=== PATIENT | female | born 1950 | race Caucasian/White ===

== ENCOUNTER → 2025-02-19 | Outpatient (CLI) | payer MEDICARE, OTHER, SELFPAY ==
--- NOTE | 2025-02-19 14:26 | CT_ITS ---
PROCEDURE: CTA CHEST W/WO CONTRAST 02/19/2025 REASON FOR EXAM: L SUBCLAVIAN STENOSIS, HX CABG WITH TYLER TECHNIQUE: CTA CHEST W/WO CONTRAST Multiplanar Sagittal and Coronal images were obtained. 3D post processing was performed CONTRAST: Isovue 370 VOLUME: 100 mL One or more dose reduction techniques were used (e.g., Automated exposure control, adjustment of the mA and/or kV according to patient size, use of iterative reconstruction technique). RADIATION DOSE SUMMARY: CTDlvol: 7.05 mGy DLP: 266.62 mGycm COMPARISON: None FINDINGS: Hardware: None Lymph nodes: Small benign-appearing mediastinal lymph nodes. Heart: Status post CABG. Thoracic Aorta: No thoracic aortic aneurysm or dissection. Atherosclerotic plaque formation of the aortic arch. Calcific plaque at the origin of the left subclavian artery causing the significant stenosis. Plaque also seen at the origin of the right subclavian artery. Pulmonary Vessels: No evidence of pulmonary embolism. Lungs and Airways: No focal infiltrate or consolidation is seen. Pleura: No pleural effusion. Upper Abdomen: Diffuse pancreatic atrophy. Questionable sludge or tiny gallstones along the dependent portion of the gallbladder lumen. Bones: Degenerative changes of the thoracic spine. CT/CTA Chest W/WO Contrast IMPRESSION: Atherosclerotic plaque formation at the origin subclavian arteries bilaterally worse on the left side. Prior CABG. Questionable sludge or tiny gallstones along the dependent portion of the gallb ladder lumen. Reading Location: [id number]
[2025-02-19 15:12] LABS: CREATININE FINGERSTICK < 1.0 mg/dL (0.55-1.02); EGFR FINGERSTICK > 60.0000 mL/min (>60)
== END | disposition home or self-care (01) ==
LOC: CT 14:21
PROVIDERS: Referring Provider Physician Assistant; Visit Provider Physician Assistant
DX: I77.1 Stricture of artery (principal); Z95.1 Presence of aortocoronary bypass graft
CPT/HCPCS: 71275; Q9967

== ENCOUNTER 2025-06-05 06:57 | Day surgery (SDC) | payer MEDICARE, OTHER, SELFPAY ==
[2025-06-04 06:55] VITALS: BMI 26.9
--- OUTSIDE RECORDS SUMMARY | 2025-06-05 07:05 | XMS RPT_ITS | CCD ---
Author Organization [facility] Care Team Providers Care Lead Tank Mechanic Name Role Phone BARBER ROY, DYAN Primary Care Physician [phone] Katerine Russell Unavailable Unavailable Sharri Carrion Unavailable Unavailable BARBER ROY, DYAN Primary Care Physician [phone] BARBER MAINTENANCE DATA ANALYST-RAMON, DYAN Attending Unavailab le BECERRIL MAINTENANCE DATA ANALYST-FRUIT RECEIVER, DYAN Primary Care Unavailab le BECERRIL MAINTENANCE DATA ANALYST-FRUIT RECEIVER, DYAN Attending Unavailab le BECERRIL MAINTENANCE DATA ANALYST-FRUIT RECEIVER, DYAN Primary Care Unavailab le BECERRIL MAINTENANCE DATA ANALYST-FRUIT RECEIVER, DYAN Attending Unavailab le BECERRIL MAINTENANCE DATA ANALYST-FRUIT RECEIVER, DYAN Primary Care Unavailab le BECERRIL MAINTENANCE DATA ANALYST-FRUIT RECEIVER, DYAN Attending Unavailab le BECERRIL MAINTENANCE DATA ANALYST-FRUIT RECEIVER, DYAN Primary Care Unavailab le BECERRIL MAINTENANCE DATA ANALYST-FRUIT RECEIVER, DYAN Attending Unavailab le BECERRIL MAINTENANCE DATA ANALYST-FRUIT RECEIVER, DYAN Primary Care Unavailab le BECERRIL MAINTENANCE DATA ANALYST-FRUIT RECEIVER, DYAN Attending Unavailab le BECERRIL MAINTENANCE DATA ANALYST-FRUIT RECEIVER, DYAN Primary Care Unavailab le BECERRIL MAINTENANCE DATA ANALYST-FRUIT RECEIVER, DYAN Attending Unavailab le BECERRIL MAINTENANCE DATA ANALYST-FRUIT RECEIVER, DYAN Primary Care Unavailab le BECERRIL MAINTENANCE DATA ANALYST-FRUIT RECEIVER, DYAN Attending Unavailab le BECERRIL MAINTENANCE DATA ANALYST-FRUIT RECEIVER, DYAN Primary Care Unavailab le BECERRIL MAINTENANCE DATA ANALYST-FRUIT RECEIVER, DYAN Attending Unavailab le BECERRIL MAINTENANCE DATA ANALYST-FRUIT RECEIVER, DYAN Primary Care Unavailab le BECERRIL MAINTENANCE DATA ANALYST-FRUIT RECEIVER, DYAN Attending Unavailab le BECERRIL MAINTENANCE DATA ANALYST-FRUIT RECEIVER, DYAN Primary Care Unavailab le BECERRIL MAINTENANCE DATA ANALYST-FRUIT RECEIVER, DYAN Admitting Unavailab le BECERRIL MAINTENANCE DATA ANALYST-FRUIT RECEIVER, DYAN Primary Care Physician [phone] Vivien Villegas Attending Provider [phone] BECERRIL MAINTENANCE DATA ANALYST-FRUIT RECEIVER, DYAN Attending Unavailab le BECERRIL MAINTENANCE DATA ANALYST-FRUIT RECEIVER, DYAN Primary Care Unavailab le BECERRIL MAINTENANCE DATA ANALYST-FRUIT RECEIVER, DYAN Primary Care Unavailab DR CATHERINE Schmid MD Attending Unavailabl e BECERRIL MAINTENANCE DATA ANALYST-FRUIT RECEIVER, DYAN Attending Unavailab le BECERRIL MAINTENANCE DATA ANALYST-FRUIT RECEIVER, DYAN Primary Care Unavailab le BECERRIL MAINTENANCE DATA ANALYST-FRUIT RECEIVER, DYAN Attending Unavailab le BECERRIL MAINTENANCE DATA ANALYST-FRUIT RECEIVER, DYAN Admitting Unavailab le BECERRIL MAINTENANCE DATA ANALYST-FRUIT RECEIVER, DYAN Primary Care Unavailab le BECERRIL MAINTENANCE DATA ANALYST-FRUIT RECEIVER, DYAN Attending Unavailab le BECERRIL MAINTENANCE DATA ANALYST-FRUIT RECEIVER, DYAN Primary Care Unavailab le Vivien Villegas Referring Provider [phone] BECERRIL DYAN S Primary Care Provider BECERRIL MAINTENANCE DATA ANALYST-FRUIT RECEIVER, DYAN Attending Unavailab le BECERRIL MAINTENANCE DATA ANALYST-FRUIT RECEIVER, DYAN Primary Care Unavailab le BECERRIL MAINTENANCE DATA ANALYST-FRUIT RECEIVER, DYAN Attending Unavailab le BECERRIL MAINTENANCE DATA ANALYST-FRUIT RECEIVER, DYAN Primary Care Unavailab le BECERRIL MAINTENANCE DATA ANALYST-FRUIT RECEIVER, DYAN Attending Unavailab le BECERRIL MAINTENANCE DATA ANALYST-FRUIT RECEIVER, DYAN Primary Care Unavailab le BECERRIL MAINTENANCE DATA ANALYST-FRUIT RECEIVER, DYAN Attending Unavailab le BECERRIL MAINTENANCE DATA ANALYST-FRUIT RECEIVER, DYAN Primary Care Unavailab le BECERRIL MAINTENANCE DATA ANALYST-FRUIT RECEIVER, DYAN Attending Unavailab le BECERRIL MAINTENANCE DATA ANALYST-FRUIT RECEIVER, DYAN Primary Care Unavailab Vivien Bean Attending Physician [phone] Vivien Villegas Referring Provider [phone] DYAN BECERRIL S Primary Care Physician [phone] Dr. Adin Burgos MD Attending Physician Vivien Solis Attending Unavailable Adin Burgos Attending Unavailable Vivien Solis Referring Unavailable MELISSA GROVES Primary Care Unavailable Vivien Solis Attending Unavailable Adin Burgos Attending Unavailable Medications Current Medications Medication Drug Class(es) Dates Sig (Normalized) Sig (Original) acetaminophen 650 mg oral tablet (4 sources) Start: 05-02-2022 acetaminophen Dose : 650 mg =, Oral, q4h, PRN Pain, scale 1-3, 0 Refill(s) Start Date: 05/02/22 Status: Ordered Alcohol Swabs (4 sources) Start: 01-17-2020 Alcohol Swabs See Instructions, New DMII BID testing, # 1 EA, 0 Refill(s), Pharmacy: [facility] #63, New onset type 2 diabetes mellitus, 164.5, cm, 01/17/20 14:54:00 EDT, Height, 85.2, kg, 01/17/20 14:54:00 EDT, Dosing Weight Start Date: 01/17/20 Status: Ordered amiodarone hydrochloride 200 mg oral tablet (5 sources) Antiarrhythmic Start: 09-13-2022 amiodarone 200 mg oral tablet Dose : 200 mg = 1 tab(s), Oral, qDay, # 90 tab(s), 3 Refill(s), Pharmacy: [facility] #63, 170, cm, 07/13/22 12:50:00 EST, Height, kg, 09/09/22 11:04:00 EDT, Dosing Weight Start Date: 09/13/22 Status: Ordered Start: 05-02-2022 End: 06-09-2022 amiodarone 200 mg oral table t Dose : 200 mg = 1 tab(s), Oral, qDay, # 90 tab(s), 3 Refill(s), Pharmacy: [facility], 170, cm, 06/04/22 8:18:00 EST, Height, kg, 06/04/22 9:15:00 EST, Dosing Weight Start Date: 06/08/22 Status: Ordered amoxicillin 875 mg / clavulanate 125 mg oral tablet (1 source) Penicillin-class Antibacterial Start: 12-10-2024 End: 12-20-2024 take 1 tablet by mouth every twelve hours amoxicillin-clavulanate 875 mg-125 mg oral tablet 1 tab(s), Oral, q12h, X 10 day(s), # 20 tab(s), 0 Refill(s), 12/20/24 1:58:00 PM EDT, Pharmacy: [facility] #[facility], LLQ pain, 170, cm, 12/10/24 13:00:00 EDT, Height, 76, kg, 12/10/24 13:00:00 EDT, Dosing Weight Start Date: 12/10/24 Stop Date: 12/20/24 Status: Ordered Quantity: 20.0 Unit: tab(s) Repeat number: 1 Indications: Left lower quadrant pain; aspirin 81 mg oral tablet (20 sources) Platelet Aggregation Inhibitor, Nonsteroidal Anti-inflammatory Drug Start: 01-28-2025 take 1 tablet by mouth once daily Start: 04-16-2021 aspirin 81 mg oral delayed release tablet Dose : 81 mg = 1 tab(s), Oral, Daily, 0 Refill(s) Start Date: 04/16/21 Status: Ordered Repeat number: 1 Start: 04-16-2021 aspirin 81 mg oral delayed release tablet Dose : 81 mg = 1 tab(s), Oral, Daily, 0 Refill(s) Start Date: 04/16/21 Status: Ordered atorvastatin 40 mg oral tablet (17 sources) HMG-CoA Reductase Inhibitor Start: 01-30-2025 take 1 tablet by mouth at bedtime Start: 08-21-2024 Lipitor 40 mg oral tablet Dose : 40 mg = 1 tab(s), Oral, qDay, # 90 tab(s), 3 Refill(s), Pharmacy: [facility] #63, 170, cm, 06/11/24 13:07:00 EST, Height, kg, 06/11/24 13:07:00 EST, Dosing Weight Start Date: 08/21/24 Status: Ordered Quantity: 90.0 Unit: tab(s) Repeat number: 4 Start: 03-23-2024 Lipitor 40 mg oral tablet Dose : 40 mg = 1 tab(s), Oral, qDay, # 90 tab(s), 3 Refill(s), Pharmacy: [facility] #63, 170, cm, 03/23/24 13:25:00 EDT, Height, kg, 03/23/24 13:25:00 EDT, Dosing Weight Start Date: 03/23/24 Status: Ordered Start: 07-20-2023 Lipitor 40 mg oral tablet Dose : 40 mg = 1 tab(s), Oral, qDay, # 90 tab(s), 3 Refill(s), Pharmacy: [facility] #63, 170.2, cm, 06/21/23 14:22:00 EST, Height, kg, 06/21/23 14:22:00 EST, Dosing Weight Start Date: 07/20/23 Status: Ordered Start: 05-02-2022 Lipitor 40 mg oral tablet Dose : 40 mg = 1 tab(s), Oral, qDay, # 90 tab(s), 2 Refill(s), Pharmacy: [facility] #63, 170, cm, 10/04/22 14:44:00 EDT, Height, kg, 10/04/22 14:44:00 EDT, Dosing Weight Start Date: 10/06/22 Status: Ordered Blood Glucose Test Machine (4 sources) Start: 01-17-2020 Blood Glucose Test Machine See Instructions, New DMII BID testing, # 1 EA, 0 Refill(s), Pharmacy: [facility] #63, New onset type 2 diabetes mellitus, 164.5, cm, 01/17/20 14:54:00 EDT, Height, 85.2, kg, 01/17/20 14:54:00 EDT, Dosing Weight Start Date: 01/17/20 Status: Ordered cholecalciferol 1.25 mg oral capsule (5 sources) Vitamin D Start: 04-20-2022 cholecalcifero l 1250 mcg (50,000 intl units) oral capsule Dose : 1,250 mcg = 1 cap(s), Oral, Tuesday Start Date: 04/20/22 Status: Ordered cyclobenzaprine hydrochloride 10 mg oral tablet (3 sources) Muscle Relaxant Start: 02-22-2022 cyclobenzaprin e 10 mg oral tablet Dose : 10 mg = 1 tab(s), Oral, TID, PRN as needed for spasm, # 30 tab(s), 0 Refill(s), Pharmacy: [facility] #63, 167.6, cm, 02/22/22 12:53:00 EDT, Height Start Date: 02/22/22 Status: Ordered Start: 10-01-2021 take 1 tablet by yasmine th three times daily cyclobenzaprine 5 mg oral tablet TAKE 1 TABLET BY MOUTH THREE TIMES DAILY FOR 14 DAYS Start Date: 10/01/21 Status: Ordered diclofenac sodium 0.01 mg/mg topical gel (1 source) Nonsteroidal Anti-inflammatory Drug Start: 12-07-2021 diclofenac 1% topical gel 4 = gram(s), Topical, QID, PRN as needed for pain, May substitue with cream, lotion, or any other topical as approved by insurance., # 1 EA, 3 Refill(s), Pharmacy: [facility] #63, Gel, 167.6, cm, 12/07/21 10:37:00 EDT, Height, 80.4 Start Date: 12/07/21 Status: Ordered 12 hr guaiFENesin 600 mg extended release oral tablet (3 sources) Start: 05-02-2022 Mucinex 600 mg oral tablet, extended release Dose : 600 mg = 1 tab(s), Oral, BID, PRN Secretions, 0 Refill(s) Start Date: 05/02/22 Status: Ordered ibuprofen 200 mg oral tablet (3 sources) Nonsteroidal Anti-inflammatory Drug Start: 04-20-2022 Advil 200 mg oral tablet Dose : 200 mg = 1 tab(s), Oral, q6hr, PRN as needed for pain Start Date: 04/20/22 Status: Ordered ammonium lactate 120 mg/ml topical cream (3 sources) Start: 10-07-2022 ammonium lactate 12% topical cream Apply 1 margo, Topical, BID, # 140 gram(s), 1 Refill(s), Pharmacy: [facility] #63, 164.4, cm, 10/07/22 12:57:00 EDT, Height, 79.3 Start Date: 10/07/22 Status: Ordered metFORMIN hydrochloride 500 mg oral tablet (20 sources) Biguanide Start: 06-16-2023 End: 06-06-2025 take 1 tablet by mouth twice daily Start: 11-24-2021 End: 04-25-2023 metFORMIN 500 mg oral tablet (IR) Dose : 1,000 mg = 2 tab(s), Oral, BID, # 360 tab(s), 3 Refill(s), Pharmacy: [facility] #63, New onset type 2 diabetes mellitus, 170.2, cm, 04/20/22 18:20:00 EDT, Height, kg, 04/27/22 7:02:00 EDT, Dosing Weight Start Date: 04/30/22 Stop Date: 04/25/23 Status: Ordered Start: 10-23-2020 metFORMIN 500 mg oral tablet (IR) Dose : 1,000 mg = 2 tab(s), Oral, BID, # 360 tab(s), 3 Refill(s), Pharmacy: [facility] #63, New onset type 2 diabetes mellitus, 170.2, cm, 10/23/20 11:14:00 EDT, Height, kg, 10/23/20 11:14:00 EDT, Dosing Weight Start Date: 10/23/20 Status: Ordered 24 hr metoprolol succinate 25 mg extended release oral tablet (20 sources) beta-Adrenergic Darrin Start: 01-30-2025 take 1 tablet by mouth twice daily Start: 03-23-2024 metoprolol tar trate 25 mg oral tablet Dose : 25 mg = 1 tab(s), Oral, BID, # 180 tab(s), 3 Refill(s), Pharmacy: [facility] #63, 170, cm, 03/23/24 13:25:00 EDT, Height, kg, 03/23/24 13:25:00 EDT, Dosing Weight Start Date: 03/23/24 Status: Ordered Quantity: 180.0 Unit: tab(s) Repeat number: 4 Start: 10-10-2023 metoprolol tar trate 25 mg oral tablet Dose : 25 mg = 1 tab(s), Oral, BID, # 180 tab(s), 1 Refill(s), Pharmacy: [facility] #63, 170.2, cm, 07/21/23 15:38:00 EST, Height, kg, 07/21/23 15:38:00 EST, Dosing Weight Start Date: 10/10/23 Status: Ordered Start: 09-15-2022 metoprolol tar trate 25 mg oral tablet Dose : 25 mg = 1 tab(s), Oral, BID, # 180 tab(s), 3 Refill(s), Pharmacy: [facility] #63, 170, cm, 07/13/22 12:50:00 EST, Height, kg, 09/09/22 11:04:00 EDT, Dosing Weight Start Date: 09/15/22 Status: Ordered Start: 05-02-2022 metoprolol tar trate 25 mg oral tablet Dose : 25 mg = 1 tab(s), Oral, BID, # 60 tab(s), 3 Refill(s), Pharmacy: [facility] #63, 170.2, cm, 04/20/22 18:20:00 EDT, Height Start Date: 05/02/22 Status: Ordered Start: 05-02-2022 End: 05-02-2022 metoprolol tartrate ([place] or) Start: 05/02/22 8:00:00 EST, Dose = 25 mg, = 1 tab(s), Oral, Hold if SBP (mmHg) Start Date: 05/02/22 Stop Date: 05/02/22 Status: Completed Start: 05-01-2022 End: 05-01-2022 metoprolol tartrate ([place] or) Start: 05/01/22 17:00:00 EDT, Dose = 25 mg, = 1 tab(s), Oral, Hold if SBP (mmHg) Start Date: 05/01/22 Stop Date: 05/01/22 Status: Completed Start: 05-01-2022 End: 05-01-2022 metoprolol tartrate ([place]op[place] or) Start: 05/01/22 8:00:00 EDT, Dose = 25 mg, = 1 tab(s), Oral, Hold if SBP (mmHg) Start Date: 05/01/22 Stop Date: 05/01/22 Status: Completed Start: 04-20-2022 End: 04-20-2022 metoprolol tartrate 25 mg or al tablet Start: 04/20/22 12:00:00 EDT, Dose = 25 mg, = 1 tab(s), Oral, 04/20/22 12:00:00 EDT Start Date: 04/20/22 Stop Date: 04/20/22 Status: Completed nitroglycerin 0.4 mg sublingual tablet (1 source) Nitrate Vasodilator Start: 02-22-2022 nitroglyce rin 0.4 mg sublingual tablet 0.4 mg Dose = 1 tab(s), Sublingual, q5min, PRN for chest pain, # 25 tab(s), 0 Refill(s), Pharmacy: [facility], Chest pain, 167.6, cm, 02/22/22 12:53:00 EDT, Height Start Date: 02/22/22 Status: Ordered oxyCODONE hydrochloride 5 mg oral tablet (2 sources) Opioid Agonist Start: 05-02-2022 End: 05-09-2022 oxyCODONE 5 mg oral tablet ( IMMEDIATE release ) Dose : 5 mg = 1 tab(s), Oral, q6hr, PRN Pain, scale 7-10, X 7 day(s), # 28 tab(s), 0 Refill(s), 05/09/22 12:12:00 EST, Pharmacy: [facility], NSTEMI (non-ST elevated myocardial infarction)/CAD EF 40-45% S/P CABG x3 04/26/2022 Acute... Start Date: 05/02/22 Stop Date: 05/09/22 Status: Ordered POLYETHYLENE GLYCOL 3350 (3 sources) Osmotic Laxative Start: 05-02-2022 polyethylene glycol 3350 Oral, qDay, PRN Constipation, 0 Refill(s) Start Date: 05/02/22 Status: Ordered simvastatin 40 mg oral tablet (5 sources) HMG-CoA Reductase Inhibitor Start: 09-15-2021 simvastatin 40 mg or al tablet Dose : 40 mg = 1 tab(s), Oral, qHS, New dose, pt will finish the Rx she has at home by taking 2 per day before filling this Rx., # 90 tab(s), 3 Refill(s), Pharmacy: [facility], 167.6, cm, 09/15/21 15:08:00 EDT, Height, kg, 09/15/21 15:... Start Date: 09/15/21 Status: Ordered Start: 04-16-2021 take 0.5 tablet by m outh once daily at bedtime simvastatin 20 mg oral tablet See Instructions, Dosage increase, cancel prior remaining refills and replace with new Rx. 1 and 1/2 tab po qhs, # 135 EA, 3 Refill(s), Pharmacy: [facility], Hyperlipidemia, 170, cm, 04/16/21 13:55:00 EDT, Height, kg, 04/16/21 13:55:0... Start Date: 04/16/21 Status: Ordered Start: 10-23-2020 simvastatin 20 mg oral tablet Dose : 20 mg = 1 tab(s), Oral, qHS, # 90 tab(s), 3 Refill(s), Pharmacy: [facility], 170.2, cm, 10/23/20 11:14:00 EDT, Height, kg, 10/23/20 11:14:00 EDT, Dosing Weight Start Date: 10/23/20 Status: Ordered Vitamin D3 1250 mcg (50,000 intl units) oral capsule (11 sources) Start: 03-21-2023 take 1 capsule by mouth once, then take 1 capsule by mouth every week Vitamin D3 1250 mcg (50,000 intl units) oral capsule Dose : 1,250 mcg = 1 cap(s), Oral, qWeek, # 12 cap(s), 0 Refill(s), Pharmacy: [facility], Vitamin D deficiency, 170.2, cm, 03/21/23 13:02:00 EDT, Height, kg, 03/21/23 13:02:00 EDT, Dosing Weight Start Date: 03/21/23 Status: Ordered Quantity: 12.0 Unit: cap(s) Repeat number: 1 Indications: Vitamin D deficiency, unspecified; Start: 03-21-2023 Vitamin D3 125 0 mcg (50,000 intl units) oral capsule Dose : 1,250 mcg = 1 cap(s), Oral, qWeek, # 12 cap(s), 0 Refill(s), Pharmacy: [facility], Vitamin D deficiency, 170.2, cm, 03/21/23 13:02:00 EDT, Height, kg, 03/21/23 13:02:00 EDT, Dosing Weight Start Date: 03/21/23 Status: Ordered Start: 10-07-2022 Vitamin D3 125 0 mcg (50,000 intl units) oral capsule Dose : 1,250 mcg = 1 cap(s), Oral, qWeek, # 12 cap(s), 0 Refill(s), Pharmacy: [facility], Vitamin D deficiency, 164.4, cm, 10/07/22 12:57:00 EDT, Height Start Date: 10/07/22 Status: Ordered Start: 09-15-2021 Vitamin D3 125 0 mcg (50,000 intl units) oral capsule Dose : 1,250 mcg = 1 cap(s), Oral, qWeek, # 12 cap(s), 3 Refill(s), Pharmacy: [facility], Vitamin D deficiency Medicare annual wellness visit, subsequent, 167.6, cm, 09/15/21 15:08:00 EDT, Height, kg, 09/15/21 15:08:00 EDT, Dosing We... Start Date: 09/15/21 Status: Ordered warfarin sodium 6 mg oral tablet (10 sources) Vitamin K Antagonist Start: 08-04-2022 warfarin 6 mg oral tablet Dose : 6 mg = 1 tab(s), Oral, qDay, # 90 tab(s), 0 Refill(s), called to pharmacy (Rx) Start Date: 08/04/22 Status: Ordered Start: 05-17-2022 warfarin 6 mg oral tablet Dose : 6 mg = 1 tab(s), Oral, qDay, called to [facility], # 30 tab(s), 1 Refill(s), called to pharmacy (Rx) Start Date: 05/17/22 Status: Ordered Start: 05-02-2022 warfarin 2.5 m g oral tablet Dose : 2.5 mg = 1 tab(s), Oral, Every other day, starting 05/02/22, # 30 tab(s), 2 Refill(s), Pharmacy: [facility], 170.2, cm, 04/20/22 18:20:00 EDT, Height Start Date: 05/02/22 Status: Ordered Start: 05-02-2022 warfarin 5 mg oral tablet Dose : 5 mg = 1 tab(s), Oral, Every other day, Starting 05/03/22, # 15 tab(s), 2 Refill(s), Pharmacy: [facility], 170.2, cm, 04/20/22 18:20:00 EDT, Height Start Date: 05/02/22 Status: Ordered Problems Active Problems Problem Classification Problem Date Documented Date Episodic/Chronic Abdominal pain (4 sources) Left lower quadrant pain; Translations: [Left lower quadrant pain] Onset: 07-22-2023 Episodic Acute myocardial infarction (2 sources) Non-ST elevation (NSTEMI) myocardial infarction; Translations: [Non-ST elevation (NSTEMI) myocardial infarction] Onset: 04-21-2022 Chronic Acute posthemorrhagic anemia (2 sources) Acute posthemorrhagic anemia; Translations: [Acute posthemorrhagic anemia] Onset: 04-27-2022 Episodic Administrative/social admission (15 sources) Procedure needed 01-22-2021 Episodic Cardiac dysrhythmias (12 sources) Unspecified atrial fibrillation; Translations: [Atrial fibrillation] Onset: 04-29-2022 Chronic Complication of device; implant or graft (12 sources) Arteriosclerosis of coronary artery bypass graft; Translations: [Atherosclerosis of coronary artery bypass graft(s) without angina pectoris] Onset: 06-04-2024 07-13-2022 Chronic Congestive heart failure; nonhypertensive (1 source) Diastolic heart failure; Translations: [Unspecified diastolic (congestive) heart failure] Chronic Coronary atherosclerosis and other heart disease (19 sources) Generalized ischemic myocardial dysfunction; Translations: [Ischemic cardiomyopathy] Onset: 04-21-2022 Chronic Diabetes mellitus without complication (20 sources) Type 2 diabetes mellitus; Translations: [Type 2 diabetes mellitus without complication] Onset: 04-19-2022 01-17-2020 Chronic Disorders of lipid metabolism (20 sources) Hyperlipidemia; Translations: [Hyperlipidemia, unspecified] Onset: 04-19-2022 04-01-2020 Chronic Essential hypertension (1 source) Essential hypertension; Translations: [Essential (primary) hypertension] Onset: 04-21-2022 Chronic Heart valve disorders (20 sources) Aortic valve stenosis; Translations: [Aortic stenosis, non-rheumatic ] Onset: 04-21-2022 04-18-2020 Chronic Hypertension with complications and secondary hypertension (1 source) Hypertensive heart failure; Translations: [Hypertensive heart disease with heart failure] Chronic Lymphadenitis (18 sources) Lymphadenopathy 04-16-2021 Episodic Nonspecific chest pain (16 sources) Chest pain; Translations: [Chest pain, unspecified] Onset: 04-19-2022 Episodic Nutritional deficiencies (20 sources) Vitamin D deficiency; Translations: [Vitamin D deficiency, unspecified] Onset: 06-17-2023 10-23-2020 Chronic Occlusion or stenosis of precerebral arteries (5 sources) Left carotid artery stenosis; Translations: [Occlusion and stenosis of left carotid artery] Onset: 01-30-2025 01-30-2025 Chronic Other aftercare (13 sources) Follow-up status 02-22-2022 Episodic Other aftercare (4 sources) Post-discharge follow-up 07-13-2022 Episodic Other bone disease and musculoskeletal deformities (9 sources) Osteopenia 10-07-2022 Episodic Other bone disease and musculoskeletal deformities (1 source) Other specified disorders of bone density and structure, multiple sites; Translations: [Other specified disorders of bone density and structure, multiple sites] Onset: 01-25-2025 Episodic Other circulatory disease (5 sources) Stenosis of left subclavian artery; Translations: [Stricture of artery] 01-30-2025 Chronic Comment on above: CTA- images reviewed , 75% stenosis of subclavian, lesion extends to just proximal to vertebral origin, mild calcification Other circulatory disease (1 source) Stricture of artery; Translations: [Stricture of artery] Onset: 02-27-2025 Chronic Other circulatory disease (2 sources) Carotid bruit 12-10-2024 Episodic Other connective tissue disease (20 sources) Pain in axilla 10-01-2021 Episodic Other connective tissue disease (16 sources) Muscle pain; Translations: [Myalgia, unspecified site] Onset: 04-19-2022 Episodic Other lower respiratory disease (16 sources) Nodule of lung 10-20-2021 Episodic Other lower respiratory disease (2 sources) Solitary pulmonary nodule; Translations: [Solitary pulmonary nodule] Onset: 12-12-2023 Episodic Other lower respiratory disease (2 sources) Multiple nodules of lung 12-10-2024 Episodic Other non-traumatic joint disorders (18 sources) Shoulder pain 12-31-2019 Episodic Other nutritional; endocrine; and metabolic disorders (15 sources) Body mass index 25-29 - overweight 01-22-2021 Episodic Other nutritional; endocrine; and metabolic disorders (2 sources) Overweight in adulthood with body mass index of 25 or more but less than 30 12-10-2024 Episodic Other screening for suspected conditions (not mental disorders or infectious disease) (20 sources) CT of chest abnormal; Translations: [Encounter for screening for nutritional disorder] Onset: 12-12-2023 10-20-2021 Episodic Other skin disorders (17 sources) Mass of axilla 10-01-2021 Episodic Other upper respiratory disease (16 sources) Disorder of trachea 10-20-2021 Episodic [place]-; endo-; and myocarditis; cardiomyopathy (except that caused by tuberculosis or sexually transmitted disease) (1 source) Cardiomyopathy; Translations: [Cardiomyopathy, unspecified] Chronic Residual codes; unclassified (9 sources) Preoperative state 04-18-2020 Episodic Residual codes; unclassified (2 sources) Tobacco user; Translations: [Tobacco use] Onset: 04-19-2022 Episodic Residual codes; unclassified (1 source) Pain; Translations: [Pain, unspecified] Onset: 05-02-2022 Episodic Substance-related disorders (12 sources) Nicotine dependence; Translations: [Nicotine dependence, unspecified, uncomplicated] Onset: 06-04-2024 07-13-2022 Chronic Unclassified (20 sources) Patient encounter status 12-31-2019 Past or Other Problems Problem Classification Problem Date Documented Da te Episodic/Chronic Coronary atherosclerosis and other heart disease (2 sources) Presence of aortocoronary bypass graft; Translations: [Presence of aortocoronary bypass graft] Onset: 06-17-2023 Episodic Results Test Name Value Interpretation Reference Range Facility MR/[email or web address] 04-15-2025 [email or web address] [address] [place] [address] OFFICE VISIT Date of Service: 04/15/25 MR#: [id number] Acct: [id number] Name: CAITY STRICKLAND Rep #: [id number] : 1950 Provider: Dr. Adin Burgos MD Age/Sex: 75/F Location: [facility] Status: Signed Intake Vital Signs 01/30/25 13:42 04/15/25 15:46 04/15/25 15:46 Height 5 ft 6 in 5 ft 6 in 5 ft 6 in Weight: 167 lb 166 lb 166 lb BMI 26.9 26.8 26.8 BP 158/74 H 172/78 H 147/78 H Blood Pressure Location Lt brachial Rt brachial Lt brachial Position Sitting Sitting Sitting Respiration 18 16 Pulse 64 70 Pulse Source Monitor NIBP Temp 98.6 F 98.6 F Temp Source Temporal Temporal Pulse Oximetry (%) 95 94 Oxygen Delivery Method room air room air Intake Visit Reasons: Discuss Results Legal Cashier Required: No Accompanied by: Self Is patient in pain?: No Allergies No Known Allergies Allergy (Verified 04/15/25 15:48) Medications ???Medication ???Instructions ???Recorded ???Confirmed ???Type aspirin 81 mg tablet 81 mg PO QDAY 01/28/25 04/15/25 Hi story atorvastatin 40 mg tablet (Lipitor) 40 mg PO QHS 01/30/25 04/15/25 History metformin 500 mg tablet 500 mg PO BID 01/30/25 04/15/25 Hi story metoprolol succinate 25 mg 25 mg PO BID 01/30/25 04/15/25 His tory tablet,extended release 24 hr Have you fallen in the past year?: No PFSH Medical History Myocardial infarction ( 03/2023) Surgical History History of open heart surgery ( 04/26/23) Family History Mother Diabetes Social History Smoking Status: Current every day smoker additional social history: ASA everyday HPI HPI HPI: CAITY STRICKLAND, is a 75 F who presents to the office today for follow up discussion of left subclavian stenosis initially identified on carotid duplex at outside facility. She has history of prior CABG with TYLER about 2 years ago after acute VT. At time of VT she had no chest pain or shortness of breath, just felt unwell; has history of DM. She denies arm claudication, dizziness or CP with repetitive arm activity. She has had a CTA. ROS General General: No weight change, appetite, fatigue, colon cancer, breast cancer or weakness HEENT HEENT: No difficulty swallowing, eye injury, eye surgery, swollen glands or hoarseness Endo Endocrine: Yes diabetes mellitus; No thyroid disease, thyroid cancer, Hair loss, heat intolerance or cold intolerance Skin Skin: No rash or changing moles Musc Musculoskeletal: No back problems, arthritis, rheumatoid arthritis, gout or joint pain Cardio Cardiovascular: Yes high blood pressure; No murmur, pacemaker, heart disease, atrial fibrillation, heart attack, heart stent, palpitations, shortness of breath with exertion or chest pain Psych Psychiatric: No depression, anxiety or hearing voices Resp Respiratory: No shortness of breath, No sleep apnea, No cough, No COPD, No asthma, No emphysema and No wheezing Gastro Gastrointestinal: No abdominal pain, No nausea or vomiting, No diarrhea, No constipation, No blood in stool, No acid reflux, No hemorrhoids, No ulcers, No gallbladder problem and No black,tarry stools Ayush Hematologic: No blood thinners, No blood disorders, No bleeding, No anemia and No blood clots Neuro Neurologic: No system reviewed and no additional complaints, except as documented, No as per HPI, No abnormal gait, No abnormal hearing, No abnormal movements, No abnormal speech, No behavioral changes, No burning sensations, No confusion, No convulsions, No disequilibrium, No dizziness, No localized weakness, No frequent falls, No headache(s), No lack of coordination, No loss of vision, No memory loss, No numbness, No other visual disturbances, No radicular pain, No restless legs, No sensory deficit, No syncope, No tingling, No tremor(s), No weakness and No other Exam Const General: cooperative, healthy appearing, comfortable, no acute distress and well developed Nutritional Appearance: well nourished Orientation: alert, awake and oriented x3 [facility] Head: normocephalic and atraumatic Ears: hearing grossly normal bilaterally Nose: external nose normal Eyes General: appearance normal, both eyes and all related structures EOM: EOM intact bilaterally Neck Neck: normal visual inspection, full ROM, no lymphadenopathy and trachea midline Thyroid: thyroid normal Lymphatic: no lymphadenopathy noted Resp Effort Inspection: normal respiratory effort, able to speak in complete sentences, symmetric chest movement, no audible wheezes, not labored, no stridor and no use (more content not included)... Normal [facility] CT THORAX W/O CONTRASTon CT THORAX W/O CONTRAST ORIGINAL EXAMINATION: CT OF THE CHEST WITHOUT CONTRAST 03/05/2025 1:30 pm TECHNIQUE: CT of the chest was performed without the administration of intravenous contrast. Multiplanar reformatted images are provided for review. Automated exposure control, iterative reconstruction, and/or weight based adjustment of the mA/kV was utilized to reduce the radiation dose to as low as reasonably achievable. COMPARISON: August 30, 2023 HISTORY: ORDERING SYSTEM PROVIDED HISTORY: Reason for Exam: Lung nodules, multiple < 6mm, stable on prior exam Lung nodules, multiple < 6mm, stable on prior examno hx ca FINDINGS: Sgrq-nz-fwiqqtvn degenerative changes are noted in the spine. No acute osseous abnormality identified. Minor emphysema is evident, and there are small scattered areas of pulmonary and pleural scarring seen. Tiny scattered nodular densities are stable and are considered benign. No significant nodules are evident, and there is no focal consolidation seen. No pleural fluid is evident. No gross mediastinal adenopathy is evident. Coronary calcification noted. No additional contributory abnormality seen. IMPRESSION: Emphysema. No acute finding. No nodule requiring follow-up is evident on this exam. Interpreted by: Elizabeth Zavala MD Preliminary Report By: Elizabeth Zavala MD Electronically signed By Elizabeth Zavala MD Dictated Date: 03/06/2025 12:55:01 PM Prelim Date: 03/06/2025 12:59:46 PM Sign Date: 03/06/2025 12:59:46 PM Ordering Provider: DYAN BECERRIL Normal [facility] CREATININE FINGERSTICKon CREATININE WB < 1.0 Normal 0.55-1.02 [facility] Comment on above: Performed By: #### L 9100.0200 #### [facility] [address] [place], [address] EGFR WB > 60.0000 Normal >60 [facility] Comment on above: Performed By: #### L 9100.0200 #### [facility] [address] [facility] [place], [address] CTA Chest W/WO Contraston CTA Chest W/WO Contrast [facility] Imaging Services [address] [place] [address] CTA Chest W/WO Contrast MR#: [id number] Acct: [id number] Name: CAITY STRICKLAND Rep #: [id number] : 1950 F 74 From: Bruno xavier MD PCP: DYAN BECERRIL Status: REG CLI Study: CTA Chest W/WO Contrast Date of Exam: 02/19/25 Exam# [id number] Ordering Dr: Vivien Solis PROCEDURE: CTA CHEST W/WO CONTRAST 02/19/2025 REASON FOR EXAM: L SUBCLAVIAN STENOSIS, HX CABG WITH TYLER TECHNIQUE: CTA CHEST W/WO CONTRAST Multiplanar Sagittal and Coronal images were obtained. 3D post processing was performed CONTRAST: Isovue 370 VOLUME: 100 mL One or more dose reduction techniques were used (e.g., Automated exposure control, adjustment of the mA and/or kV according to patient size, use of iterative reconstruction technique). RADIATION DOSE SUMMARY: CTDlvol: 7.05 mGy DLP: 266.62 mGycm COMPARISON: None FINDINGS: Hardware: None Lymph nodes: Small benign-appearing mediastinal lymph nodes. Heart: Status post CABG. Thoracic Aorta: No thoracic aortic aneurysm or dissection. Atherosclerotic plaque formation of the aortic arch. Calcific plaque at the origin of the left subclavian artery causing the significant stenosis. Plaque also seen at the origin of the right subclavian artery. Pulmonary Vessels: No evidence of pulmonary embolism. Lungs and Airways: No focal infiltrate or consolidation is seen. Pleura: No pleural effusion. Upper Abdomen: Diffuse pancreatic atrophy. Questionable sludge or tiny gallstones along the dependent portion of the gallbladder lumen. Bones: Degenerative changes of the thoracic spine. CT/CTA Chest W/WO Contrast IMPRESSION: Atherosclerotic plaque formation at the origin subclavian arteries bilaterally worse on the left side. Prior CABG. Questionable sludge or tiny gallstones along the dependent portion of the gallbladder lumen. Reading Location: [id number] CC: JANAY Oneill; DYAN BECERRIL Senior Applications Analyst: Signed Normal [facility] EGFROrdered By: Vivien Solis on 02-19-2025 GFR/1.73 sq M.predicted among non-blacks MDRD (S/P/Bld) [Vol rate/Area] mL/min/{1.73_m2} >60 [facility] MR/BMS.Charmaine 01-30-2025 MR/BMS.JACKLYN [facility] Vascular Surgery [address] [place], [place] [address]. [address] [place] [address] OFFICE VISIT Date of Service: 01/30/25 MR#: [id number] Acct: [id number] Name: CAITY STRICKLAND Rep #: [id number] : 1950 Provider: JANAY Oneill Age/Sex: 74/F Location: [facility] [place].BV[facility] Status: Signed Intake Vital Signs 01/30/25 13:42 Height 5 ft 6 in Weight: 167 lb BMI 26.9 BP 158/74 H Blood Pressure Location Lt brachial Position Sitting Respiration 18 Pulse 64 Pulse Source Monitor Temp 98.6 F Temp Source Temporal Pulse Oximetry (%) 95 Oxygen Delivery Method room air Intake Visit Reasons: Carotid stenosis Is patient in pain?: No Allergies No Known Allergies Allergy (Verified 01/30/25 13:42) Medications ???Medication ???Instructions ???Recorded ???Confirmed ???Type aspirin 81 mg tablet 81 mg PO QDAY 01/28/25 01/28/25 Hi story atorvastatin 40 mg tablet (Lipitor) 40 mg PO QHS 01/30/25 01/30/25 History metformin 500 mg tablet 500 mg PO BID 01/30/25 01/30/25 Hi story metoprolol succinate 25 mg 25 mg PO BID 01/30/25 01/30/25 His tory tablet,extended release 24 hr Is last menstrual period known: No Post menopausal: Yes Patient : No Have you fallen in the past year?: No PFSH Medical History (Updated 01/30/25 @ 15:35 by JANAY Oneill) Myocardial infarction ( 03/2023) Surgical History (Updated 01/30/25 @ 15:35 by JANAY Oneill) History of open heart surgery ( 04/26/23) Family History (Updated 01/30/25 @ 13:34 by Alejandra Fuller MA) Mother Diabetes Social History (Updated 01/30/25 @ 13:35 by Alejandra Fuller MA) Smoking Status: Current every day smoker additional social history: ASA everyday HPI HPI HPI: CAITY STRICKLAND, is a 74 F who presents to the office today for evaluation of carotid artery and subclavian artery stenosis identified on recent duplex at [facility]. Carotid duplex report reviewed demonstrating <50% R ICA stenosis, 50-69% L ICA stenosis with max PSV 203/31 cm/s, and suggestion of L subclavian artery stenosis with max PSV 533 cm/s. She reports this test was performed for screening purposes. She denies any history of CVA or TIA. She denies any episodes of vision changes or loss, unilateral numbness/weakness/par esthesias, dysarthria, facial droop, vertigo, LUE claudication, syncope/presyncope or chest pain with use of her LUE. She has a history of CABG x 3 wih TYLER and L saph conduits 2 years ago and reports she has been doing well from that standpoint. She does smoke, reports about 1 pack per 4 days. ROS General General: No weight change, appetite, fatigue, colon cancer, breast cancer or weakness HEENT HEENT: No difficulty swallowing, eye injury, eye surgery, swollen glands or hoarseness Endo Endocrine: Yes diabetes mellitus; No thyroid disease, thyroid cancer, Hair loss, heat intolerance or cold intolerance Skin Skin: No rash or changing moles Musc Musculoskeletal: No back problems, arthritis, rheumatoid arthritis, gout or joint pain Cardio Cardiovascular: Yes high blood pressure; No murmur, pacemaker, heart disease, atrial fibrillation, heart attack, heart stent, palpitations, shortness of breath with exertion or chest pain Psych Psychiatric: No depression, anxiety or hearing voices Resp Respiratory: No shortness of breath, No sleep apnea, No cough, No COPD, No asthma, No emphysema and No wheezing Gastro Gastrointestinal: No abdominal pain, No nausea or vomiting, No diarrhea, No constipation, No blood in stool, No acid reflux, No hemorrhoids, No ulcers, No gallbladder problem and No black,tarry stools Ayush Hematologic: No blood thinners, No blood disorders, No bleeding, No anemia and No blood clots Neuro Neurologic: No system reviewed and no additional complaints, except as documented, No as per HPI, No abnormal gait, No abnormal hearing, No abnormal movements, No abnormal speech, No behavioral changes, No burning sensations, No confusion, No convulsions, No disequilibrium, No dizziness, No localized weakness, No frequent falls, No headache(s), No lack of coordination, No loss of vision, No memory loss, No numbness, No other visual disturbances, No radicular pain, No restless legs, No sensory deficit, No syncope, No tingling, No tremor(s), No weakness and No other Exam Const General: cooperative, comfortable and no acute distress Nutritional Appearance: average body habitus Orientation: alert, awake and oriented x3 [facility] Head: normocephalic and atraumatic Ears: hearing grossly normal bilaterally and external ears normal Nose: external nose normal Eyes General: appearance normal, both eyes and all related structures Neck Neck: normal visual inspection and trachea midline Resp Effort Inspection: normal respiratory effort, able to (more content not included)... Normal [facility] MA MAMMOGRAM SCREENING BILAT ERAL W/TOMOon 01-29-2025 MA MAMMOGRAM SCREENING BILATERAL W/PANDA ORIGINAL FROM: [facility]E [facility] [address], [place] [address] PROCEDURE FOR: [place] [address] Home: PID#: [id number] Exam#: [id number] : 1950 Age: 74 TO: DYAN BECERRIL [address] [place] [id number] Fax: NO FAX EXAMINATION: SCREENING DIGITAL BILATERAL MAMMOGRAM WITH TOMOSYNTHESIS, 01/25/2025 1:13 pm TECHNIQUE: Screening mammography of the bilateral breasts was performed with tomosynthesis. 2D standard and 3D tomosynthesis combination imaging performed through both breasts in the MLO and CC projection. Computer aided detection was utilized in the interpretation of this exam. COMPARISON: 01/12/2024, 11/04/2022, 10/25/2022, 10/11/2022, 09/24/2021 HISTORY: Breast cancer screening. FINDINGS: BREAST DENSITY: There are scattered areas of fibroglandular density. There are benign appearing calcifications in both breasts. There is a biopsy clip in the right breast. There are no significant masses or calcifications. IMPRESSION: No mammographic evidence of malignancy. Continued screening with annual mammograms is recommended. Binta Charles risk calculations, generated with the history provided, report this patient's 10 year risk and lifetime risk for developing breast cancer at 1.2% and 1.6%, respectively. Based on this assessment tool, if the patient's calculated lifetime risk is below 20%, then the patient is considered at average risk for developing breast cancer. If the patient's calculated lifetime risk is at or above 20%, then the patient is considered high risk for developing breast cancer and may be a candidate for supplemental breast MRI screening in addition to annual mammographic screening per the [employer]. BIRADS: BI-RADS: 2: Benign RECALL: 1 year screening RECALL TYPE: mammo LETTER SENT: Normal BI-RADS 1 and 2 Interpreted by: Ricky Francisco MD Preliminary Report By: Ricky Francisco MD Electronically signed By Ricky Francisco MD Dictated Date: 01/29/2025 4:51:40 PM Prelim Date: 01/29/2025 4:55:29 PM Sign Date: 01/29/2025 4:55:29 PM Ordering Provider: DYAN BECERRIL Manager Food Beverage: BRAD REYES letter sent: Normal BI-RADS 1 and 2 Mammogram BI-RADS: 2 Benign Normal [facility] BD BONE DENSITY DEXA AXIAL S [facility] 01-25-2025 BD BONE DENSITY DEXA AXIAL [place] ORIGINAL EXAMINATION: BONE DENSITOMETRY 01/25/2025 2:21 pm TECHNIQUE: A bone density dual x-ray absorptiometry (DEXA) scan was performed of the axial (e.g. hips, spine) and/or appendicular (e.g. radius) skeleton as appropriate. COMPARISON: None HISTORY: ORDERING SYSTEM PROVIDED HISTORY: Reason for Exam: screening FINDINGS: T Score Left Femoral Neck: -1.4 Left Femoral Neck: 0.692 (g/cm2) T Score Left Hip: -1.7 Left Hip: 0.730 (g/cm2) T Score Lumbar Spine: -0.4 Lumbar Spine: 1.008 (g/cmd2) FRAX: 10 year fracture risk assessment Major osteoporotic fracture: 10% Hip fracture: 1.7% IMPRESSION: Osteopenia by WHO criteria. World Health Organization criteria: (Comparing with young normal sex matched population) - Normal: T-score at or above -1 SD (standard deviation) - Osteopenia: T-score between -1 and -2.5 SD - Osteoporosis: T-score at or below -2.5 SD The NOF recommends that FDA-approved medical therapies be considered in post-menopausal women and men age >/= 50 years with a: * Hip or vertebral fracture, or * T-score of /= 20% for major osteoporotic fractures or * >/= 3% for hip fractures All treatment decisions require clinical judgement and consideration of individual patient factors, including patient preferences, comorbidities, previous drug use, risk factors not captured in the FRAX registered model (e.g., frailty, falls, vitamin D deficiency, increased bone turnover, interval significant decline in bone density) and possible under- or over-estimation of fracture risk by FRAX. Interpreted by: Ricky Hebert DO Preliminary Report By: Ricky Hebert DO Electronically signed By Ricky Hebert DO Dictated Date: 01/25/2025 2:28:17 PM Prelim Date: 01/25/2025 2:28:51 PM Sign Date: 01/25/2025 2:28:51 PM Ordering Provider: DYAN Angulo [facility] .Auto Diffon 12-03-2024 Basophil, Absolute 0.0 10 3/mcL Normal 0.0-0.3 [facility] Comment on above: Performed By: #### A DIFF, LIPID, TSH, GFR, VIDH, A1C, ANEU, CMP, CBC #### [address] [address] Basophils/100 WBC (Bld) 0.6 % Normal 0.0-2.5 [facility] Comment on above: Performed By: #### A DIFF, LIPID, TSH, GFR, VIDH, A1C, ANEU, CMP, CBC #### [address] [address] Eosinophil, Absolute 0.1 10 3/mcL Normal 0.0-0.7 [facility] Comment on above: Performed By: #### A DIFF, LIPID, TSH, GFR, VIDH, A1C, ANEU, CMP, CBC #### [address] [address] Eosinophils/100 WBC (Bld) 1.5 % Normal 0.0-6.0 [facility] Comment on above: Performed By: #### A DIFF, LIPID, TSH, GFR, VIDH, A1C, ANEU, CMP, CBC #### [address] [address] Lymphocyte, Absolute 1.9 10 3/mcL Normal 0.9-4.3 [facility] Comment on above: Performed By: #### A DIFF, LIPID, TSH, GFR, VIDH, A1C, ANEU, CMP, CBC #### [address] [address] Lymphocytes/100 WBC (Bld) 34.4 % Normal 20.0-40.0 [facility] Comment on above: Performed By: #### A DIFF, LIPID, TSH, GFR, VIDH, A1C, ANEU, CMP, CBC #### [address] [address] Monocyte, Absolute 0.3 10 3/mcL Normal 0.1-1.4 [facility] Comment on above: Performed By: #### A DIFF, LIPID, TSH, GFR, VIDH, A1C, ANEU, CMP, CBC #### [address] [address] Monocytes/100 WBC (Bld) 5.7 % Normal 2.0-13.0 [facility] Comment on above: Performed By: #### A DIFF, LIPID, TSH, GFR, VIDH, A1C, ANEU, CMP, CBC #### [address] [address] Neutrophils/100 WBC (Bld) 57.8 % Normal 50.0-75.0 [facility] Comment on above: Performed By: #### A DIFF, LIPID, TSH, GFR, VIDH, A1C, ANEU, CMP, CBC #### [address] [address] .GFRon 12-03-2024 Estimated Glomerular Filtration Rate 96 ml/min/1.73sqm Normal [facility] Comment on above: Result Comment: Stages of Chronic Kidney Disease (CKD) Stage Description eGFR(ml/min/1.73 sq.m.) CKD 1 Normal kidney function or >=90 normal kindney function with possible kidney damage (ex. Proteinuria) CKD 2 Kidney damage with mild loss 60-89 of kidney function CKD 3a Mild to moderate loss of kidney 45-59 function CKD 3b Moderate to severe loss of 30-44 of kindey function CKD 4 Severe loss of kidney function 15-29 CKD 5 Kidney failure <15 Note: (go live 2024) the eGFR calculation was updated to the 2020 CKD-EPI creatinine equation without a race factor to calculate the eGFR results. Performed By: #### A DIFF, LIPID, TSH, GFR, VIDH, A1C, ANEU, CMP, CBC #### [address] [address] .NEUABSon 12-03-2024 Neutrophil, Absolute 3.3 10 3/mcL Normal 2.3-8.1 [facility] Comment on above: Performed By: #### A DIFF, LIPID, TSH, GFR, VIDH, A1C, ANEU, CMP, CBC #### [place] [id number] A1Con 12-03-2024 Glucose [Mass/Vol] 137 mg/dL Normal [facility] Comment on above: Result Comment: Gabrielle mated Average Glucose calculated by equation ((28.7xA1C)-46.7) Estimated average glucose (eAG) is a calculated value from Hemoglobin A1C and is credit and collections representative of the average blood glucose level in the last 2-3 month period. Normal range: less than 114 mg/dL Performed By: #### A DIFF, LIPID, TSH, GFR, VIDH, A1C, ANEU, CMP, CBC #### [address] [address] HbA1c (Bld) [Mass fraction] 6.4 % Normal 4.3-6.4 [facility] Comment on above: Performed By: #### A DIFF, LIPID, TSH, GFR, VIDH, A1C, ANEU, CMP, CBC #### [address] [address] CBCon 12-03-2024 Erythrocyte distribution width (RBC) [Ratio] 13.4 % Normal 11.5-15.5 [facility] Comment on above: Performed By: #### A DIFF, LIPID, TSH, GFR, VIDH, A1C, ANEU, CMP, CBC #### [place] [id number] Hematocrit (Bld) [Volume fraction] 39.8 % Normal 34.0-46.0 [facility] Comment on above: Performed By: #### A DIFF, LIPID, TSH, GFR, VIDH, A1C, ANEU, CMP, CBC #### [address] [address] Hgb 13.7 G/dL Normal 12.0-16.0 [facility] Comment on above: Performed By: #### A DIFF, LIPID, TSH, GFR, VIDH, A1C, ANEU, CMP, CBC #### [address] [address] MCH (RBC) [Entitic mass] 32.4 pg Normal 27.0-33.0 [facility] Comment on above: Performed By: #### A DIFF, LIPID, TSH, GFR, VIDH, A1C, ANEU, CMP, CBC #### [address] [address] MCHC 34.4 G/dL Normal 32.0-36.0 [facility] Comment on above: Performed By: #### A DIFF, LIPID, TSH, GFR, VIDH, A1C, ANEU, CMP, CBC #### [address] [address] MCV (RBC) [Entitic vol] 94.3 fL Normal 80.0-99.0 [facility] Comment on above: Performed By: #### A DIFF, LIPID, TSH, GFR, VIDH, A1C, ANEU, CMP, CBC #### [address] [address] Platelet 211 10 3/mcL Normal 150-450 [facility] Comment on above: Performed By: #### A DIFF, LIPID, TSH, GFR, VIDH, A1C, ANEU, CMP, CBC #### [address] [address] Platelet mean volume (Bld) [Entitic vol] 9.2 fL Normal 6.6-10.5 [facility] Comment on above: Performed By: #### A DIFF, LIPID, TSH, GFR, VIDH, A1C, ANEU, CMP, CBC #### [address] [address] RBC 4.21 10 6/mcL Normal 4.10-5.30 [facility] Comment on above: Performed By: #### A DIFF, LIPID, TSH, GFR, VIDH, A1C, ANEU, CMP, CBC #### [address] [address] WBC 5.7 10 3/mcL Normal 4.5-10.8 [facility] Comment on above: Performed By: #### A DIFF, LIPID, TSH, GFR, VIDH, A1C, ANEU, CMP, CBC #### [address] [address] CMPon 12-03-2024 Albumin Level 3.5 G/dL Normal 3.4-4.8 [facility] Comment on above: Performed By: #### A DIFF, LIPID, TSH, GFR, VIDH, A1C, ANEU, CMP, CBC #### [address] [address] Albumin/Globulin [Mass ratio] 0.9 {ratio} Low 1.1-2.5 [facility] Comment on above: Performed By: #### A DIFF, LIPID, TSH, GFR, VIDH, A1C, ANEU, CMP, CBC #### [address] [address] ALP [Catalytic activity/Vol] 120 U/L Normal 40-135 [facility] Comment on above: Performed By: #### A DIFF, LIPID, TSH, GFR, VIDH, A1C, ANEU, CMP, CBC #### [address] [address] ALT [Catalytic activity/Vol] 23 U/L Normal 14-59 [facility] Comment on above: Performed By: #### A DIFF, LIPID, TSH, GFR, VIDH, A1C, ANEU, CMP, CBC #### [address] [address] AST [Catalytic activity/Vol] 18 U/L Normal 10-40 [facility] Comment on above: Performed By: #### A DIFF, LIPID, TSH, GFR, VIDH, A1C, ANEU, CMP, CBC #### [address] [address] Bili Total 0.4 mg/dL Normal 0.2-1.0 [facility] Comment on above: Result Comment: Use of this assay is not recommended for patients undergoing treatment with eltrombopag due to the potential for falsely elevated results. Performed By: #### A DIFF, LIPID, TSH, GFR, VIDH, A1C, ANEU, CMP, CBC #### [place] [address] BUN/Creatinine Ratio 19 ratio Normal 7-27 [facility] Comment on above: Performed By: #### A DIFF, LIPID, TSH, GFR, VIDH, A1C, ANEU, CMP, CBC #### [place] [address] Calcium [Mass/Vol] 8.8 mg/dL Normal 8.4-10.2 [facility] Comment on above: Performed By: #### A DIFF, LIPID, TSH, GFR, VIDH, A1C, ANEU, CMP, CBC #### [address] [address] Chloride [Moles/Vol] 105 mmol/L Normal 98-107 [facility] Comment on above: Performed By: #### A DIFF, LIPID, TSH, GFR, VIDH, A1C, ANEU, CMP, CBC #### [address] [address] CO2 [Moles/Vol] 29 mmol/L Normal 23-31 [facility] Comment on above: Performed By: #### A DIFF, LIPID, TSH, GFR, VIDH, A1C, ANEU, CMP, CBC #### [address] [address] Creatinine [Mass/Vol] 0.59 mg/dL Normal 0.51-0.95 [facility] Comment on above: Performed By: #### A DIFF, LIPID, TSH, GFR, VIDH, A1C, ANEU, CMP, CBC #### [address] [address] Electrolyte Balance 8.0 mEq/L Normal 4.0-15.0 [facility] Comment on above: Performed By: #### A DIFF, LIPID, TSH, GFR, VIDH, A1C, ANEU, CMP, CBC #### [address] [address] Globulin 3.8 G/dL Normal 2.7-4.4 [facility] Comment on above: Performed By: #### A DIFF, LIPID, TSH, GFR, VIDH, A1C, ANEU, CMP, CBC #### [address] [address] Glucose [Mass/Vol] 115 mg/dL High 83-110 [facility] Comment on above: Performed By: #### A DIFF, LIPID, TSH, GFR, VIDH, A1C, ANEU, CMP, CBC #### [address] [address] Potassium [Moles/Vol] 4.1 mmol/L Normal 3.5-5.1 [facility] Comment on above: Performed By: #### A DIFF, LIPID, TSH, GFR, VIDH, A1C, ANEU, CMP, CBC #### [address] [address] Sodium [Moles/Vol] 142 mmol/L Normal 136-145 [facility] Comment on above: Performed By: #### A DIFF, LIPID, TSH, GFR, VIDH, A1C, ANEU, CMP, CBC #### [address] [address] Total Protein 7.3 G/dL Normal 6.4-8.2 [facility] Comment on above: Performed By: #### A DIFF, LIPID, TSH, GFR, VIDH, A1C, ANEU, CMP, CBC #### [address] [address] Urea nitrogen [Mass/Vol] 11 mg/dL Normal 7-18 [facility] Comment on above: Performed By: #### A DIFF, LIPID, TSH, GFR, VIDH, A1C, ANEU, CMP, CBC #### [place] [address] LABORATORYOrdered By: SYSTEM SYSTEM on 12-03-2024 25-hydroxyvitamin D3 [Mass/Vol] 39.9 ng/mL Invalid Interpretation Code AO ADM SS Comment on above: Interpretive Data: I nterpretive Values Based on Total 25(OH) Vitamin D: Deficient <20 ng/mL Insufficient 20 - <30 ng/mL Sufficient 30-100 ng/mL Albumin BCP dye [Mass/Vol] 3.5 G/dL Normal 3.4 - 4.8 G/dL AO ADM SS Albumin/Globulin [Mass ratio] 0.9 {ratio} Low 1.1 - 2.5 ratio AO ADM SS ALP [Catalytic activity/Vol] 120 U/L Normal 40 - 135 U/L AO ADM SS ALT With P-5'-P [Catalytic activity/Vol] 23 U/L Normal 14 - 59 U/L AO ADM SS AST With P-5'-P [Catalytic activity/Vol] 18 U/L Normal 10 - 40 U/L AO ADM SS Basophils (Bld) [#/Vol] 0.0 103/mcL Normal 0.0 - 0.3 10^3/mcL AO Workflow SS Basophils/100 WBC (Bld) 0.6 % Normal 0.0 - 2.5 % AO Workflow SS Bilirubin [Mass/Vol] 0.4 mg/dL Normal 0.2 - 1 .0 mg/dL AO ADM SS Comment on above: Interpretive Data: U se of this assay is not recommended for patients undergoing treatment with eltrombopag due to the potential for falsely elevated results. Calcium [Mass/Vol] 8.8 mg/dL Normal 8.4 - 10. 2 mg/dL AO ADM SS Chloride [Moles/Vol] 105 mmol/L Normal 98 - 10 7 mmol/L AO ADM SS CO2 [Moles/Vol] 29 mmol/L Normal 23 - 31 mmol/L AO ADM SS Creatinine [Mass/Vol] 0.59 mg/dL Normal 0.51 - 0.95 mg/dL AO ADM SS Electrolyte Balance 8.0 mEq/L Normal 4.0 - 15 .0 mEq/L AO ADM SS Eosinophil, Absolute 0.1 103/mcL Normal 0.0 - 0 .7 10^3/mcL AO Workflow SS Eosinophils/100 WBC (Bld) 1.5 % Normal 0.0 - 6.0 % AO Workflow SS Erythrocyte distribution width (RBC) [Ratio] 13.4 % Normal 11.5 - 15.5 % AO Workflow SS Estimated Glomerular Filtration Rate 96 ml/min/1.73sqm Invalid Interpretation Code AO Chemistry S Comment on above: Interpretive Data: Stages of Chronic Kidney Disease (CKD) Stage Description eGFR(ml/min/1.73 sq.m.) CKD 1 Normal kidney function or >=90 normal kindney function with possible kidney damage (ex. Proteinuria) CKD 2 Kidney damage with mild loss 60-89 of kidney function CKD 3a Mild to moderate loss of kidney 45-59 function CKD 3b Moderate to severe loss of 30-44 of kindey function CKD 4 Severe loss of kidney function 15-29 CKD 5 Kidney failure <15 Note: (go live 2024) the eGFR calculation was updated to the 2020 CKD-EPI creatinine equation without a race factor to calculate the eGFR results. Globulin 3.8 G/dL Normal 2.7 - 4.4 G/dL AO ADM SS Glucose [Mass/Vol] 115 mg/dL High 83 - 110 mg/dL AO ADM SS Glucose [Mass/Vol] 137 mg/dL Invalid Interpretation Code AO Chemistry S Comment on above: Interpretive Data: E stimated average glucose (eAG) is a calculated value from Hemoglobin A1C and is credit and collections representative of the average blood glucose level in the last 2-3 month period. Normal range: less than 114 mg/dL HbA1c (Bld) [Mass fraction] 6.4 % Normal 4.3 - 6.4 % AO ADM SS Hematocrit (Bld) [Volume fraction] 39.8 % Normal 34.0 - 46.0 % AO Workflow SS Hemoglobin (Bld) [Mass/Vol] 13.7 G/dL Normal 12.0 - 16.0 G/dL AO Workflow SS Lymphocytes (Bld) [#/Vol] 1.9 103/mcL Normal 0.9 - 4.3 10^3/mcL AO Workflow SS Lymphocytes/100 WBC (Bld) 34.4 % Normal 20.0 - 40.0 % AO Workflow SS MCH (RBC) [Entitic mass] 32.4 pg Normal 27.0 - 33.0 pg AO Workflow SS MCHC 34.4 G/dL Normal 32.0 - 36.0 G/dL AO Workflow SS MCV (RBC) [Entitic vol] 94.3 fL Normal 80.0 - 99.0 fL AO Workflow SS Monocytes (Bld) [#/Vol] 0.3 103/mcL Normal 0.1 - 1.4 10^3/mcL AO Workflow SS Monocytes/100 WBC (Bld) 5.7 % Normal 2.0 - 13.0 % AO Workflow SS Neutrophils (Bld) [#/Vol] 3.3 103/mcL Normal 2.3 - 8.1 10^3/mcL AO Workflow SS Neutrophils/100 WBC (Bld) 57.8 % Normal 50.0 - 75.0 % AO Workflow SS Platelet mean volume (Bld) [Entitic vol] 9.2 fL Normal 6.6 - 10.5 fL AO Workflow SS Platelets (Bld) [#/Vol] 211 103/mcL Normal 150 - 450 10^3/mcL AO Workflow SS Potassium [Moles/Vol] 4.1 mmol/L Normal 3.5 - 5.1 mmol/L AO ADM SS Protein [Mass/Vol] 7.3 G/dL Normal 6.4 - 8.2 G/dL AO ADM SS RBC (Bld) [#/Vol] 4.21 106/mcL Normal 4.10 - 5.3 0 10^6/mcL AO Workflow SS Sodium [Moles/Vol] 142 mmol/L Normal 136 - 145 mmol/L AO ADM SS TSH Qn 1.02 m[IU]/L Normal 0.36 - 3.74 mcIU/mL AO ADM SS Urea nitrogen [Mass/Vol] 11 mg/dL Normal 7 - 18 mg/dL AO ADM SS Urea nitrogen/Creatinine [Mass ratio] 19 ratio Normal 7 - 27 ratio AO ADM SS WBC (Bld) [#/Vol] 5.7 103/mcL Normal 4.5 - 10.8 10^3/mcL AO Workflow SS LABORATORYOrdered By: Jerman Altamirano on 12-03-2024 Albumin DL <= 20 mg/L (U) [Mass/Vol] 3.6 mg/L Invalid Interpretation Code AO ADM SS Albumin/Creatinine DL <= 20 mg/L (U) [Mass ratio] 23 mg/G Normal 0 - 30 mg/G AO Chemistry S Cholesterol [Mass/Vol] 180 mg/dL Normal 0 - 200 mg/dL AO ADM SS Comment on above: Interpretive Data: C holesterol Reference Interval: Less than 200 Desirable 200-239 Borderline high risk 240 and above High risk Cholesterol in HDL [Mass/Vol] 52 mg/dL Normal 40 - 60 mg/dL AO ADM SS Cholesterol in LDL [Mass/Vol] 106 mg/dL Normal 0 - 130 mg/dL AO ADM SS Creatinine (U) [Mass/Vol] 15.5 mg/dL Low 29.0 - 226.0 mg/dL AO ADM SS Triglyceride [Mass/Vol] 109 mg/dL Normal 0 - 150 mg/dL AO ADM SS Comment on above: Interpretive Data: T riglyceride Reference Interval: Less than 150 Normal 150-199 Borderline high risk 200-499 High risk 500 or higher Very high risk LIPIDon 12-03-2024 Cholesterol [Mass/Vol] 180 mg/dL Normal 0-200 [facility] Comment on above: Result Comment: Chol esterol Reference Interval: Less than 200 Desirable 200-239 Borderline high risk 240 and above High risk Performed By: #### A DIFF, LIPID, TSH, GFR, VIDH, A1C, ANEU, CMP, CBC #### [address] [address] Cholesterol in HDL [Mass/Vol] 52 mg/dL Normal 40-60 [facility] Comment on above: Performed By: #### A DIFF, LIPID, TSH, GFR, VIDH, A1C, ANEU, CMP, CBC #### [address] [address] Cholesterol in LDL [Mass/Vol] 106 mg/dL Normal 0-130 [facility] Comment on above: Performed By: #### A DIFF, LIPID, TSH, GFR, VIDH, A1C, ANEU, CMP, CBC #### [address] [address] Triglyceride [Mass/Vol] 109 mg/dL Normal 0-150 [facility] Comment on above: Result Comment: Trig lyceride Reference Interval: Less than 150 Normal 150-199 Borderline high risk 200-499 High risk 500 or higher Very high risk Performed By: #### A DIFF, LIPID, TSH, GFR, VIDH, A1C, ANEU, CMP, CBC #### [address] [address] MALBRon 12-03-2024 U Creatinine 15.5 mg/dL Low 29.0-226.0 [facility] Comment on above: Performed By: #### A DIFF, LIPID, TSH, GFR, VIDH, A1C, ANEU, CMP, CBC #### [address] [address] U Microalb 3.6 mg/L Normal [facility] Comment on above: Performed By: #### A DIFF, LIPID, TSH, GFR, VIDH, A1C, ANEU, CMP, CBC #### [address] [address] U Ratio Alb/Cre 23 mg/G Normal 0-30 [facility] Comment on above: Performed By: #### A DIFF, LIPID, TSH, GFR, VIDH, A1C, ANEU, CMP, CBC #### [address] [address] TSHon 12-03-2024 TSH Qn 1.02 m[IU]/L Normal 0.36-3.74 [facility] Comment on above: Performed By: #### A DIFF, LIPID, TSH, GFR, VIDH, A1C, ANEU, CMP, CBC #### [address] [address] VIDHon 12-03-2024 Vit. D 25-Hydroxy 39.9 ng/mL Normal [facility] Comment on above: Result Comment: Inte rpretive Values Based on Total 25(OH) Vitamin D: Deficient <20 ng/mL Insufficient 20 - <30 ng/mL Sufficient 30-100 ng/mL Performed By: #### A DIFF, LIPID, TSH, GFR, VIDH, A1C, ANEU, CMP, CBC #### [address] [address] .Auto Diffon 06-04-2024 Basophil, Absolute 0.0 10 3/mcL Normal 0.0-0.2 [facility] Comment on above: Performed By: #### A DIFF, LIPID, TSH, GFR, VIDH, A1C, ANEU, CMP, CBC #### [address] [address] Basophils/100 WBC (Bld) 0.6 % Normal 0.0-2.5 [facility] Comment on above: Performed By: #### A DIFF, LIPID, TSH, GFR, VIDH, A1C, ANEU, CMP, CBC #### [address] [address] Eosinophil, Absolute 0.1 10 3/mcL Normal 0.0-0.7 [facility] Comment on above: Performed By: #### A DIFF, LIPID, TSH, GFR, VIDH, A1C, ANEU, CMP, CBC #### [address] [address] Eosinophils/100 WBC (Bld) 1.5 % Normal 0.0-7.0 [facility] Comment on above: Performed By: #### A DIFF, LIPID, TSH, GFR, VIDH, A1C, ANEU, CMP, CBC #### [address] [address] Lymphocyte, Absolute 2.0 10 3/mcL Normal 0.9-4.3 [facility] Comment on above: Performed By: #### A DIFF, LIPID, TSH, GFR, VIDH, A1C, ANEU, CMP, CBC #### [address] [address] Lymphocytes/100 WBC (Bld) 31.5 % Normal 20.0-40.0 [facility] Comment on above: Performed By: #### A DIFF, LIPID, TSH, GFR, VIDH, A1C, ANEU, CMP, CBC #### [address] [address] Monocyte, Absolute 0.3 10 3/mcL Normal 0.1-1.4 [facility] Comment on above: Performed By: #### A DIFF, LIPID, TSH, GFR, VIDH, A1C, ANEU, CMP, CBC #### [address] [address] Monocytes/100 WBC (Bld) 4.8 % Normal 2.0-13.0 [facility] Comment on above: Performed By: #### A DIFF, LIPID, TSH, GFR, VIDH, A1C, ANEU, CMP, CBC #### [address] [address] Neutrophils/100 WBC (Bld) 61.6 % Normal 50.0-75.0 [facility] Comment on above: Performed By: #### A DIFF, LIPID, TSH, GFR, VIDH, A1C, ANEU, CMP, CBC #### [address] [address] .GFRon 06-04-2024 GFR 91 ml/min/1.73sqm Normal [facility] Comment on above: Result Comment: GFR Population mean for , Non- Americans Ages 20-29 = 116 mL/min/1.73 sq.m. Ages 30-39 = 107 mL/min/1.73 sq.m. Ages 40-49 = 99 mL/min/1.73 sq.m. Ages 50-59 = 93 mL/min/1.73 sq.m. Ages 60-69 = 85 mL/min/1.73 sq.m. Ages 70+ = 75 mL/min/1.73 sq.m. Chronic Kidney Disease: Less than 60 mL/min/1.73 square meters End Stage Renal Disease: Less than 15 mL/min/1.73 square meters Performed By: #### A DIFF, LIPID, TSH, GFR, VIDH, A1C, ANEU, CMP, CBC #### [address] [address] GFR Non- 75 ml/min/1.73sqm Normal [facility] Comment on above: Result Comment: GFR Population mean for , Non- Americans Ages 20-29 = 116 mL/min/1.73 sq.m. Ages 30-39 = 107 mL/min/1.73 sq.m. Ages 40-49 = 99 mL/min/1.73 sq.m. Ages 50-59 = 93 mL/min/1.73 sq.m. Ages 60-69 = 85 mL/min/1.73 sq.m. Ages 70+ = 75 mL/min/1.73 sq.m. Chronic Kidney Disease: Less than 60 mL/min/1.73 square meters End Stage Renal Disease: Less than 15 mL/min/1.73 square meters Performed By: #### A DIFF, LIPID, TSH, GFR, VIDH, A1C, ANEU, CMP, CBC #### [address] [address] .NEUABSon 06-04-2024 Neutrophil, Absolute 3.9 10 3/mcL Normal 2.3-8.1 [facility] Comment on above: Performed By: #### A DIFF, LIPID, TSH, GFR, VIDH, A1C, ANEU, CMP, CBC #### [place] [id number] A1Con 06-04-2024 Glucose [Mass/Vol] 137 mg/dL Normal [facility] Comment on above: Result Comment: Gabrielle mated Average Glucose calculated by equation ((28.7xA1C)-46.7) Estimated average glucose (eAG) is a calculated value from Hemoglobin A1C and is credit and collections representative of the average blood glucose level in the last 2-3 month period. Normal range: less than 114 mg/dL Performed By: #### A DIFF, LIPID, TSH, GFR, VIDH, A1C, ANEU, CMP, CBC #### [place] [id number] HbA1c (Bld) [Mass fraction] 6.4 % Normal 4.3-6.4 [facility] Comment on above: Performed By: #### A DIFF, LIPID, TSH, GFR, VIDH, A1C, ANEU, CMP, CBC #### [address] [address] CBCon 06-04-2024 Erythrocyte distribution width (RBC) [Ratio] 13.8 % Normal 11.5-15.5 [facility] Comment on above: Performed By: #### A DIFF, LIPID, TSH, GFR, VIDH, A1C, ANEU, CMP, CBC #### [address] [address] Hematocrit (Bld) [Volume fraction] 41.4 % Normal 34.0-46.0 [facility] Comment on above: Performed By: #### A DIFF, LIPID, TSH, GFR, VIDH, A1C, ANEU, CMP, CBC #### [place] [address] Hgb 14.2 G/dL Normal 12.0-16.0 [facility] Comment on above: Performed By: #### A DIFF, LIPID, TSH, GFR, VIDH, A1C, ANEU, CMP, CBC #### [place] [address] MCH (RBC) [Entitic mass] 32.7 pg Normal 27.0-33.0 [facility] Comment on above: Performed By: #### A DIFF, LIPID, TSH, GFR, VIDH, A1C, ANEU, CMP, CBC #### [place] [address] MCHC 34.3 G/dL Normal 32.0-36.0 [facility] Comment on above: Performed By: #### A DIFF, LIPID, TSH, GFR, VIDH, A1C, ANEU, CMP, CBC #### [place] [address] MCV (RBC) [Entitic vol] 95.4 fL Normal 80.0-99.0 [facility] Comment on above: Performed By: #### A DIFF, LIPID, TSH, GFR, VIDH, A1C, ANEU, CMP, CBC #### [address] [address] Platelet 233 10 3/mcL Normal 150-450 [facility] Comment on above: Performed By: #### A DIFF, LIPID, TSH, GFR, VIDH, A1C, ANEU, CMP, CBC #### [place] [address] Platelet mean volume (Bld) [Entitic vol] 8.8 fL Normal 6.6-10.5 [facility] Comment on above: Performed By: #### A DIFF, LIPID, TSH, GFR, VIDH, A1C, ANEU, CMP, CBC #### [place] [address] RBC 4.34 10 6/mcL Normal 4.10-5.30 [facility] Comment on above: Performed By: #### A DIFF, LIPID, TSH, GFR, VIDH, A1C, ANEU, CMP, CBC #### [address] [address] WBC 6.4 10 3/mcL Normal 4.5-10.8 [facility] Comment on above: Performed By: #### A DIFF, LIPID, TSH, GFR, VIDH, A1C, ANEU, CMP, CBC #### [address] [address] CMPon 06-04-2024 Albumin Level 3.6 G/dL Normal 3.4-4.8 [facility] Comment on above: Performed By: #### A DIFF, ANEU, A1C, CMP, LIPID, GFR, CBC #### [address] [address] Albumin/Globulin [Mass ratio] 1.0 {ratio} Low 1.1-2.5 [facility] Comment on above: Performed By: #### A DIFF, ANEU, A1C, CMP, LIPID, GFR, CBC #### [address] [address] ALP [Catalytic activity/Vol] 122 U/L Normal 40-135 [facility] Comment on above: Performed By: #### A DIFF, ANEU, A1C, CMP, LIPID, GFR, CBC #### [address] [address] ALT [Catalytic activity/Vol] 28 U/L Normal 14-59 [facility] Comment on above: Performed By: #### A DIFF, ANEU, A1C, CMP, LIPID, GFR, CBC #### [address] [address] AST [Catalytic activity/Vol] 19 U/L Normal 10-40 [facility] Comment on above: Performed By: #### A DIFF, ANEU, A1C, CMP, LIPID, GFR, CBC #### [address] [address] Bili Total 0.5 mg/dL Normal 0.2-1.0 [facility] Comment on above: Result Comment: Use of this assay is not recommended for patients undergoing treatment with eltrombopag due to the potential for falsely elevated results. Performed By: #### A DIFF, ANEU, A1C, CMP, LIPID, GFR, CBC #### [place] [address] BUN/Creatinine Ratio 14 ratio Normal 7-27 [facility] Comment on above: Performed By: #### A DIFF, ANEU, A1C, CMP, LIPID, GFR, CBC #### [place] [address] Calcium [Mass/Vol] 9.6 mg/dL Normal 8.4-10.2 [facility] Comment on above: Performed By: #### A DIFF, ANEU, A1C, CMP, LIPID, GFR, CBC #### [place] [address] Chloride [Moles/Vol] 102 mmol/L Normal 98-107 [facility] Comment on above: Performed By: #### A DIFF, ANEU, A1C, CMP, LIPID, GFR, CBC #### [place] [address] CO2 [Moles/Vol] 30 mmol/L Normal 23-31 [facility] Comment on above: Performed By: #### A DIFF, ANEU, A1C, CMP, LIPID, GFR, CBC #### [place] [address] Creatinine [Mass/Vol] 0.76 mg/dL Normal 0.55-1.02 [facility] Comment on above: Result Comment: Test ing performed on Siemens Dimension EXL analyzer using a modified kinetic Tim technique. Performed By: #### A DIFF, ANEU, A1C, CMP, LIPID, GFR, CBC #### [place] [address] Electrolyte Balance 9.0 mEq/L Normal 4.0-15.0 [facility] Comment on above: Performed By: #### A DIFF, ANEU, A1C, CMP, LIPID, GFR, CBC #### [address] [address] Globulin 3.5 G/dL Normal [facility] Comment on above: Performed By: #### A DIFF, ANEU, A1C, CMP, LIPID, GFR, CBC #### [place] [id number] [place], [place] [address] Glucose [Mass/Vol] 122 mg/dL High 83-110 [facility] Comment on above: Performed By: #### A DIFF, ANEU, A1C, CMP, LIPID, GFR, CBC #### [address] [address] Potassium [Moles/Vol] 4.2 mmol/L Normal 3.5-5.1 [facility] Comment on above: Performed By: #### A DIFF, ANEU, A1C, CMP, LIPID, GFR, CBC #### [address] [address] Sodium [Moles/Vol] 141 mmol/L Normal 136-145 [facility] Comment on above: Performed By: #### A DIFF, ANEU, A1C, CMP, LIPID, GFR, CBC #### [address] [address] Total Protein 7.1 G/dL Normal 6.4-8.2 [facility] Comment on above: Performed By: #### A DIFF, ANEU, A1C, CMP, LIPID, GFR, CBC #### [address] [address] Urea nitrogen [Mass/Vol] 11 mg/dL Normal 7-18 [facility] Comment on above: Performed By: #### A DIFF, ANEU, A1C, CMP, LIPID, GFR, CBC #### [address] [address] LABORATORYOrdered By: SYSTEM SYSTEM on 06-04-2024 Albumin BCP dye [Mass/Vol] 3.6 G/dL Normal 3.4 - 4.8 G/dL AO ADM SS Albumin/Globulin [Mass ratio] 1.0 {ratio} Low 1.1 - 2.5 ratio AO ADM SS ALP [Catalytic activity/Vol] 122 U/L Normal 40 - 135 U/L AO ADM SS ALT With P-5'-P [Catalytic activity/Vol] 28 U/L Normal 14 - 59 U/L AO ADM SS AST With P-5'-P [Catalytic activity/Vol] 19 U/L Normal 10 - 40 U/L AO ADM SS Basophils (Bld) [#/Vol] 0.0 103/mcL Normal 0.0 - 0.2 10^3/mcL AO Workflow SS Basophils/100 WBC (Bld) 0.6 % Normal 0.0 - 2.5 % AO Workflow SS Bilirubin [Mass/Vol] 0.5 mg/dL Normal 0.2 - 1 .0 mg/dL AO ADM SS Comment on above: Interpretive Data: U se of this assay is not recommended for patients undergoing treatment with eltrombopag due to the potential for falsely elevated results. Calcium [Mass/Vol] 9.6 mg/dL Normal 8.4 - 10. 2 mg/dL AO ADM SS Chloride [Moles/Vol] 102 mmol/L Normal 98 - 10 7 mmol/L AO ADM SS CO2 [Moles/Vol] 30 mmol/L Normal 23 - 31 mmol/L AO ADM SS Creatinine [Mass/Vol] 0.76 mg/dL Normal 0.55 - 1.02 mg/dL AO ADM SS Comment on above: Interpretive Data: T esting performed on Siemens Dimension EXL analyzer using a modified kinetic Tim technique. Electrolyte Balance 9.0 mEq/L Normal 4.0 - 15 .0 mEq/L AO ADM SS Eosinophil, Absolute 0.1 103/mcL Normal 0.0 - 0 .7 10^3/mcL AO Workflow SS Eosinophils/100 WBC (Bld) 1.5 % Normal 0.0 - 7.0 % AO Workflow SS Erythrocyte distribution width (RBC) [Ratio] 13.8 % Normal 11.5 - 15.5 % AO Workflow SS GFR/1.73 sq M.predicted among blacks MDRD (S/P/Bld) [Vol rate/Area] 91 ml/min/1.73sqm Invalid Interpretation Code AO Chemistry S Comment on above: Interpretive Data: GFR Population mean for , Non- Americans Ages 20-29 = 116 mL/min/1.73 sq.m. Ages 30-39 = 107 mL/min/1.73 sq.m. Ages 40-49 = 99 mL/min/1.73 sq.m. Ages 50-59 = 93 mL/min/1.73 sq.m. Ages 60-69 = 85 mL/min/1.73 sq.m. Ages 70+ = 75 mL/min/1.73 sq.m. Chronic Kidney Disease: Less than 60 mL/min/1.73 square meters End Stage Renal Disease: Less than 15 mL/min/1.73 square meters GFR/1.73 sq M.predicted among non-blacks MDRD (S/P/Bld) [Vol rate/Area] 75 ml/min/1.73sqm Invalid Interpretation Code AO Chemistry S Comment on above: Interpretive Data: GFR Population mean for , Non- Americans Ages 20-29 = 116 mL/min/1.73 sq.m. Ages 30-39 = 107 mL/min/1.73 sq.m. Ages 40-49 = 99 mL/min/1.73 sq.m. Ages 50-59 = 93 mL/min/1.73 sq.m. Ages 60-69 = 85 mL/min/1.73 sq.m. Ages 70+ = 75 mL/min/1.73 sq.m. Chronic Kidney Disease: Less than 60 mL/min/1.73 square meters End Stage Renal Disease: Less than 15 mL/min/1.73 square meters Globulin 3.5 G/dL Invalid Interpretation Code AO ADM SS Glucose [Mass/Vol] 137 mg/dL Invalid Interpretation Code AO Chemistry S Comment on above: Interpretive Data: E stimated average glucose (eAG) is a calculated value from Hemoglobin A1C and is credit and collections representative of the average blood glucose level in the last 2-3 month period. Normal range: less than 114 mg/dL Glucose [Mass/Vol] 122 mg/dL High 83 - 110 mg/dL AO ADM SS HbA1c (Bld) [Mass fraction] 6.4 % Normal 4.3 - 6.4 % AO ADM SS Hematocrit (Bld) [Volume fraction] 41.4 % Normal 34.0 - 46.0 % AO Workflow SS Hemoglobin (Bld) [Mass/Vol] 14.2 G/dL Normal 12.0 - 16.0 G/dL AO Workflow SS Lymphocytes (Bld) [#/Vol] 2.0 103/mcL Normal 0.9 - 4.3 10^3/mcL AO Workflow SS Lymphocytes/100 WBC (Bld) 31.5 % Normal 20.0 - 40.0 % AO Workflow SS MCH (RBC) [Entitic mass] 32.7 pg Normal 27.0 - 33.0 pg AO Workflow SS MCHC 34.3 G/dL Normal 32.0 - 36.0 G/dL AO Workflow SS MCV (RBC) [Entitic vol] 95.4 fL Normal 80.0 - 99.0 fL AO Workflow SS Monocytes (Bld) [#/Vol] 0.3 103/mcL Normal 0.1 - 1.4 10^3/mcL AO Workflow SS Monocytes/100 WBC (Bld) 4.8 % Normal 2.0 - 13.0 % AO Workflow SS Neutrophils (Bld) [#/Vol] 3.9 103/mcL Normal 2.3 - 8.1 10^3/mcL AO Workflow SS Neutrophils/100 WBC (Bld) 61.6 % Normal 50.0 - 75.0 % AO Workflow SS Platelet mean volume (Bld) [Entitic vol] 8.8 fL Normal 6.6 - 10.5 fL AO Workflow SS Platelets (Bld) [#/Vol] 233 103/mcL Normal 150 - 450 10^3/mcL AO Workflow SS Potassium [Moles/Vol] 4.2 mmol/L Normal 3.5 - 5.1 mmol/L AO ADM SS Protein [Mass/Vol] 7.1 G/dL Normal 6.4 - 8.2 G/dL AO ADM SS RBC (Bld) [#/Vol] 4.34 106/mcL Normal 4.10 - 5.3 0 10^6/mcL AO Workflow SS Sodium [Moles/Vol] 141 mmol/L Normal 136 - 145 mmol/L AO ADM SS Urea nitrogen [Mass/Vol] 11 mg/dL Normal 7 - 18 mg/dL AO ADM SS Urea nitrogen/Creatinine [Mass ratio] 14 ratio Normal 7 - 27 ratio AO ADM SS WBC (Bld) [#/Vol] 6.4 103/mcL Normal 4.5 - 10.8 10^3/mcL AO Workflow SS LABORATORYOrdered By: Jerman Altamirano on 06-04-2024 Cholesterol [Mass/Vol] 201 mg/dL High 0 - 200 mg/dL AO ADM SS Comment on above: Interpretive Data: C holesterol Reference Interval: Less than 200 Desirable 200-239 Borderline high risk 240 and above High risk Cholesterol in HDL [Mass/Vol] 57 mg/dL Normal 40 - 60 mg/dL AO ADM SS Cholesterol in LDL [Mass/Vol] 117 mg/dL Normal 0 - 130 mg/dL AO ADM SS Triglyceride [Mass/Vol] 136 mg/dL Normal 0 - 150 mg/dL AO ADM SS Comment on above: Interpretive Data: T riglyceride Reference Interval: Less than 150 Normal 150-199 Borderline high risk 200-499 High risk 500 or higher Very high risk LIPIDon 06-04-2024 Cholesterol [Mass/Vol] 201 mg/dL High 0-200 [facility] Comment on above: Result Comment: Chol esterol Reference Interval: Less than 200 Desirable 200-239 Borderline high risk 240 and above High risk Performed By: #### A DIFF, LIPID, TSH, GFR, VIDH, A1C, ANEU, CMP, CBC #### [address] [address] Cholesterol in HDL [Mass/Vol] 57 mg/dL Normal 40-60 [facility] Comment on above: Performed By: #### A DIFF, LIPID, TSH, GFR, VIDH, A1C, ANEU, CMP, CBC #### [address] [address] Cholesterol in LDL [Mass/Vol] 117 mg/dL Normal 0-130 [facility] Comment on above: Performed By: #### A DIFF, LIPID, TSH, GFR, VIDH, A1C, ANEU, CMP, CBC #### [address] [address] Triglyceride [Mass/Vol] 136 mg/dL Normal 0-150 [facility] Comment on above: Result Comment: Trig lyceride Reference Interval: Less than 150 Normal 150-199 Borderline high risk 200-499 High risk 500 or higher Very high risk Performed By: #### A DIFF, LIPID, TSH, GFR, VIDH, A1C, ANEU, CMP, CBC #### [address] [address] [place] MAMMOGRAM SCREENING BILAT ERAL W/TOMOon 01-16-2024 [place] MAMMOGRAM SCREENING BILATERAL W/PANDA ORIGINAL FROM: JOE DE LA GARZA [address] [place], [place] [address] PROCEDURE FOR: [place] [address] Home: PID#: [id number] Exam#: [id number] : 1950 Age: 73 TO: 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 2D standard and 3D tomosynthesis combination imaging performed through both breasts in the MLO and CC projection. Computer aided detection was utilized in the interpretation of this exam. COMPARISON: November 04, 2022, October 25, 2022, October 11, 2022, September 24 2021 HISTORY: Breast cancer screening. FINDINGS: BREAST DENSITY: There are scattered areas of fibroglandular density. There is a biopsy marker clip in the right breast. There are benign-type bilateral calcifications. There is no significant mass, architectural distortion or microcalcification. Fibroglandular pattern is stable. IMPRESSION: No mammographic evidence of malignancy. Continued screening with annual mammograms is recommended. Binta Duran risk calculations, generated with the history provided, report this patient's 10 year risk and lifetime risk for developing breast cancer at 1.2% and 1.7%, respectively. Based on this assessment tool, if the patient's calculated lifetime risk is below 20%, then the patient is considered at average risk for developing breast cancer. If the patient's calculated lifetime risk is at or above 20%, then the patient is considered high risk for developing breast cancer and may be a candidate for supplemental breast MRI screening in addition to annual mammographic screening per the [employer]. BIRADS: MAMMOGRAM BI-RADS: 2: Benign finding RECALL: 1 year screening RECALL TYPE: mammo LETTER SENT: Normal BI-RADS 1 and 2 Interpreted by: Christina Arciniega Preliminary Report By: Christina Arciniega Electronically signed By Christina Arciniega Dictated Date: 01/16/2024 7:35:22 AM Prelim Date: 01/16/2024 7:43:18 AM Sign Date: 01/16/2024 7:43:18 AM Ordering Provider: DYAN BECERRIL Manager [employer]: MARY FLORES(Eric)(M) letter sent: Normal BI-RADS 1 and 2 Mammogram BI-RADS: 2 Benign Normal [facility] [place] .Auto Diffon 12-12-2023 Basophil, Absolute 0.0 10 3/mcL Normal 0.0-0.2 [facility] ([place]) Comment on above: Performed By: #### L IPID, CMP, CBC, VIDH, ADIFF, ANEU, GFR, A1C #### [address] [address] Basophils/100 WBC (Bld) 0.7 % Normal 0.0-2.5 [facility]) Comment on above: Performed By: #### L IPID, CMP, CBC, VIDH, ADIFF, ANEU, GFR, A1C #### [address] [address] Eosinophil, Absolute 0.1 10 3/mcL Normal 0.0-0.4 [facility] ([place]) Comment on above: Performed By: #### L IPID, CMP, CBC, VIDH, ADIFF, ANEU, GFR, A1C #### [address] [address] Eosinophils/100 WBC (Bld) 1.8 % Normal 0.0-7.0 [facility] [place] Comment on above: Performed By: #### L IPID, CMP, CBC, VIDH, ADIFF, ANEU, GFR, A1C #### [address] [address] Lymphocyte, Absolute 2.2 10 3/mcL Normal 0.8-3.9 [facility] ([place]) Comment on above: Performed By: #### L IPID, CMP, CBC, VIDH, ADIFF, ANEU, GFR, A1C #### [address] [address] Lymphocytes/100 WBC (Bld) 34.9 % Normal 10.0-50.0 [facility] [place] Comment on above: Performed By: #### L IPID, CMP, CBC, VIDH, ADIFF, ANEU, GFR, A1C #### [address] [address] Monocyte, Absolute 0.4 10 3/mcL Normal 0.2-1.0 [facility] [place] Comment on above: Performed By: #### L IPID, CMP, CBC, VIDH, ADIFF, ANEU, GFR, A1C #### [address] [address] Monocytes/100 WBC (Bld) 6.2 % Normal 1.7-13.0 [facility] [place] Comment on above: Performed By: #### L IPID, CMP, CBC, VIDH, ADIFF, ANEU, GFR, A1C #### [address] [address] Neutrophils/100 WBC (Bld) 56.4 % Normal 37.0-80.0 [facility] [place] Comment on above: Performed By: #### L IPID, CMP, CBC, VIDH, ADIFF, ANEU, GFR, A1C #### [address] [address] .GFRon 12-12-2023 GFR Non- 90 ml/min/1.73sqm Normal [facility] [place] Comment on above: Result Comment: GFR Population mean for , Non- Americans Ages 20-29 = 116 mL/min/1.73 sq.m. Ages 30-39 = 107 mL/min/1.73 sq.m. Ages 40-49 = 99 mL/min/1.73 sq.m. Ages 50-59 = 93 mL/min/1.73 sq.m. Ages 60-69 = 85 mL/min/1.73 sq.m. Ages 70+ = 75 mL/min/1.73 sq.m. Chronic Kidney Disease: Less than 60 mL/min/1.73 square meters End Stage Renal Disease: Less than 15 mL/min/1.73 square meters Performed By: #### L IPID, CMP, CBC, VIDH, ADIFF, ANEU, GFR, A1C #### [address] [address] GFR 109 ml/min/1.73sqm Normal [facility] [place] Comment on above: Result Comment: GFR Population mean for , Non- Americans Ages 20-29 = 116 mL/min/1.73 sq.m. Ages 30-39 = 107 mL/min/1.73 sq.m. Ages 40-49 = 99 mL/min/1.73 sq.m. Ages 50-59 = 93 mL/min/1.73 sq.m. Ages 60-69 = 85 mL/min/1.73 sq.m. Ages 70+ = 75 mL/min/1.73 sq.m. Chronic Kidney Disease: Less than 60 mL/min/1.73 square meters End Stage Renal Disease: Less than 15 mL/min/1.73 square meters Performed By: #### L IPID, CMP, CBC, VIDH, ADIFF, ANEU, GFR, A1C #### [address] [address] .NEUABSon 12-12-2023 Neutrophil, Absolute 3.6 10 3/mcL Normal 2.9-6.2 [facility] ([place]) Comment on above: Performed By: #### L IPID, CMP, CBC, VIDH, ADIFF, ANEU, GFR, A1C #### [address] [address] A1Con 12-12-2023 HbA1c (Bld) [Mass fraction] 6.0 % Normal 4.3-6.4 [facility] [place] Comment on above: Performed By: #### L IPID, CMP, CBC, VIDH, ADIFF, ANEU, GFR, A1C #### [address] [address] CBCon 12-12-2023 Erythrocyte distribution width (RBC) [Ratio] 13.9 % Normal 11.5-14.5 [facility] [place] Comment on above: Performed By: #### L IPID, CMP, CBC, VIDH, ADIFF, ANEU, GFR, A1C #### [address] [address] Hematocrit (Bld) [Volume fraction] 39.2 % Normal 37.0-47.0 [facility] [place] Comment on above: Performed By: #### L IPID, CMP, CBC, VIDH, ADIFF, ANEU, GFR, A1C #### [address] [address] Hgb 13.4 G/dL Normal 12.0-16.0 [facility] [place] Comment on above: Performed By: #### L IPID, CMP, CBC, VIDH, ADIFF, ANEU, GFR, A1C #### [place] [id number] MCH (RBC) [Entitic mass] 32.4 pg High 27.0-31.2 [facility] [place] Comment on above: Performed By: #### L IPID, CMP, CBC, VIDH, ADIFF, ANEU, GFR, A1C #### [place] [address] MCHC 34.1 G/dL Normal 33.0-37.0 [facility] [place] Comment on above: Performed By: #### L IPID, CMP, CBC, VIDH, ADIFF, ANEU, GFR, A1C #### [address] [address] MCV (RBC) [Entitic vol] 95.1 fL High 80.0-94.0 [facility] [place] Comment on above: Performed By: #### L IPID, CMP, CBC, VIDH, ADIFF, ANEU, GFR, A1C #### [place] [id number] Platelet 237 10 3/mcL Normal 130-400 [facility] [place] Comment on above: Performed By: #### L IPID, CMP, CBC, VIDH, ADIFF, ANEU, GFR, A1C #### [place] [id number] Platelet mean volume (Bld) [Entitic vol] 9.4 fL Normal 7.4-10.4 [facility] [place] Comment on above: Performed By: #### L IPID, CMP, CBC, VIDH, ADIFF, ANEU, GFR, A1C #### [address] [address] RBC 4.12 10 6/mcL Low 4.20-5.40 [facility] [place] Comment on above: Performed By: #### L IPID, CMP, CBC, VIDH, ADIFF, ANEU, GFR, A1C #### [address] [address] WBC 6.3 10 3/mcL Normal 4.6-10.8 [facility] [place] Comment on above: Performed By: #### L IPID, CMP, CBC, VIDH, ADIFF, ANEU, GFR, A1C #### [address] [address] CMPon 12-12-2023 Albumin Level 3.4 G/dL Normal 3.4-4.8 [facility]) Comment on above: Performed By: #### L IPID, CMP, CBC, VIDH, ADIFF, ANEU, GFR, A1C #### [address] [address] Albumin/Globulin [Mass ratio] 0.9 {ratio} Low 1.1-2.5 [facility] [place] Comment on above: Performed By: #### L IPID, CMP, CBC, VIDH, ADIFF, ANEU, GFR, A1C #### [address] [address] ALP [Catalytic activity/Vol] 143 U/L High 40-135 [facility] [place] Comment on above: Performed By: #### L IPID, CMP, CBC, VIDH, ADIFF, ANEU, GFR, A1C #### [address] [address] ALT [Catalytic activity/Vol] 27 U/L Normal 14-59 [facility] [place] Comment on above: Performed By: #### L IPID, CMP, CBC, VIDH, ADIFF, ANEU, GFR, A1C #### [address] [address] AST [Catalytic activity/Vol] 18 U/L Normal 10-40 [facility] [place] Comment on above: Performed By: #### L IPID, CMP, CBC, VIDH, ADIFF, ANEU, GFR, A1C #### [address] [address] Bili Total 0.3 mg/dL Normal 0.2-1.0 [facility] [place] Comment on above: Result Comment: Use of this assay is not recommended for patients undergoing treatment with eltrombopag due to the potential for falsely elevated results. Performed By: #### L IPID, CMP, CBC, VIDH, ADIFF, ANEU, GFR, A1C #### [address] [address] BUN/Creatinine Ratio 18 ratio Normal 7-27 [facility] ([place] Comment on above: Performed By: #### L IPID, CMP, CBC, VIDH, ADIFF, ANEU, GFR, A1C #### [address] [address] Calcium [Mass/Vol] 9.2 mg/dL Normal 8.4-10.2 [facility] ([place]) Comment on above: Performed By: #### L IPID, CMP, CBC, VIDH, ADIFF, ANEU, GFR, A1C #### [address] [address] Chloride [Moles/Vol] 102 mmol/L Normal 98-107 [facility] [place] Comment on above: Performed By: #### L IPID, CMP, CBC, VIDH, ADIFF, ANEU, GFR, A1C #### [address] [address] CO2 [Moles/Vol] 30 mmol/L Normal 23-31 [facility] [place] Comment on above: Performed By: #### L IPID, CMP, CBC, VIDH, ADIFF, ANEU, GFR, A1C #### [address] [address] Creatinine [Mass/Vol] 0.65 mg/dL Normal 0.55-1.02 [facility] ([place] Comment on above: Performed By: #### L IPID, CMP, CBC, VIDH, ADIFF, ANEU, GFR, A1C #### [address] [address] Electrolyte Balance 8.0 mEq/L Normal 4.0-15.0 [facility] ([place]) Comment on above: Performed By: #### L IPID, CMP, CBC, VIDH, ADIFF, ANEU, GFR, A1C #### [address] [address] Globulin 3.7 G/dL Normal [facility] [place] Comment on above: Performed By: #### L IPID, CMP, CBC, VIDH, ADIFF, ANEU, GFR, A1C #### [address] [address] Glucose [Mass/Vol] 113 mg/dL High 83-110 [facility] ([place] Comment on above: Performed By: #### L IPID, CMP, CBC, VIDH, ADIFF, ANEU, GFR, A1C #### [address] [address] Potassium [Moles/Vol] 4.2 mmol/L Normal 3.5-5.1 [facility] [place] Comment on above: Performed By: #### L IPID, CMP, CBC, VIDH, ADIFF, ANEU, GFR, A1C #### [address] [address] Sodium [Moles/Vol] 140 mmol/L Normal 136-145 [facility] ([place] Comment on above: Performed By: #### L IPID, CMP, CBC, VIDH, ADIFF, ANEU, GFR, A1C #### [address] [address] Total Protein 7.1 G/dL Normal 6.4-8.2 [facility] [place] Comment on above: Performed By: #### L IPID, CMP, CBC, VIDH, ADIFF, ANEU, GFR, A1C #### [facility] [address] [place], [place] [address] Urea nitrogen [Mass/Vol] 12 mg/dL Normal 7-18 [facility] [place] Comment on above: Performed By: #### L IPID, CMP, CBC, VIDH, ADIFF, ANEU, GFR, A1C #### [facility] [address] [place], [place] [address] LABORATORYOrdered By: SYSTEM SYSTEM on 12-12-2023 25-hydroxyvitamin D3 [Mass/Vol] 46.1 ng/mL Invalid Interpretation Code AO ADM SS Comment on above: Interpretive Data: I nterpretive Values Based on Total 25(OH) Vitamin D: Deficient <20 ng/mL Insufficient 20 - <30 ng/mL Sufficient 30-100 ng/mL Albumin BCP dye [Mass/Vol] 3.4 G/dL Normal 3.4 - 4.8 G/dL AO ADM SS Albumin/Globulin [Mass ratio] 0.9 {ratio} Low 1.1 - 2.5 ratio AO ADM SS ALP [Catalytic activity/Vol] 143 U/L High 40 - 135 U/L AO ADM SS ALT With P-5'-P [Catalytic activity/Vol] 27 U/L Normal 14 - 59 U/L AO ADM SS AST With P-5'-P [Catalytic activity/Vol] 18 U/L Normal 10 - 40 U/L AO ADM SS Basophil, Absolute 0.0 103/mcL Normal 0.0 - 0.2 10^3/mcL AO Workflow SS Basophils/100 WBC (Bld) 0.7 % Normal 0.0 - 2.5 % AO Workflow SS Bilirubin [Mass/Vol] 0.3 mg/dL Normal 0.2 - 1 .0 mg/dL AO ADM SS Comment on above: Interpretive Data: U se of this assay is not recommended for patients undergoing treatment with eltrombopag due to the potential for falsely elevated results. Calcium [Mass/Vol] 9.2 mg/dL Normal 8.4 - 10. 2 mg/dL AO ADM SS Chloride [Moles/Vol] 102 mmol/L Normal 98 - 10 7 mmol/L AO ADM SS CO2 [Moles/Vol] 30 mmol/L Normal 23 - 31 mmol/L AO ADM SS Creatinine [Mass/Vol] 0.65 mg/dL Normal 0.55 - 1.02 mg/dL AO ADM SS Electrolyte Balance 8.0 mEq/L Normal 4.0 - 15 .0 mEq/L AO ADM SS Eosinophil, Absolute 0.1 103/mcL Normal 0.0 - 0 .4 10^3/mcL AO Workflow SS Eosinophils/100 WBC (Bld) 1.8 % Normal 0.0 - 7.0 % AO Workflow SS Erythrocyte distribution width (RBC) [Ratio] 13.9 % Normal 11.5 - 14.5 % AO Workflow SS GFR/1.73 sq M.predicted among blacks MDRD (S/P/Bld) [Vol rate/Area] 109 ml/min/1.73sqm Invalid Interpretation Code AO Chemistry S Comment on above: Interpretive Data: GFR Population mean for , Non- Americans Ages 20-29 = 116 mL/min/1.73 sq.m. Ages 30-39 = 107 mL/min/1.73 sq.m. Ages 40-49 = 99 mL/min/1.73 sq.m. Ages 50-59 = 93 mL/min/1.73 sq.m. Ages 60-69 = 85 mL/min/1.73 sq.m. Ages 70+ = 75 mL/min/1.73 sq.m. Chronic Kidney Disease: Less than 60 mL/min/1.73 square meters End Stage Renal Disease: Less than 15 mL/min/1.73 square meters GFR/1.73 sq M.predicted among non-blacks MDRD (S/P/Bld) [Vol rate/Area] 90 ml/min/1.73sqm Invalid Interpretation Code AO Chemistry S Comment on above: Interpretive Data: GFR Population mean for , Non- Americans Ages 20-29 = 116 mL/min/1.73 sq.m. Ages 30-39 = 107 mL/min/1.73 sq.m. Ages 40-49 = 99 mL/min/1.73 sq.m. Ages 50-59 = 93 mL/min/1.73 sq.m. Ages 60-69 = 85 mL/min/1.73 sq.m. Ages 70+ = 75 mL/min/1.73 sq.m. Chronic Kidney Disease: Less than 60 mL/min/1.73 square meters End Stage Renal Disease: Less than 15 mL/min/1.73 square meters Globulin 3.7 G/dL Invalid Interpretation Code AO ADM SS Glucose [Mass/Vol] 113 mg/dL High 83 - 110 mg/dL AO ADM SS HbA1c (Bld) [Mass fraction] 6.0 % Normal 4.3 - 6.4 % AO ADM SS Hematocrit (Bld) [Volume fraction] 39.2 % Normal 37.0 - 47.0 % AO Workflow SS Hemoglobin (Bld) [Mass/Vol] 13.4 G/dL Normal 12.0 - 16.0 G/dL AO Workflow SS Lymphocyte, Absolute 2.2 103/mcL Normal 0.8 - 3 .9 10^3/mcL AO Workflow SS Lymphocytes/100 WBC (Bld) 34.9 % Normal 10.0 - 50.0 % AO Workflow SS MCH (RBC) [Entitic mass] 32.4 pg High 27.0 - 31.2 pg AO Workflow SS MCHC 34.1 G/dL Normal 33.0 - 37.0 G/dL AO Workflow SS MCV (RBC) [Entitic vol] 95.1 fL High 80.0 - 94.0 fL AO Workflow SS Monocyte, Absolute 0.4 103/mcL Normal 0.2 - 1.0 10^3/mcL AO Workflow SS Monocytes/100 WBC (Bld) 6.2 % Normal 1.7 - 13.0 % AO Workflow SS Neutrophil, Absolute 3.6 103/mcL Normal 2.9 - 6 .2 10^3/mcL AO Workflow SS Neutrophils/100 WBC (Bld) 56.4 % Normal 37.0 - 80.0 % AO Workflow SS Platelet mean volume (Bld) [Entitic vol] 9.4 fL Normal 7.4 - 10.4 fL AO Workflow SS Platelets (Bld) [#/Vol] 237 103/mcL Normal 130 - 400 10^3/mcL AO Workflow SS Potassium [Moles/Vol] 4.2 mmol/L Normal 3.5 - 5.1 mmol/L AO ADM SS Protein [Mass/Vol] 7.1 G/dL Normal 6.4 - 8.2 G/dL AO ADM SS RBC (Bld) [#/Vol] 4.12 106/mcL Low 4.20 - 5.4 0 10^6/mcL AO Workflow SS Sodium [Moles/Vol] 140 mmol/L Normal 136 - 145 mmol/L AO ADM SS TSH Qn 1.14 m[IU]/L Normal 0.36 - 3.74 mcIU/mL AO ADM SS Urea nitrogen [Mass/Vol] 12 mg/dL Normal 7 - 18 mg/dL AO ADM SS Urea nitrogen/Creatinine [Mass ratio] 18 ratio Normal 7 - 27 ratio AO ADM SS WBC (Bld) [#/Vol] 6.3 103/mcL Normal 4.6 - 10.8 10^3/mcL AO Workflow SS LABORATORYOrdered By: Jerman Altamirano on 12-12-2023 Albumin DL <= 20 mg/L (U) [Mass/Vol] 232 mcg/dL Invalid Interpretation Code AO ADM SS Albumin/Creatinine DL <= 20 mg/L (U) [Mass ratio] Unable to calcu Invalid Interpretation Code 0 - 30 AO Chemistry S Cholesterol [Mass/Vol] 191 mg/dL Normal 0 - 200 mg/dL AO ADM SS Comment on above: Interpretive Data: C holesterol Reference Interval: Less than 200 Desirable 200-239 Borderline high risk 240 and above High risk Cholesterol in HDL [Mass/Vol] 56 mg/dL Normal 40 - 60 mg/dL AO ADM SS Cholesterol in LDL [Mass/Vol] 113 mg/dL Normal 0 - 130 mg/dL AO ADM SS Creatinine (U) [Mass/Vol] mg/dL Low 28.0 - 117.0 mg/dL AO ADM SS Triglyceride [Mass/Vol] 110 mg/dL Normal 0 - 150 mg/dL AO ADM SS Comment on above: Interpretive Data: T riglyceride Reference Interval: Less than 150 Normal 150-199 Borderline high risk 200-499 High risk 500 or higher Very high risk LIPIDon 12-12-2023 Cholesterol [Mass/Vol] 191 mg/dL Normal 0-200 [facility] [place] Comment on above: Result Comment: Chol esterol Reference Interval: Less than 200 Desirable 200-239 Borderline high risk 240 and above High risk Performed By: #### L IPID, CMP, CBC, VIDH, ADIFF, ANEU, GFR, A1C #### [place] [address] [place], [place] [address] Cholesterol in HDL [Mass/Vol] 56 mg/dL Normal 40-60 [facility] [place] Comment on above: Performed By: #### L IPID, CMP, CBC, VIDH, ADIFF, ANEU, GFR, A1C #### [address] [address] Cholesterol in LDL [Mass/Vol] 113 mg/dL Normal 0-130 [facility] [place] Comment on above: Performed By: #### L IPID, CMP, CBC, VIDH, ADIFF, ANEU, GFR, A1C #### [place] [id number] Triglyceride [Mass/Vol] 110 mg/dL Normal 0-150 [facility] [place] Comment on above: Result Comment: Trig lyceride Reference Interval: Less than 150 Normal 150-199 Borderline high risk 200-499 High risk 500 or higher Very high risk Performed By: #### L IPID, CMP, CBC, VIDH, ADIFF, ANEU, GFR, A1C #### [address] [address] MALBRon 12-12-2023 U Creatinine <13.0 Low 28.0-117.0 [facility] [place] Comment on above: Performed By: #### L IPID, CMP, CBC, VIDH, ADIFF, ANEU, GFR, A1C #### [address] [address] U Microalb 232 mcg/dL Normal [facility] [place] Comment on above: Performed By: #### L IPID, CMP, CBC, VIDH, ADIFF, ANEU, GFR, A1C #### [address] [address] U Ratio Alb/Cre Unable to calcu Normal 0-30 [facility] ([place] Comment on above: Performed By: #### L IPID, CMP, CBC, VIDH, ADIFF, ANEU, GFR, A1C #### [place] [id number] TSHon 12-12-2023 TSH Qn 1.14 m[IU]/L Normal 0.36-3.74 [facility] [place] Comment on above: Performed By: #### L IPID, CMP, CBC, VIDH, ADIFF, ANEU, GFR, A1C #### [facility] [address] [place], [place] [address] VIDHon 12-12-2023 Vit. D 25-Hydroxy 46.1 ng/mL Normal [facility] ([place]) Comment on above: Result Comment: Inte rpretive Values Based on Total 25(OH) Vitamin D: Deficient <20 ng/mL Insufficient 20 - <30 ng/mL Sufficient 30-100 ng/mL Performed By: #### L IPID, CMP, CBC, VIDH, ADIFF, ANEU, GFR, A1C #### [facility] [address] [place], [place] [address] CT THORAX W/O CONTRASTon CT THORAX W/O CONTRAST ORIGINAL EXAMINATION: CT OF THE CHEST WITHOUT CONTRAST 08/30/2023 11:14 am TECHNIQUE: CT of the chest was performed without the administration of intravenous contrast. Multiplanar reformatted images are provided for review. Automated exposure control, iterative reconstruction, and/or weight based adjustment of the mA/kV was utilized to reduce the radiation dose to as low as reasonably achievable. COMPARISON: October 08, 2021 HISTORY: ORDERING SYSTEM PROVIDED HISTORY: Reason for Exam: follow-up lung nodules no hx ca FINDINGS: Lungs and pleura: There is no focal consolidation to suggest pneumonia. No pleural effusion. No pneumothorax. There is a left upper lobe 3 mm pulmonary nodule (4:25), unchanged when compared with October 08, 2021. There is a 2 mm nodule in the left upper lobe (4:35), adjacent to the minor fissure, possibly an intrapulmonary lymph node. Findings are unchanged. A 2 mm right upper lobe pulmonary nodule (4:14), unchanged. A medial left apical 2 mm pulmonary nodule (4:9), unchanged. Trachea and bronchi: Dependent filling defect within the distal trachea, likely secretions/ debris. Correlate clinically for aspiration. Mediastinum and sujit: The mediastinum, sujit and lymph nodes are normal. Heart and pericardium: The heart is normal in size. There is no pericardial effusion. Coronary arterial calcifications are noted. Vessels: The vessels are normal in caliber. There is moderate atherosclerotic calcification of the aorta and its main branches. Soft tissues: Visualized thyroid gland is unremarkable. Other soft tissues including chest wall are normal. Bones: No aggressive osseous lesion. Status post median sternotomy. Upper abdomen: Visualized portions of the upper abdomen are unremarkable. There is a 1.3 cm splenule, normal anatomic variant. IMPRESSION: Bilateral pulmonary nodules, unchanged compared to October 08, 2021. There are dependent distal trachea internal densities, probably secretions/debris. Correlate clinically for aspiration. Interpreted by: Christina Arciniega Preliminary Report By: Christina Arciniega Electronically signed By Christina Arciniega Dictated Date: 08/30/2023 12:55:50 PM Prelim Date: 08/30/2023 1:11:51 PM Sign Date: 08/30/2023 1:11:51 PM Ordering Provider: DYAN BECERRIL [facility] ([place] CT ABDOMEN/PELVIS W/CONTRAST on 08-03-2023 CT ABDOMEN/PELVIS W/CONTRAST ORIGINAL EXAMINATION: CT OF THE ABDOMEN AND PELVIS WITH CONTRAST 08/01/2023 2:50 pm TECHNIQUE: CT of the abdomen and pelvis was performed with the administration of intravenous contrast. Multiplanar reformatted images are provided for review. Automated exposure control, iterative reconstruction, and/or weight based adjustment of the mA/kV was utilized to reduce the radiation dose to as low as reasonably achievable. COMPARISON: None. HISTORY: ORDERING SYSTEM PROVIDED HISTORY: Reason for Exam: pain pt states having LLQ pain and swelling FINDINGS: Minor degenerative changes are present at the lower lumbar spine and at the hips. No acute osseous abnormality. The lung bases are unremarkable. No focal liver lesions seen. A small central spleen cyst is evident. There is a splenule at the hilum of the spleen as well. The adrenal glands and pancreas are unremarkable. No renal abnormality. No adenopathy, free air or free fluid seen. A small cystocele is noted. No focal bladder abnormality. Mild sigmoid diverticulosis is present without diverticulitis. No other GI tract abnormality. No additional contributory finding. IMPRESSION: 1. Mild diverticulosis without diverticulitis. 2. No acute abnormality identified on this exam. 3. Small cystocele. Interpreted by: Elizabeth Zavala MD Preliminary Report By: Elizabeth Zavala MD Electronically signed By Elizabeth Zavala MD Dictated Date: 08/03/2023 8:43:51 AM Prelim Date: 08/03/2023 8:46:27 AM Sign Date: 08/03/2023 8:46:27 AM Ordering Provider: DYAN BECERRIL Normal [facility] [place] CRE POCon 08-01-2023 Perf Loc - POCT Tested at AM Normal [facility]) Comment on above: Result Comment: [place] [facility] [address] [place], [place] [address] Creatinine [Mass/Vol] 0.76 mg/dL Normal 0.50-1.20 [facility] ([place]) Estimated GFR - POCT >60 Normal >=60 [facility]) Comment on above: Result Comment: Chronic Kidney Disease: Less than 60 mL/min/1.73 square meters End Stage Renal Disease: Less than 15 mL/min/1.73 square meters Performing Instrument - POCT RADCREAT3 [facility] .Auto Diffon 07-22-2023 Basophil, Absolute 0.0 10 3/mcL Normal 0.0-0.2 [facility]) Comment on above: Performed By: #### L IPID, CMP, CBC, VIDH, ADIFF, ANEU, GFR, A1C #### [address] [address] Basophils/100 WBC (Bld) 0.7 % Normal 0.0-2.5 [facility] [facility] [place] Comment on above: Performed By: #### L IPID, CMP, CBC, VIDH, ADIFF, ANEU, GFR, A1C #### [address] [address] Eosinophil, Absolute 0.1 10 3/mcL Normal 0.0-0.4 [facility] ([place]) Comment on above: Performed By: #### L IPID, CMP, CBC, VIDH, ADIFF, ANEU, GFR, A1C #### [address] [address] Eosinophils/100 WBC (Bld) 1.5 % Normal 0.0-7.0 [facility] ([place] Comment on above: Performed By: #### L IPID, CMP, CBC, VIDH, ADIFF, ANEU, GFR, A1C #### [address] [address] Lymphocyte, Absolute 2.0 10 3/mcL Normal 0.8-3.9 [facility] ([place]) Comment on above: Performed By: #### L IPID, CMP, CBC, VIDH, ADIFF, ANEU, GFR, A1C #### [address] [address] Lymphocytes/100 WBC (Bld) 26.8 % Normal 10.0-50.0 [facility] ([place] Comment on above: Performed By: #### L IPID, CMP, CBC, VIDH, ADIFF, ANEU, GFR, A1C #### [address] [address] Monocyte, Absolute 0.4 10 3/mcL Normal 0.2-1.0 [facility] ([place]) Comment on above: Performed By: #### L IPID, CMP, CBC, VIDH, ADIFF, ANEU, GFR, A1C #### [address] [address] Monocytes/100 WBC (Bld) 5.6 % Normal 1.7-13.0 [facility] ([place] Comment on above: Performed By: #### L IPID, CMP, CBC, VIDH, ADIFF, ANEU, GFR, A1C #### [address] [address] Neutrophils/100 WBC (Bld) 65.4 % Normal 37.0-80.0 [facility] Comment on above: Performed By: #### L IPID, CMP, CBC, VIDH, ADIFF, ANEU, GFR, A1C #### [address] [address] .Morphon 07-22-2023 Platelet Estimate Normal Normal [facility] ([place] Comment on above: Performed By: #### L IPID, CMP, CBC, VIDH, ADIFF, ANEU, GFR, A1C #### [address] [address] .NEUABSon 07-22-2023 Neutrophil, Absolute 4.8 10 3/mcL Normal 2.9-6.2 [facility] ([place]) Comment on above: Performed By: #### L IPID, CMP, CBC, VIDH, ADIFF, ANEU, GFR, A1C #### [address] [address] CBCon 07-22-2023 Erythrocyte distribution width (RBC) [Ratio] 13.3 % Normal 11.5-14.5 [facility] Comment on above: Performed By: #### L IPID, CMP, CBC, VIDH, ADIFF, ANEU, GFR, A1C #### [place] [address] Hematocrit (Bld) [Volume fraction] 39.2 % Normal 37.0-47.0 [facility] Comment on above: Performed By: #### L IPID, CMP, CBC, VIDH, ADIFF, ANEU, GFR, A1C #### [place] [id number] Hgb 13.7 G/dL Normal 12.0-16.0 [facility] ([place] Comment on above: Performed By: #### L IPID, CMP, CBC, VIDH, ADIFF, ANEU, GFR, A1C #### [address] [address] MCH (RBC) [Entitic mass] 32.8 pg High 27.0-31.2 [facility] Comment on above: Performed By: #### L IPID, CMP, CBC, VIDH, ADIFF, ANEU, GFR, A1C #### [place] [address] MCHC 34.8 G/dL Normal 33.0-37.0 [facility] ([place] Comment on above: Performed By: #### L IPID, CMP, CBC, VIDH, ADIFF, ANEU, GFR, A1C #### [place] [id number] MCV (RBC) [Entitic vol] 94.2 fL High 80.0-94.0 [facility] [place] Comment on above: Performed By: #### L IPID, CMP, CBC, VIDH, ADIFF, ANEU, GFR, A1C #### [address] [address] Platelet 256 10 3/mcL Normal 130-400 [facility] ([place] Comment on above: Performed By: #### L IPID, CMP, CBC, VIDH, ADIFF, ANEU, GFR, A1C #### [address] [address] Platelet mean volume (Bld) [Entitic vol] 9.2 fL Normal 7.4-10.4 [facility] Comment on above: Performed By: #### L IPID, CMP, CBC, VIDH, ADIFF, ANEU, GFR, A1C #### [place] [address] RBC 4.16 10 6/mcL Low 4.20-5.40 [facility] [place] Comment on above: Performed By: #### L IPID, CMP, CBC, VIDH, ADIFF, ANEU, GFR, A1C #### [place] [address] WBC 7.3 10 3/mcL Normal 4.6-10.8 [facility] ([place] Comment on above: Performed By: #### L IPID, CMP, CBC, VIDH, ADIFF, ANEU, GFR, A1C #### [address] [address] .Auto Diffon 06-17-2023 Basophil, Absolute 0.0 10 3/mcL Normal 0.0-0.2 [facility] ([place] Comment on above: Performed By: #### L IPID, CMP, CBC, VIDH, ADIFF, ANEU, GFR, A1C #### [address] [address] Basophils/100 WBC (Bld) 0.6 % Normal 0.0-2.5 [facility]) Comment on above: Performed By: #### L IPID, CMP, CBC, VIDH, ADIFF, ANEU, GFR, A1C #### [place] [address] Eosinophil, Absolute 0.1 10 3/mcL Normal 0.0-0.4 [facility] ([place]) Comment on above: Performed By: #### L IPID, CMP, CBC, VIDH, ADIFF, ANEU, GFR, A1C #### [address] [address] Eosinophils/100 WBC (Bld) 1.4 % Normal 0.0-7.0 [facility] [place] Comment on above: Performed By: #### L IPID, CMP, CBC, VIDH, ADIFF, ANEU, GFR, A1C #### [address] [address] Lymphocyte, Absolute 3.1 10 3/mcL Normal 0.8-3.9 [facility] ([place]) Comment on above: Performed By: #### L IPID, CMP, CBC, VIDH, ADIFF, ANEU, GFR, A1C #### [address] [address] Lymphocytes/100 WBC (Bld) 39.5 % Normal 10.0-50.0 [facility] [place] Comment on above: Performed By: #### L IPID, CMP, CBC, VIDH, ADIFF, ANEU, GFR, A1C #### [address] [address] Monocyte, Absolute 0.4 10 3/mcL Normal 0.2-1.0 [facility] ([place] Comment on above: Performed By: #### L IPID, CMP, CBC, VIDH, ADIFF, ANEU, GFR, A1C #### [address] [address] Monocytes/100 WBC (Bld) 5.3 % Normal 1.7-13.0 [facility] [place] Comment on above: Performed By: #### L IPID, CMP, CBC, VIDH, ADIFF, ANEU, GFR, A1C #### [address] [address] Neutrophils/100 WBC (Bld) 53.2 % Normal 37.0-80.0 [facility] [place] Comment on above: Performed By: #### L IPID, CMP, CBC, VIDH, ADIFF, ANEU, GFR, A1C #### [address] [address] .GFRon 06-17-2023 GFR Non- 67 ml/min/1.73sqm Normal [facility] [place] Comment on above: Result Comment: GFR Population mean for , Non- Americans Ages 20-29 = 116 mL/min/1.73 sq.m. Ages 30-39 = 107 mL/min/1.73 sq.m. Ages 40-49 = 99 mL/min/1.73 sq.m. Ages 50-59 = 93 mL/min/1.73 sq.m. Ages 60-69 = 85 mL/min/1.73 sq.m. Ages 70+ = 75 mL/min/1.73 sq.m. Chronic Kidney Disease: Less than 60 mL/min/1.73 square meters End Stage Renal Disease: Less than 15 mL/min/1.73 square meters Performed By: #### L IPID, CMP, CBC, VIDH, ADIFF, ANEU, GFR, A1C #### [address] [address] GFR 81 ml/min/1.73sqm Normal [facility] [place] Comment on above: Result Comment: GFR Population mean for , Non- Americans Ages 20-29 = 116 mL/min/1.73 sq.m. Ages 30-39 = 107 mL/min/1.73 sq.m. Ages 40-49 = 99 mL/min/1.73 sq.m. Ages 50-59 = 93 mL/min/1.73 sq.m. Ages 60-69 = 85 mL/min/1.73 sq.m. Ages 70+ = 75 mL/min/1.73 sq.m. Chronic Kidney Disease: Less than 60 mL/min/1.73 square meters End Stage Renal Disease: Less than 15 mL/min/1.73 square meters Performed By: #### L IPID, CMP, CBC, VIDH, ADIFF, ANEU, GFR, A1C #### [address] [address] .NEUABSon 06-17-2023 Neutrophil, Absolute 4.2 10 3/mcL Normal 2.9-6.2 [facility] ([place]) Comment on above: Performed By: #### L IPID, CMP, CBC, VIDH, ADIFF, ANEU, GFR, A1C #### [address] [address] A1Con 06-17-2023 HbA1c (Bld) [Mass fraction] 6.5 % High 4.3-6.4 [facility] ([place] Comment on above: Performed By: #### L IPID, CMP, CBC, VIDH, ADIFF, ANEU, GFR, A1C #### [place] [address] CBCon 06-17-2023 Erythrocyte distribution width (RBC) [Ratio] 13.2 % Normal 11.5-14.5 [facility] ([place] Comment on above: Performed By: #### L IPID, CMP, CBC, VIDH, ADIFF, ANEU, GFR, A1C #### [place] [address] Hematocrit (Bld) [Volume fraction] 40.7 % Normal 37.0-47.0 [facility] [place] Comment on above: Performed By: #### L IPID, CMP, CBC, VIDH, ADIFF, ANEU, GFR, A1C #### [address] [address] Hgb 14.1 G/dL Normal 12.0-16.0 [facility] [place] Comment on above: Performed By: #### L IPID, CMP, CBC, VIDH, ADIFF, ANEU, GFR, A1C #### [place] [address] MCH (RBC) [Entitic mass] 32.6 pg High 27.0-31.2 [facility] [place] Comment on above: Performed By: #### L IPID, CMP, CBC, VIDH, ADIFF, ANEU, GFR, A1C #### [place] [address] MCHC 34.6 G/dL Normal 33.0-37.0 [facility] [place] Comment on above: Performed By: #### L IPID, CMP, CBC, VIDH, ADIFF, ANEU, GFR, A1C #### [address] [address] MCV (RBC) [Entitic vol] 94.4 fL High 80.0-94.0 [facility] [place] Comment on above: Performed By: #### L IPID, CMP, CBC, VIDH, ADIFF, ANEU, GFR, A1C #### [address] [address] Platelet 248 10 3/mcL Normal 130-400 [facility] [place] Comment on above: Performed By: #### L IPID, CMP, CBC, VIDH, ADIFF, ANEU, GFR, A1C #### [address] [address] Platelet mean volume (Bld) [Entitic vol] 8.7 fL Normal 7.4-10.4 [facility] Comment on above: Performed By: #### L IPID, CMP, CBC, VIDH, ADIFF, ANEU, GFR, A1C #### [address] [address] RBC 4.32 10 6/mcL Normal 4.20-5.40 [facility] ([place] Comment on above: Performed By: #### L IPID, CMP, CBC, VIDH, ADIFF, ANEU, GFR, A1C #### [address] [address] WBC 7.9 10 3/mcL Normal 4.6-10.8 [facility] [place] Comment on above: Performed By: #### L IPID, CMP, CBC, VIDH, ADIFF, ANEU, GFR, A1C #### [address] [address] CMPon 06-17-2023 Albumin Level 3.6 G/dL Normal 3.4-4.8 [facility] ([place] Comment on above: Performed By: #### L IPID, CMP, CBC, VIDH, ADIFF, ANEU, GFR, A1C #### [place] [address] Albumin/Globulin [Mass ratio] 1.0 {ratio} Low 1.1-2.5 [facility] ([place] Comment on above: Performed By: #### L IPID, CMP, CBC, VIDH, ADIFF, ANEU, GFR, A1C #### [place] [address] ALP [Catalytic activity/Vol] 146 U/L High 40-135 [facility] ([place] Comment on above: Performed By: #### L IPID, CMP, CBC, VIDH, ADIFF, ANEU, GFR, A1C #### [place] [address] ALT [Catalytic activity/Vol] 28 U/L Normal 14-59 [facility] ([place] Comment on above: Performed By: #### L IPID, CMP, CBC, VIDH, ADIFF, ANEU, GFR, A1C #### [place] [address] AST [Catalytic activity/Vol] 20 U/L Normal 10-40 [facility] ([place] Comment on above: Performed By: #### L IPID, CMP, CBC, VIDH, ADIFF, ANEU, GFR, A1C #### [place] [address] Bili Total 0.4 mg/dL Normal 0.2-1.0 [facility] ([place] Comment on above: Result Comment: Use of this assay is not recommended for patients undergoing treatment with eltrombopag due to the potential for falsely elevated results. Performed By: #### L IPID, CMP, CBC, VIDH, ADIFF, ANEU, GFR, A1C #### [place] [address] BUN/Creatinine Ratio 11 ratio Normal 7-27 [facility] ([place] Comment on above: Performed By: #### L IPID, CMP, CBC, VIDH, ADIFF, ANEU, GFR, A1C #### [place] [id number] Calcium [Mass/Vol] 9.4 mg/dL Normal 8.4-10.2 [facility] ([place]) Comment on above: Performed By: #### L IPID, CMP, CBC, VIDH, ADIFF, ANEU, GFR, A1C #### [address] [address] Chloride [Moles/Vol] 103 mmol/L Normal 98-107 [facility] ([place] Comment on above: Performed By: #### L IPID, CMP, CBC, VIDH, ADIFF, ANEU, GFR, A1C #### [address] [address] CO2 [Moles/Vol] 28 mmol/L Normal 23-31 [facility] ([place] Comment on above: Performed By: #### L IPID, CMP, CBC, VIDH, ADIFF, ANEU, GFR, A1C #### [place] [id number] Creatinine [Mass/Vol] 0.84 mg/dL Normal 0.55-1.02 [facility] ([place]) Comment on above: Performed By: #### L IPID, CMP, CBC, VIDH, ADIFF, ANEU, GFR, A1C #### [address] [address] Electrolyte Balance 13.0 mEq/L Normal 4.0-15.0 [facility] ([place]) Comment on above: Performed By: #### L IPID, CMP, CBC, VIDH, ADIFF, ANEU, GFR, A1C #### [address] [address] Globulin 3.7 G/dL Normal [facility] ([place] Comment on above: Performed By: #### L IPID, CMP, CBC, VIDH, ADIFF, ANEU, GFR, A1C #### [address] [address] Glucose [Mass/Vol] 142 mg/dL High 83-110 [facility] ([place] Comment on above: Performed By: #### L IPID, CMP, CBC, VIDH, ADIFF, ANEU, GFR, A1C #### [address] [address] Potassium [Moles/Vol] 4.0 mmol/L Normal 3.5-5.1 [facility] ([place] Comment on above: Performed By: #### L IPID, CMP, CBC, VIDH, ADIFF, ANEU, GFR, A1C #### [address] [address] Sodium [Moles/Vol] 144 mmol/L Normal 136-145 [facility] ([place] Comment on above: Performed By: #### L IPID, CMP, CBC, VIDH, ADIFF, ANEU, GFR, A1C #### [address] [address] Total Protein 7.3 G/dL Normal 6.4-8.2 [facility]) Comment on above: Performed By: #### L IPID, CMP, CBC, VIDH, ADIFF, ANEU, GFR, A1C #### [address] [address] Urea nitrogen [Mass/Vol] 9 mg/dL Normal 7-18 [facility] ([place] Comment on above: Performed By: #### L IPID, CMP, CBC, VIDH, ADIFF, ANEU, GFR, A1C #### [address] [address] LABORATORYOrdered By: SYSTEM SYSTEM on 06-17-2023 25-hydroxyvitamin D3 [Mass/Vol] 60.5 ng/mL Invalid Interpretation Code AO ADM SS Comment on above: Interpretive Data: I nterpretive Values Based on Total 25(OH) Vitamin D: Deficient <20 ng/mL Insufficient 20 - <30 ng/mL Sufficient 30-100 ng/mL Albumin BCP dye [Mass/Vol] 3.6 G/dL Normal 3.4 - 4.8 G/dL AO ADM SS Albumin/Globulin [Mass ratio] 1.0 {ratio} Low 1.1 - 2.5 ratio AO ADM SS ALP [Catalytic activity/Vol] 146 U/L High 40 - 135 U/L AO ADM SS ALT With P-5'-P [Catalytic activity/Vol] 28 U/L Normal 14 - 59 U/L AO ADM SS AST With P-5'-P [Catalytic activity/Vol] 20 U/L Normal 10 - 40 U/L AO ADM SS Basophil, Absolute 0.0 103/mcL Normal 0.0 - 0.2 10^3/mcL AO Workflow SS Basophils/100 WBC (Bld) 0.6 % Normal 0.0 - 2.5 % AO Workflow SS Bilirubin [Mass/Vol] 0.4 mg/dL Normal 0.2 - 1 .0 mg/dL AO ADM SS Comment on above: Interpretive Data: U se of this assay is not recommended for patients undergoing treatment with eltrombopag due to the potential for falsely elevated results. Calcium [Mass/Vol] 9.4 mg/dL Normal 8.4 - 10. 2 mg/dL AO ADM SS Chloride [Moles/Vol] 103 mmol/L Normal 98 - 10 7 mmol/L AO ADM SS CO2 [Moles/Vol] 28 mmol/L Normal 23 - 31 mmol/L AO ADM SS Creatinine [Mass/Vol] 0.84 mg/dL Normal 0.55 - 1.02 mg/dL AO ADM SS Electrolyte Balance 13.0 mEq/L Normal 4.0 - 15 .0 mEq/L AO ADM SS Eosinophil, Absolute 0.1 103/mcL Normal 0.0 - 0 .4 10^3/mcL AO Workflow SS Eosinophils/100 WBC (Bld) 1.4 % Normal 0.0 - 7.0 % AO Workflow SS Erythrocyte distribution width (RBC) [Ratio] 13.2 % Normal 11.5 - 14.5 % AO Workflow SS GFR/1.73 sq M.predicted among blacks MDRD (S/P/Bld) [Vol rate/Area] 81 ml/min/1.73sqm Invalid Interpretation Code AO Chemistry S Comment on above: Interpretive Data: GFR Population mean for , Non- Americans Ages 20-29 = 116 mL/min/1.73 sq.m. Ages 30-39 = 107 mL/min/1.73 sq.m. Ages 40-49 = 99 mL/min/1.73 sq.m. Ages 50-59 = 93 mL/min/1.73 sq.m. Ages 60-69 = 85 mL/min/1.73 sq.m. Ages 70+ = 75 mL/min/1.73 sq.m. Chronic Kidney Disease: Less than 60 mL/min/1.73 square meters End Stage Renal Disease: Less than 15 mL/min/1.73 square meters GFR/1.73 sq M.predicted among non-blacks MDRD (S/P/Bld) [Vol rate/Area] 67 ml/min/1.73sqm Invalid Interpretation Code AO Chemistry S Comment on above: Interpretive Data: GFR Population mean for , Non- Americans Ages 20-29 = 116 mL/min/1.73 sq.m. Ages 30-39 = 107 mL/min/1.73 sq.m. Ages 40-49 = 99 mL/min/1.73 sq.m. Ages 50-59 = 93 mL/min/1.73 sq.m. Ages 60-69 = 85 mL/min/1.73 sq.m. Ages 70+ = 75 mL/min/1.73 sq.m. Chronic Kidney Disease: Less than 60 mL/min/1.73 square meters End Stage Renal Disease: Less than 15 mL/min/1.73 square meters Globulin 3.7 G/dL Invalid Interpretation Code AO ADM SS Glucose [Mass/Vol] 142 mg/dL High 83 - 110 mg/dL AO ADM SS HbA1c (Bld) [Mass fraction] 6.5 % High 4.3 - 6.4 % AO ADM SS Hematocrit (Bld) [Volume fraction] 40.7 % Normal 37.0 - 47.0 % AO Workflow SS Hemoglobin (Bld) [Mass/Vol] 14.1 G/dL Normal 12.0 - 16.0 G/dL AO Workflow SS Lymphocyte, Absolute 3.1 103/mcL Normal 0.8 - 3 .9 10^3/mcL AO Workflow SS Lymphocytes/100 WBC (Bld) 39.5 % Normal 10.0 - 50.0 % AO Workflow SS MCH (RBC) [Entitic mass] 32.6 pg High 27.0 - 31.2 pg AO Workflow SS MCHC 34.6 G/dL Normal 33.0 - 37.0 G/dL AO Workflow SS MCV (RBC) [Entitic vol] 94.4 fL High 80.0 - 94.0 fL AO Workflow SS Monocyte, Absolute 0.4 103/mcL Normal 0.2 - 1.0 10^3/mcL AO Workflow SS Monocytes/100 WBC (Bld) 5.3 % Normal 1.7 - 13.0 % AO Workflow SS Neutrophil, Absolute 4.2 103/mcL Normal 2.9 - 6 .2 10^3/mcL AO Workflow SS Neutrophils/100 WBC (Bld) 53.2 % Normal 37.0 - 80.0 % AO Workflow SS Platelet mean volume (Bld) [Entitic vol] 8.7 fL Normal 7.4 - 10.4 fL AO Workflow SS Platelets (Bld) [#/Vol] 248 103/mcL Normal 130 - 400 10^3/mcL AO Workflow SS Potassium [Moles/Vol] 4.0 mmol/L Normal 3.5 - 5.1 mmol/L AO ADM SS Protein [Mass/Vol] 7.3 G/dL Normal 6.4 - 8.2 G/dL AO ADM SS RBC (Bld) [#/Vol] 4.32 106/mcL Normal 4.20 - 5.4 0 10^6/mcL AO Workflow SS Sodium [Moles/Vol] 144 mmol/L Normal 136 - 145 mmol/L AO ADM SS Urea nitrogen [Mass/Vol] 9 mg/dL Normal 7 - 18 mg/dL AO ADM SS Urea nitrogen/Creatinine [Mass ratio] 11 ratio Normal 7 - 27 ratio AO ADM SS WBC (Bld) [#/Vol] 7.9 103/mcL Normal 4.6 - 10.8 10^3/mcL AO Workflow SS LABORATORYOrdered By: Zaynab Hidalgo on 06-17-2023 Cholesterol [Mass/Vol] 233 mg/dL High 0 - 200 mg/dL AO ADM SS Comment on above: Interpretive Data: C holesterol Reference Interval: Less than 200 Desirable 200-239 Borderline high risk 240 and above High risk Cholesterol in HDL [Mass/Vol] 57 mg/dL Normal 40 - 60 mg/dL AO ADM SS Cholesterol in LDL [Mass/Vol] 139 mg/dL High 0 - 130 mg/dL AO ADM SS Triglyceride [Mass/Vol] 187 mg/dL High 0 - 150 mg/dL AO ADM SS Comment on above: Interpretive Data: T riglyceride Reference Interval: Less than 150 Normal 150-199 Borderline high risk 200-499 High risk 500 or higher Very high risk LIPIDon 06-17-2023 Cholesterol [Mass/Vol] 233 mg/dL High 0-200 [facility] [place] Comment on above: Result Comment: Chol esterol Reference Interval: Less than 200 Desirable 200-239 Borderline high risk 240 and above High risk Performed By: #### L IPID, CMP, CBC, VIDH, ADIFF, ANEU, GFR, A1C #### [place] [id number] [place], [place] [address] Cholesterol in HDL [Mass/Vol] 57 mg/dL Normal 40-60 [facility] [place] Comment on above: Performed By: #### L IPID, CMP, CBC, VIDH, ADIFF, ANEU, GFR, A1C #### [place] [address] [place], [place] [address] Cholesterol in LDL [Mass/Vol] 139 mg/dL High 0-130 [facility] [place] Comment on above: Performed By: #### L IPID, CMP, CBC, VIDH, ADIFF, ANEU, GFR, A1C #### [address] [address] Triglyceride [Mass/Vol] 187 mg/dL High 0-150 [facility] [place] Comment on above: Result Comment: Trig lyceride Reference Interval: Less than 150 Normal 150-199 Borderline high risk 200-499 High risk 500 or higher Very high risk Performed By: #### L IPID, CMP, CBC, VIDH, ADIFF, ANEU, GFR, A1C #### [address] [address] VIDHon 06-17-2023 Vit. D 25-Hydroxy 60.5 ng/mL Normal [facility] [place] Comment on above: Result Comment: Inte rpretive Values Based on Total 25(OH) Vitamin D: Deficient <20 ng/mL Insufficient 20 - <30 ng/mL Sufficient 30-100 ng/mL Performed By: #### L IPID, CMP, CBC, VIDH, ADIFF, ANEU, GFR, A1C #### [address] [address] LABORATORYOrdered By: SYSTEM SYSTEM on 12-29-2022 Albumin BCP dye [Mass/Vol] 3.6 G/dL Invalid Interpretation Code 3.4 - 4.8 G/dL AO ADM SS Albumin/Globulin [Mass ratio] 1.1 {ratio} Invalid Interpretation Code 1.1 - 2.5 ratio AO ADM SS ALP [Catalytic activity/Vol] 106 U/L Invalid Interpretation Code 40 - 135 U/L AO ADM SS ALT With P-5'-P [Catalytic activity/Vol] 25 U/L Invalid Interpretation Code 14 - 59 U/L AO ADM SS AST With P-5'-P [Catalytic activity/Vol] 17 U/L Invalid Interpretation Code 10 - 40 U/L AO ADM SS Basophil, Absolute 0.0 103/mcL Invalid Interpretation Code 0.0 - 0.2 10^3/mcL AO Workflow SS Basophils/100 WBC (Bld) 0.6 % Invalid Interpretation Code 0.0 - 2.5 % AO Workflow SS Bilirubin [Mass/Vol] 0.4 mg/dL Invalid Interpretation Code 0.2 - 1.0 mg/dL AO ADM SS Calcium [Mass/Vol] 9.1 mg/dL Invalid Interpretation Code 8.4 - 10.2 mg/dL AO ADM SS Chloride [Moles/Vol] 104 mmol/L Invalid Interpretation Code 98 - 107 mmol/L AO ADM SS CO2 [Moles/Vol] 30 mmol/L Invalid Interpretation Code 23 - 31 mmol/L AO ADM SS Creatinine [Mass/Vol] 0.78 mg/dL Invalid Interpretation Code 0.55 - 1.02 mg/dL AO ADM SS Electrolyte Balance 9.0 mEq/L Invalid Interpretation Code 4.0 - 15.0 mEq/L AO ADM SS Eosinophil, Absolute 0.1 103/mcL Invalid Interpretation Code 0.0 - 0.4 10^3/mcL AO Workflow SS Eosinophils/100 WBC (Bld) 1.2 % Invalid Interpretation Code 0.0 - 7.0 % AO Workflow SS Erythrocyte distribution width (RBC) [Ratio] 14.1 % Invalid Interpretation Code 11.5 - 14.5 % AO Workflow SS GFR/1.73 sq M.predicted among blacks MDRD (S/P/Bld) [Vol rate/Area] 88 ml/min/1.73sqm Invalid Interpretation Code AO Chemistry S GFR/1.73 sq M.predicted among non-blacks MDRD (S/P/Bld) [Vol rate/Area] 73 ml/min/1.73sqm Invalid Interpretation Code AO Chemistry S Globulin 3.2 G/dL Invalid Interpretation Code AO ADM SS Glucose [Mass/Vol] 125 mg/dL Invalid Interpretation Code 83 - 110 mg/dL AO ADM SS HbA1c (Bld) [Mass fraction] 6.5 % Invalid Interpretation Code 4.3 - 6.4 % AO ADM SS Hematocrit (Bld) [Volume fraction] 40.5 % Invalid Interpretation Code 37.0 - 47.0 % AO Workflow SS Hemoglobin (Bld) [Mass/Vol] 13.8 G/dL Invalid Interpretation Code 12.0 - 16.0 G/dL AO Workflow SS Lymphocyte, Absolute 1.7 103/mcL Invalid Interpretation Code 0.8 - 3.9 10^3/mcL AO Workflow SS Lymphocytes/100 WBC (Bld) 30.6 % Invalid Interpretation Code 10.0 - 50.0 % AO Workflow SS MCH (RBC) [Entitic mass] 32.1 pg Invalid Interpretation Code 27.0 - 31.2 pg AO Workflow SS MCHC 34.0 G/dL Invalid Interpretation Code 33.0 - 37.0 G/dL AO Workflow SS MCV (RBC) [Entitic vol] 94.2 fL Invalid Interpretation Code 80.0 - 94.0 fL AO Workflow SS Monocyte, Absolute 0.3 103/mcL Invalid Interpretation Code 0.2 - 1.0 10^3/mcL AO Workflow SS Monocytes/100 WBC (Bld) 5.8 % Invalid Interpretation Code 1.7 - 13.0 % AO Workflow SS Neutrophil, Absolute 3.4 103/mcL Invalid Interpretation Code 2.9 - 6.2 10^3/mcL AO Workflow SS Neutrophils/100 WBC (Bld) 61.8 % Invalid Interpretation Code 37.0 - 80.0 % AO Workflow SS Platelet mean volume (Bld) [Entitic vol] 9.8 fL Invalid Interpretation Code 7.4 - 10.4 fL AO Workflow SS Platelets (Bld) [#/Vol] 204 103/mcL Invalid Interpretation Code 130 - 400 10^3/mcL AO Workflow SS Potassium [Moles/Vol] 4.4 mmol/L Invalid Interpretation Code 3.5 - 5.1 mmol/L AO ADM SS Protein [Mass/Vol] 6.8 G/dL Invalid Interpretation Code 6.4 - 8.2 G/dL AO ADM SS RBC (Bld) [#/Vol] 4.30 106/mcL Invalid Interpretation Code 4.20 - 5.40 10^6/mcL AO Workflow SS Sodium [Moles/Vol] 143 mmol/L Invalid Interpretation Code 136 - 145 mmol/L AO ADM SS Urea nitrogen [Mass/Vol] 9 mg/dL Invalid Interpretation Code 7 - 18 mg/dL AO ADM SS Urea nitrogen/Creatinine [Mass ratio] 12 ratio Invalid Interpretation Code 7 - 27 ratio AO ADM SS WBC (Bld) [#/Vol] 5.5 103/mcL Invalid Interpretation Code 4.6 - 10.8 10^3/mcL AO Workflow SS LABORATORYOrdered By: Tori Son on 12-29-2022 Cholesterol [Mass/Vol] 174 mg/dL Invalid Interpretation Code 0 - 200 mg/dL AO ADM SS Cholesterol in HDL [Mass/Vol] 58 mg/dL Invalid Interpretation Code 40 - 60 mg/dL AO ADM SS Cholesterol in LDL [Mass/Vol] 95 mg/dL Invalid Interpretation Code 0 - 130 mg/dL AO ADM SS Triglyceride [Mass/Vol] 103 mg/dL Invalid Interpretation Code 0 - 150 mg/dL AO ADM SS LABORATORYOrdered By: SYSTEM SYSTEM on 10-01-2022 Albumin BCP dye [Mass/Vol] 3.5 G/dL Invalid Interpretation Code 3.4 - 4.8 G/dL AO ADM SS Albumin/Globulin [Mass ratio] 1.0 {ratio} Invalid Interpretation Code 1.1 - 2.5 ratio AO ADM SS ALP [Catalytic activity/Vol] 118 U/L Invalid Interpretation Code 40 - 135 U/L AO ADM SS ALT With P-5'-P [Catalytic activity/Vol] 28 U/L Invalid Interpretation Code 14 - 59 U/L AO ADM SS AST With P-5'-P [Catalytic activity/Vol] 21 U/L Invalid Interpretation Code 10 - 40 U/L AO ADM SS Bilirubin [Mass/Vol] 0.4 mg/dL Invalid Interpretation Code 0.2 - 1.0 mg/dL AO ADM SS Calcium [Mass/Vol] 8.7 mg/dL Invalid Interpretation Code 8.4 - 10.2 mg/dL AO ADM SS Chloride [Moles/Vol] 103 mmol/L Invalid Interpretation Code 98 - 107 mmol/L AO ADM SS CO2 [Moles/Vol] 28 mmol/L Invalid Interpretation Code 23 - 31 mmol/L AO ADM SS Creatinine [Mass/Vol] 0.76 mg/dL Invalid Interpretation Code 0.55 - 1.02 mg/dL AO ADM SS Electrolyte Balance 9.0 mEq/L Invalid Interpretation Code 4.0 - 15.0 mEq/L AO ADM SS GFR 91 ml/min/1.73sqm Invalid Interpretation Code AO Chemistry S GFR Non- 75 ml/min/1.73sqm Invalid Interpretation Code AO Chemistry S Globulin 3.4 G/dL Invalid Interpretation Code AO ADM SS Glucose [Mass/Vol] 126 mg/dL Invalid Interpretation Code 83 - 110 mg/dL AO ADM SS HbA1c (Bld) [Mass fraction] 6.5 % Invalid Interpretation Code 4.3 - 6.4 % AO ADM SS Potassium [Moles/Vol] 3.9 mmol/L Invalid Interpretation Code 3.5 - 5.1 mmol/L AO ADM SS Protein [Mass/Vol] 6.9 G/dL Invalid Interpretation Code 6.4 - 8.2 G/dL AO ADM SS Sodium [Moles/Vol] 140 mmol/L Invalid Interpretation Code 136 - 145 mmol/L AO ADM SS Urea nitrogen [Mass/Vol] 7 mg/dL Invalid Interpretation Code 7 - 18 mg/dL AO ADM SS Urea nitrogen/Creatinine [Mass ratio] 9 ratio Invalid Interpretation Code 7 - 27 ratio AO ADM SS Vit. D 25-Hydroxy 27.1 ng/mL Invalid Interpretation Code AO ADM SS LABORATORYOrdered By: Shaniqua Trujillo on 10-01-2022 Basophil, Absolute 0.0 103/mcL Invalid Interpretation Code 0.0 - 0.2 10^3/mcL AO Workflow SS Basophils/100 WBC (Bld) 0.9 % Invalid Interpretation Code 0.0 - 2.5 % AO Workflow SS Eosinophil, Absolute 0.1 103/mcL Invalid Interpretation Code 0.0 - 0.4 10^3/mcL AO Workflow SS Eosinophils/100 WBC (Bld) 1.6 % Invalid Interpretation Code 0.0 - 7.0 % AO Workflow SS Erythrocyte distribution width (RBC) [Ratio] 15.8 % Invalid Interpretation Code 11.5 - 14.5 % AO Workflow SS Hematocrit (Bld) [Volume fraction] 38.3 % Invalid Interpretation Code 37.0 - 47.0 % AO Workflow SS Hemoglobin (Bld) [Mass/Vol] 12.9 G/dL Invalid Interpretation Code 12.0 - 16.0 G/dL AO Workflow SS Lymphocyte, Absolute 1.6 103/mcL Invalid Interpretation Code 0.8 - 3.9 10^3/mcL AO Workflow SS Lymphocytes/100 WBC (Bld) 27.7 % Invalid Interpretation Code 10.0 - 50.0 % AO Workflow SS MCH (RBC) [Entitic mass] 30.6 pg Invalid Interpretation Code 27.0 - 31.2 pg AO Workflow SS MCHC 33.8 G/dL Invalid Interpretation Code 33.0 - 37.0 G/dL AO Workflow SS MCV (RBC) [Entitic vol] 90.6 fL Invalid Interpretation Code 80.0 - 94.0 fL AO Workflow SS Monocyte, Absolute 0.3 103/mcL Invalid Interpretation Code 0.2 - 1.0 10^3/mcL AO Workflow SS Monocytes/100 WBC (Bld) 4.7 % Invalid Interpretation Code 1.7 - 13.0 % AO Workflow SS Neutrophil, Absolute 3.7 103/mcL Invalid Interpretation Code 2.9 - 6.2 10^3/mcL AO Workflow SS Neutrophils/100 WBC (Bld) 65.1 % Invalid Interpretation Code 37.0 - 80.0 % AO Workflow SS Platelet mean volume (Bld) [Entitic vol] 9.1 fL Invalid Interpretation Code 7.4 - 10.4 fL AO Workflow SS Platelets (Bld) [#/Vol] 228 103/mcL Invalid Interpretation Code 130 - 400 10^3/mcL AO Workflow SS RBC (Bld) [#/Vol] 4.23 106/mcL Invalid Interpretation Code 4.20 - 5.40 10^6/mcL AO Workflow SS WBC (Bld) [#/Vol] 5.6 103/mcL Invalid Interpretation Code 4.6 - 10.8 10^3/mcL AO Workflow SS LABORATORYOrdered By: Dang Dubose on 10-01-2022 Cholesterol [Mass/Vol] 197 mg/dL Invalid Interpretation Code 0 - 200 mg/dL AO ADM SS Cholesterol in HDL [Mass/Vol] 67 mg/dL Invalid Interpretation Code 40 - 60 mg/dL AO ADM SS Cholesterol in LDL [Mass/Vol] 109 mg/dL Invalid Interpretation Code 0 - 130 mg/dL AO ADM SS Triglyceride [Mass/Vol] 107 mg/dL Invalid Interpretation Code 0 - 150 mg/dL AO ADM SS LABORATORYOrdered By: [employer] on 07-06-2022 Albumin BCP dye [Mass/Vol] 3.6 G/dL Invalid Interpretation Code 3.4 - 4.8 G/dL AO ADM SS Albumin/Globulin [Mass ratio] 1.0 {ratio} Invalid Interpretation Code 1.1 - 2.5 ratio AO ADM SS ALP [Catalytic activity/Vol] 138 U/L Invalid Interpretation Code 40 - 135 U/L AO ADM SS ALT With P-5'-P [Catalytic activity/Vol] 29 U/L Invalid Interpretation Code 14 - 59 U/L AO ADM SS AST With P-5'-P [Catalytic activity/Vol] 23 U/L Invalid Interpretation Code 10 - 40 U/L AO ADM SS Bilirubin [Mass/Vol] 0.3 mg/dL Invalid Interpretation Code 0.2 - 1.0 mg/dL AO ADM SS Calcium [Mass/Vol] 9.1 mg/dL Invalid Interpretation Code 8.4 - 10.2 mg/dL AO ADM SS Chloride [Moles/Vol] 103 mmol/L Invalid Interpretation Code 98 - 107 mmol/L AO ADM SS CO2 [Moles/Vol] 30 mmol/L Invalid Interpretation Code 23 - 31 mmol/L AO ADM SS Creatinine [Mass/Vol] 0.85 mg/dL Invalid Interpretation Code 0.55 - 1.02 mg/dL AO ADM SS Electrolyte Balance 8.0 mEq/L Invalid Interpretation Code 4.0 - 15.0 mEq/L AO ADM SS GFR 80 ml/min/1.73sqm Invalid Interpretation Code AO Chemistry S GFR Non- 66 ml/min/1.73sqm Invalid Interpretation Code AO Chemistry S Globulin 3.7 G/dL Invalid Interpretation Code AO ADM SS Glucose [Mass/Vol] 223 mg/dL Invalid Interpretation Code 83 - 110 mg/dL AO ADM SS HbA1c (Bld) [Mass fraction] 6.2 % Invalid Interpretation Code 4.3 - 6.4 % AO ADM SS Potassium [Moles/Vol] 4.4 mmol/L Invalid Interpretation Code 3.5 - 5.1 mmol/L AO ADM SS Protein [Mass/Vol] 7.3 G/dL Invalid Interpretation Code 6.4 - 8.2 G/dL AO ADM SS Sodium [Moles/Vol] 141 mmol/L Invalid Interpretation Code 136 - 145 mmol/L AO ADM SS Urea nitrogen [Mass/Vol] 11 mg/dL Invalid Interpretation Code 7 - 18 mg/dL AO ADM SS Urea nitrogen/Creatinine [Mass ratio] 13 ratio Invalid Interpretation Code 7 - 27 ratio AO ADM SS LABORATORYOrdered By: Dang Dubose on 07-06-2022 Basophil, Absolute 0.0 103/mcL Invalid Interpretation Code 0.0 - 0.2 10^3/mcL AO Workflow SS Basophils/100 WBC (Bld) 0.5 % Invalid Interpretation Code 0.0 - 2.5 % AO Workflow SS Eosinophil, Absolute 0.1 103/mcL Invalid Interpretation Code 0.0 - 0.4 10^3/mcL AO Workflow SS Eosinophils/100 WBC (Bld) 1.6 % Invalid Interpretation Code 0.0 - 7.0 % AO Workflow SS Erythrocyte distribution width (RBC) [Ratio] 14.9 % Invalid Interpretation Code 11.5 - 14.5 % AO Workflow SS Hematocrit (Bld) [Volume fraction] 40.1 % Invalid Interpretation Code 37.0 - 47.0 % AO Workflow SS Hemoglobin (Bld) [Mass/Vol] 13.5 G/dL Invalid Interpretation Code 12.0 - 16.0 G/dL AO Workflow SS Lymphocyte, Absolute 2.2 103/mcL Invalid Interpretation Code 0.8 - 3.9 10^3/mcL AO Workflow SS Lymphocytes/100 WBC (Bld) 34.8 % Invalid Interpretation Code 10.0 - 50.0 % AO Workflow SS MCH (RBC) [Entitic mass] 31.1 pg Invalid Interpretation Code 27.0 - 31.2 pg AO Workflow SS MCHC 33.5 G/dL Invalid Interpretation Code 33.0 - 37.0 G/dL AO Workflow SS MCV (RBC) [Entitic vol] 92.7 fL Invalid Interpretation Code 80.0 - 94.0 fL AO Workflow SS Monocyte, Absolute 0.3 103/mcL Invalid Interpretation Code 0.2 - 1.0 10^3/mcL AO Workflow SS Monocytes/100 WBC (Bld) 4.9 % Invalid Interpretation Code 1.7 - 13.0 % AO Workflow SS Neutrophil, Absolute 3.7 103/mcL Invalid Interpretation Code 2.9 - 6.2 10^3/mcL AO Workflow SS Neutrophils/100 WBC (Bld) 58.2 % Invalid Interpretation Code 37.0 - 80.0 % AO Workflow SS Platelet mean volume (Bld) [Entitic vol] 9.5 fL Invalid Interpretation Code 7.4 - 10.4 fL AO Workflow SS Platelets (Bld) [#/Vol] 242 103/mcL Invalid Interpretation Code 130 - 400 10^3/mcL AO Workflow SS RBC (Bld) [#/Vol] 4.33 106/mcL Invalid Interpretation Code 4.20 - 5.40 10^6/mcL AO Workflow SS WBC (Bld) [#/Vol] 6.4 103/mcL Invalid Interpretation Code 4.6 - 10.8 10^3/mcL AO Workflow SS LABORATORYOrdered By: Cinda Koehler on 07-06-2022 Cholesterol [Mass/Vol] 230 mg/dL Invalid Interpretation Code 0 - 200 mg/dL AO ADM SS Cholesterol in HDL [Mass/Vol] 58 mg/dL Invalid Interpretation Code 40 - 60 mg/dL AO ADM SS Cholesterol in LDL [Mass/Vol] 135 mg/dL Invalid Interpretation Code 0 - 130 mg/dL AO ADM SS Triglyceride [Mass/Vol] 184 mg/dL Invalid Interpretation Code 0 - 150 mg/dL AO ADM SS LABORATORYOrdered By: Chan Combs on 05-11-2022 INR Coag (PPP) [Relative time] 1.3 {INR} Invalid Interpretation Code AH Auto Coag SS PT Coag (PPP) [Time] 15.5 s Invalid Interpretation Code 9.0 - 14.9 seconds AH Auto Coag SS LABORATORYOrdered By: Cinda Koehler on 05-03-2022 INR Coag (PPP) [Relative time] 2.8 {INR} Invalid Interpretation Code 0.9 - 1.2 ratio AO Coag SS PT Coag (PPP) [Time] 29.5 s Invalid Interpretation Code 9.7 - 13.9 seconds AO Coag SS LABORATORYOrdered By: Jesús Valdes on 05-02-2022 Blood Glucose Testing Reason Routine (05/02/22 12:13 PM) [facility] Glucose [Mass/Vol] 110 mg/dL Invalid Interpretation Code 82 - 115 mg/dL [facility] LABORATORYOrdered By: Velvet Madrid on 05-02-2022 Glucose [Mass/Vol] 137 mg/dL Invalid Interpretation Code 82 - 115 mg/dL [facility] LABORATORYOrdered By: Jelani Lassiter on 05-02-2022 INR Coag (PPP) [Relative time] 1.8 {INR} Invalid Interpretation Code AH Auto Coag SS PT Coag (PPP) [Time] 22.3 s Invalid Interpretation Code 9.0 - 14.9 seconds AH Auto Coag SS LABORATORYOrdered By: Arline Meyer on 05-01-2022 Blood Glucose Testing Reason Routine (05/01/22 9:14 PM) [facility] Glucose [Mass/Vol] 145 mg/dL Invalid Interpretation Code 82 - 115 mg/dL [facility] LABORATORYOrdered By: Jesús Valdes on 05-01-2022 Blood Glucose Testing Reason Routine (05/01/22 4:26 PM) [facility] LABORATORYOrdered By: [employer] on 05-01-2022 Calcium [Mass/Vol] 8.6 mg/dL Invalid Interpretation Code 8.7 - 10.4 mg/dL ADM SS Chloride [Moles/Vol] 107 mmol/L Invalid Interpretation Code 98 - 110 mEq/L ADM SS CO2 [Moles/Vol] 30 mmol/L Invalid Interpretation Code 22 - 32 mEq/L ADM SS Creatinine [Mass/Vol] 0.53 mg/dL Invalid Interpretation Code 0.50 - 1.20 mg/dL ADM SS Electrolyte Balance 5.0 mEq/L Invalid Interpretation Code 4.0 - 15.0 mEq/L AH ADM SS GFR/1.73 sq M.predicted among blacks MDRD (S/P/Bld) [Vol rate/Area] ml/min/1.73sqm Invalid Interpretation Code AH ADM SS GFR/1.73 sq M.predicted among non-blacks MDRD (S/P/Bld) [Vol rate/Area] ml/min/1.73sqm Invalid Interpretation Code ADM SS Glucose [Mass/Vol] 119 mg/dL Invalid Interpretation Code 82 - 115 mg/dL ADM SS Potassium [Moles/Vol] 3.9 mmol/L Invalid Interpretation Code 3.5 - 5.0 mEq/L AH ADM SS Sodium [Moles/Vol] 142 mmol/L Invalid Interpretation Code 136 - 145 mEq/L ADM SS Urea nitrogen [Mass/Vol] 8.0 mg/dL Invalid Interpretation Code 8.0 - 22.0 mg/dL ADM SS Urea nitrogen/Creatinine [Mass ratio] 15.1 ratio Invalid Interpretation Code 10.0 - 22.0 ratio AH ADM SS LABORATORYOrdered By: Nicole Valenuzela on 05-01-2022 INR Coag (PPP) [Relative time] 1.1 {INR} Invalid Interpretation Code AH Auto Coag SS PT Coag (PPP) [Time] 13.0 s Invalid Interpretation Code 9.0 - 14.9 seconds AH Auto Coag SS LABORATORYOrdered By: Marichuy James on 04-30-2022 INR Coag (PPP) [Relative time] 1.1 {INR} Invalid Interpretation Code AH Auto Coag SS PT Coag (PPP) [Time] 12.7 s Invalid Interpretation Code 9.0 - 14.9 seconds AH Auto Coag SS LABORATORYOrdered By: SYSTEM SYSTEM on 04-30-2022 Albumin BCP dye [Mass/Vol] 2.9 G/dL Invalid Interpretation Code 3.2 - 4.8 G/dL ADM SS Albumin/Globulin [Mass ratio] 0.9 {ratio} Invalid Interpretation Code 0.9 - 1.6 ratio ADM SS ALP [Catalytic activity/Vol] 103 U/L Invalid Interpretation Code 38 - 126 U/L ADM SS ALT No additional P-5'-P [Catalytic activity/Vol] 14 U/L Invalid Interpretation Code 10 - 49 U/L ADM SS AST [Catalytic activity/Vol] 14 U/L Invalid Interpretation Code 8 - 34 U/L ADM SS Basophils (Bld) [#/Vol] 0.1 103/mcL Invalid Interpretation Code 0.0 - 0.3 10^3/mcL Workflow SS Basophils/100 WBC (Bld) 0.8 % Invalid Interpretation Code 0.0 - 2.5 % Workflow SS Bilirubin [Mass/Vol] 0.60 mg/dL Invalid Interpretation Code 0.20 - 1.20 mg/dL ADM SS Calcium [Mass/Vol] 8.6 mg/dL Invalid Interpretation Code 8.7 - 10.4 mg/dL ADM SS Chloride [Moles/Vol] 106 mmol/L Invalid Interpretation Code 98 - 110 mEq/L AH ADM SS CO2 [Moles/Vol] 29 mmol/L Invalid Interpretation Code 22 - 32 mEq/L AH ADM SS Creatinine [Mass/Vol] 0.53 mg/dL Invalid Interpretation Code 0.50 - 1.20 mg/dL AH ADM SS Electrolyte Balance 7.0 mEq/L Invalid Interpretation Code 4.0 - 15.0 mEq/L ADM SS Eosinophils (Bld) [#/Vol] 0.2 103/mcL Invalid Interpretation Code 0.0 - 0.7 10^3/mcL AH Workflow SS Eosinophils/100 WBC (Bld) 2.3 % Invalid Interpretation Code 0.0 - 6.0 % AH Workflow SS Erythrocyte distribution width (RBC) [Ratio] 13.2 % Invalid Interpretation Code 11.5 - 15.5 % AH Workflow SS GFR/1.73 sq M.predicted among blacks MDRD (S/P/Bld) [Vol rate/Area] ml/min/1.73sqm Invalid Interpretation Code AH ADM SS GFR/1.73 sq M.predicted among non-blacks MDRD (S/P/Bld) [Vol rate/Area] ml/min/1.73sqm Invalid Interpretation Code AH ADM SS Globulin 3.3 G/dL Invalid Interpretation Code 1.5 - 3.8 G/dL ADM SS Glucose [Mass/Vol] 129 mg/dL Invalid Interpretation Code 82 - 115 mg/dL ADM SS Hematocrit (Bld) [Volume fraction] 26.1 % Invalid Interpretation Code 34.0 - 46.0 % AH Workflow SS Hemoglobin (Bld) [Mass/Vol] 9.1 G/dL Invalid Interpretation Code 12.0 - 16.0 G/dL AH Workflow SS Lymphocytes (Bld) [#/Vol] 2.7 103/mcL Invalid Interpretation Code 0.9 - 4.3 10^3/mcL AH Workflow SS Lymphocytes/100 WBC (Bld) 31.9 % Invalid Interpretation Code 20.0 - 40.0 % AH Workflow SS MCH (RBC) [Entitic mass] 32.6 pg Invalid Interpretation Code 27.0 - 33.0 pg AH Workflow SS MCHC 34.9 G/dL Invalid Interpretation Code 32.0 - 36.0 G/dL AH Workflow SS MCV (RBC) [Entitic vol] 93.4 fL Invalid Interpretation Code 80.0 - 99.0 fL AH Workflow SS Monocytes (Bld) [#/Vol] 0.6 103/mcL Invalid Interpretation Code 0.1 - 1.4 10^3/mcL AH Workflow SS Monocytes/100 WBC (Bld) 6.9 % Invalid Interpretation Code 2.0 - 13.0 % AH Workflow SS Neutrophils (Bld) [#/Vol] 5.0 103/mcL Invalid Interpretation Code 2.3 - 8.1 10^3/mcL AH Workflow SS Neutrophils/100 WBC (Bld) 58.1 % Invalid Interpretation Code 50.0 - 75.0 % AH Workflow SS Platelet mean volume (Bld) [Entitic vol] 9.4 fL Invalid Interpretation Code 6.6 - 10.5 fL AH Workflow SS Platelets (Bld) [#/Vol] 157 103/mcL Invalid Interpretation Code 150 - 450 10^3/mcL AH Workflow SS Potassium [Moles/Vol] 4.1 mmol/L Invalid Interpretation Code 3.5 - 5.0 mEq/L AH ADM SS Protein [Mass/Vol] 6.2 G/dL Invalid Interpretation Code 5.7 - 8.2 G/dL ADM SS RBC (Bld) [#/Vol] 2.79 106/mcL Invalid Interpretation Code 4.10 - 5.30 10^6/mcL AH Workflow SS Sodium [Moles/Vol] 142 mmol/L Invalid Interpretation Code 136 - 145 mEq/L ADM SS Urea nitrogen [Mass/Vol] 9.0 mg/dL Invalid Interpretation Code 8.0 - 22.0 mg/dL ADM SS Urea nitrogen/Creatinine [Mass ratio] 17.0 ratio Invalid Interpretation Code 10.0 - 22.0 ratio AH ADM SS WBC (Bld) [#/Vol] 8.6 103/mcL Invalid Interpretation Code 4.5 - 10.8 10^3/mcL Workflow SS LABORATORYOrdered By: SYSTEM SYSTEM on 04-29-2022 Albumin BCP dye [Mass/Vol] 3.2 G/dL Invalid Interpretation Code 3.2 - 4.8 G/dL ADM SS Albumin/Globulin [Mass ratio] 1.3 {ratio} Invalid Interpretation Code 0.9 - 1.6 ratio ADM SS ALP [Catalytic activity/Vol] 78 U/L Invalid Interpretation Code 38 - 126 U/L ADM SS ALT No additional P-5'-P [Catalytic activity/Vol] 18 U/L Invalid Interpretation Code 10 - 49 U/L AH ADM SS AST [Catalytic activity/Vol] 12 U/L Invalid Interpretation Code 8 - 34 U/L ADM SS Basophils (Bld) [#/Vol] 0.1 103/mcL Invalid Interpretation Code 0.0 - 0.3 10^3/mcL AH Workflow SS Basophils/100 WBC (Bld) 0.6 % Invalid Interpretation Code 0.0 - 2.5 % AH Workflow SS Bilirubin [Mass/Vol] 0.70 mg/dL Invalid Interpretation Code 0.20 - 1.20 mg/dL ADM SS Calcium [Mass/Vol] 8.5 mg/dL Invalid Interpretation Code 8.7 - 10.4 mg/dL ADM SS Chloride [Moles/Vol] 105 mmol/L Invalid Interpretation Code 98 - 110 mEq/L ADM SS CO2 [Moles/Vol] 29 mmol/L Invalid Interpretation Code 22 - 32 mEq/L ADM SS Creatinine [Mass/Vol] 0.46 mg/dL Invalid Interpretation Code 0.50 - 1.20 mg/dL ADM SS Electrolyte Balance 3.0 mEq/L Invalid Interpretation Code 4.0 - 15.0 mEq/L ADM SS Eosinophils (Bld) [#/Vol] 0.1 103/mcL Invalid Interpretation Code 0.0 - 0.7 10^3/mcL Workflow SS Eosinophils/100 WBC (Bld) 0.8 % Invalid Interpretation Code 0.0 - 6.0 % Workflow SS Erythrocyte distribution width (RBC) [Ratio] 13.2 % Invalid Interpretation Code 11.5 - 15.5 % Workflow SS GFR/1.73 sq M.predicted among blacks MDRD (S/P/Bld) [Vol rate/Area] ml/min/1.73sqm Invalid Interpretation Code Chemistry S GFR/1.73 sq M.predicted among non-blacks MDRD (S/P/Bld) [Vol rate/Area] ml/min/1.73sqm Invalid Interpretation Code Chemistry S Globulin 2.4 G/dL Invalid Interpretation Code 1.5 - 3.8 G/dL ADM SS Glucose [Mass/Vol] 126 mg/dL Invalid Interpretation Code 82 - 115 mg/dL ADM SS Hematocrit (Bld) [Volume fraction] 25.9 % Invalid Interpretation Code 34.0 - 46.0 % Workflow SS Hemoglobin (Bld) [Mass/Vol] 9.0 G/dL Invalid Interpretation Code 12.0 - 16.0 G/dL Workflow SS Lymphocytes (Bld) [#/Vol] 1.8 103/mcL Invalid Interpretation Code 0.9 - 4.3 10^3/mcL Workflow SS Lymphocytes/100 WBC (Bld) 20.0 % Invalid Interpretation Code 20.0 - 40.0 % Workflow SS MCH (RBC) [Entitic mass] 32.3 pg Invalid Interpretation Code 27.0 - 33.0 pg AH Workflow SS MCHC 34.7 G/dL Invalid Interpretation Code 32.0 - 36.0 G/dL AH Workflow SS MCV (RBC) [Entitic vol] 93.3 fL Invalid Interpretation Code 80.0 - 99.0 fL AH Workflow SS Monocytes (Bld) [#/Vol] 0.6 103/mcL Invalid Interpretation Code 0.1 - 1.4 10^3/mcL AH Workflow SS Monocytes/100 WBC (Bld) 7.2 % Invalid Interpretation Code 2.0 - 13.0 % AH Workflow SS Neutrophils (Bld) [#/Vol] 6.4 103/mcL Invalid Interpretation Code 2.3 - 8.1 10^3/mcL AH Workflow SS Neutrophils/100 WBC (Bld) 71.4 % Invalid Interpretation Code 50.0 - 75.0 % AH Workflow SS Platelet mean volume (Bld) [Entitic vol] 9.4 fL Invalid Interpretation Code 6.6 - 10.5 fL Workflow SS Platelets (Bld) [#/Vol] 122 103/mcL Invalid Interpretation Code 150 - 450 10^3/mcL AH Workflow SS Potassium [Moles/Vol] 4.1 mmol/L Invalid Interpretation Code 3.5 - 5.0 mEq/L ADM SS Protein [Mass/Vol] 5.6 G/dL Invalid Interpretation Code 5.7 - 8.2 G/dL ADM SS RBC (Bld) [#/Vol] 2.77 106/mcL Invalid Interpretation Code 4.10 - 5.30 10^6/mcL AH Workflow SS Sodium [Moles/Vol] 137 mmol/L Invalid Interpretation Code 136 - 145 mEq/L ADM SS Urea nitrogen [Mass/Vol] 11.0 mg/dL Invalid Interpretation Code 8.0 - 22.0 mg/dL ADM SS Urea nitrogen/Creatinine [Mass ratio] 23.9 ratio Invalid Interpretation Code 10.0 - 22.0 ratio ADM SS WBC (Bld) [#/Vol] 8.9 103/mcL Invalid Interpretation Code 4.5 - 10.8 10^3/mcL AH Workflow SS Magnesium [Mass/Vol] 1.8 mg/dL Invalid Interpretation Code 1.6 - 2.4 mg/dL ADM SS LABORATORYOrdered By: SYSTEM SYSTEM on 04-28-2022 Magnesium [Mass/Vol] 1.6 mg/dL Invalid Interpretation Code 1.6 - 2.4 mg/dL ADM SS Albumin BCP dye [Mass/Vol] 3.6 G/dL Invalid Interpretation Code 3.2 - 4.8 G/dL ADM SS Albumin/Globulin [Mass ratio] 1.6 {ratio} Invalid Interpretation Code 0.9 - 1.6 ratio ADM SS ALP [Catalytic activity/Vol] 73 U/L Invalid Interpretation Code 38 - 126 U/L ADM SS ALT No additional P-5'-P [Catalytic activity/Vol] 24 U/L Invalid Interpretation Code 10 - 49 U/L ADM SS AST [Catalytic activity/Vol] 17 U/L Invalid Interpretation Code 8 - 34 U/L ADM SS Basophils (Bld) [#/Vol] 0.1 103/mcL Invalid Interpretation Code 0.0 - 0.3 10^3/mcL Workflow SS Basophils/100 WBC (Bld) 0.5 % Invalid Interpretation Code 0.0 - 2.5 % AH Workflow SS Bilirubin [Mass/Vol] 0.70 mg/dL Invalid Interpretation Code 0.20 - 1.20 mg/dL ADM SS Eosinophils (Bld) [#/Vol] 0.0 103/mcL Invalid Interpretation Code 0.0 - 0.7 10^3/mcL AH Workflow SS Eosinophils/100 WBC (Bld) 0.2 % Invalid Interpretation Code 0.0 - 6.0 % Workflow SS Erythrocyte distribution width (RBC) [Ratio] 13.2 % Invalid Interpretation Code 11.5 - 15.5 % AH Workflow SS Globulin 2.3 G/dL Invalid Interpretation Code 1.5 - 3.8 G/dL ADM SS Hematocrit (Bld) [Volume fraction] 28.6 % Invalid Interpretation Code 34.0 - 46.0 % Workflow SS Hemoglobin (Bld) [Mass/Vol] 9.9 G/dL Invalid Interpretation Code 12.0 - 16.0 G/dL Workflow SS Lymphocytes (Bld) [#/Vol] 1.7 103/mcL Invalid Interpretation Code 0.9 - 4.3 10^3/mcL Workflow SS Lymphocytes/100 WBC (Bld) 17.1 % Invalid Interpretation Code 20.0 - 40.0 % Workflow SS MCH (RBC) [Entitic mass] 32.4 pg Invalid Interpretation Code 27.0 - 33.0 pg AH Workflow SS MCHC 34.6 G/dL Invalid Interpretation Code 32.0 - 36.0 G/dL AH Workflow SS MCV (RBC) [Entitic vol] 93.5 fL Invalid Interpretation Code 80.0 - 99.0 fL AH Workflow SS Monocytes (Bld) [#/Vol] 0.8 103/mcL Invalid Interpretation Code 0.1 - 1.4 10^3/mcL AH Workflow SS Monocytes/100 WBC (Bld) 8.0 % Invalid Interpretation Code 2.0 - 13.0 % AH Workflow SS Neutrophils (Bld) [#/Vol] 7.5 103/mcL Invalid Interpretation Code 2.3 - 8.1 10^3/mcL AH Workflow SS Neutrophils/100 WBC (Bld) 74.2 % Invalid Interpretation Code 50.0 - 75.0 % AH Workflow SS Platelet mean volume (Bld) [Entitic vol] 9.2 fL Invalid Interpretation Code 6.6 - 10.5 fL AH Workflow SS Platelets (Bld) [#/Vol] 134 103/mcL Invalid Interpretation Code 150 - 450 10^3/mcL AH Workflow SS Protein [Mass/Vol] 5.9 G/dL Invalid Interpretation Code 5.7 - 8.2 G/dL AH ADM SS RBC (Bld) [#/Vol] 3.06 106/mcL Invalid Interpretation Code 4.10 - 5.30 10^6/mcL AH Workflow SS WBC (Bld) [#/Vol] 10.1 103/mcL Invalid Interpretation Code 4.5 - 10.8 10^3/mcL AH Workflow SS LABORATORYOrdered By: Fred Chapa on 04-27-2022 Barometric Pressure 739 mm[Hg] Invalid Interpretation Code AH Auto Chem SS Base excess Calc (Bld) [Moles/Vol] 1.0 mmol/L Invalid Interpretation Code AH Auto Chem SS CO2 (Bld) [Partial pressure] 43.0 mm[Hg] Invalid Interpretation Code 32.0 - 46.0 mm Hg AH Auto Chem SS CO2 [Moles/Vol] 27.4 mmol/L Invalid Interpretation Code 22.0 - 30.0 mmol/L AH Auto Chem SS HCO3 (Bld) [Moles/Vol] 26.0 mmol/L Invalid Interpretation Code 21.0 - 29.0 mmol/L AH Auto Chem SS Oxygen (Bld) [Partial pressure] 86.3 mm[Hg] Invalid Interpretation Code 74.0 - 108.0 mm Hg AH Auto Chem SS pH (Bld) 7.400 [pH] Invalid Interpretation Code 7.380 - 7.460 Auto Chem SS LABORATORYOrdered By: Shaniqua Jaime on 04-27-2022 Barometric Pressure 737 mm[Hg] Invalid Interpretation Code AH Auto Chem SS Base excess Calc (Bld) [Moles/Vol] 0.8 mmol/L Invalid Interpretation Code AH Auto Chem SS CO2 (Bld) [Partial pressure] 43.9 mm[Hg] Invalid Interpretation Code 32.0 - 46.0 mm Hg AH Auto Chem SS CO2 [Moles/Vol] 27.4 mmol/L Invalid Interpretation Code 22.0 - 30.0 mmol/L AH Auto Chem SS HCO3 (Bld) [Moles/Vol] 26.1 mmol/L Invalid Interpretation Code 21.0 - 29.0 mmol/L AH Auto Chem SS Oxygen (Bld) [Partial pressure] 122.6 mm[Hg] Invalid Interpretation Code 74.0 - 108.0 mm Hg AH Auto Chem SS pH (Bld) 7.392 [pH] Invalid Interpretation Code 7.380 - 7.460 Auto Chem SS LABORATORYOrdered By: Franci major on 04-27-2022 Barometric Pressure 705 mm[Hg] Invalid Interpretation Code Auto Chem SS Base excess Calc (Bld) [Moles/Vol] 1.1 mmol/L Invalid Interpretation Code AH Auto Chem SS CO2 (Bld) [Partial pressure] 38.1 mm[Hg] Invalid Interpretation Code 32.0 - 46.0 mm Hg AH Auto Chem SS CO2 [Moles/Vol] 26.4 mmol/L Invalid Interpretation Code 22.0 - 30.0 mmol/L AH Auto Chem SS HCO3 (Bld) [Moles/Vol] 25.2 mmol/L Invalid Interpretation Code 21.0 - 29.0 mmol/L AH Auto Chem SS Oxygen (Bld) [Partial pressure] 150.5 mm[Hg] Invalid Interpretation Code 74.0 - 108.0 mm Hg AH Auto Chem SS pH (Bld) 7.438 [pH] Invalid Interpretation Code 7.380 - 7.460 AH Auto Chem SS LABORATORYOrdered By: Nicole Valenzuela on 04-26-2022 aPTT Coag (PPP) [Time] 30.7 s Invalid Interpretation Code 25.0 - 35.0 seconds AH Auto Coag SS Fibrinogen Coag (PPP) [Mass/Vol] 371 mg/dL Invalid Interpretation Code 250 - 560 mg/dL AH Auto Coag SS Heparin dose (APTT) None Invalid Interpretation Code Auto Coag SS LABORATORYOrdered By: Chase Reynolds on 04-26-2022 Calcium.ionized (Bld) [Mass/Vol] 1.10 mmol/L Invalid Interpretation Code 1.12 - 1.32 mmol/L Auto Chem SS LABORATORYOrdered By: SYSTEM SYSTEM on 04-26-2022 Magnesium [Mass/Vol] 2.4 mg/dL Invalid Interpretation Code 1.6 - 2.4 mg/dL ADM SS Phosphate [Mass/Vol] 2.9 mg/dL Invalid Interpretation Code 2.4 - 5.1 mg/dL ADM SS Base excess Calc (Bld) [Moles/Vol] -0.7000 mmol/L Invalid Interpretation Code Rapid Comm SS Calcium.ionized (Bld) [Mass/Vol] 1.25 mmol/L Invalid Interpretation Code 1.12 - 1.32 mmol/L Rapid Comm SS Chloride [Moles/Vol] 105 mmol/L Invalid Interpretation Code 98 - 110 mEq/L Rapid Comm SS CO2 (Bld) [Partial pressure] 36.2 mm[Hg] Invalid Interpretation Code 32.0 - 46.0 mm Hg Rapid Comm SS CO2 [Moles/Vol] 24.5 mmol/L Invalid Interpretation Code 22.0 - 30.0 mmol/L Rapid Comm SS Glucose [Mass/Vol] 179 mg/dL Invalid Interpretation Code 82 - 115 mg/dL Rapid Comm SS HCO3 (Bld) [Moles/Vol] 23.4 mmol/L Invalid Interpretation Code 21.0 - 29.0 mmol/L Rapid Comm SS Hematocrit (Bld) [Volume fraction] 29.0 % Invalid Interpretation Code 37.0 - 47.0 % Rapid Comm SS Hemoglobin (Bld) [Mass/Vol] 9.7 G/dL Invalid Interpretation Code 12.0 - 16.0 G/dL Rapid Comm SS Oxygen (Bld) [Partial pressure] 76.5 mm[Hg] Invalid Interpretation Code 74.0 - 108.0 mm Hg Rapid Comm SS pH (Bld) 7.428 [pH] Invalid Interpretation Code 7.380 - 7.460 Rapid Comm SS Potassium [Moles/Vol] 4.4 mmol/L Invalid Interpretation Code 3.5 - 5.0 mEq/L Rapid Comm SS Sodium [Moles/Vol] 134 mmol/L Invalid Interpretation Code 136 - 145 mEq/L Rapid Comm SS Base excess Calc (Bld) [Moles/Vol] -0.3000 mmol/L Invalid Interpretation Code Rapid Comm SS Calcium.ionized (Bld) [Mass/Vol] 1.03 mmol/L Invalid Interpretation Code 1.12 - 1.32 mmol/L Rapid Comm SS Chloride [Moles/Vol] 104 mmol/L Invalid Interpretation Code 98 - 110 mEq/L Rapid Comm SS CO2 (Bld) [Partial pressure] 38.3 mm[Hg] Invalid Interpretation Code 32.0 - 46.0 mm Hg Rapid Comm SS CO2 [Moles/Vol] 25.3 mmol/L Invalid Interpretation Code 22.0 - 30.0 mmol/L Rapid Comm SS Glucose [Mass/Vol] 174 mg/dL Invalid Interpretation Code 82 - 115 mg/dL Rapid Comm SS HCO3 (Bld) [Moles/Vol] 24.1 mmol/L Invalid Interpretation Code 21.0 - 29.0 mmol/L Rapid Comm SS Hematocrit (Bld) [Volume fraction] 28.0 % Invalid Interpretation Code 37.0 - 47.0 % Rapid Comm SS Hemoglobin (Bld) [Mass/Vol] 9.5 G/dL Invalid Interpretation Code 12.0 - 16.0 G/dL Rapid Comm SS Oxygen (Bld) [Partial pressure] 512.6 mm[Hg] Invalid Interpretation Code 74.0 - 108.0 mm Hg Rapid Comm SS pH (Bld) 7.417 [pH] Invalid Interpretation Code 7.380 - 7.460 Rapid Comm SS Potassium [Moles/Vol] 4.8 mmol/L Invalid Interpretation Code 3.5 - 5.0 mEq/L Rapid Comm SS Sodium [Moles/Vol] 134 mmol/L Invalid Interpretation Code 136 - 145 mEq/L Rapid Comm SS Base excess Calc (Bld) [Moles/Vol] 0.8 mmol/L Invalid Interpretation Code Rapid Comm SS Calcium.ionized (Bld) [Mass/Vol] 1.01 mmol/L Invalid Interpretation Code 1.12 - 1.32 mmol/L Rapid Comm SS Chloride [Moles/Vol] 105 mmol/L Invalid Interpretation Code 98 - 110 mEq/L Rapid Comm SS CO2 (Bld) [Partial pressure] 34.7 mm[Hg] Invalid Interpretation Code 32.0 - 46.0 mm Hg Rapid Comm SS CO2 [Moles/Vol] 25.4 mmol/L Invalid Interpretation Code 22.0 - 30.0 mmol/L Rapid Comm SS Glucose [Mass/Vol] 162 mg/dL Invalid Interpretation Code 82 - 115 mg/dL Rapid Comm SS HCO3 (Bld) [Moles/Vol] 24.3 mmol/L Invalid Interpretation Code 21.0 - 29.0 mmol/L Rapid Comm SS Hematocrit (Bld) [Volume fraction] 27.0 % Invalid Interpretation Code 37.0 - 47.0 % Rapid Comm SS Hemoglobin (Bld) [Mass/Vol] 9.3 G/dL Invalid Interpretation Code 12.0 - 16.0 G/dL Rapid Comm SS Oxygen (Bld) [Partial pressure] 546.4 mm[Hg] Invalid Interpretation Code 74.0 - 108.0 mm Hg Rapid Comm SS pH (Bld) 7.464 [pH] Invalid Interpretation Code 7.380 - 7.460 Rapid Comm SS Potassium [Moles/Vol] 4.6 mmol/L Invalid Interpretation Code 3.5 - 5.0 mEq/L Rapid Comm SS Sodium [Moles/Vol] 134 mmol/L Invalid Interpretation Code 136 - 145 mEq/L Rapid Comm SS LABORATORYOrdered By: Aleyda Huitron on 04-26-2022 Platelet Product Ready Platelet Ready for Pickup (04/26/22 5:34 AM) Invalid Interpretation Code BB Manual SS LABORATORYOrdered By: Fred Kelley on 04-26-2022 aPTT Coag (PPP) [Time] 59.8 s Invalid Interpretation Code 25.0 - 35.0 seconds Auto Coag SS Heparin dose (APTT) Heparin IV (04/26/22 4:11 AM) Invalid Interpretation Code Auto Coag SS LABORATORYOrdered By: Aleyda Huitron on 04-25-2022 ABO and Rh group Nom (Bld) Blood group O Rh(D) positive Invalid Interpretation Code BB Auto SS Blood group antibody screen Ql POS (04/25/22 10:43 PM) Invalid Interpretation Code BB Auto SS Indirect antiglobulin test.IgG specific reagent Ql Negative (04/25/22 10:43 PM) Invalid Interpretation Code BB Manual SS Anti-M Invalid Interpretation Code BB Manual SS Mg Ag Ql (RBC) M- Invalid Interpretation Code BB Manual SS RBC Product Ready RBC Ready for Pickup (04/25/22 3:17 PM) Invalid Interpretation Code BB Manual SS LABORATORYOrdered By: Rory Juan on 04-25-2022 Appearance (U) Clear (04/25/22 7:36 PM) Invalid Interpretation Code Clear AH Auto Urine SS Bilirubin Ql (U) Negative (04/25/22 7:36 PM) Invalid Interpretation Code Neg-Trace AH Auto Urine SS Color (U) Straw (04/25/22 7:36 PM) Invalid Interpretation Code AH Auto Urine SS Glucose Test strip (U) [Mass/Vol] Negative Invalid Interpretation Code Negativemg/d L AH Auto Urine SS Hemoglobin Auto test strip (U) [Mass/Vol] Negative (04/25/22 7:36 PM) Invalid Interpretation Code Neg-Trace AH Auto Urine SS Ketones Ql (U) Negative Invalid Interpretation Code Neg-Tracemg/ dL AH Auto Urine SS UA Leuk Est Negative (04/25/22 7:36 PM) Invalid Interpretation Code Negative Auto Urine SS UA Nitrite Negative (04/25/22 7:36 PM) Invalid Interpretation Code Negative AH Auto Urine SS UA pH 5.5 (04/25/22 7:36 PM) Invalid Interpretation Code 5.0 - 8.0 AH Auto Urine SS UA Protein Negative Invalid Interpretation Code Negativemg/d L AH Auto Urine SS UA Spec Grav <=1.005 *ABN* (04/25/22 7:36 PM) Invalid Interpretation Code 1.006-1.029 AH Auto Urine SS UA Specimen Type Clean Catch (04/25/22 7:36 PM) Invalid Interpretation Code AH Auto Urine SS UA Urobilinogen 0.2 E.U./dL Invalid Interpretation Code 0.2-1.0E.U./ dL AH Auto Urine SS LABORATORYOrdered By: Cole on 04-25-2022 aPTT Coag (PPP) [Time] 61.2 s Invalid Interpretation Code 25.0 - 35.0 seconds AH Auto Coag SS Heparin dose (APTT) Heparin IV (04/25/22 6:11 AM) Invalid Interpretation Code AH Auto Coag SS LABORATORYOrdered By: SYSTEM SYSTEM on 04-21-2022 Bili Indirect 0.2 mg/dL Invalid Interpretation Code 0.1 - 10.0 mg/dL Chemistry S Bilirubin.conjugated [Mass/Vol] 0.1 mg/dL Invalid Interpretation Code 0.0 - 0.4 mg/dL ADM SS HbA1c (Bld) [Mass fraction] 6.7 % Invalid Interpretation Code 4.0 - 6.0 % AH Auto Chem SS LABORATORYOrdered By: Justino Rodriguez on 04-21-2022 FLUAV RNA LUCERO+probe Ql (Resp) Negative 2 (04/21/22 6:10 PM) Invalid Interpretation Code Negative AH Auto Viro/Sero SS Comment on above: Result Comment: [place] [id number] FLUBV RNA LUCERO+probe Ql (Resp) Negative 3 (04/21/22 6:10 PM) Invalid Interpretation Code Negative AH Auto Viro/Sero SS Comment on above: Result Comment: [place] [id number] RSV PCR Negative 4 (04/21/22 6:10 PM) Invalid Interpretation Code Negative AH Auto Viro/Sero SS Comment on above: Result Comment: Note s [id number] SARS-CoV-2 (COVID-19) RNA LUCERO+probe Ql (Resp) Negative 1 (04/21/22 6:10 PM) Invalid Interpretation Code Negative AH Auto Viro/Sero SS Comment on above: Result Comment: [place] [id number] LABORATORYOrdered By: Katy Perdomo on 04-21-2022 Cholesterol [Mass/Vol] 188 mg/dL Invalid Interpretation Code 50 - 199 mg/dL ADM SS Cholesterol in HDL [Mass/Vol] 39 mg/dL Invalid Interpretation Code 40 - 59 mg/dL ADM SS Cholesterol in LDL [Mass/Vol] 121 mg/dL Invalid Interpretation Code 0 - 129 mg/dL ADM SS Triglyceride [Mass/Vol] 138 mg/dL Invalid Interpretation Code 3 - 149 mg/dL ADM SS LABORATORYOrdered By: SYSTEM SYSTEM on 04-20-2022 Troponin I.cardiac DL <= 0.01 ng/mL [Mass/Vol] 133.50 ng/L Invalid Interpretation Code 0.00 - 34.00 ng/L ADM SS TSH Qn 1.017 mIU/mL Invalid Interpretation Code 0.550 - 4.780 mIU/mL ADM SS GFR 107 ml/min/1.73sqm Invalid Interpretation Code AO Chemistry S GFR Non- 89 ml/min/1.73sqm Invalid Interpretation Code AO Chemistry S LABORATORYOrdered By: Jerman Gonzalez on 04-20-2022 Blood Glucose Testing Reason Routine (04/20/22 4:08 PM) [facility] Glucose [Mass/Vol] 144 mg/dL Invalid Interpretation Code 82 - 115 mg/dL [facility] Blood Glucose Testing Reason Routine (04/20/22 11:24 AM) [facility] Glucose [Mass/Vol] 121 mg/dL Invalid Interpretation Code 82 - 115 mg/dL [facility] Blood Glucose Testing Reason Routine (04/20/22 7:11 AM) [facility] Glucose [Mass/Vol] 134 mg/dL Invalid Interpretation Code 82 - 115 mg/dL [facility] LABORATORYOrdered By: Tori Son on 04-20-2022 Troponin I.cardiac DL <= 0.01 ng/mL [Mass/Vol] 170.4 ng/L Invalid Interpretation Code 0.0 - 51.4 ng/L AO ADM SS LABORATORYOrdered By: Dang Dubose on 04-20-2022 Basophil, Absolute 0.1 103/mcL Invalid Interpretation Code 0.0 - 0.2 10^3/mcL AO Workflow SS Basophils/100 WBC (Bld) 0.8 % Invalid Interpretation Code 0.0 - 2.5 % AO Workflow SS Calcium [Mass/Vol] 8.6 mg/dL Invalid Interpretation Code 8.4 - 10.2 mg/dL AO ADM SS Chloride [Moles/Vol] 105 mmol/L Invalid Interpretation Code 98 - 107 mmol/L AO ADM SS Cholesterol [Mass/Vol] 203 mg/dL Invalid Interpretation Code 0 - 200 mg/dL AO ADM SS Cholesterol in HDL [Mass/Vol] 51 mg/dL Invalid Interpretation Code 40 - 60 mg/dL AO ADM SS Cholesterol in LDL [Mass/Vol] 127 mg/dL Invalid Interpretation Code 0 - 130 mg/dL AO ADM SS CO2 [Moles/Vol] 28 mmol/L Invalid Interpretation Code 23 - 31 mmol/L AO ADM SS Creatinine [Mass/Vol] 0.66 mg/dL Invalid Interpretation Code 0.55 - 1.02 mg/dL AO ADM SS Electrolyte Balance 9.0 mEq/L Invalid Interpretation Code 4.0 - 15.0 mEq/L AO ADM SS Eosinophil, Absolute 0.1 103/mcL Invalid Interpretation Code 0.0 - 0.4 10^3/mcL AO Workflow SS Eosinophils/100 WBC (Bld) 2.2 % Invalid Interpretation Code 0.0 - 7.0 % AO Workflow SS Erythrocyte distribution width (RBC) [Ratio] 13.3 % Invalid Interpretation Code 11.5 - 14.5 % AO Workflow SS Glucose [Mass/Vol] 132 mg/dL Invalid Interpretation Code 83 - 110 mg/dL AO ADM SS HbA1c (Bld) [Mass fraction] 6.9 % Invalid Interpretation Code 4.3 - 6.4 % AO ADM SS Hematocrit (Bld) [Volume fraction] 38.0 % Invalid Interpretation Code 37.0 - 47.0 % AO Workflow SS Hemoglobin (Bld) [Mass/Vol] 13.1 G/dL Invalid Interpretation Code 12.0 - 16.0 G/dL AO Workflow SS Lymphocyte, Absolute 2.2 103/mcL Invalid Interpretation Code 0.8 - 3.9 10^3/mcL AO Workflow SS Lymphocytes/100 WBC (Bld) 36.3 % Invalid Interpretation Code 10.0 - 50.0 % AO Workflow SS Magnesium [Mass/Vol] 1.6 mg/dL Invalid Interpretation Code 1.8 - 2.4 mg/dL AO ADM SS MCH (RBC) [Entitic mass] 31.8 pg Invalid Interpretation Code 27.0 - 31.2 pg AO Workflow SS MCHC 34.5 G/dL Invalid Interpretation Code 33.0 - 37.0 G/dL AO Workflow SS MCV (RBC) [Entitic vol] 92.2 fL Invalid Interpretation Code 80.0 - 94.0 fL AO Workflow SS Monocyte, Absolute 0.4 103/mcL Invalid Interpretation Code 0.2 - 1.0 10^3/mcL AO Workflow SS Monocytes/100 WBC (Bld) 7.3 % Invalid Interpretation Code 1.7 - 13.0 % AO Workflow SS Neutrophil, Absolute 3.3 103/mcL Invalid Interpretation Code 2.9 - 6.2 10^3/mcL AO Workflow SS Neutrophils/100 WBC (Bld) 53.4 % Invalid Interpretation Code 37.0 - 80.0 % AO Workflow SS Platelet mean volume (Bld) [Entitic vol] 8.8 fL Invalid Interpretation Code 7.4 - 10.4 fL AO Workflow SS Platelets (Bld) [#/Vol] 189 103/mcL Invalid Interpretation Code 130 - 400 10^3/mcL AO Workflow SS Potassium [Moles/Vol] 4.2 mmol/L Invalid Interpretation Code 3.5 - 5.1 mmol/L AO ADM SS RBC (Bld) [#/Vol] 4.12 106/mcL Invalid Interpretation Code 4.20 - 5.40 10^6/mcL AO Workflow SS Sodium [Moles/Vol] 142 mmol/L Invalid Interpretation Code 136 - 145 mmol/L AO ADM SS Triglyceride [Mass/Vol] 126 mg/dL Invalid Interpretation Code 0 - 150 mg/dL AO ADM SS Troponin I.cardiac DL <= 0.01 ng/mL [Mass/Vol] 188.3 ng/L Invalid Interpretation Code 0.0 - 51.4 ng/L AO ADM SS Urea nitrogen [Mass/Vol] 9 mg/dL Invalid Interpretation Code 7 - 18 mg/dL AO ADM SS Urea nitrogen/Creatinine [Mass ratio] 14 ratio Invalid Interpretation Code 7 - 27 ratio AO ADM SS WBC (Bld) [#/Vol] 6.2 103/mcL Invalid Interpretation Code 4.6 - 10.8 10^3/mcL AO Workflow SS LABORATORYOrdered By: Yessenia Allen on 04-19-2022 Troponin I.cardiac DL <= 0.01 ng/mL [Mass/Vol] 174.4 ng/L Invalid Interpretation Code 0.0 - 51.4 ng/L AO ADM SS LABORATORYOrdered By: Nadir Peters on 04-19-2022 Basophil, Absolute 0.1 103/mcL Invalid Interpretation Code 0.0 - 0.2 10^3/mcL AO Workflow SS Basophils/100 WBC (Bld) 0.9 % Invalid Interpretation Code 0.0 - 2.5 % AO Workflow SS Eosinophil, Absolute 0.1 103/mcL Invalid Interpretation Code 0.0 - 0.4 10^3/mcL AO Workflow SS Eosinophils/100 WBC (Bld) 2.0 % Invalid Interpretation Code 0.0 - 7.0 % AO Workflow SS Erythrocyte distribution width (RBC) [Ratio] 13.5 % Invalid Interpretation Code 11.5 - 14.5 % AO Workflow SS Hematocrit (Bld) [Volume fraction] 39.3 % Invalid Interpretation Code 37.0 - 47.0 % AO Workflow SS Hemoglobin (Bld) [Mass/Vol] 13.6 G/dL Invalid Interpretation Code 12.0 - 16.0 G/dL AO Workflow SS Lymphocyte, Absolute 2.1 103/mcL Invalid Interpretation Code 0.8 - 3.9 10^3/mcL AO Workflow SS Lymphocytes/100 WBC (Bld) 36.1 % Invalid Interpretation Code 10.0 - 50.0 % AO Workflow SS MCH (RBC) [Entitic mass] 32.3 pg Invalid Interpretation Code 27.0 - 31.2 pg AO Workflow SS MCHC 34.7 G/dL Invalid Interpretation Code 33.0 - 37.0 G/dL AO Workflow SS MCV (RBC) [Entitic vol] 93.0 fL Invalid Interpretation Code 80.0 - 94.0 fL AO Workflow SS Monocyte distribution width Auto (Bld) [Entitic vol] 18.17 Invalid Interpretation Code 0.00 - 20.00 AO Workflow SS Comment on above: Result Comment: For ED adult patients suspected of sepsis, MDW<=20.0 does not rule out sepsis or risk of sepsis Monocyte, Absolute 0.3 103/mcL Invalid Interpretation Code 0.2 - 1.0 10^3/mcL AO Workflow SS Monocytes/100 WBC (Bld) 4.9 % Invalid Interpretation Code 1.7 - 13.0 % AO Workflow SS Neutrophil, Absolute 3.3 103/mcL Invalid Interpretation Code 2.9 - 6.2 10^3/mcL AO Workflow SS Neutrophils/100 WBC (Bld) 56.1 % Invalid Interpretation Code 37.0 - 80.0 % AO Workflow SS Platelet mean volume (Bld) [Entitic vol] 9.0 fL Invalid Interpretation Code 7.4 - 10.4 fL AO Workflow SS Platelets (Bld) [#/Vol] 194 103/mcL Invalid Interpretation Code 130 - 400 10^3/mcL AO Workflow SS RBC (Bld) [#/Vol] 4.22 106/mcL Invalid Interpretation Code 4.20 - 5.40 10^6/mcL AO Workflow SS WBC (Bld) [#/Vol] 5.9 103/mcL Invalid Interpretation Code 4.6 - 10.8 10^3/mcL AO Workflow SS LABORATORYOrdered By: Tori Son on 04-19-2022 Calcium [Mass/Vol] 9.1 mg/dL Invalid Interpretation Code 8.4 - 10.2 mg/dL AO ADM SS Chloride [Moles/Vol] 103 mmol/L Invalid Interpretation Code 98 - 107 mmol/L AO ADM SS CO2 [Moles/Vol] 28 mmol/L Invalid Interpretation Code 23 - 31 mmol/L AO ADM SS Creatinine [Mass/Vol] 0.71 mg/dL Invalid Interpretation Code 0.55 - 1.02 mg/dL AO ADM SS Electrolyte Balance 9.0 mEq/L Invalid Interpretation Code 4.0 - 15.0 mEq/L AO ADM SS Glucose [Mass/Vol] 116 mg/dL Invalid Interpretation Code 83 - 110 mg/dL AO ADM SS Potassium [Moles/Vol] 4.4 mmol/L Invalid Interpretation Code 3.5 - 5.1 mmol/L AO ADM SS Sodium [Moles/Vol] 140 mmol/L Invalid Interpretation Code 136 - 145 mmol/L AO ADM SS Urea nitrogen [Mass/Vol] 13 mg/dL Invalid Interpretation Code 7 - 18 mg/dL AO ADM SS Urea nitrogen/Creatinine [Mass ratio] 18 ratio Invalid Interpretation Code 7 - 27 ratio AO ADM SS LABORATORYOrdered By: SYSTEM SYSTEM on 04-19-2022 GFR 99 ml/min/1.73sqm Invalid Interpretation Code AO Chemistry S GFR Non- 81 ml/min/1.73sqm Invalid Interpretation Code AO Chemistry S LABORATORYOrdered By: Yessenia Allen on 09-09-2021 Albumin BCP dye [Mass/Vol] 3.8 G/dL Invalid Interpretation Code 3.4 - 4.8 G/dL AO ADM SS Albumin/Globulin [Mass ratio] 1.1 {ratio} Invalid Interpretation Code 1.1 - 2.5 ratio AO ADM SS ALP [Catalytic activity/Vol] 106 U/L Invalid Interpretation Code 40 - 135 U/L AO ADM SS ALT With P-5'-P [Catalytic activity/Vol] 23 U/L Invalid Interpretation Code 14 - 59 U/L AO ADM SS AST With P-5'-P [Catalytic activity/Vol] 16 U/L Invalid Interpretation Code 10 - 40 U/L AO ADM SS Bilirubin [Mass/Vol] 0.4 mg/dL Invalid Interpretation Code 0.2 - 1.0 mg/dL AO ADM SS Calcium [Mass/Vol] 9.6 mg/dL Invalid Interpretation Code 8.4 - 10.2 mg/dL AO ADM SS Chloride [Moles/Vol] 103 mmol/L Invalid Interpretation Code 98 - 107 mmol/L AO ADM SS Cholesterol [Mass/Vol] 241 mg/dL Invalid Interpretation Code 0 - 200 mg/dL AO ADM SS Cholesterol in HDL [Mass/Vol] 55 mg/dL Invalid Interpretation Code 40 - 60 mg/dL AO ADM SS Cholesterol in LDL [Mass/Vol] 156 mg/dL Invalid Interpretation Code 0 - 130 mg/dL AO ADM SS CO2 [Moles/Vol] 28 mmol/L Invalid Interpretation Code 23 - 31 mmol/L AO ADM SS Creatinine [Mass/Vol] 0.79 mg/dL Invalid Interpretation Code 0.55 - 1.02 mg/dL AO ADM SS Electrolyte Balance 10.0 mEq/L Invalid Interpretation Code 4.0 - 15.0 mEq/L AO ADM SS Globulin 3.5 G/dL Invalid Interpretation Code AO ADM SS Glucose [Mass/Vol] 149 mg/dL Invalid Interpretation Code 80 - 115 mg/dL AO ADM SS Potassium [Moles/Vol] 4.1 mmol/L Invalid Interpretation Code 3.5 - 5.1 mmol/L AO ADM SS Protein [Mass/Vol] 7.3 G/dL Invalid Interpretation Code 6.4 - 8.2 G/dL AO ADM SS Sodium [Moles/Vol] 141 mmol/L Invalid Interpretation Code 136 - 145 mmol/L AO ADM SS Triglyceride [Mass/Vol] 148 mg/dL Invalid Interpretation Code 0 - 150 mg/dL AO ADM SS Urea nitrogen [Mass/Vol] 8 mg/dL Invalid Interpretation Code 7 - 18 mg/dL AO ADM SS Urea nitrogen/Creatinine [Mass ratio] 10 ratio Invalid Interpretation Code 7 - 27 ratio AO ADM SS Vit. D 25-Hydroxy 18.7 ng/mL Invalid Interpretation Code AO ADM SS LABORATORYOrdered By: Cinda Koehler on 09-09-2021 Basophil, Absolute 0.10 103/mcL Invalid Interpretation Code 0.00 - 0.19 10^3/mcL AO Auto Heme SS Basophils/100 WBC (Bld) 0.8 % Invalid Interpretation Code 0.0 - 2.5 % AO Auto Heme SS Eosinophil, Absolute 0.10 103/mcL Invalid Interpretation Code 0.00 - 0.40 10^3/mcL AO Auto Heme SS Eosinophils/100 WBC (Bld) 2.1 % Invalid Interpretation Code 0.0 - 7.0 % AO Auto Heme SS Erythrocyte distribution width (RBC) [Ratio] 13.7 % Invalid Interpretation Code 11.5 - 14.5 % AO Auto Heme SS Hematocrit (Bld) [Volume fraction] 41.6 % Invalid Interpretation Code 37.0 - 47.0 % AO Auto Heme SS Hemoglobin (Bld) [Mass/Vol] 14.1 G/dL Invalid Interpretation Code 12.0 - 16.0 G/dL AO Auto Heme SS Lymphocyte, Absolute 2.40 103/mcL Invalid Interpretation Code 0.77 - 3.85 10^3/mcL AO Auto Heme SS Lymphocytes/100 WBC (Bld) 38.8 % Invalid Interpretation Code 10.0 - 50.0 % AO Auto Heme SS MCH (RBC) [Entitic mass] 31.8 pg Invalid Interpretation Code 27.0 - 31.2 pg AO Auto Heme SS MCHC (RBC) [Mass/Vol] 33.9 G/dL Invalid Interpretation Code 33.0 - 37.0 G/dL AO Auto Heme SS MCV (RBC) [Entitic vol] 93.7 fL Invalid Interpretation Code 80.0 - 94.0 fL AO Auto Heme SS Monocyte, Absolute 0.40 103/mcL Invalid Interpretation Code 0.15 - 1.00 10^3/mcL AO Auto Heme SS Monocytes/100 WBC (Bld) 5.6 % Invalid Interpretation Code 1.7 - 13.0 % AO Auto Heme SS Neutrophil, Absolute 3.30 103/mcL Invalid Interpretation Code 2.85 - 6.16 10^3/mcL AO Auto Heme SS Neutrophils/100 WBC (Bld) 52.7 % Invalid Interpretation Code 37.0 - 80.0 % AO Auto Heme SS Platelet mean volume (Bld) [Entitic vol] 9.8 fL Invalid Interpretation Code 7.4 - 10.4 fL AO Auto Heme SS Platelets (Bld) [#/Vol] 258 103/mcL Invalid Interpretation Code 130 - 400 10^3/mcL AO Auto Heme SS RBC (Bld) [#/Vol] 4.44 106/mcL Invalid Interpretation Code 4.20 - 5.40 10^6/mcL AO Auto Heme SS WBC (Bld) [#/Vol] 6.20 103/mcL Invalid Interpretation Code 4.60 - 10.80 10^3/mcL AO Auto Heme SS LABORATORYOrdered By: SYSTEM SYSTEM on 09-09-2021 GFR 87 ml/min/1.73sqm Invalid Interpretation Code AO Chemistry S GFR Non- 72 ml/min/1.73sqm Invalid Interpretation Code AO Chemistry S LABORATORYOrdered By: Gabo Doherty on 09-09-2021 HbA1c (Bld) [Mass fraction] 7.6 % Invalid Interpretation Code 4.3 - 6.4 % AO ADM SS Basic Metabolic Panlon 11-12 Anion gap molar conc 10 mmol/L Normal 9-18 [facility] Comment on above: Performed By: #### P T, CMP, MG1, CBCDIF #### [facility] [address] Calcium mass conc 8.9 mg/dL Normal 8.5-10.2 [facility] Comment on above: Performed By: #### P T, CMP, MG1, CBCDIF #### [facility] [address] [place] [address] Chloride molar conc 106 mmol/L High 97-105 [facility] Comment on above: Performed By: #### P T, CMP, MG1, CBCDIF #### [facility] [address] CO2 molar conc 28 mmol/L Normal 22-30 [facility] Comment on above: Performed By: #### P T, CMP, MG1, CBCDIF #### [facility] [address] [place] [address] Creatinine mass conc 0.61 mg/dL Normal 0.58-0.96 [facility] Comment on above: Performed By: #### P T, CMP, MG1, CBCDIF #### [facility] [address] eGFR- Amer. >60 Normal [facility] Comment on above: Performed By: #### P T, CMP, MG1, CBCDIF #### [facility] [address] GFR/1.73 sq M predicted among non-blacks MDRD vol rate/area (S/P/Bld) mL/min/{1.73_m2} Normal [facility] Comment on above: Result Comment: eGFR (Estimated GFR) Units of measure: mL/min/1.73 meters squared eGFR is derived from the reexpressed MDRD Study equation using the following parameters: serum creatinine, age, gender and race. The creatinine assay has been calibrated to be traceable to IDMS. An eGFR <60 mL/min/1.73m2 for >3 months is consistent with chronic kidney disease. Refer to KDOQI guidelines for clinical interpretation. In patients with unstable renal function, e.g. those with acute kidney injury, the eGFR may not accurately reflect actual GFR. Performed By: #### P T, CMP, MG1, CBCDIF #### [facility] [address] [place] [phone] Glucose mass conc 185 mg/dL High 74-99 [facility] Comment on above: Result Comment: The [place] [employer] (ADA) provides guidance for cutoff values for fasting glucose and random glucose. The ADA defines fasting as no caloric intake for at least 8 hours. Fasting plasma glucose results between 100 to 125 mg/dL indicate increased risk for diabetes (prediabetes). Fasting plasma glucose results greater than or equal to 126 mg/dL meet the criteria for diagnosis of diabetes. In the absence of unequivocal hyperglycemia, results should be confirmed by repeat testing. In a patient with classic symptoms of hyperglycemia or hyperglycemic crisis, random plasma glucose results greater than or equal to 200 mg/dL meet the criteria for diagnosis of diabetes. Reference: Standards of Medical Care in Diabetes 2016, [place] [employer]. Diabetes Care. 2016.39(Suppl 1). Performed By: #### P T, CMP, MG1, CBCDIF #### [facility] [address] [place], [place] [id number] Potassium molar conc 4.4 mmol/L Normal 3.7-5.1 [facility] Comment on above: Performed By: #### P T, CMP, MG1, CBCDIF #### [facility] [address] [place] [address] Sodium molar conc 144 mmol/L Normal 136-144 [facility] Comment on above: Performed By: #### P T, CMP, MG1, CBCDIF #### [facility] [address] [place] [phone] Urea nitrogen mass conc 7 mg/dL Normal 7-21 [facility] Comment on above: Performed By: #### P T, CMP, MG1, CBCDIF #### [facility] [address] [facility] [phone] CASE MANAGEMon 11-12-2018 CASE MANAGEM HNO ID: [id number] Author: Jael Cunningham (Lisw) Service: ? Author Type: Vehicle Check In Clerk Type: Care Mgt Progress Note Filed: 11/12/2018 11:56 AM Note Text: CARE MANAGEMENT DISCHARGE NOTE SERVICE DATE: 11/12/2018 SERVICE TIME: 11:55 AM LOS: 0 days Admission Date: 11/11/2018 DISCHARGE ARRANGEMENT (list agency and phone number) Home Provider: PCP to be scheduled Tuesday at [facility] Phone: PCP to be scheduled CAREGIVER ASSESSMENT: Caregiver is ready, willing and able to meet the patient's needs as recommended by the inter-professional team? No Caregiver Needed Patient's transition needs and plan for meeting these needs: Home with basic needs Does the patient have an acute stroke diagnosis, or has the patient had a stroke during this admission? No HANDOFF COMMUNICATION: N/A no current PCP and pt home with basic needs TRANSPORTATION ARRANGEMENTS: Car Family to transport ADDITIONAL CONTACT RESOURCES: SIGNATURE: DAKOTA Ledesma PATIENT NAME: Caity Strickland DATE: November 12, 2018 TIME: 11:55 AM PAGER/CONTACT #: [phone] [facility] CASE MGT INIT [facility] [address] [facility] HNO ID: [id number] Author: Jael Cunningham (Lisw) Service: ? Author Type: Vehicle Check In Clerk Type: Care Mgt Initial Assessment Filed: 11/12/2018 10:44 AM Note Text: CARE MANAGEMENT: ASSESSMENT AND DISCHARGE PLAN SERVICE DATE: 11/12/2018 SERVICE TIME: 10:00 AM PRIMARY CARE PHYSICIAN: No primary care provider on file. - Pt would like a new PCP apt scheduled at [facility] for any day/time of week. Phone: None ADMISSION STATUS: Observation Needs Prior to Discharge: To Be Determined MEDICAL: Patient/Representativ e Stated Goals: To have reduction in symptoms To return home to life as it was Health Insurance: MEDICARE A AND B [employer] Health Issues Impacting Discharge Plan: Newly diagnosed Chest Pain Last Admission Date: none Is this Within the Past 30 days? No Advance Directive: Current Advance Directive: Health Care Power of Sap Developer;Living Will(Son, Shawna Strickland) In Chart: No Automatic Furnace Operator Attempted to Assist with AD Completion: Yes Action: Education Provided Health Literacy: 1. How often do you need to have someone help you when you read instructions, pamphlets, or other written material from your doctor or pharmacy? Never - 1 2. How confident are you filling out medical forms by yourself? Extremely - 1 If Patient scores > 3 on either question, the following interventions were put into place: Patient did not score > 3 FUNCTIONAL AND COGNITIVE/BEHAVIORAL PRIOR TO ADMISSION: Baseline Mental Status: Alert AND Oriented, Person, Place , Time and Situation Functional Status: Independent Does Patient Currently Receive Any Community Services or Home Care? None Equipment Prior to Admission: None Has the Patient Been in a Mcfp Facility in the Past 30 days? No SOCIAL: Living Arrangement: Home Lives With: Alone Financial Resources: Retired Primary Contact: Extended Emergency Contact Information Primary Emergency Contact: Kee Strickland Address: [address] Mobile Relation: Son Supportive: Yes Other Important Patient Contacts: None Caregiver Assessment: Caregiver is ready, willing and able to meet the patient's needs as recommended by the inter-professional team? No Caregiver Needed Patient's transition needs and plan for meeting these needs: Anticipate basic transition planning needs. Does the patient have an acute stroke diagnosis, or has the patient had a stroke during this admission? No Medication Adherence: I am convinced of the importance of my prescription medication: Agree completely - 0 I worry that my prescription medication will do more harm than good to me Disagree completely - 0 I feel financially burdened by my [id number] expenses for my prescription medication: Disagree completely - 0 Patient is categorized as low risk < 2 Are you interested in bedside delivery of your medications? No Food Concerns: In the Last Month, Have You had Trouble Getting Food? No trouble getting food During the Last Month, Have You Worried Whether Your Food Would Run Out Before You Had Enough Money to Buy More? No Is the Patient Psychosocially Complex? No ASSESSMENT AND PLAN: Medical Needs: None Psychosocial Needs: None FREEDOM OF CHOICE EXPLAINED: N/A POTENTIAL TRANSITION PLANS Home CLAIM AGENT met with the pt at bedside to complete the assessment. The pt lives at home alone. She reports being indep, drives and does not use any DME. She does need a new PCP apt. Anticipate basic transition planning needs. SIGNATURE: DAKOTA Ledesma PATIENT NAME: Caity Strickland DATE: November 12, 2018 TIME: 10:41 AM PAGER/CONTACT #: [phone] Normal [facility] CBCon 11-12-2018 Erythrocyte distribution width Ratio (RBC) 13.5 % Normal 11.5-15.0 [facility] Comment on above: Performed By: #### C BC ####[place] [address]#### LIPB ####[place] [phone]#### HBA1C ####[place] [id number] Hematocrit Volume Fraction (Bld) 39.3 % Normal 36.0-46.0 [facility] Comment on above: Performed By: #### C BC ####[place] [address]#### LIPB ####[place] [phone]#### HBA1C ####[place] [phone] Hemoglobin mass conc (Bld) 13.0 g/dL Normal 11.5-15.5 [facility] Comment on above: Performed By: #### C BC ####[place] [address]#### LIPB ####[place] [phone]#### HBA1C ####[place] [phone] MCH Entitic mass (RBC) 31.6 pG Normal 26.0-34.0 [facility] Comment on above: Performed By: #### C BC ####[facility] [address] [place] [address]#### LIPB ####[place] [phone]#### HBA1C ####[place] [phone] MCHC mass conc (RBC) 33.1 g/dL Normal 30.5-36.0 [facility] Comment on above: Performed By: #### C BC ####[place] [address]#### LIPB ####[place] [phone]#### HBA1C ####[place] [phone] MCV Entitic volume (RBC) 95.6 fL Normal 80.0-100.0 [facility] Comment on above: Performed By: #### C BC ####[place] [address]#### LIPB ####[place] [address]#### HBA1C ####[place] [phone] Platelet mean volume Entitic volume (Bld) 11.2 fL Normal 9.0-12.7 [facility] Comment on above: Performed By: #### C BC ####[place] [address]#### LIPB ####[place] [address] [phone]#### HBA1C ####[place] [address] [address] [phone] Platelets #/vol (Bld) 172 10*3/uL Normal 150-400 [facility] Comment on above: Performed By: #### C BC ####[facility] [address] [place] [address]#### LIPB ####[phone]#### HBA1C ####[address] [place] [phone] RBC #/vol (Bld) 4.11 10*6/uL Normal 3.90-5.20 [facility] Comment on above: Performed By: #### C BC ####[place] [address]#### LIPB ####[place] [phone]#### HBA1C ####[place] [phone] WBC #/vol (Bld) 6.16 10*3/uL Normal 3.70-11.00 [facility] Comment on above: Performed By: #### C BC ####[place] [address]#### LIPB ####[phone]#### HBA1C ####[address] [place] [phone] CBC and Differentialon 11-12 Abs Baso 0.09 k/uL Normal <0.11 [facility] Comment on above: Performed By: #### P T, CMP, MG1, CBCDIF #### [facility] [address] [place] [address] Abs Lym 3.17 K/uL Normal 0.90-4.00 [facility] Comment on above: Performed By: #### P T, CMP, MG1, CBCDIF #### [facility] [address] [place] [address] Abs Billings 0.18 k/uL Normal <0.87 [facility] Comment on above: Performed By: #### P T, CMP, MG1, CBCDIF #### [facility] [address] [place] [address] Abs Neut 5.10 k/uL Normal 1.70-7.00 [facility] Comment on above: Performed By: #### P T, CMP, MG1, CBCDIF #### [facility] [address] [place] [address] Basophils/100 WBC (Bld) 1 % Normal [facility] Comment on above: Performed By: #### P T, CMP, MG1, CBCDIF #### [facility] [address] [place] [address] Eosinophils #/vol (Bld) 0.26 10*3/uL Normal <0.46 [facility] Comment on above: Performed By: #### P T, CMP, MG1, CBCDIF #### [facility] [address] [place] [address] Eosinophils/100 WBC (Bld) 3 % Normal [facility] Comment on above: Performed By: #### P T, CMP, MG1, CBCDIF #### [facility] [address] [place] [address] Erythrocyte distribution width Ratio (RBC) 13.5 % Normal 11.5-15.0 [facility] Comment on above: Performed By: #### P T, CMP, MG1, CBCDIF #### [facility] [address] [place] [address] Hematocrit Volume Fraction (Bld) 40.8 % Normal 36.0-46.0 [facility] Comment on above: Performed By: #### P T, CMP, MG1, CBCDIF #### [facility] [address] [place] [phone] Hemoglobin mass conc (Bld) 13.8 g/dL Normal 11.5-15.5 [facility] Comment on above: Performed By: #### P T, CMP, MG1, CBCDIF #### [facility] [address] [facility] [phone] Lymphocytes/100 WBC (Bld) 36 % Normal [facility] Comment on above: Performed By: #### P T, CMP, MG1, CBCDIF #### [facility] [address] [place] [phone] MCH Entitic mass (RBC) 31.9 pG Normal 26.0-34.0 [facility] Comment on above: Performed By: #### P T, CMP, MG1, CBCDIF #### [facility] [address] [place] [phone] MCHC mass conc (RBC) 33.8 g/dL Normal 30.5-36.0 [facility] Comment on above: Performed By: #### P T, CMP, MG1, CBCDIF #### [facility] [address] [place] [phone] MCV Entitic volume (RBC) 94.4 fL Normal 80.0-100.0 [facility] Comment on above: Performed By: #### P T, CMP, MG1, CBCDIF #### [facility] [address] [place] [phone] Monocytes/100 WBC (Bld) 2 % Normal [facility] Comment on above: Performed By: #### P T, CMP, MG1, CBCDIF #### [facility] [address] [place] [phone] Neutrophils/100 WBC (Bld) 58 % Normal [facility] Comment on above: Performed By: #### P T, CMP, MG1, CBCDIF #### [facility] [address] [place] [phone] Platelet mean volume Entitic volume (Bld) 10.6 fL Normal 9.0-12.7 [facility] Comment on above: Performed By: #### P T, CMP, MG1, CBCDIF #### [facility] [address] [place] [phone] Platelets #/vol (Bld) Platelet estimate adequate Normal [facility] Comment on above: Performed By: #### P T, CMP, MG1, CBCDIF #### [facility] [address] [place] [phone] Platelets #/vol (Bld) 194 10*3/uL Normal 150-400 [facility] Comment on above: Performed By: #### P T, CMP, MG1, CBCDIF #### [facility] [address] RBC #/vol (Bld) 4.32 10*6/uL Normal 3.90-5.20 [facility] Comment on above: Performed By: #### P T, CMP, MG1, CBCDIF #### [facility] [address] [place] [address] WBC #/vol (Bld) 8.80 10*3/uL Normal 3.70-11.00 [facility] Comment on above: Performed By: #### P T, CMP, MG1, CBCDIF #### [facility] [address] CK, Total and CKMBon 019 CK enzyme act/vol 54 U/L Normal 42196 [facility] Comment on above: Performed By: #### P T, CMP, MG1, CBCDIF #### [facility] [address] CK MB % CK MB % not reported with CK <100 U/L. Normal 0.0-4.0 [facility] Comment on above: Performed By: #### P T, CMP, MG1, CBCDIF #### [facility] [address] MB 1.1 ng/mL Normal <4.4 [facility] Comment on above: Performed By: #### P T, CMP, MG1, CBCDIF #### [facility] [address] CK enzyme act/vol 57 U/L Normal [address] Comment on above: Performed By: #### C KCKMB ####[facility] [address] CK MB % CK MB % not reported with CK <100 U/L. Normal 0.0-4.0 [facility] Comment on above: Performed By: #### C LUZ MARIA ####[facility] [address] [place] [phone] MB 1.3 ng/mL Normal <4.4 [facility] Comment on above: Performed By: #### C LUZ MARIA ####[facility] [address] [place] [address] CNCOon 11-12-2018 CNCO Letter Text Normal [facility] Comp Metabolic Panelon 11-12 Albumin mass conc 4.0 g/dL Normal 3.9-4.9 [facility] Comment on above: Performed By: #### P T, CMP, MG1, CBCDIF #### [facility] [address] [place] [address] ALP enzyme act/vol 96 U/L Normal 34-123 [facility] Comment on above: Performed By: #### P T, CMP, MG1, CBCDIF #### [facility] [address] [place] [address] ALT enzyme act/vol 14 U/L Normal 7-38 [facility] Comment on above: Performed By: #### P T, CMP, MG1, CBCDIF #### [facility] [address] Anion gap molar conc 12 mmol/L Normal 9-18 [facility] Comment on above: Performed By: #### P T, CMP, MG1, CBCDIF #### [facility] [address] AST enzyme act/vol 14 U/L Normal 13-35 [facility] Comment on above: Performed By: #### P T, CMP, MG1, CBCDIF #### [facility] [address] Bilirubin mass conc 0.2 mg/dL Normal 0.2-1.3 [facility] Comment on above: Performed By: #### P T, CMP, MG1, CBCDIF #### [facility] [address] [place] [address] Calcium mass conc 9.1 mg/dL Normal 8.5-10.2 [facility] Comment on above: Performed By: #### P T, CMP, MG1, CBCDIF #### [facility] [address] [place] [address] Chloride molar conc 103 mmol/L Normal 97-105 [facility] Comment on above: Performed By: #### P T, CMP, MG1, CBCDIF #### [facility] [address] [place] [address] CO2 molar conc 25 mmol/L Normal 22-30 [facility] Comment on above: Performed By: #### P T, CMP, MG1, CBCDIF #### [facility] [address] [place] [address] Creatinine mass conc 0.58 mg/dL Normal 0.58-0.96 [facility] Comment on above: Performed By: #### P T, CMP, MG1, CBCDIF #### [facility] [address] [place] [address] eGFR- Amer. >60 Normal [facility] Comment on above: Performed By: #### P T, CMP, MG1, CBCDIF #### [facility] [address] [place] [address] GFR/1.73 sq M predicted among non-blacks MDRD vol rate/area (S/P/Bld) mL/min/{1.73_m2} Normal [facility] Comment on above: Result Comment: eGFR (Estimated GFR) Units of measure: mL/min/1.73 meters squared eGFR is derived from the reexpressed MDRD Study equation using the following parameters: serum creatinine, age, gender and race. The creatinine assay has been calibrated to be traceable to IDMS. An eGFR <60 mL/min/1.73m2 for >3 months is consistent with chronic kidney disease. Refer to KDOQI guidelines for clinical interpretation. In patients with unstable renal function, e.g. those with acute kidney injury, the eGFR may not accurately reflect actual GFR. Performed By: #### P T, CMP, MG1, CBCDIF #### [facility] [address] [place] [address] Glucose mass conc 154 mg/dL High 74-99 [facility] Comment on above: Result Comment: The [place] [employer] Association (ADA) provides guidance for cutoff values for fasting glucose and random glucose. The ADA defines fasting as no caloric intake for at least 8 hours. Fasting plasma glucose results between 100 to 125 mg/dL indicate increased risk for diabetes (prediabetes). Fasting plasma glucose results greater than or equal to 126 mg/dL meet the criteria for diagnosis of diabetes. In the absence of unequivocal hyperglycemia, results should be confirmed by repeat testing. In a patient with classic symptoms of hyperglycemia or hyperglycemic crisis, random plasma glucose results greater than or equal to 200 mg/dL meet the criteria for diagnosis of diabetes. Reference: Standards of Medical Care in Diabetes 2016, [place] [employer]. Diabetes Care. 2016.39(Suppl 1). Performed By: #### P T, CMP, MG1, CBCDIF #### [facility] [address] [place] [address] Potassium molar conc 3.8 mmol/L Normal 3.7-5.1 [facility] Comment on above: Performed By: #### P T, CMP, MG1, CBCDIF #### [facility] [address] [place] [address] Protein mass conc 7.4 g/dL Normal 6.3-8.0 [facility] Comment on above: Performed By: #### P T, CMP, MG1, CBCDIF #### [facility] [address] [place] [address] Sodium molar conc 140 mmol/L Normal 136-144 [facility] Comment on above: Performed By: #### P T, CMP, MG1, CBCDIF #### [facility] [address] [place] [address] Urea nitrogen mass conc 7 mg/dL Normal 7-21 [facility] Comment on above: Performed By: #### P T, CMP, MG1, CBCDIF #### [facility] [address] [place] [address] ECG COMPLETEon 11-12-2018 ECG COMPLETE NAME : CAITY STRICKLAND PID : [id number] : 1950 Gender : Female Race : ORD : [id number] Procedure Date : Nov 12 2018 08:09:42 Edit Date : Nov 13 2018 12:49:03 Diagnosis:SINUS BRADYCARDIA ST and T WAVE ABNORMALITY, CONSIDER ANTEROLATERAL ISCHEMIA PROLONGED QT ABNORMAL ECG WHEN COMPARED WITH ECG OF 11-NOV-2018 23:58, T WAVE INVERSION MORE EVIDENT IN ANTEROLATERAL LEADS Confirmed by MD BEASLEY QARAB ([id number]) on 11/13/2018 12:48:58 PM Ventricular Rate : 58 BPM Atrial Rate : 58 BPM P-R Interval : 170 ms QRS Duration : 92 ms Q-T Interval : 486 ms QTC Calculation(Bezet) : 477 ms P Roma : 55 degrees R Roma : 23 degrees T Roma : 89 degrees Test Reason : Chest Pain Location : 3 : 2N 238 Overread By : MD BEASLEY QARAB Edited By : MD BEASLEY QARAB Referred By : , Acquired by : CATRINA [facility] ECG COMPLETE NAME : CAITY STRICKLAND PID : [id number] : 1950 Gender : Female Race : ORD : [id number] Procedure Date : Nov 11 2018 23:58:10 Edit Date : Nov 12 2018 08:50:50 Diagnosis:NORMAL SINUS RHYTHM ST and T WAVE ABNORMALITY, CONSIDER ANTERIOR ISCHEMIA ABNORMAL ECG NO PREVIOUS ECGS AVAILABLE Confirmed by DO LANE MICHELLE ([id number]), editorial director Maureen Castro ([id number]) on 11/12/2018 8:50:43 AM Ventricular Rate : 79 BPM Atrial Rate : 79 BPM P-R Interval : 156 ms QRS Duration : 84 ms Q-T Interval : 408 ms QTC Calculation(Bezet) : 467 ms P Roma : 37 degrees R Roma : 26 degrees T Roma : 78 degrees Test Reason : Chest Pain Location : 1 : ER ED Overread By : DO LANE MICHELLE Edited By : Maureen Castro Referred By : , Acquired by : RADHA [facility] ED NOTEon 11-12-2018 ED NOTE HNO ID: [id number] Author: Suzanne CummingsRn) WILDER Villegas Service: ? Author Type: Registered Nurse Type: ED Notes Filed: 11/12/2018 1:59 AM Note Text: dr lane in room to talk with pt regarding test results and plan of care [facility] ED NOTE HNO ID: [id number] Author: Suzanne CummingsRn) WILDER Villegas Service: ? Author Type: Registered Nurse Type: ED Notes Filed: 11/12/2018 12:28 AM Note Text: Patient returned to the Emergency Department. [facility] ED NOTE HNO ID: [id number] Author: Suzanne (Rn) WILDER Villegas Service: ? Author Type: Registered Nurse Type: ED Notes Filed: 11/12/2018 12:18 AM Note Text: Patient transported to with Tech. [facility] ED NOTE HNO ID: [id number] Author: Suzanne CummingsRn) WILDER Villegas Service: ? Author Type: Registered Nurse Type: ED Notes Filed: 11/12/2018 12:16 AM Note Text: dr lane in room to see pt [facility] ED PROV NOTEon 11-12-2018 Protein mass conc HNO ID: [id number] Author: Alexandra Lane DO Service: Emergency Medicine Author Type: Physician Type: ED Provider Notes Filed: 11/12/2018 1:50 AM Note Text: ED Provider Note Patient Name: Caity Strickland SERVICE DATE: 11/11/18 History Patient presents with: Chest Pain Pain (Shoulder Pain) Caity Strickland is a 68-year-old female with no medical history, she does not go to Dr., comes in today for reports of chest pain. She states she's had left upper chest pain with radiation around to the axilla and shoulder since Tuesday. She states it comes and goes but when it comes it is fairly uncomfortable. She describes it as a sharp pain. She is nauseous with it and did vomit last night. She states that she was weed eating on Tuesday and actually felt so bad that she layed down on the ground for a while. History reviewed. No pertinent past medical history. History reviewed. No pertinent surgical history. No family history on file. Social History Tobacco Use - Smoking status: Current Every Day Smoker Packs/day: 0.50 Types: Cigarettes - Smokeless tobacco: Never Used Substance and Sexual Activity - Alcohol use: Never Frequency: Never - Drug use: Never - Sexual activity: Not on file ALLERGIES No Known Allergies Review of Systems Constitutional: Negative for chills and fever. HENT: Negative for sore throat and trouble swallowing. Eyes: Negative for visual disturbance. Respiratory: Negative for cough and shortness of breath. Cardiovascular: Positive for chest pain. Negative for palpitations. Gastrointestinal: Positive for nausea and vomiting. Negative for abdominal pain and diarrhea. Endocrine: Negative for polyuria. Genitourinary: Negative for dysuria and flank pain. Musculoskeletal: Negative for back pain and neck pain. Skin: Negative for rash. Allergic/Immunologic: Negative for immunocompromised state. Neurological: Negative for dizziness and headaches. Hematological: Does not bruise/bleed easily. Psychiatric/Behaviora l: Negative for confusion and sleep disturbance. Physical Exam BP 119/84 Pulse 72 Temp (Src) 98.6 (Oral) Resp 18 Wt 180 lb (81.6kg) SpO2 96% O2 Therapy: Room Air Physical Exam Constitutional: She is oriented to person, place, and time. She appears well-developed and well-nourished. No distress. HENT: Head: Normocephalic and atraumatic. Mouth/Throat: Oropharynx is clear and moist. No oropharyngeal exudate. Eyes: Pupils are equal, round, and reactive to light. EOM are normal. No scleral icterus. Neck: Neck supple. No JVD present. Cardiovascular: Normal rate, regular rhythm, normal heart sounds and intact distal pulses. Exam reveals no gallop and no friction rub. No murmur heard. Pulmonary/Chest: Effort normal and breath sounds normal. No respiratory distress. She has no wheezes. She has no rales. Abdominal: Soft. Bowel sounds are normal. She exhibits no distension and no mass. There is no tenderness. There is no rebound and no guarding. Musculoskeletal: Normal range of motion. She exhibits no edema. Neurological: She is alert and oriented to person, place, and time. Skin: Skin is warm and dry. Capillary refill takes less than 2 seconds. No rash noted. She is not diaphoretic. No erythema. Psychiatric: She has a normal mood and affect. Her behavior is normal. Judgment and thought content normal. Nursing note and vitals reviewed. Diagnostic Testing ED Labs Ordered and Reviewed MAGNESIUM BLD COMP METABOLIC PANEL HIGH SENSITIVITY TROPONIN T NT PRO BNP CBC + DIFF PROTHROMBIN TIME/PT HIGH SENSITIVITY TROPONIN T Magnesium is normal. CMP is unremarkable BNP is 641. Initial high sensitivity troponin is 8.Repeat is 8. CBC is unremarkable Chest x-ray was read as negative by radiology Procedures ED Course / Clinical Impression Clinical Impressions as of Nov 13 55 Chest pain, unspecified type MDM / Disposition / Plan Course: Vital signs were reviewed. Triage records were reviewed. Medical records were reviewed. Nursing notes were reviewed and incorporated. Patient was place on oxygen. Patient placed on monitor Medical Decision Making: Caity Strickland is a 68-year-old female comes in for chest pain that she's had since Tuesday. The pain is intermittent but when it does occur it fairly bad. The pain is sharp and left upper chest with radiation to the axilla and shoulder. She is nauseous with it and vomited once yesterday. She is a smoker. She does not go to the doctors and does not have any medical history that she knows about. EKG shows concerns for ischemia. There is no ST elevation however. She does have [address] depression anteriorly with T-wave inversions in V1 and V2. 0140: Patient's repeat high sensitivity troponin is 8. 0148: Dr. Menendez, hospitalist, will admit for observation. The attending who evaluated and managed this patient was Alexandra Lane . Alexandra Lane DO Case was discussed with Dr. Menendez. Additional Tests or Interventions: ECG EKG INTERPRETATION: Ordered and Reviewed Rhythm: Normal sinus rhythm Rate: 79 Roma: Normal axis Intervals: Normal [place] interval QRS Complex: Normal ST Segment: ST depression (ST depression in leads V3 through V6. T-wave inversion in V1 and V2) QT Interval: Normal Compared with Prior: None available Interpretation performed by Alexandra Lane DO Disposition The patient was admitted and case discussed with another provider. Admitted to Regular Nursing Floor. Case discussed with Dr. Menendez. Condition at disposition is improved and stable. SIGNATURE: DO Alexandra Mcpherson DO 11/12/18 0150 Normal [facility] HISTORY PHYSICALon 9 HISTORY PHYSICAL HNO ID: [id number] Author: Shashank Daigle Service: Hospital Medicine Author Type: Physician Type: HANDP Filed: 11/14/2018 1:35 AM Note Text: SERVICE DATE: 11/12/2018 SERVICE TIME: 4:04 AM HOSPITAL MEDICINE HISTORY AND PHYSICAL PCP: No primary care provider on file. NIGHT AND WEEKEND COVERAGE: Nights: Please contact pager [phone]. SUBJECTIVE Chief Complaint: left sided Axillary pain HPI: 68yo female with no PMH presents today with complaints of left sided axillary pain that started 3 days ago following [place] Whacking the yard. Patient reports the pain is sharp in nature and radiates into her left chest, back, and shoulder. Patient reports pain is worse with movement or lifting and made better with Motrin. Patient reports episode of nausea/vomiting with worsening pain, thus presented to the ED. Patient has never been hospitalized. Patient denies previous cardiac workup. Patient denies prescription medications, only taking Motrin as needed. Patient denies lightheadedness, dizziness, SOB, urinary sx. In the ED: CBC and CMP were unremarkable. BNP was elevated at 641. CXR was negative. HSTNT was 8 with repeat of 8. Patient was given ASA and Nitro patch with relief in chest pain. EKG in ED was noted to have ST depression in V3-6 and T wave inversion in leads V1-2. Patient will be admitted for ACS rule out. History reviewed. No pertinent past medical history. PAST SURGICAL HISTORY Procedure Laterality Date - HYSTERECTOMY HX FAMILY HISTORY Problem Relation Age of Onset - Cancer Mother - Cancer Sister - Diabetes Sister - Hypertension Sister Social History Tobacco Use - Smoking status: Current Every Day Smoker Packs/day: 0.50 Years: 40.00 Pack years: 20.00 Types: Cigarettes - Smokeless tobacco: Never Used Substance Use Topics - Alcohol use: Never Frequency: Never - Drug use: Never Medications: Reviewed Allergies: ALLERGIES No Known Allergies Review of Systems: GENERAL: No weight loss, malaise or fevers HEENT: Negative for frequent or significant headaches, No changes in hearing or vision, no nose bleeds or other nasal problems NECK: Negative for pain and significant neck swelling RESPIRATORY: Negative for cough, hemoptysis, or shortness of breath CARDIOVASCULAR: + chest pain, leg swelling. Negative for CHF or palpitations GI: + nausea and vomiting. No diarrhea or constipation and No heartburn or reflux symptoms : No dysuria, frequency or incontinence MUSCULOSKELETAL: + left shoulder pain. + back pain SKIN: Negative for lesions, rash, and itching PSYCH: Negative for sleep disturbance, mood disorder and recent psychosocial stressors HEMATOLOGY/LYMPHOLOGY : Negative for prolonged bleeding, bruising easily ENDOCRINE: Negative for cold or heat intolerance, polyuria, polydipsia NEURO: No syncope, paralysis, seizures or tremors OBJECTIVE: PHYSICAL EXAM BP 127/58 Pulse 74 Temp (Src) 98.6 (Oral) Resp 18 Wt 180 lb (81.6kg) SpO2 97% O2 Therapy: Room Air Physical Exam Performed: GENERAL: Alert, no distress, cooperative SKIN: Skin color, texture, turgor normal. No rashes or lesions. HEAD/SINUSES: No significant findings EYES: PERRLA, EOMI NECK: No jugulovenous distention, No carotid bruits BACK: Back symmetric, Normal curvature, ROM normal LUNGS: + bibasilar crackles. Able to speak in full sentences. No wheeze. CARDIAC: + TTP chest wall and left axilla. No murmur, RRR ABDOMEN: Abdomen soft, non-tender, BS normal EXTREMITIES: + Limited ROM left shoulder. + trace edema in BLE. Extremities normal, no deformities, clubbing or skin discoloration. Good capillary refill. NEURO: AANDO x3. Moves all extremities. 5/5 strength in all extremities. Sensation intact. PULSES: 2+ radial, 2+ dorsalis pedis Lines, Drains, and Airways Line Peripheral 11/12/18 0001 Right Antecubital 20 Gauge less than 1 day Reviewed lines, drains, AND airways. Need to be continued IV therapy Diagnostic tests reviewed: Most recent labs and imaging results CBC: Recent Labs 11/11/18 2358 WBC 8.80 RBC 4.32 HB 13.8 HCT 40.8 PLT 194 MCV 94.4 MCH 31.9 MPV 10.6 CMP: Recent Labs 11/11/18 2358 NA 140 K 3.8 CHLOR 103 CO2 25 BUN 7 CREAT 0.58 GLUC 154* TPROT 7.4 CA 9.1 MG 1.8 TBILI 0.2 ALKPHOS 96 ALT 14 AST 14 ANION 12 MG/PHOS: Recent Labs 11/11/18 2358 MG 1.8 CXR 11/12/18 IMPRESSION: No pneumonia, pneumothorax or CHF. ASSESSMENT AND PLAN Assessment AND Plan, all Hosp Problems Active Hospital Problems as of 11/12/2018 Noted - Resolved Hospital * (Principal) Chest pain 11/12/2018 - Present Current Assessment AND Plan Assessment: No medical history on file No previous cardiac workup EKG in ED noted to have ST depression in leads V3-6 and T wave inversion in leads V1-2 HSTNT 8 with repeat 8 HEART score: 4 DDx: ACS vs. Musculoskeletal vs. GERD PLAN: Monitor on tele Cycle troponins Repeat EKG in AM Check A1C, TSH, Lipid panel to risk stratify One time dose Toradol AM labs Will need stress/ECHO inpatient vs. outpatient Dependence on nicotine from cigarettes 11/12/2018 - Present Current Assessment AND Plan Assessment: Patient reports cutting down on smoking recently, but not ready to quit PLAN: Counseled on smoking cessation Patient declined Nicotine patch at this time Medication and Non-Pharmacologic VTE Prophylaxis/Anticoagu lants 11/12/18 0330 pneumatic compression stockings (nd,sc) 11/12/18 0330 activity - mobilize patient (nd,sc) VTE Prophylaxis: VTE prophylaxis appropriate SIGNATURE: Aleyda Jimenez APRN.FRUIT RECEIVER PATIENT NAME: Caity Strickland DATE: November 12, 2018 TIME: 4:04 AM PAGER/CONTACT #: [phone] [facility] STAFF PHYSICIAN NOTE OF PERSONAL INVOLVEMENT IN CARE I have reviewed the history and physical examination obtained and documented by the nurse practitioner and I personally participated in the tabares components. I have discussed the case and management of the patient's care. SIGNATURE: Shashank Daigle MD PAGER: [phone] DATE of SERVICE: November 12, 2018 TIME of SERVICE: 1:34 PM Normal [facility] Hemoglobin A1con 11-12-2018 Hemoglobin A1c/Hemoglobin.total mass fraction (Bld) 171 mg/dL Normal [facility] Comment on above: Result Comment: eAG: (Estimated average glucose) is a calculated value from HgbA1c and is credit and collections representative of the average blood glucose level in the last 2-3 month period. Performed By: #### C BC ####[facility] [address] [place] [address]#### LIPB ####[facility] [address] [place], [place] [phone]#### HBA1C ####[facility] [address] [place], [place] [phone] Hemoglobin A1c/Hemoglobin.total mass fraction (Bld) 7.6 % High 4.3-5.6 [facility] Comment on above: Result Comment: Amer ican Diabetes Association guidelines indicate that patients with HgbA1c in the range 5.7-6.4% are at increased risk for development of diabetes, and intervention by lifestyle modification may be beneficial. HgbA1c greater or equal to 6.5% is considered diagnostic of diabetes. Performed By: #### C BC ####[facility] [address] [place] [address]#### LIPB ####[facility] [address] [place] [phone]#### HBA1C ####[place] [phone] High Sens Troponin Ton 11-12 High Sensitivity MARTHA 8 ng/L Normal <12 [facility] Comment on above: Result Comment: When assessing risk for acute coronary syndromes: In patients undergoing blood draw greater than or equal to 2 hours from symptom onset, with history of very low to moderate risk and non-ischemic ECG, an initial hs-Troponin T less than 12 ng/L AND a 1 hour delta hs-Troponin T less than 3 ng/L should be considered very low risk for 30 day MACE. Performed By: #### H STNT ####[place] [address] High Sensitivity MARTHA 8 ng/L Normal <12 [facility] Comment on above: Result Comment: When assessing risk for acute coronary syndromes: In patients undergoing blood draw greater than or equal to 2 hours from symptom onset, with history of very low to moderate risk and non-ischemic ECG, an initial hs-Troponin T less than 12 ng/L AND a 1 hour delta hs-Troponin T less than 3 ng/L should be considered very low risk for 30 day MACE. Performed By: #### H STNT #### [facility] [address] [facility] [phone] Lipid Panel, Bas[place] 019 Cholesterol in HDL mass conc 41 mg/dL Normal >39 [facility] Comment on above: Result Comment: 40-5 9 mg/dL, Acceptable >59 mg/dL, High: Negative risk factor for coronary heart disease <40 mg/dL, Low: Positive risk factor for coronary heart disease Performed By: #### C BC ####[facility] [address] [place] [address]#### LIPB ####[facility] [address] [place] [address] [place] [phone]#### HBA1C ####[place] [address] [address] [place] [phone] Cholesterol in LDL mass conc 225 mg/dL High <100 [facility] Comment on above: Result Comment: <100 mg/dL, Optimal 100-129 mg/dL, Near optimal/above optimal 130-159 mg/dL, Borderline high 160-189 mg/dL, High >189 mg/dL, Very high Secondary prevention optimal LDL Cholesterol levels are recommended to be < 70 mg/dL Performed By: #### C BC ####[facility] [address] [place] [address]#### LIPB ####[place] [address] [address] [phone]#### HBA1C ####[place] [phone] Cholesterol mass conc 284 mg/dL High <200 [facility] Comment on above: Result Comment: <200 mg/dL, Desirable 200-239 mg/dL, Borderline high >239 mg/dL, High Performed By: #### C BC ####[facility] [address] [place], [place] [phone]#### LIPB ####[place] [address] [place] [phone]#### HBA1C ####[place] [address] [place] [phone] Fasting Time 8 hrs Normal [facility] Comment on above: Performed By: #### C BC ####[facility] Mnloacxhxo6807 [address]#### LIPB ####[place] [address] [address], [place] [phone]#### HBA1C ####[place] [phone] LDL:HDL Ratio 5.49 High <2.54 [facility] Comment on above: Result Comment: Refe rence: 1. National Cholesterol Education Program ATP III Guideline At-A-Glance Quick Desk Reference: National Heart, Lung, and Blood [place]. National Institutes of Health. 2001: NIH Publication No. 01-3305. 2. An International Atherosclerosis Society position paper: global recommendations for the management of dyslipidemia: executive summary, Atherosclerosis. 2014: 232(2):410-413. Performed By: #### C BC ####[facility] [address] [place] [address]#### LIPB ####[place] [phone]#### HBA1C ####[place] [phone] Non HDL Cholesterol 243 mg/dL High <130 [facility] [place] [facility] Comment on above: Result Comment: <130 mg/dL, Optimal 130-159 mg/dL, Near optimal/above optimal 160-189 mg/dL, Borderline high 190-219 mg/dL, High >219 mg/dL, Very high Secondary prevention optimal non HDL Cholesterol levels are recommended to be < 100 mg/dL Performed By: #### C BC ####[facility] [address] [place] [address]#### LIPB ####[facility] [address] [place], [place] [phone]#### HBA1C ####[place] [phone] TC:HDL Ratio 6.93 High <5.10 [facility] Comment on above: Performed By: #### C BC ####[facility] [address] [place] [address]#### LIPB ####[facility] [address] [place], [place] [phone]#### HBA1C ####[place] [phone] Triglyceride mass conc 92 mg/dL Normal <150 [facility] Comment on above: Result Comment: <150 mg/dL, Normal 150-199 mg/dL, Borderline high 200-499 mg/dL, High >499 mg/dL, Very high Performed By: #### C BC ####[facility] [address] [place] [address]#### LIPB ####[place] [phone]#### HBA1C ####[place] [phone] VLDL Cholesterol 18 mg/dL Normal <30 [facility] Comment on above: Performed By: #### C BC ####[facility] [address] [place] [address]#### LIPB ####[place] [phone]#### HBA1C ####[place] [phone] Magnesiumon 11-12-2018 Magnesium mass conc 1.9 mg/dL Normal 1.7-2.3 [facility] [place] [facility] Comment on above: Performed By: #### P T, CMP, MG1, CBCDIF #### [facility] [address] [place] [phone] Magnesium mass conc 1.8 mg/dL Normal 1.7-2.3 [facility] [place] [facility] Comment on above: Performed By: #### P T, CMP, MG1, CBCDIF #### [facility] [address] [facility] [phone] NT Pro BNPon 11-12-2018 Protein mass conc 641 pg/mL High <125 [facility] Comment on above: Performed By: #### N TBNP #### [facility] [address] [facility] [phone] NURSING PROGon 11-12-2018 Protein mass conc HNO ID: [id number] Author: Kalyn CummingsRn) WILDER Fowler Service: ? Author Type: Registered Nurse Type: Nursing Progress Note Filed: 11/12/2018 1:58 PM Note Text: Nursing Progress Note Patient Name: Caity Strickland Patient [facility]: [facility] -[facility] Daily Note: 0757: Patient is admitted for chest pain. Patient observed lying in bed. No distress noted. Patient denies any chest pain. No discomfort noted. Patient EKG completed. Result in patient chat. Will continue to monitor. 0900: Patient observed lying in bed. No distress noted. Patient denies any pain. Patient ate 100% of breakfast. Will continue to monitor. 11:00: Patient denies any needs now. Observed lying in bed. No distress noted. will continue to monitor. 1310: Patient discharged home. Discharged education completed with patient. Patient verbalized understanding. Discharged instructions given to patient. IV and tele monitor removed from patient per protocol. Patient tolerated procedure well. Patient now waiting for her son to pick her up. Patient stated that, her son will be in hospital in about 10 minutes. Patient in room sitting in bed. Denies any pain. No distress noted. Will continue to monitor. 1320: Patient left unit by ambulation with son. This note was completed by: Kalyn Fowler RN Normal [facility] Protein mass conc HNO ID: [id number] Author: Yina CummingsRn) WILDER Olson Service: ? Author Type: Registered Nurse Type: Nursing Progress Note Filed: 11/12/2018 6:34 AM Note Text: Nursing Progress Note Patient Name: Caity Strickland Patient Location: [facility] - Daily Note: Resting in bed. Up ad francisco javier to bathroom with steady gait. Tele showing NSR VR 68. This note was completed by: Yina Olson RN [facility] Protein mass conc HNO ID: [id number] Author: Yina CummingsRnEdith Olson RN Service: ? Author Type: Registered Nurse Type: Nursing Progress Note Filed: 11/12/2018 6:33 AM Note Text: Nursing Progress Note Patient Name: Caity Strickland Patient Location: [facility] - Daily Note: Resting in bed after receiving Toradol as ordered by FRUIT RECEIVER for pain. No further c/o chest pain, more so pain to left shoulder. This note was completed by: Yina Olson RN [facility] Protein mass conc HNO ID: [id number] Author: Yina Olson RN Service: ? Author Type: Registered Nurse Type: Nursing Progress Note Filed: 11/12/2018 2:57 AM Note Text: Nursing Progress Note Patient Name: Caity Strickland Patient Location: [facility] - Daily Note: Pt received as ER admit per cart to [address] [place] [address]. Oriented to room and floor as well as air sampling and monitoring. Son at bedside. This note was completed by: Yina Olson RN Normal [facility] Protimeon 11-12-2018 Prothrombin time (PT) Coag time (PPP) 9.9 s Normal 9.7-13.0 [facility] Comment on above: Performed By: #### P T, CMP, MG1, CBCDIF #### [facility] [address] [facility] [phone] Prothrombin time (PT) Coag time (PPP) 0.9 s Normal 0.9-1.3 [facility] Comment on above: Result Comment: Zuleyma min K Antagonist (VKA) Therapeutic Range: INR 2 to 3 (Target INR of 2.5) Note: For patients treated with VKA drugs, such as warfarin, the [place] [employer] 2012 Guideline recommends a therapeutic INR range of 2 to 3 (target INR of 2.5). This recommendation includes high-risk patients with antiphospholipid syndrome with previous arterial or venous thromboembolism, current-generation mechanical or bioprosthetic aortic heart valve replacement. Note: Patients with mechanical aortic valve replacement and additional risk factors for thromboembolic events (atrial fibrillation, previous thromboembolism, LV dysfunction, hypercoagulable conditions) or an older generation mechanical AVR (i.e., ball in-Cage) or any mechanical MVR should have a INR therapeutic range of 2.5 to 3.5 (target INR of 3). Gale GH, et al. Chest 2012, 141:7S-47S Michaela RA et al. [facility] 2017, 70: 252-289 Performed By: #### P T, CMP, MG1, CBCDIF #### [facility] [address] [facility] [phone] TSHon 11-12-2018 Thyrotropin Qn 1.170 uU/mL Normal 0.400-5.500 [facility] Comment on above: Performed By: #### T SH ####[facility] Rx[address]vmn[address] [phone] Troponin Ton 11-12-2018 Troponin T.cardiac mass conc ug/L Normal 0.000-0.029 [facility] Comment on above: Performed By: #### P T, CMP, MG1, CBCDIF #### [facility] [address] [facility] [phone] Troponin T.cardiac mass conc ug/L Normal 0.000-0.029 [facility] Comment on above: Performed By: #### T NT ####[facility] [address] [place] [phone] XR CHEST 2V FRONTAL/LATon XR CHEST 2V FRONTAL/LAT * * *Final Report* * * DATE OF EXAM: Nov 12 2018 12:32AM MDX [id number] - XR CHEST 2V FRONTAL/LAT / PROCEDURE REASON: Chest pain * * * * Physician Interpretation * * * * EXAMINATION: CHEST RADIOGRAPH (2 VIEW FRONTAL and LATERAL) CLINICAL HISTORY: Chest pain MQ: XC2_5 Comparison: None. RESULT: Lines, tubes, and devices: Overlying EKG leads. Lungs and pleura: No pneumothorax, pleural effusion or consolidative focal pneumonia. The lungs appear grossly clear bilaterally. Cardiomediastinal silhouette: Normal cardiomediastinal silhouette. Other: No acute osseous abnormality identified. IMPRESSION: No pneumonia, pneumothorax or CHF. Senior Applications Analyst: PSCB Transcribe Date/Time: Nov 12 2018 12:36A Dictated by : LASHONDA SILVER MD This examination was interpreted and the report reviewed and electronically signed by: LASHONDA SILVER MD on Nov 12 2018 12:39AM EST [id number] Normal [facility] Vital Signs Date Time Vital Sign Value Performing Clinician Faci renitay 04-15-2025 15:46-0400 Body height 167.64 cm Vivien GUSTAFSON Work Phone: [facility] 04-15-2025 15:46-0400 Body mass index (BMI) [Ratio] 26.8 kg/m2 Vivien GUSTAFSON Work Phone: [facility] 04-15-2025 15:46-0400 Body temperature 98.6 [degF] Vivien GUSTAFSON Work Phone: [facility] 04-15-2025 15:46-0400 Body weight 75.29 kg Vivien GUSTAFSON Work Phone: [facility] 04-15-2025 15:46-0400 Diastolic blood pressure 78 mm[Hg] Vivien Solis PA Work Phone: [facility] 04-15-2025 15:46-0400 Heart rate 70 /min Vivien Solis PA Work Phone: [facility] 04-15-2025 15:46-0400 Respiratory rate 16 /min Vivien Solis PA Work Phone: [facility] 04-15-2025 15:46-0400 SaO2% (BldA) [Mass fraction] 94 % Vivien Slois PA Work Phone: [facility] 04-15-2025 15:46-0400 Systolic blood pressure 147 mm[Hg] Vivein Solis PA Work Phone: [facility] 01-30-2025 13:42-0400 Body height 167.64 cm Vivien Solis PA Work Phone: [facility] 01-30-2025 13:42-0400 Body mass index (BMI) [Ratio] 26.9 kg/m2 Vivien Solis PA Work Phone: [facility] 01-30-2025 13:42-0400 Body temperature 98.6 [degF] Vivien Solis PA Work Phone: [facility] 01-30-2025 13:42-0400 Body weight 75.74 kg Vivien Solis PA Work Phone: [facility] 01-30-2025 13:42-0400 Diastolic blood pressure 74 mm[Hg] Vivien Solis PA Work Phone: [facility] 01-30-2025 13:42-0400 Heart rate 64 /min Vivien Solis PA Work Phone: [facility] 01-30-2025 13:42-0400 Respiratory rate 18 /min Vivien Solis PA Work Phone: [facility] 01-30-2025 13:42-0400 SaO2% (BldA) [Mass fraction] 95 % Vivien GUSTAFSON Work Phone: [facility] 01-30-2025 13:42-0400 Systolic blood pressure 158 mm[Hg] Vivien GUSTAFSON Work Phone: [facility] 05-02-2022 11:09-0500 Body temperature 98.06 [degF] KRYSTINA PETERSON MD [address] [place] [address] 05-02-2022 11:09-0500 Diastolic Blood Pressure NBP 50 1 KRYSTINA PETERSON MD [address] [place] [address] 05-02-2022 11:09-0500 Heart rate 72 /min KRYSTINA PETERSON MD [address] [place] [address] 05-02-2022 11:09-0500 Mean blood pressure 74 mm[Hg] KRYSTINA PETERSON MD [address] [place] [address] 05-02-2022 11:09-0500 Reason For Taking VItal Signs KRYSTINA PETERSON MD [address] [place] [address] 05-02-2022 11:09-0500 Respiratory rate 17 /min KRYSTINA PETERSON MD [address] [place] [address] 05-02-2022 11:09-0500 Systolic Blood Pressure NBP 131 1 KRYSTINA PETERSON MD [address] [place] [address] 05-02-2022 10:42-0500 Heart rate 76 /min KRYSTINA PETERSON MD [address] [place] [address] 05-02-2022 10:42-0500 Respiratory rate 18 /min KRYSTINA PETERSON MD [address] [place] [address] 05-02-2022 09:16-0500 Heart rate 86 /min KRYSTINA PETERSON MD [address] [place] [id number] 05-02-2022 07:35-0500 Heart rate 72 /min KRYSTINA PETERSON MD [address] [place] [address] 05-02-2022 07:35-0500 Reason For Taking VItal Signs KRYSTINA PETERSON MD [address] [place] [address] 05-02-2022 06:48-0500 Heart rate 80 /min KRYSTINA PETERSON MD [address] [place] [address] 05-02-2022 06:48-0500 Respiratory rate 18 /min KRYSTINA PETERSON MD [address] [place] [address] 05-02-2022 05:45-0500 Body temperature 98.42 [degF] KRYSTINA PETERSON MD [address] [place] [address] 05-02-2022 05:45-0500 Diastolic Blood Pressure NBP 71 1 KRYSTINA PETERSON MD [address] [place] [address] 05-02-2022 05:45-0500 Heart rate 74 /min KRYSTINA PETERSON MD [address] [place] [address] 05-02-2022 05:45-0500 Mean blood pressure 84 mm[Hg] KRYSTINA PETERSON MD [address] [place] [address] 05-02-2022 05:45-0500 Reason For Taking VItal Signs KRYSTINA PETERSON MD [address] [place] [address] 05-02-2022 05:45-0500 Systolic Blood Pressure NBP 126 1 KRYSTINA PETERSON MD [address] [place] [address] 05-01-2022 23:00-0400 Body temperature 97.88 [degF] KRYSTINA PETERSON MD [address] [place] [address] 05-01-2022 23:00-0400 Diastolic Blood Pressure NBP 52 1 KRYSTINA PETERSON MD [address] [place] [address] 05-01-2022 23:00-0400 Mean blood pressure 70 mm[Hg] KRYSTINA PETERSON MD [address] [place] [address] 05-01-2022 23:00-0400 Systolic Blood Pressure NBP 117 1 KRYSTINA PETERSON MD [address] [place] [address] 05-01-2022 18:54-0400 Heart rate 87 /min KRYSTINA PETERSON MD [address] [place] [address] 05-01-2022 16:30-0400 Heart rate 70 /min KRYSTINA PETERSON MD [address] [place] [address] 05-01-2022 08:25-0400 Heart rate 83 /min KRYSTINA PETERSON MD [address] [place] [address] 04-27-2022 15:03-0400 Body temperature 98.42 [degF] KRYSTINA PETERSON MD [address] [place] [address] 04-27-2022 13:30-0400 Diastolic blood pressure 48 mm[Hg] KRYSTINA PETERSON MD [address] [place] [address] 04-27-2022 13:30-0400 Mean blood pressure 79 mm[Hg] KRYSTINA PETERSON MD [address] [place] [address] 04-27-2022 13:30-0400 Systolic blood pressure 136 mm[Hg] KRYSTINA PETERSON MD [address] [place] [address] 04-27-2022 13:22-0400 Diastolic blood pressure 53 mm[Hg] KRYSTINA PETERSON MD [address] [place] [address] 04-27-2022 13:22-0400 Mean blood pressure 85 mm[Hg] KRYSTINA PETERSON MD [address] [place] [address] 04-27-2022 13:22-0400 Systolic blood pressure 143 mm[Hg] KRYSTINA PETERSON MD [address] [place] [address] 04-27-2022 13:13-0400 Diastolic blood pressure 57 mm[Hg] KRYSTINA PETERSON MD [address] [place] [address] 04-27-2022 13:13-0400 Mean blood pressure 90 mm[Hg] KRYSTINA PETERSON MD [address] [place] [address] 04-27-2022 13:13-0400 Systolic blood pressure 149 mm[Hg] KRYSTINA PETERSON MD [address] [place] [address] 04-27-2022 12:05-0400 SaO2% (BldA) [Mass fraction] 96.5 % KRYSTINA PETERSON MD [facility] 04-27-2022 07:38-0400 Body temperature 98.42 [degF] KRYSTINA PETERSON MD [address] [place] [address] 04-27-2022 07:30-0400 Body temperature 98.42 [degF] KRYSTINA PETERSON MD [address] [place] [address] 04-27-2022 07:25-0400 SaO2% (BldA) [Mass fraction] 98.4 % KRYSTINA PETERSON MD [facility] 04-27-2022 07:22-0400 Body temperature 98.6 [degF] KRYSTINA PETERSON MD [address] [place] [address] 04-27-2022 07:02-0400 Body weight 78.2 kg KRYSTINA PETERSON MD [address] [place] [address] 04-27-2022 01:34-0400 SaO2% (BldA) [Mass fraction] 98.9 % KRYSTINA PETERSON MD [facility] 04-26-2022 18:20-0400 Body temperature 98.51 [degF] KRYSTINA PETERSON MD [address] 04-26-2022 18:15-0400 Body temperature 98.55 [degF] KRYSTINA PETERSON MD [address] [place] [address] 04-26-2022 18:10-0400 Body temperature 98.62 [degF] KRYSTINA PETERSON MD [address] [place] [address] 04-26-2022 18:10-0400 Body temperature 97.86 [degF] KRYSTINA PETERSON MD [address] [place] [address] 04-26-2022 18:05-0400 Body temperature 97.88 [degF] KRYSTINA PETERSON MD [address] [place] [address] 04-26-2022 18:00-0400 Body temperature 98.01 [degF] KRYSTINA PETERSON MD [address] [place] [address] 04-26-2022 17:41-0400 SaO2% (BldA) [Mass fraction] 94.5 % KRYSTINA PETERSON MD [facility] 04-26-2022 17:09-0400 SaO2% (BldA) [Mass fraction] 98.8 % KRYSTINA PETERSON MD [facility] 04-26-2022 16:39-0400 SaO2% (BldA) [Mass fraction] 98.8 % KRYSTINA PETERSON MD [facility] 04-25-2022 10:18-0400 Diastolic blood pressure 88 mm[Hg] KRYSTINA PETERSON MD [address] [place] [address] 04-25-2022 10:18-0400 Diastolic blood pressure 73 mm[Hg] KRYSTINA PETERSON MD [address] [place] [address] 04-25-2022 10:18-0400 Systolic blood pressure 150 mm[Hg] KRYSTINA PETERSON MD [address] [place] [address] 04-25-2022 10:18-0400 Systolic blood pressure 151 mm[Hg] KRYSTINA PETERSON MD [address] [place] [address] 04-24-2022 22:44-0400 Diastolic blood pressure 58 mm[Hg] KRYSTINA PETERSON MD [address] [place] [address] 04-24-2022 22:44-0400 Mean blood pressure 73 mm[Hg] KRYSTINA PETERSON MD [address] [place] [address] 04-24-2022 22:44-0400 Systolic blood pressure 102 mm[Hg] KRYSTINA PETERSON MD [address] [place] [address] 04-24-2022 19:36-0400 Mean blood pressure 89 mm[Hg] KRYSTINA PETERSON MD [address] [place] [address] 04-24-2022 15:53-0400 Mean blood pressure 90 mm[Hg] KRYSTINA PETERSON MD [address] [place] [address] 04-20-2022 18:20-0400 Body height 170.2 cm KRYSTINA PETERSON MD [address] [place] [address] 04-20-2022 18:20-0400 Body weight 77.4 kg KRYSTINA PETERSON MD [address] [place] [address] 04-20-2022 18:20-0400 Body weight 26.72 kg/m2 KRYSTINA PETERSON MD [address] [place] [address] 04-20-2022 15:05-0400 Body temperature 97.88 [degF] ADELA KAPPER MAINTENANCE DATA ANALYST-FRUIT RECEIVER [facility] 04-20-2022 15:05-0400 Diastolic blood pressure 76 mm[Hg] ADELA KAPPER MAINTENANCE DATA ANALYST-FRUIT RECEIVER [facility] 04-20-2022 15:05-0400 Heart rate 60 /min ADELA KAPPER MAINTENANCE DATA ANALYST-FRUIT RECEIVER [facility] 04-20-2022 15:05-0400 Reason For Taking VItal Signs ADELA KAPPER MAINTENANCE DATA ANALYST-FRUIT RECEIVER [facility] 04-20-2022 15:05-0400 Respiratory rate 18 /min ADELA KAPPER MAINTENANCE DATA ANALYST-FRUIT RECEIVER [facility] 04-20-2022 15:05-0400 Systolic blood pressure 159 mm[Hg] ADELA KAPPER MAINTENANCE DATA ANALYST-FRUIT RECEIVER [facility] 04-20-2022 13:28-0400 Heart rate 74 /min ADELA KAPPER MAINTENANCE DATA ANALYST-FRUIT RECEIVER [facility] 04-20-2022 10:50-0400 Body temperature 97.88 [degF] ADELA KAPPER MAINTENANCE DATA ANALYST-FRUIT RECEIVER [facility] 04-20-2022 10:50-0400 Diastolic blood pressure 65 mm[Hg] ADELA KAPPER MAINTENANCE DATA ANALYST-FRUIT RECEIVER [facility] 04-20-2022 10:50-0400 Heart rate 66 /min ADELA KAPPER MAINTENANCE DATA ANALYST-FRUIT RECEIVER [facility] 04-20-2022 10:50-0400 Reason For Taking VItal Signs ADELA KAPPER MAINTENANCE DATA ANALYST-FRUIT RECEIVER [facility] 04-20-2022 10:50-0400 Respiratory rate 18 /min ADELA KAPPER MAINTENANCE DATA ANALYST-FRUIT RECEIVER [facility] 04-20-2022 10:50-0400 Systolic blood pressure 146 mm[Hg] ADELA KAPPER MAINTENANCE DATA ANALYST-FRUIT RECEIVER [facility] 04-20-2022 06:56-0400 Body temperature 97.88 [degF] ADELA KAPPER MAINTENANCE DATA ANALYST-FRUIT RECEIVER [facility] 04-20-2022 06:56-0400 Diastolic blood pressure 62 mm[Hg] ADELA KAPPER MAINTENANCE DATA ANALYST-FRUIT RECEIVER [facility] 04-20-2022 06:56-0400 Reason For Taking VItal Signs ADELA KAPPER MAINTENANCE DATA ANALYST-FRUIT RECEIVER [facility] 04-20-2022 06:56-0400 Respiratory rate 18 /min ADELA KAPPER MAINTENANCE DATA ANALYST-FRUIT RECEIVER [facility] 04-20-2022 06:56-0400 Systolic blood pressure 140 mm[Hg] ADELA KAPPER MAINTENANCE DATA ANALYST-FRUIT RECEIVER [facility] 04-20-2022 04:25-0400 Heart rate 82 /min ADELA KAPPER MAINTENANCE DATA ANALYST-FRUIT RECEIVER [facility] 04-20-2022 04:25-0400 Mean blood pressure 123 mm[Hg] ADELA KAPPER MAINTENANCE DATA ANALYST-FRUIT RECEIVER [facility] 04-20-2022 01:12-0400 Heart rate 72 /min ADELA KAPPER MAINTENANCE DATA ANALYST-FRUIT RECEIVER [facility] 04-19-2022 18:01-0400 Heart rate 74 /min ADELA KAPPER MAINTENANCE DATA ANALYST-FRUIT RECEIVER [facility] 04-19-2022 17:52-0400 Body height 170.18 cm ADELA KAPPER MAINTENANCE DATA ANALYST-FRUIT RECEIVER [facility] 04-19-2022 17:52-0400 Body weight 79.27 kg ADELA KAPPER MAINTENANCE DATA ANALYST-FRUIT RECEIVER [facility] 04-19-2022 17:52-0400 Body weight 27.37 kg/m2 ADELA KAPPER MAINTENANCE DATA ANALYST-FRUIT RECEIVER [facility] 04-19-2022 16:54-0400 Heart rate 77 /min ADELA KAPPER MAINTENANCE DATA ANALYST-FRUIT RECEIVER [facility] 04-19-2022 15:50-0400 Heart rate 83 /min ADELA KAPPER MAINTENANCE DATA ANALYST-FRUIT RECEIVER [facility] 04-19-2022 11:12-0400 Heart rate 89 /min ADELA KAPPER MAINTENANCE DATA ANALYST-FRUIT RECEIVER [facility] Encounters Encounter Date Encounter Type Care Provider Facility Start: 06-05-2025 ambulatory Adin Burgos Facility:[facility] Start: 04-15-2025 End: 04-15-[address] Adin Burgos MD -[facility] Work Phone: Start: 04-15-2025 End: 04-15-2025 ambulatory Vivien GUSTAFSON Work Phone: -[facility] Start: 03-05-2025 End: 03-05-2025 ambulatory DYAN BECERRIL MAINTENANCE DATA ANALYST-FRUIT RECEIVER Facility:A Start: 02-19-2025 End: 02-19-2025 ambulatory Vivien GUSTAFSON Work Phone: -Cat Scan [facility] Start: 02-19-2025 End: 02-19-2025 Patient encounter procedure Vivien Solis PA -Cat Scan [facility] Work Phone: Start: 02-19-2025 End: 02-19-2025 ambulatory Vivien Solis Facility:[facility] Start: 01-31-2025 ambulatory DYAN BECERRIL MAINTENANCE DATA ANALYST-FRUIT RECEIVER F acility:[facility] Start: 01-30-2025 End: 01-30-2025 Patient encounter procedure Vivien Solis [facility] Work Phone: Start: 01-30-2025 End: 01-30-2025 ambulatory Vivien Solis [facility] Start: 01-25-2025 End: 01-25-2025 ambulatory DYAN BECERRIL MAINTENANCE DATA ANALYST-FRUIT RECEIVER Facility:A Start: 01-21-2025 End: 01-21-2025 ambulatory DYAN BECERRIL MAINTENANCE DATA ANALYST-FRUIT RECEIVER Facility:[facility] Start: 01-21-2025 End: 01-21-2025 Patient encounter procedure DYAN BECERRIL MAINTENANCE DATA ANALYST-FRUIT RECEIVER [facility] Start: 12-18-2024 End: 12-18-2024 ambulatory DYAN BECERRIL MAINTENANCE DATA ANALYST-FRUIT RECEIVER Facility:[facility] Start: 12-18-2024 End: 12-18-2024 Patient encounter procedure DYAN BECERRIL MAINTENANCE DATA ANALYST-FRUIT RECEIVER [facility] Start: 12-11-2024 ambulatory DYAN BECERRIL MAINTENANCE DATA ANALYST-FRUIT RECEIVER F acility:A Start: 12-03-2024 End: 12-03-2024 ambulatory DYAN BECERRIL MAINTENANCE DATA ANALYST-FRUIT RECEIVER Facility:A Start: 12-03-2024 End: 12-07-2024 ambulatory DYAN BECERRIL MAINTENANCE DATA ANALYST-FRUIT RECEIVER Facility:[facility] Start: 12-03-2024 End: 12-07-2024 Outreach Lab DYAN BECERRIL MAINTENANCE DATA ANALYST-FRUIT RECEIVER [facility] Start: 06-04-2024 End: 06-08-2024 ambulatory DYAN BECERRIL MAINTENANCE DATA ANALYST-FRUIT RECEIVER Facility:[facility] Start: 06-04-2024 End: 06-08-2024 Outreach Lab DYAN BECERRIL MAINTENANCE DATA ANALYST-FRUIT RECEIVER [facility] Start: 01-12-2024 End: 01-12-2024 ambulatory DYAN BECERRIL MAINTENANCE DATA ANALYST-FRUIT RECEIVER Facility:A Start: 12-12-2023 End: 12-16-2023 ambulatory DYAN BECERRIL MAINTENANCE DATA ANALYST-FRUIT RECEIVER Facility:B Start: 12-12-2023 End: 12-16-2023 Encounter for general adult medical examination without abnormal findings DYAN PATELE MAINTENANCE DATA ANALYST-FRUIT RECEIVER Facility:B Start: 12-12-2023 End: 12-16-2023 Outreach Lab DYAN PATELE MAINTENANCE DATA ANALYST-FRUIT RECEIVER [facility] Start: 08-30-2023 End: 08-30-2023 ambulatory DYAN BECERRIL MAINTENANCE DATA ANALYST-FRUIT RECEIVER Facility:A Start: 08-01-2023 End: 08-01-2023 ambulatory DYAN BECERRIL MAINTENANCE DATA ANALYST-FRUIT RECEIVER Facility:A Start: 07-22-2023 End: 07-26-2023 ambulatory DYAN BECERRIL MAINTENANCE DATA ANALYST-FRUIT RECEIVER Facility:B Start: 07-22-2023 ambulatory DYAN BECERRIL MAINTENANCE DATA ANALYST-FRUIT RECEIVER F acility:A Start: 06-17-2023 End: 06-21-2023 ambulatory DYAN BECERRIL MAINTENANCE DATA ANALYST-FRUIT RECEIVER Facility:B Start: 06-17-2023 End: 06-21-2023 Outreach Lab DYAN BECERRIL MAINTENANCE DATA ANALYST-FRUIT RECEIVER [facility] Start: 12-29-2022 End: 01-02-2023 Outreach Lab DYAN BECERRIL MAINTENANCE DATA ANALYST-FRUIT RECEIVER [facility] Start: 11-04-2022 End: 11-04-2022 Patient encounter procedure DYAN BECERRIL MAINTENANCE DATA ANALYST-FRUIT RECEIVER [facility] Start: 10-25-2022 End: 10-25-2022 Patient encounter procedure DYAN BECERRIL MAINTENANCE DATA ANALYST-FRUIT RECEIVER [facility] Start: 10-01-2022 End: 10-05-2022 Outreach Lab DYAN CAMPUZANOKEE MAINTENANCE DATA ANALYST-FRUIT RECEIVER [facility] Start: 07-06-2022 End: 07-10-2022 Outreach Lab DYAN CAMPUZANOKEE MAINTENANCE DATA ANALYST-FRUIT RECEIVER [facility] Start: 05-11-2022 End: 05-11-2022 Patient encounter procedure ROSAS ODONNELL MAINTENANCE DATA ANALYST-FRUIT RECEIVER [facility] Start: 05-03-2022 End: 05-03-2022 Patient encounter procedure DELMA CARRILLO MAINTENANCE DATA ANALYST-CASHIER COURTESY BOOTH [facility] Start: 04-20-2022 End: 05-02-2022 Evaluation and management of inpatient KRYSTINA PETERSON MD [facility] Start: 04-19-2022 End: 04-20-2022 Observation ADELA KEVIN MAINTENANCE DATA ANALYST-FRUIT RECEIVER [facility] Start: 11-16-2021 End: 11-16-2021 Patient encounter procedure BRE BONILLA MAINTENANCE DATA ANALYST-FRUIT RECEIVER [facility] Start: 10-08-2021 End: 10-08-2021 Patient encounter procedure BRE BONILLA MAINTENANCE DATA ANALYST-FRUIT RECEIVER [facility] Start: 09-09-2021 End: 09-13-2021 Outreach Lab DYAN CAMPUZANOKEE MAINTENANCE DATA ANALYST-FRUIT RECEIVER [facility] Procedures Date Procedure Procedure Detail Performing Clinician Start: 02-19-2025 Creatinine blood Carmelita GUSTAFSON Work Phone: Start: 02-19-2025 Creatinine measurement Vivien GUSTAFSON Work Phone: Start: 02-19-2025 CT angiography of ch est with contrast Vivien GUSTAFSON Work Phone: Start: 04-26-2022 Coronary artery bypa ss grafts x 3 KRYSTINA PETERSON MD Comment on above: TYLER, Left Saph Denture, device (physical object) DYAN BECERRIL MAINTENANCE DATA ANALYST-FRUIT RECEIVER History of coronary artery bypass grafting S/P CABG x 3( Confirmed ) ROSAS ODONNELL MAINTENANCE DATA ANALYST-FRUIT RECEIVER History of coronary artery bypass grafting S/P CABG x 3 Vivien GUSTAFSON Work Phone: History of coronary artery bypass grafting S/P CABG x 3 Vivien GUSTAFSON Hysterectomy DYAN MCCOY RN-FRUIT RECEIVER Laser assisted in si tu keratomileusis ADELA DORITA MAINTENANCE DATA ANALYST-FRUIT RECEIVER Plan of Treatment Date Care Activity Detail Author US Carotid arteries [facility] Immunizations Immunization Date Immunization Notes Care Provider Ramón lowery 04-21-2022 influenza, high-dose , quadrivalent KRYSTINA PETERSON MD [facility] 11-20-2020 SARS-CoV-2 mRNA (tozinameran) vaccine DYAN BECERRIL MAINTENANCE DATA ANALYST-FRUIT RECEIVER [facility] 10-31-2020 SARS-CoV-2 mRNA (tozinameran) vaccine DYAN BECERRIL MAINTENANCE DATA ANALYST-FRUIT RECEIVER [facility] Payers Date Payer Category Payer Self-pay [id number] 2023 Medicare [id number] 2023 Private Health Insurance [facility] [id number] 2022 Medicare [id number] 2022 Private Health Insurance [id number] 1952 Unknown [id number] 2.16.8 [id number] 1952 Unknown [id number] 2.16.8 40.1.034307.3.579.2.627 1952 Unknown [id number] 2.16.8 40.1.041032.3.579.2.627 1952 Unknown [id number] 2.16.8 40.1.805234.3.579.2.627 1952 Unknown [id number] 2.16.8 40.1.792697.3.579.2.627 1952 Unknown [id number] 2.16.8 40.1.349596.3.579.2.627 1952 Unknown [id number] 2.16.8 40.1.403445.3.579.2.627 1952 Unknown [id number] 2.16.8 40.1.380678.3.579.2.627 1952 Unknown [id number] 2.16.8 40.1.664840.3.579.2.627 1952 Unknown [id number] 2.16.8 40.1.896507.3.579.2.627 1952 Unknown [id number] 2.16. 840.1.682629.3.579.2.627 1952 Unknown [id number] 2.16. 840.1.203444.3.579.2.627 1952 Unknown [id number] 2.16. 840.1.431283.3.579.2. 1952 Unknown [id number] 2.16. 840.1.089777.3.579.2.62 1952 Unknown [id number] 2.16.8 40.1.846522.3.579.2.62 1952 Unknown [id number] 2.16. 840.1.107058.3.579.2. 1952 Unknown [id number] 2.16. 840.1.570292.3.579.2. 1952 Unknown [id number] 2.16. 840.1.425226.3.579.2. 1952 Unknown [id number] 2.16. 840.1.623941.3.579.2.627 1952 Unknown [id number] 2.16.8 40.1.032625.3.579.2.627 Unknown [id number] 2.16.8 40.1.297260.3.579.2.462 Unknown [id number] 2.16.8 40.1.366353.3.579.2.462 Unknown [id number] 2.16.8 40.1.353002.3.579.2.462 Unknown [id number] 2.16.8 40.1.371316.3.579.2.462 Social History Date Type Detail Facility Start: 01-03-2020 End: 02-26-2022 Smoker (finding) [facility] Sex Assigned At [facility] Tobacco Nicotine Use: 1/ 2 pack every 2 day. Type: Cigarettes. Number of years: 40. Started at age: 24 Years. Ready to change: Yes. [facility] Sex Female (finding) [facility] Start: 01-30-2025 End: 01-30-2025 Tobacco smoking status NHIS Smokes tobacco daily (finding) [facility] Start: 1950 Sex Assigned At Female [facility] Sex Female [facility] Medical Equipment Procedure Code Equipment Code Equipment Origin al Text Equipment Identifier Dates Blood Glucose Te st Strips Start: 03-11-2020 Lancets Start: 01-17-2020 See Instructions , NIDDM E11.9 BID testing, # 100 EA, 11 Refill(s), Pharmacy: [facility] #63, New onset type 2 diabetes mellitus, 164.5, cm, 01/17/20 14:54:00 EDT, Height, 85.2, kg, 01/17/20 14:54:00 EDT, Dosing Weight Start: 03-11-2020 See Instructions , New DMII BID testing, # 1 EA, 0 Refill(s), Pharmacy: [facility] #63, New onset type 2 diabetes mellitus, 164.5, cm, 01/17/20 14:54:00 EDT, Height, 85.2, kg, 01/17/20 14:54:00 EDT, Dosing Weight Start: 01-17-2020 See Instructions , NIDDM E11.9 BID testing, # 100 EA, 11 Refill(s), Pharmacy: [facility] #63, New onset type 2 diabetes mellitus, 164.5, cm, 01/17/20 14:54:00 EDT, Height, 85.2, kg, 01/17/20 14:54:00 EDT, Dosing Weight Start: 03-11-2020 See Instructions , New DMII BID testing, # 1 EA, 0 Refill(s), Pharmacy: [facility] #63, New onset type 2 diabetes mellitus, 164.5, cm, 01/17/20 14:54:00 EDT, Height, 85.2, kg, 01/17/20 14:54:00 EDT, Dosing Weight Start: 01-17-2020 See Instructions , NIDDM E11.9 BID testing, # 100 EA, 11 Refill(s), Pharmacy: [facility] #63, New onset type 2 diabetes mellitus, 164.5, cm, 01/17/20 14:54:00 EDT, Height, 85.2, kg, 01/17/20 14:54:00 EDT, Dosing Weight Start: 03-11-2020 See Instructions , New DMII BID testing, # 1 EA, 0 Refill(s), Pharmacy: [facility] #63, New onset type 2 diabetes mellitus, 164.5, cm, 01/17/20 14:54:00 EDT, Height, 85.2, kg, 01/17/20 14:54:00 EDT, Dosing Weight Start: 01-17-2020 Functional Status Date Assessment Result Facility 05-02-2022 Functional Status Lunch Percent 80 [facility] 05-02-2022 Functional Status Non-Slip footw ear, Room check performed [facility] 05-02-2022 Functional Status Breakfast Percent 100 A [facility] 05-02-2022 Functional Status [facility] 05-02-2022 Functional Status [facility] 05-01-2022 Functional Status [facility] 05-01-2022 Functional Status [facility] 05-01-2022 Functional Status [facility] 04-30-2022 Functional Status bilateral knee high [facility] 04-30-2022 Functional Status Ambulation in [facility] 04-30-2022 Functional Status [facility] 04-30-2022 Functional Status [facility] 04-30-2022 Functional Status Linen Change Done [facility] 04-30-2022 Functional Status Skin Care Prev entative Intervention(s) padded oxygen tubing [facility] 04-30-2022 Functional Status [facility] 04-29-2022 Functional Status [facility] 04-29-2022 Functional Status [facility] 04-29-2022 Functional Status Bath cloths, Shampoo/Body wash (no rinse) [facility] 04-28-2022 Functional Status [facility] 04-28-2022 Functional Status [facility] 04-27-2022 Functional Status [facility] 04-27-2022 Functional Status [facility] 04-27-2022 Functional Status [facility] 04-27-2022 Functional Status Done [facility] 04-27-2022 Functional Status [facility] 04-26-2022 Functional Status Patient Identified [facility] 04-26-2022 Functional Status NPO Status Maintained [facility] 04-26-2022 Functional Status [facility] 04-25-2022 Functional Status [facility] 04-25-2022 Functional Status [facility] 04-22-2022 Functional Status [facility] 04-21-2022 Functional Status Driving [facility] 04-20-2022 Functional Status [facility] 04-20-2022 [facility] Status [facility] 04-20-2022 Functional Status [facility] 04-20-2022 Functional Status Single level home [facility] 04-20-2022 Functional Status None Joe garnicatal [facility] 04-20-2022 Functional Status [facility] 04-20-2022 Functional Status [facility] 04-19-2022 Functional Status SCD Removed/Of f bilateral knee [facility] 04-19-2022 Functional Status [facility] 04-19-2022 Functional Status Sensory Deficits None A [facility] Mental Status Date Assessment Result Facility 05-02-2022 Mental Status [facility]ed x [facility] 05-02-[facility] 05-01[facility] 04-20-[facility]22 Mental Status Oriented x 4 [facility]20[facility]22 [facility] Clinical Notes 04-19-2022 to 04-15-2025 Note Date & Type Note Facility 04-15-2025 Progress note [facility] 04-15-2025 Progress note Note Date/Time April 15, 2025 4:48pm [facility] [address] [place] [address] OFFICE VISIT Date of Service: 04/15/25 MR#: [id number] Acct: [id number] Name: CAITY STRICKLAND Rep #: [id number] : 1950 Provider: Dr. Adin Burgos MD Age/Sex: 75/F Location: [facility] [place].[facility] Status: Signed Intake Vital Signs 01/30/25 13:42 04/15/25 15:46 04/15/25 15:46 Height 5 ft 6 in 5 ft 6 in 5 ft 6 in Weight: 167 lb 166 lb 166 lb BMI 26.9 26.8 26.8 BP 158/74 H 172/78 H 147/78 H Blood Pressure Location Lt brachial Rt brachial Lt brachial Position Sitting Sitting Sitting Respiration 18 16 Pulse 64 70 Pulse Source Monitor NIBP Temp 98.6 F 98.6 F Temp Source Temporal Temporal Pulse Oximetry (%) 95 94 Oxygen Delivery Method room air room air Intake Visit Reasons: Discuss Results Legal Cashier Required: No Accompanied by: Self Is patient in pain?: No Allergies No Known Allergies Allergy (Verified 04/15/25 15:48) Medications ?Medication ?Instructions ?Recorded ?Confirmed ?Type aspirin 81 mg tablet 81 mg PO QDAY 01/28/2504/15 History atorvastatin 40 mg tablet (Lipitor) 40 mg PO QHS 01/3004/15/25 History metformin 500 mg tablet 500 mg PO BID 01/30/2504/15 History metoprolol succinate 25 mg 25 mg PO BID 01/30/2504/15 History tablet,extended release 24 hr Have you fallen in the past year?: [facility] History Myocardial infarction (~03/2023) Surgical History History of open heart surgery (~04/26/23) Family History Mother Diabetes Social History Smoking Status: Current every day smoker additional social history: ASA everyday HPI HPI HPI: CAITY STRICKLAND, is a 75 F who presents to the office today for follow up discussion of left [facility]cl[facility] She has history of prior CABG with TYLER about 2 years ago after acute VT. At time of VT she had no chest pain or shortness of breath, justfelt unwell; has history of DM. She denies arm claudication, dizziness or CP with repetitive arm activity. She has had a CTA. ROS General General: No weight change, appetite, fatigue, colon cancer, breast cancer or weakness HEENT HEENT: No difficulty swallowing, eye injury, eye surgery, swollen glands or hoarseness Endo Endocrine: Yes diabetes mellitus; No thyroid disease, thyroid cancer, Hair loss, heat intolerance or cold intolerance Skin Skin: No rash or changing moles Musc Musculoskeletal: No back problems, arthritis, rheumatoid arthritis, gout or joint pain Cardio Cardiovascular: Yes high blood pressure; No murmur, pacemaker, heart disease, atrial fibrillation, heart attack, heart stent, palpitations, shortness of breath with exertion or chest pain Psych Psychiatric: No depression, anxiety or hearing voices Resp Respiratory: No shortness of breath, No sleep apnea, No cough, No COPD, No asthma, No emphysema and No wheezing Gastro Gastrointestinal: No abdominal pain, No nausea or vomiting, No diarrhea, No constipation, No blood in stool, No acid reflux, No hemorrhoids, No ulcers, No gallbladder problem and No black,tarry stools Ayush Hematologic: No blood thinners, No blood disorders, No bleeding, No anemia and No blood clots Neuro Neurologic: No system reviewed and no additional complaints, except as documented, No as per HPI, No abnormal gait, No abnormal hearing, No abnormal movements, No abnormal speech, No behavioral changes, No burning sensations, No confusion, No convulsions, No disequilibrium, No dizziness, No localized weakness, No frequent falls, No headache(s), No lack of coordination, No loss ofvision, No memory loss, No numbness, No other visual disturbances, No radicular pain, No restless legs, No sensory deficit, No syncope, No tingling, No tremor(s), No weakness and No other Exam Const General: cooperative, healthy appearing, comfortable, no acute distress and welldeveloped Nutritional Appearance: well nourished Orientation: alert, awake and oriented x3 HENMT Head: normocephalic and atraumatic Ears: hearing grossly normal bilaterally Nose: external nose normal Eyes General: appearance normal, both eyes and all related structures EOM: EOM intact bilaterally Neck Neck: normal visual inspection, full ROM, no lymphadenopathy and trachea midline Thyroid: thyroid normal Lymphatic: no lymphadenopathy noted Resp Effort & Inspection: normal respiratory effort, able to speak in complete sentences, symmetric chest movement, no audible wheezes, not labored, no stridorand no use of accessory muscles Auscultation: clear to auscultation bilaterally Cardio Rate: regular rate Rhythm: regular rhythm Heart Sounds: no murmurs Bruits: carotid bruit on the right Pulses: brachial pulses present and radial pulses present Skin General: no rashes or lesions noted and no erythema Wounds: no wounds Neuro Cranial Nerves: CN's II-XI intact bilaterally and EOM intact bilaterally Speech: speech normal Gait: normal gait Motor: strength 5/5 throughout Sensory Exam: no sensory deficits noted Psych Appearance: grossly normal and well kempt Mental Status: mental status grossly normal Mood: congruent mood Speech and Movement: speech and movement normal Thought Content: normal Judgment: judgment good Coding Level of Care Code Off vis,est,level 3 Diagnoses Stenosis of left subclavian artery I77.1 Assessment and Plan Assessment and Plan (1) 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 Comment: CTA- images reviewed, 75% stenosis of subclavian, lesion extends to just proximal to vertebral origin, mild calcification Plan: -blood pressure 25 mmhg discrepancy R>L -no upper extremity symptoms and no steal symptoms either cerebral or coronary, though her initial VT did not have typical presentation -discussed proximal subclavian stenosis as it pertains to her coronary bypass graft -recommend angio to determine if TYLER atretic and contributing significantly to coronary perfusion -also will better determine proximity to vertebral origin -if appropraite and safe would treat -risks, benefits, alternatives, indications discussed -patient would prefer to wait until Dec Clinical Quality Measures Falls Risk Screening/Assistive Devices Have you fallen in the past year?: No 04/15/25 2374 <Electronically signed by Adin Schulte> Date _ Adin Burgos MD [facility] Signature: Date (if applicable) CC: ~ [facility] Work Phone: 1(434) 635-310208-27-2025 Radiology Diagnostic study note [facility] Imaging Services [address] [place], [place] [address] CTA Chest W/WO Contrast MR#: [id number] Acct: [id number] Name: CAITY STRICKLAND Rep #: [id number] : 1950 F 74 From: Pierre Krause MD PCP: DYAN BECERRIL Status: REG CLI Study:CTA Chest W/WO Contrast Date of Exam: 02/19/25 Exam# [id number] Ordering Dr: Brent Solis PROCEDURE: CTA CHEST W/WO CONTRAST 02/19/2025 REASON FOR EXAM: L SUBCLAVIAN STENOSIS, HX CABG WITH TYLER TECHNIQUE: CTA CHEST W/WO CONTRAST Multiplanar Sagittal and Coronal images were obtained. 3D post processing was performed CONTRAST: Isovue 370 VOLUME: 100 mL One or more dose reduction techniques were used (e.g., Automated exposure control, adjustment of the mA and/or kV according to patient size, use of iterative reconstruction technique). RADIATION DOSE SUMMARY: CTDlvol: 7.05 mGy DLP: 266.62 mGycm COMPARISON: None FINDINGS: Hardware: None Lymph nodes: Small benign-appearing mediastinal lymph nodes. Heart: Status post CABG. Thoracic Aorta: No thoracic aortic aneurysm or dissection. Atherosclerotic plaque formation of the aortic arch. Calcific plaque at the origin of the left subclavian artery causing the significant stenosis. Plaque also seen at the origin of the right subclavian artery. Pulmonary Vessels: No evidence of pulmonary embolism. Lungs and Airways: No focal infiltrate or consolidation is seen. Pleura: No pleural effusion. Upper Abdomen: Diffuse pancreatic atrophy. Questionable sludge or tiny gallstones along the dependent portion of the gallbladder lumen. Bones: Degenerative changes of the thoracic spine. CT/CTA Chest W/WO Contrast IMPRESSION: Atherosclerotic plaque formation at the origin subclavian arteries bilaterally worse on the left side. Prior CABG. Questionable sludge or tiny gallstones along the dependent portion of the gallbladder lumen. Reading Location: [id number] CC: JANAY Oneill; DYAN BECERRIL ~ Senior Applications Analyst: Signed [facility]08-06-2025 Evaluation note* Diagnosis Onset Date Resolution Status Admit Date Left carotid stenosis acute Jan 1:14pm S/P CABG x 3 acute January 30, 2025 1:14pm Stenosis of left subclavian artery acute January 30, 2025 1:14pm [facility] Work Phone: 1(155) 888-713208-06-2025 Evaluation note* Diagnosis Onset Date Resolution Status Admit Date Left carotid stenosis acute Jan 1:14pm S/P CABG x 3 acute January 30, 2025 1:14pm Stenosis of left subclavian artery chronic January 30, 2025 1:14pm Stenosis of left subclavian artery chronic April 15 2:33pm [facility] Work Phone: 1(316) 760-260607-28-2025 Note* Exam Date Time Procedure Performing Provider Status 01/21/25 12:38 PM Echocardiogram, Adult - CV JUN JOSUE MD; Auth (Verified) [facility]05-11-2023 Note ORIGINAL FROM: [facility] [address] [place] [address] PROCEDURE FOR: [place] [address] Home: PID#: [id number] Exam#: [id number] : 1950 Age: 72 TO: DYAN BECERRIL MAINTENANCE DATA ANALYST FRUIT RECEIVER [address] [place], [place] [address] Fax: NO FAX EXAMINATION: DIAGNOSTIC DIGITAL RIGHT BREAST MAMMOGRAM, 11/04/2022 9:51 am TECHNIQUE: Diagnostic mammography of the right breast was performed. COMPARISON: Mammogram 10/11/2022, 01/04/2020 HISTORY: ORDERING SYSTEM PROVIDED HISTORY: Reason for Exam: sp Post biopsy marker clip placement FINDINGS: BREAST DENSITY: Scattered fibroglandular tissue This exam was utilized for confirmation of placement of a dimple-shaped biopsy marker clip in the right breast. The biopsy marker clip is located approximately 4.7 cm medial to the biopsy cavity as best seen on 2D imaging. No residual calcifications at the biopsy site are identified. IMPRESSION: Confirmation of placement of a biopsy marker clip in the right breast that migrated medially as described above BIRADS: MAMMOGRAM BI-RADS: n/a RECALL: no message RECALL TYPE: unspecified LETTER SENT: No Letter Interpreted by: Laina Borrego Preliminary Report By: Laina Borrego Electronically signed By Laina Borrego Dictated Date: 11/04/2022 9:57:03 AM Prelim Date: 11/04/2022 11:42:30 AM Sign Date: 11/04/2022 11:42:30 AM Ordering Provider: DYAN BECERRIL CLINICAL: POST STEREOTACTIC BIOPSY RIGHT BREAST. Manager Food Beverage: MAGDIEL FLORES(Eric)(M) Mammogram BI-RADS: n/a [id number] Note ORIGINAL FROM: [facility] [address] [place] [address] PROCEDURE FOR: [place] [address] Home: PID#: [id number] Exam#: [id number] : 1950 Age: 72 TO: DYAN BECERRIL MAINTENANCE DATA ANALYST FRUIT RECEIVER [address] [place], [place] [address] Fax: NO FAX EXAMINATION: STEREOTACTIC BIOPSY OF THE RIGHT BREAST, 11/04/2022 8:23 am COMPARISON: Mammogram 10/25/2022, 10/11/2022, 09/24/2021, 01/04/2020 HISTORY: ORDERING SYSTEM PROVIDED HISTORY: Reason for Exam: rt breast calcifications Patient presents for stereotactic biopsy of right breast calcifications FINDINGS: A timeout was performed to confirm patient identification and site of procedure. Risks, benefits, and alternatives of the procedure were discussed. Informed written consent was obtained. A stereotactic guided biopsy was performed for the calcifications located in the right breast at 8 o'clock position, posterior depth, 10 cm from nipple. This was described on the previous mammography report. The skin was prepped in the usual manner. Local anesthetic was administered to the access site. A skin nav was made in the breast. The abnormality was approached from the lateral aspect using an upright digital tomographic mammography unit. A 9 gauge biopsy needle was placed adjacent to the abnormality under computer guidance and confirmatory stereotactic mammography images were obtained using a vacuum assisted device. A titanium dimple-shaped clip was inserted into the biopsy cavity. Post procedure mammographic imaging demonstrates the biopsy marking clip at the targeted area. A sterile dressing was applied to the access site. The specimens were sent to the laboratory for pathologic analysis. STATUS: Successful IMPRESSION: Stereotactic guided biopsy of the right breast calcifications at 8 o'clock was successful with no apparent post procedure complications. Awaiting pathology report. An addendum will be made for radiology-pathology correlation when the pathology reports become available. BIRADS: RECALL: no message RECALL TYPE: unspecified LETTER SENT: No Letter Interpreted by: Laina Borrego Preliminary Report By: Laina Borrego Electronically signed By Laina Borrego Dictated Date: 11/04/2022 11:34:29 AM Prelim Date: 11/04/2022 11:36:01 AM Sign Date: 11/04/2022 11:36:01 AM Ordering Provider: DYAN BECERRIL CLINICAL: STEREOTACTIC BIOPSY 1.5 CM CALCIFICATIONS RIGHT BREAST 8 OCLOCK. Manager Food Beverage: FRANCHESKA CURRIE RT(Eric)(M) [id number] Note ORIGINAL FROM: [facility] [address] [place] [address] PROCEDURE FOR: CAITY STRICKLAND [place] [place] [address] Home: PID#: [id number] Exam#: [id number] : 1950 Age: 72 TO: DYAN BECERRIL APRN FRUIT RECEIVER [address] [place], [place] [address] Fax: NO FAX EXAMINATION: DIAGNOSTIC DIGITAL RIGHT BREAST MAMMOGRAM, 11/04/2022 9:51 am TECHNIQUE: Diagnostic mammography of the right breast was performed. COMPARISON: Mammogram 10/11/2022, 01/04/2020 HISTORY: ORDERING SYSTEM PROVIDED HISTORY: Reason for Exam: sp Post biopsy marker clip placement FINDINGS: BREAST DENSITY: Scattered fibroglandular tissue This exam was utilized for confirmation of placement of a dimple-shaped biopsy marker clip in the right breast. The biopsy marker clip is located approximately 4.7 cm medial to the biopsy cavity as best seen on 2D imaging. No residual calcifications at the biopsy site are identified. IMPRESSION: Confirmation of placement of a biopsy marker clip in the right breast that migrated medially as described above BIRADS: MAMMOGRAM BI-RADS: n/a RECALL: no message RECALL TYPE: unspecified LETTER SENT: No Letter Interpreted by: Laina Borrego Preliminary Report By: Laina Borrego Electronically signed By Laina Borrego Dictated Date: 11/04/2022 9:57:03 AM Prelim Date: 11/04/2022 11:42:30 AM Sign Date: 11/04/2022 11:42:30 AM Ordering Provider: DYAN BECERRIL CLINICAL: POST STEREOTACTIC BIOPSY RIGHT BREAST. Manager Food Beverage: MAGDIEL RANDALL RT(R)(M) Mammogram BI-RADS: n/[facility] [id number] Note ORIGINAL FROM: [address] [address] PROCEDURE FOR: CAITY STRICKLAND [address] [place] [address] Home: PID#: [id number] Exam#: [id number] : 1950 Age: 72 TO: DYAN BECERRIL APRN FRUIT RECEIVER [address], [place] [address] Fax: NO FAX EXAMINATION: STEREOTACTIC BIOPSY OF THE RIGHT BREAST, 11/04/2022 8:23 am COMPARISON: Mammogram 10/25/2022, 10/11/2022, 09/24/2021, 01/04/2020 HISTORY: ORDERING SYSTEM PROVIDED HISTORY: Reason for Exam: rt breast calcifications Patient presents for stereotactic biopsy of right breast calcifications FINDINGS: A timeout was performed to confirm patient identification and site of procedure. Risks, benefits, and alternatives of the procedure were discussed. Informed written consent was obtained. A stereotactic guided biopsy was performed for the calcifications located in the right breast at 8 o'clock position, posterior depth, 10 cm from nipple. This was described on the previous mammography report. The skin was prepped in the usual manner. Local anesthetic was administered to the access site. A skin nav was made in the breast. The abnormality was approached from the lateral aspect using an upright digital tomographic mammography unit. A 9 gauge biopsy needle was placed adjacent to the abnormality under computer guidance and confirmatory stereotactic mammography images were obtained using a vacuum assisted device. A titanium dimple-shaped clip was inserted into the biopsy cavity. Post procedure mammographic imaging demonstrates the biopsy marking clip at the targeted area. A sterile dressing was applied to the access site. The specimens were sent to the laboratory for pathologic analysis. STATUS: Successful IMPRESSION: Stereotactic guided biopsy of the right breast calcifications at 8 o'clock was successful with no apparent post procedure complications. Awaiting pathology report. An addendum will be made for radiology-pathology correlation when the pathology reports become available. BIRADS: RECALL: no message RECALL TYPE: unspecified LETTER SENT: No Letter Interpreted by: Laina Borrego Preliminary Report By: Laina Borrego Electronically signed By Laina Borrego Dictated Date: 11/04/2022 11:34:29 AM Prelim Date: 11/04/2022 11:36:01 AM Sign Date: 11/04/2022 11:36:01 AM Ordering Provider: DYAN BECERRIL CLINICAL: STEREOTACTIC BIOPSY 1.5 CM CALCIFICATIONS RIGHT BREAST 8 OCLOCK. Manager Food Beverage: FRANCHESKA CURRIE RT(Eric)(M)[id number] Note ORIGINAL FROM: [facility] [address] [place] [address] PROCEDURE FOR: [place] [address] Home: PID#: [id number] Exam#: [id number] : 1950 Age: 72 TO: DYAN BECERRIL APRN FRUIT RECEIVER [address] [place], [place] [address] Fax: NO FAX EXAMINATION: DIAGNOSTIC DIGITAL RIGHT BREAST MAMMOGRAM, 10/25/2022 12:45 pm TECHNIQUE: Diagnostic mammography of the right breast was performed. Computer aided detection was utilized in the interpretation of this exam. Current study was also evaluated with a Computer Aided Detection (CAD) system. COMPARISON: Mammogram 10/11/2022, 09/24/2021, 01/04/2020 HISTORY: ORDERING SYSTEM PROVIDED HISTORY: Reason for Exam: RIGHT BREAST CALCIFICATION Patient presents for further evaluation of right breast calcifications FINDINGS: BREAST DENSITY: Scattered fibroglandular tissue Further evaluation was performed for the right breast calcifications at 8 o'clock. On today's exam, there is a 1.5 cm group of coarse heterogeneous calcifications in the right breast at 8 o'clock, posterior depth, 10 cm from nipple. IMPRESSION: Right breast calcifications at 8 o'clock are suspicious. A stereotactic biopsy is recommended. BIRADS: MAMMOGRAM BI-RADS: 4: Suspicious abnormality RECALL: immediate RECALL TYPE: Right BX LETTER SENT: Biopsy Recommended BI-RADS 4 and 5 Interpreted by: Laina Borrego Preliminary Report By: Laina Borrego Electronically signed By Laina Borrego Dictated Date: 10/25/2022 1:06:33 PM Prelim Date: 10/25/2022 1:13:15 PM Sign Date: 10/25/2022 1:13:15 PM Ordering Provider: DYAN BECERRIL CLINICAL: CALCIFICATIONS RIGHT BREAST. Manager Food Beverage: MAGDIEL RANDALL RT(R)(M) letter sent: Biopsy Recommended BI-RADS 4 and 5 Mammogram BI-RADS: 4 Suspicious for malignancy [id number] Note ORIGINAL FROM: [facility] [address] [place] [address] PROCEDURE FOR: [place] [address] Home: PID#: [id number] Exam#: [id number] : 1950 Age: 72 TO: DYAN BECERRIL MAINTENANCE DATA ANALYST FRUIT RECEIVER [address] [place] [address] Fax: NO FAX EXAMINATION: DIAGNOSTIC DIGITAL RIGHT BREAST MAMMOGRAM, 10/25/2022 12:45 pm TECHNIQUE: Diagnostic mammography of the right breast was performed. Computer aided detection was utilized in the interpretation of this exam. Current study was also evaluated with a Computer Aided Detection (CAD) system. COMPARISON: Mammogram 10/11/2022, 09/24/2021, 01/04/2020 HISTORY: ORDERING SYSTEM PROVIDED HISTORY: Reason for Exam: RIGHT BREAST CALCIFICATION Patient presents for further evaluation of right breast calcifications FINDINGS: BREAST DENSITY: Scattered fibroglandular tissue Further evaluation was performed for the right breast calcifications at 8 o'clock. On today's exam, there is a 1.5 cm group of coarse heterogeneous calcifications in the right breast at 8 o'clock, posterior depth, 10 cm from nipple. IMPRESSION: Right breast calcifications at 8 o'clock are suspicious. A stereotactic biopsy is recommended. BIRADS: MAMMOGRAM BI-RADS: 4: Suspicious abnormality RECALL: immediate RECALL TYPE: Right BX LETTER SENT: Biopsy Recommended BI-RADS 4 and 5 Interpreted by: Laina Borrego Preliminary Report By: Laina Borrego Electronically signed By Laina Borrego Dictated Date: 10/25/2022 1:06:33 PM Prelim Date: 10/25/2022 1:13:15 PM Sign Date: 10/25/2022 1:13:15 PM Ordering Provider: DYAN BECERRIL CLINICAL: CALCIFICATIONS RIGHT BREAST. Manager Food Beverage: MAGDIEL RANDALL RT(R)(M) letter sent: Biopsy Recommended BI-RADS 4 and 5 Mammogram BI-RADS: 4 Suspicious for malignancyThe [facility] Hospital At [id number] Hospital Discharge instructions Patient Education 05/02/2022 13:58:50 Heart-Healthy Eating Plan, [id number] Heart-Healthy Eating Plan Heart-healthy meal planning includes: Eating less unhealthy fats. Eating more healthy fats. Making other changes in your diet. Talk with your doctor or a diet specialist (dietitian) to create an eating plan that is right for you. What is my plan? Your doctor may recommend an eating plan that includes: Total fat: % or less of total calories a day. Saturated fat: % or less of total calories a day. Cholesterol: less than mg a day. What are tips for following this plan? Cooking Avoid frying your food. Try to bake, boil, grill, or broil it instead. You can also reduce fat by: Removing the skin from poultry. Removing all visible fats from meats. Steaming vegetables in water or broth. Meal planning At meals, divide your plate into four equal parts: ?Fill one-half of your plate with vegetables and green salads. ?Fill one-fourth of your plate with whole grains. ?Fill one-fourth of your plate with lean protein foods. Eat 4 5 servings of vegetables per day. A serving of vegetables is: ?1 cup of raw or cooked vegetables. ?2 cups of raw leafy greens. Eat 4 5 servings of fruit per day. A serving of fruit is: ?1 medium whole fruit. ? cup of dried fruit. ? cup of fresh, frozen, or canned fruit. ? cup of 100% fruit juice. Eat more foods that have soluble fiber. These are apples, broccoli, carrots, beans, peas, and barley. Try to get 20 30 g of fiber per day. Eat 4 5 servings of nuts, legumes, and seeds per week: ?1 serving of dried beans or legumes equals cup after being cooked. ?1 serving of nuts is cup. ?1 serving of seeds equals 1 tablespoon. General information Eat more home-cooked food. Eat less restaurant, buffet, and fast food. Limit or avoid alcohol. Limit foods that are high in starch and sugar. Avoid fried foods. Lose weight if you are overweight. Keep track of how much salt (sodium) you eat. This is important if you have high blood pressure. Ask your doctor to tell you more about this. Try to add vegetarian meals each week. Fats Choose healthy fats. These include olive oil and canola oil, flaxseeds, walnuts, almonds, and seeds. Eat more omega-3 fats. These include salmon, mackerel, sardines, tuna, flaxseed oil, and ground flaxseeds. Try to eat fish at least 2 times each week. Check food labels. Avoid foods with trans fats or high amounts of saturated fat. Limit saturated fats. ?These are often found in animal products, such as meats, butter, and cream. ?These are also found in plant foods, such as palm oil, palm kernel oil, and coconut oil. Avoid foods with partially hydrogenated oils in them. These have trans fats. Examples are stick margarine, some tub margarines, cookies, crackers, and other baked goods. What foods can I eat? Fruits All fresh, canned (in natural juice), or frozen fruits. Vegetables Fresh or frozen vegetables (raw, steamed, roasted, or grilled). Green salads. Grains Most grains. Choose whole wheat and whole grains most of the time. Rice and pasta, including brown rice and pastas made with whole wheat. Meats and other proteins Lean, well-trimmed beef, veal, pork, and recinos. Chicken and turkey without skin. All fish and shellfish. Wild duck, rabbit, pheasant, and venison. Egg whites or low-cholesterol egg substitutes. Dried beans, peas, lentils, and tofu. Seeds and most nuts. Dairy Low-fat or nonfat cheeses, including ricotta and mozzarella. Skim or 1% milk that is liquid, powdered, or evaporated. Buttermilk that is made with low-fat milk. Nonfat or low-fat yogurt. Fats and oils Non-hydrogenated (trans-free) margarines. Vegetable oils, including soybean, sesame, sunflower, olive, peanut, safflower, corn, canola, and cottonseed. Salad dressings or mayonnaise made with a vegetable oil. Beverages Mineral water. Coffee and tea. Diet carbonated beverages. Sweets and desserts Sherbet, gelatin, and fruit ice. Small amounts of dark chocolate. Limit all sweets and desserts. Seasonings and condiments All seasonings and condiments. The items listed above may not be a complete list of foods and drinks you can eat. Contact a dietitian for more options. What foods should I avoid? Fruits Canned fruit in heavy syrup. Fruit in cream or butter sauce. Fried fruit. Limit coconut. Vegetables Vegetables cooked in cheese, cream, or butter sauce. Fried vegetables. Grains Breads that are made with saturated or trans fats, oils, or whole milk. Croissants. Sweet rolls. Donuts. High-fat crackers, such as cheese crackers. Meats and other proteins Fatty meats, such as hot dogs, ribs, sausage, lora, rib-eye roast or steak. High-fat deli meats, such as salami and bologna. Caviar. Domestic duck and goose. Organ meats, such as liver. Dairy Cream, sour cream, cream cheese, and creamed cottage cheese. Whole-milk cheeses. Whole or 2% milk that is liquid, evaporated, or condensed. Whole buttermilk. Cream sauce or high-fat cheese sauce. Yogurt that is made from whole milk. Fats and oils Meat fat, or shortening. [place] butter, hydrogenated oils, palm oil, coconut oil, palm kernel oil. Solid fats and shortenings, including lora fat, salt pork, lard, and butter. Nondairy cream substitutes. Salad dressings with cheese or sour cream. Beverages Regular sodas and juice drinks with added sugar. Sweets and desserts Frosting. Pudding. Cookies. Cakes. Pies. Milk chocolate or white chocolate. Buttered syrups. Full-fat ice cream or ice cream drinks. The items listed above may not be a complete list of foods and drinks to avoid. Contact a dietitianfor more information. Summary Heart-healthy meal planning includes eating less unhealthy fats, eating more healthy fats, and making other changes in your diet. Eat a balanced diet. This includes fruits and vegetables, low-fat or nonfat dairy, lean protein, nuts and legumes, whole grains, and heart-healthy oils and fats. This information is not intended to replace advice given to you by your health care provider. Make sure you discuss any questions you have with your health care provider. Document Released: 12/12/2012 Document Revised: 08/17/2018 Document Reviewed: 07/21/2018 [employer] Patient Education 2020 [employer]. 05/02/2022 13:58:37 Form - Daily Weight Record Daily Weight Record It is important to weigh yourself daily. To do this: Make sure you use a reliable scale. Use the same scale each day. Keep this daily weight chart near your scale. Weigh yourself each morning at the same time. Before weighing yourself: ?Take off your shoes. ?Make sure you are wearing the same amount of clothing each day. Write down your weight in the spaces on the form. Compare today's weight to yesterday's weight. Bring this form with you to your follow-up visits with your health care provider. Call your health care provider if you have concerns about your weight, including rapid weight gain or loss. Date: Weight: Date: Weight: Date: Weight: Date: Weight: Date: Weight: Date: Weight: Date: Weight: Date: Weight: Date: Weight: Date: Weight: Date: Weight: Date: Weight: Date: Weight: Date: Weight: Date: Weight: Date: Weight: Date: Weight: Date: Weight: Date: Weight: Date: Weight: Date: Weight: Date: Weight: Date: Weight: Date: Weight: Date: Weight: Date: Weight: Date: Weight: Date: Weight: Date: Weight: Date: Weight: Date: Weight: Date: Weight: Date: Weight: Date: Weight: Date: Weight: Date: Weight: Date: Weight: Date: Weight: Date: Weight: Date: Weight: Date: Weight: Date: Weight: Date: Weight: Date: Weight: Date: Weight: Date: Weight: Date: Weight: Date: Weight: Date: Weight: Date: Weight: This information is not intended to replace advice given to you by your health care provider. Make sure you discuss any questions you have with your health care provider. Document Released: 08/25/2007 Document Revised: 06/12/2018 Document Reviewed: 06/12/2018 Elsevier Patient Education 2020 [employer] 05/02/2022 13:58:25 Coronary Artery Bypass Grafting, Care After Coronary Artery Bypass Grafting, Care After This sheet gives you information about how to care for yourself after your procedure. Your health care provider may also give you more specific instructions. If you have problems or questions, contact your health care provider. What can I expect after the procedure? After the procedure, it is common to have: Nausea. Lack of appetite. Constipation. Weakness and fatigue. Depression or irritability. Pain or discomfort in your incision areas. Follow these instructions at home: Medicines Take zszy-lps-hqgvror and prescription medicines only as told by your health care provider. Do not stop taking medicines or start any new medicines without approval from your health care provider. If you were prescribed an antibiotic medicine, take it as told by your health care provider. Do notstop using the antibiotic even if you start to feel better. Incision care Follow instructions from your health care provider about how to take care of your incisions. Make sure you: ?Wash your hands with soap and water before and after you change your bandage (dressing). If soap and water are not available, use hand track inspector. ?Change your dressing as told by your health care provider. ?Leave stitches (sutures), skin glue, or adhesive strips in place. These skin closures may need to stay in place for 2 weeks or longer. If adhesive strip edges start to loosen and curl up, you may trim the loose edges. Do not remove adhesive strips completely unless your health care provider tells you to do that. Keep incision areas clean, dry, and protected. Check your incision areas every day for signs of infection. Check for: ?More redness, swelling, or pain. ?More fluid or blood. ?Warmth. ?Pus or a bad smell. If incisions were made in your legs: ?Avoid crossing your legs. ?Avoid sitting for long periods of time. Change positions every 30 minutes. ?Raise (elevate) your legs when you are sitting. Bathing Do not take baths, swim, or use a hot tub until your health care provider approves. Only take sponge baths. Pat the incisions dry. Do not rub incisions with a washcloth or towel. Ask your health care provider when you can shower. Eating and drinking Eat foods that are high in fiber, such as beans, nuts, whole grains, and raw fruits and vegetables.Meats, if eaten, should be lean cut. Avoid canned, processed, and fried foods. This can help prevent constipation and is a recommended part of a heart-healthy diet. Drink enough fluid to keep your urine pale yellow. Do not drink alcohol until your recovery is complete. Ask your health care provider when it is safeto drink alcohol. Activity Rest and limit your activity as told by your health care provider. You may be instructed to: ?Stop any activity right away if you have chest pain, shortness of breath, irregular heartbeats, ordizziness. Get help right away if you have any of these symptoms. ?Move around frequently for short periods or take short walks as told by your health care provider.Gradually increase your activities. ?Avoid lifting, pushing, or pulling anything that is heavier than 10 lb (4.5 kg) for at least 6 weeks or as told by your health care provider. Participate in physical therapy or a cardiac rehabilitation program as told by your health care provider. ?Physical therapy involves doing exercises to maintain movement, strengthen your muscles, and buildyour endurance. ?A cardiac rehabilitation program is a treatment program to improve your health and well-being through exercise training, education, and counseling. Do not drive until your health care provider approves. Ask your health care provider when you may return to work. Ask your health care provider when you may resume sexual activity. General instructions Do not drive or use heavy machinery while taking prescription pain medicine. Do not use any products that contain nicotine or tobacco, such as cigarettes, e- cigarettes, and chewing tobacco. If you need help quitting, ask your health care provider. Take 2 3 deep breaths every few hours during the day, while you recover. This helps expand your lungs and prevent complications like pneumonia after surgery. If you were given a device called an incentive spirometer, use it several times a day to practice deep breathing. Support your chest with a pillow or your arms when you take deep breaths or cough. Wear compression stockings as told by your health care provider. These stockings help to prevent blood clots and reduce swelling in your legs. Weigh yourself every day. This helps identify if your body is holding (retaining) fluid that may make your heart and lungs work harder. Keep all follow-up visits as told by your health care provider. This is important. Contact a health care provider if: You have more redness, swelling, or pain around any incision. You have more fluid or blood coming from any incision. Any incision feels warm to the touch. You have pus or a bad smell coming from any incision. You have a fever. You have swelling in your ankles or legs. You have pain in your legs. You gain 2 lb (0.9 kg) or more a day. You are nauseous or you vomit. You have diarrhea. Get help right away if: You have chest pain that spreads to your jaw or arms. You are short of breath. You have a fast or irregular heartbeat. You notice a clicking in your breastbone (sternum) when you move. You have any symptoms of a stroke. BE FAST is an easy way to remember the main warning signs of astroke: ?B - Balance. Signs are dizziness, sudden trouble walking, or loss of balance. ?E - Eyes. Signs are trouble seeing or a sudden change in vision. ?F - Face. Signs are sudden weakness or numbness of the face, or the face or eyelid drooping on oneside. ?A - Arms. Signs are weakness or numbness in an arm. This happens suddenly and usually on one side of the body. ?S - Speech. Signs are sudden trouble speaking, slurred speech, or trouble understanding what people say. ?T - Time. Time to call emergency services. Write down what time symptoms started. You have other signs of a stroke, such as: ?A sudden, severe headache with no known cause. ?Nausea or vomiting. ?Seizure. These symptoms may represent a serious problem that is an emergency. Do not wait to see if the symptoms will go away. Get medical help right away. Call your local emergency services (911 in the [place] Do not drive yourself to the hospital. Summary After the procedure, it is common to have pain or discomfort in the incision areas. Do not take baths, swim, or use a hot tub until your health care provider approves. Gradually increase your activities. You may need physical therapy or cardiac rehabilitation to helpstrengthen your muscles and build your endurance. Weigh yourself every day. This helps identify if your body is holding (retaining) fluid that may make your heart and lungs work harder. This information is not intended to replace advice given to you by your health care provider. Make sure you discuss any questions you have with your health care provider. Document Released: 12/31/2005 Document Revised: 02/20/2019 Document Reviewed: 02/20/2019 [employer] Patient Education 2020 [employer] Follow Up Care 04/20/2022 18:16:06 With:DYAN BECERRIL APRN-FRUIT RECEIVER Address: [address] [place] [address]- [phone] When:05/17/2022 13:00:00 With:ROSAS ODONNELL APRN-FRUIT RECEIVER Address: [address] [facility] [address] [place] [address] [place] [address]- When:05/11/2022 09:00:00 With:Post home RN DC follow up visit scheduled for two visits # 1 scheduled for 05/03 between 8a-12p visit # 2 scheduled for 05/07 between 8a-12p Address:Unknown When: Unknown With:[facility] Address: When: Unknown Comments:[facility] will be providing your RN services at home. They should be contacting you soon. If you do not hear from them in the next 2 days, please give them a call at: [phone]. With:Can Tester follow up Address: When: Unknown Comments:Debbi Valenzuela or covering Nurse Can Tester will call you and/or your family after your release from the hospital. Office Hours: Tuesday thru Tuesday 730am - 4pmPhone: Huqpt: [email or web address] With:[facility] Address:Unknown When: Unknown Comments:The Cardiac rehab department will call you in 4-5 weeks to schedule you for Phase 2. If you have any questions please call us at [phone]. Thank you With:KERON KRAMER MD Address: [address] [place] [address] [facility] [place] [address]- When:06/04/2022 11:15:00 [facility] 11-06-2022 Note Discharge Instructions Thank you for allowing [facility] to assist you with your healthcare needs. The following is importantdischarge information regarding your hospital visit. 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 Follow Up Appointments Follow Up with KERON KRAMER MD When 06/04/2022 11:15 AM EST Where: [address] [facility] [place] [address]- Follow Up with DYAN BECERRIL APRN-FRUIT RECEIVER When 05/17/2022 01:00 PM EST Where: [address] [place] [address]- [phone] Follow Up with ROSAS ODONNELL APRN-FRUIT RECEIVER When 05/11/2022 09:00 AM EST Where: [address] [facility] [place] [address]- Follow Up with Post home RN DC follow up visit scheduled for two visits # 1 scheduled for 05/03 between 8a-12p visit # 2 scheduled for 05/07 between 8a-12p When Follow Up with [facility] When Why: [facility] will be providing your RN services at home. They should be contacting you soon. Ifyou do not hear from them in the next 2 days, please give them a call at: [phone]. Where: Follow Up with Can Tester follow up When Why: Debbi Valenzuela or covering Nurse Can Tester will call you and/or your family after your release from the hospital. Office Hours: Tuesday thru Tuesday 730am - 4pm Email: [email or web address] Where: Follow Up with Cardiac Rehab When Why: The Cardiac rehab department will call you in 4-5 weeks to schedule you for Phase 2. If you have any questions please call us at [phone]. Thank you The Following Activity and Diet Have Been Ordered for You Discharge Activity - Ordered -- Lifting Restricted less than 10 pounds Driving Restricted May Shower, No driving for 6 weeksat least, 05/02/22 12:16:00 EST Discharge Diet - Ordered -- Diet Restrictions: Cardiac diet Low cholesterol, Calories Permitted: 1800 kcal, 05/02/22 12:16:00 EST The Following Equipment Has Been Ordered for You Discharge Home Equipment Discharge Wound Care - Ordered -- Wash chest incision and leg incision daily with soap and water, 05/02/22 12:16:00 EST The Following Treatments Have Been Ordered for You Discharge Labs Discharge Outpatient Labwork - Ordered -- Pro time INR on 05/03/2022 and as needed, Warfarin therapy, Results Notify to: DYAN BECERRIL, Patient developed atrial fibrillation postoperatively. Goal INR is 2.0-2.5, 05/02/22 12:16:00 EST Discharge Radiology No qualifying data available. Other Therapies No qualifying data available. Post Acute Orders No qualifying data available. Someone Will Contact You Regarding These Home Health Referrals No home referrals have been ordered for you. No one will call you. Immunizations This Visit Given Vaccine Dateinfluenza virus vaccine, inactivated 04/21/2022 Medications Please ask your primary doctor or pharmacist before taking any other medication not listed, including over the counter drugs, herbal medications, vitamins and or supplements as they may interact withyour home medications. What How Much When Why Instructions Last Dose New acetaminophen 650 Milligram by mouth Every 4 hours as needed for Pain, scale 1-3 New amiodarone (amiodarone 200 mg oral tablet) 2 tab(s) by mouth Two (2) times a day Take 400 mg (2 tablets) 2 times a day through 2021 then starting 2021 take 200 mg (1 tablet) once a day x28 days Pickup at [facility] New atorvastatin (Lipitor 40 mg oral tablet) 1 tab(s) by mouth Once a day Refills: 3 Pickup at [facility] New guaiFENesin (Mucinex 600 mg oral tablet, extended release) 1 tab(s) by mouth Two (2) times a day New metoprolol (metoprolol tartrate 25 mg oral tablet) 1 tab(s) by mouth Two (2) times a day Refills: 3 Pickup at [facility] New oxyCODONE (oxyCODONE 5 mg oral tablet ( IMMEDIATE release )) 1 tab(s) by mouth Every 6 hours as needed for Pain, scale 7-10 NSTEMI (non-ST elevated myocardial infarction)/CAD EF 40-45% S/P CABG x3 04/26/2022 Acute pain Duration: 7 Days Pickup at [facility] New polyethylene glycol 3350 by mouth Once a day as needed for Constipation New warfarin (warfarin 2.5 mg oral tablet) 1 tab(s) by mouth Every other day Refills: 2 starting Pickup at [facility] New warfarin (warfarin 5 mg oral tablet) 1 tab(s) by mouth Every other day Refills: 2 Starting Pickup at [facility] Unchanged aspirin (aspirin 81 mg oral delayed release tablet) 1 tab(s) by mouth Every day Unchanged cholecalciferol (cholecalciferol 1250 mcg (50,000 intl units) oral capsule) 1 cap by mouth Every Tuesday Unchanged ibuprofen (Advil 200 mg oral tablet) 1 tab(s) by mouth Every 6 hours as needed for as needed for pain Unchanged metFORMIN (metFORMIN 500 mg oral tablet (IR)) 2 tab(s) by mouth Two (2) times a day New onset type 2 diabetes mellitus Duration: 90 Days Pickup at [facility] Pharmacy Information [facility]: [address] [place] [address] [phone] What How Much When Why Comments Stop Taking cyclobenzaprine (cyclobenzaprine 10 mg oral tablet) 1 tab(s) by mouth Three (3) times a day as needed for as needed for spasm Stop Taking diclofenac topical (diclofenac 1% topical gel) 4 gram(s) Topical Four (4) times a day as needed for as needed for pain Muscle pain May substitue with cream, lotion, or any other topical as approved by insurance. Stop Taking nitroGLYcerin (nitroglycerin 0.4 mg sublingual tablet) 1 tab(s) under the tongue Every 5 minutes as needed for for chest pain Chest pain Stop Taking simvastatin (simvastatin 40 mg oral tablet) 1 tab(s) by mouth Daily at bedtime New dose, pt will finish the Rx she has at home by taking 2 per day before filling this Rx. Please take this list to your next doctor s visit. Bring all medications you take, including over the counter medications, herbals and other supplements with you to your doctor s visit. Patients and families are reminded to discard old lists and to update any records with all medication providers or retail pharmacies. Education Materials Heart-Healthy Eating Plan Heart-healthy meal planning includes: Eating less unhealthy fats. Eating more healthy fats. Making other changes in your diet. Talk with your doctor or a diet specialist (dietitian) to create an eating plan that is right for you. What is my plan? Your doctor may recommend an eating plan that includes: Total fat: % or less of total calories a day. Saturated fat: % or less of total calories a day. Cholesterol: less than mg a day. What are tips for following this plan? Cooking Avoid frying your food. Try to bake, boil, grill, or broil it instead. You can also reduce fat by: Removing the skin from poultry. Removing all visible fats from meats. Steaming vegetables in water or broth. Meal planning At meals, divide your plate into four equal parts: ? Fill one-half of your plate with vegetables and green salads. ? Fill one-fourth of your plate with whole grains. ? Fill one-fourth of your plate with lean protein foods. Eat 4 5 servings of vegetables per day. A serving of vegetables is: ? 1 cup of raw or cooked vegetables. ? 2 cups of raw leafy greens. Eat 4 5 servings of fruit per day. A serving of fruit is: ? 1 medium whole fruit. ? cup of dried fruit. ? cup of fresh, frozen, or canned fruit. ? cup of 100% fruit juice. Eat more foods that have soluble fiber. These are apples, broccoli, carrots, beans, peas, and barley. Try to get 20 30 g of fiber per day. Eat 4 5 servings of nuts, legumes, and seeds per week: ? 1 serving of dried beans or legumes equals cup after being cooked. ? 1 serving of nuts is cup. ? 1 serving of seeds equals 1 tablespoon. General information Eat more home-cooked food. Eat less restaurant, buffet, and fast food. Limit or avoid alcohol. Limit foods that are high in starch and sugar. Avoid fried foods. Lose weight if you are overweight. Keep track of how much salt (sodium) you eat. This is important if you have high blood pressure. Ask your doctor to tell you more about this. Try to add vegetarian meals each week. Fats Choose healthy fats. These include olive oil and canola oil, flaxseeds, walnuts, almonds, and seeds. Eat more omega-3 fats. These include salmon, mackerel, sardines, tuna, flaxseed oil, and ground flaxseeds. Try to eat fish at least 2 times each week. Check food labels. Avoid foods with trans fats or high amounts of saturated fat. Limit saturated fats. ? These are often found in animal products, such as meats, butter, and cream. ? These are also found in plant foods, such as palm oil, palm kernel oil, and coconut oil. Avoid foods with partially hydrogenated oils in them. These have trans fats. Examples are stick margarine, some tub margarines, cookies, crackers, and other baked goods. What foods can I eat? Fruits All fresh, canned (in natural juice), or frozen fruits. Vegetables Fresh or frozen vegetables (raw, steamed, roasted, or grilled). Green salads. Grains Most grains. Choose whole wheat and whole grains most of the time. Rice and pasta, including brown rice and pastas made with whole wheat. Meats and other proteins Lean, well-trimmed beef, veal, pork, and recinos. Chicken and turkey without skin. All fish and shellfish. Wild duck, rabbit, pheasant, and venison. Egg whites or low-cholesterol egg substitutes. Dried beans, peas, lentils, and tofu. Seeds and most nuts. Dairy Low-fat or nonfat cheeses, including ricotta and mozzarella. Skim or 1% milk that is liquid, powdered, or evaporated. Buttermilk that is made with low-fat milk. Nonfat or low-fat yogurt. Fats and oils Non-hydrogenated (trans-free) margarines. Vegetable oils, including soybean, sesame, sunflower, olive, peanut, safflower, corn, canola, and cottonseed. Salad dressings or mayonnaise made with a vegetable oil. Beverages Mineral water. Coffee and tea. Diet carbonated beverages. Sweets and desserts Sherbet, gelatin, and fruit ice. Small amounts of dark chocolate. Limit all sweets and desserts. Seasonings and condiments All seasonings and condiments. The items listed above may not be a complete list of foods and drinks you can eat. Contact a dietitian for more options. What foods should I avoid? Fruits Canned fruit in heavy syrup. Fruit in cream or butter sauce. Fried fruit. Limit coconut. Vegetables Vegetables cooked in cheese, cream, or butter sauce. Fried vegetables. Grains Breads that are made with saturated or trans fats, oils, or whole milk. Croissants. Sweet rolls. Donuts. High-fat crackers, such as cheese crackers. Meats and other proteins Fatty meats, such as hot dogs, ribs, sausage, lora, rib-eye roast or steak. High-fat deli meats, such as salami and bologna. Caviar. Domestic duck and goose. Organ meats, such as liver. Dairy Cream, sour cream, cream cheese, and creamed cottage cheese. Whole-milk cheeses. Whole or 2% milk that is liquid, evaporated, or condensed. Whole buttermilk. Cream sauce or high-fat cheese sauce. Yogurt that is made from whole milk. Fats and oils Meat fat, or shortening. [place] butter, hydrogenated oils, palm oil, coconut oil, palm kernel oil. Solid fats and shortenings, including lora fat, salt pork, lard, and butter. Nondairy cream substitutes. Salad dressings with cheese or sour cream. Beverages Regular sodas and juice drinks with added sugar. Sweets and desserts Frosting. Pudding. Cookies. Cakes. Pies. Milk chocolate or white chocolate. Buttered syrups. Full-fat ice cream or ice cream drinks. The items listed above may not be a complete list of foods and drinks to avoid. Contact a dietitianfor more information. Summary Heart-healthy meal planning includes eating less unhealthy fats, eating more healthy fats, and making other changes in your diet. Eat a balanced diet. This includes fruits and vegetables, low-fat or nonfat dairy, lean protein, nuts and legumes, whole grains, and heart-healthy oils and fats. This information is not intended to replace advice given to you by your health care provider. Make sure you discuss any questions you have with your health care provider. Document Released: 12/12/2012 Document Revised: 08/17/2018 Document Reviewed: 07/21/2018 Elsevier Patient Education 2020 Elsevier Inc. Daily Weight Record It is important to weigh yourself daily. To do this: Make sure you use a reliable scale. Use the same scale each day. Keep this daily weight chart near your scale. Weigh yourself each morning at the same time. Before weighing yourself: ? Take off your shoes. ? Make sure you are wearing the same amount of clothing each day. Write down your weight in the spaces on the form. Compare today's weight to yesterday's weight. Bring this form with you to your follow-up visits with your health care provider. Call your health care provider if you have concerns about your weight, including rapid weight gain or loss. Date: Weight: Date: Weight: Date: Weight: Date: Weight: Date: Weight: Date: Weight: Date: Weight: Date: Weight: Date: Weight: Date: Weight: Date: Weight: Date: Weight: Date: Weight: Date: Weight: Date: Weight: Date: Weight: Date: Weight: Date: Weight: Date: Weight: Date: Weight: Date: Weight: Date: Weight: Date: Weight: Date: Weight: Date: Weight: Date: Weight: Date: Weight: Date: Weight: Date: Weight: Date: Weight: Date: Weight: Date: Weight: Date: Weight: Date: Weight: Date: Weight: Date: Weight: Date: Weight: Date: Weight: Date: Weight: Date: Weight: Date: Weight: Date: Weight: Date: Weight: Date: Weight: Date: Weight: Date: Weight: Date: Weight: Date: Weight: Date: Weight: Date: Weight: This information is not intended to replace advice given to you by your health care provider. Make sure you discuss any questions you have with your health care provider. Document Released: 08/25/2007 Document Revised: 06/12/2018 Document Reviewed: 06/12/2018 Elsevier Patient Education 2020 Elsevier Inc. Coronary Artery Bypass Grafting, Care After This sheet gives you information about how to care for yourself after your procedure. Your health care provider may also give you more specific instructions. If you have problems or questions, contact your health care provider. What can I expect after the procedure? After the procedure, it is common to have: Nausea. Lack of appetite. Constipation. Weakness and fatigue. Depression or irritability. Pain or discomfort in your incision areas. Follow these instructions at home: Medicines Take hspk-owo-[id number] and prescription medicines only as told by your health care provider. Do not stop taking medicines or start any new medicines without approval from your health care provider. If you were prescribed an antibiotic medicine, take it as told by your health care provider. Do notstop using the antibiotic even if you start to feel better. Incision care Follow instructions from your health care provider about how to take care of your incisions. Make sure you: ? Wash your hands with soap and water before and after you change your bandage (dressing). If soap and water are not available, use hand track inspector. ? Change your dressing as told by your health care provider. ? Leave stitches (sutures), skin glue, or adhesive strips in place. These skin closures may need to stay in place for 2 weeks or longer. If adhesive strip edges start to loosen and curl up, you may trim the loose edges. Do not remove adhesive strips completely unless your health care provider tells you to do that. Keep incision areas clean, dry, and protected. Check your incision areas every day for signs of infection. Check for: ? More redness, swelling, or pain. ? More fluid or blood. ? Warmth. ? Pus or a bad smell. If incisions were made in your legs: ? Avoid crossing your legs. ? Avoid sitting for long periods of time. Change positions every 30 minutes. ? Raise (elevate) your legs when you are sitting. Bathing Do not take baths, swim, or use a hot tub until your health care provider approves. Only take sponge baths. Pat the incisions dry. Do not rub incisions with a washcloth or towel. Ask your health care provider when you can shower. Eating and drinking Eat foods that are high in fiber, such as beans, nuts, whole grains, and raw fruits and vegetables.Meats, if eaten, should be lean cut. Avoid canned, processed, and fried foods. This can help prevent constipation and is a recommended part of a heart-healthy diet. Drink enough fluid to keep your urine pale yellow. Do not drink alcohol until your recovery is complete. Ask your health care provider when it is safeto drink alcohol. Activity Rest and limit your activity as told by your health care provider. You may be instructed to: ? Stop any activity right away if you have chest pain, shortness of breath, irregular heartbeats, or dizziness. Get help right away if you have any of these symptoms. ? Move around frequently for short periods or take short walks as told by your health care provider. Gradually increase your activities. ? Avoid lifting, pushing, or pulling anything that is heavier than 10 lb (4.5 kg) for at least 6 weeks or as told by your health care provider. Participate in physical therapy or a cardiac rehabilitation program as told by your health care provider. ? Physical therapy involves doing exercises to maintain movement, strengthen your muscles, and build your endurance. ? A cardiac rehabilitation program is a treatment program to improve your health and well-being through exercise training, education, and counseling. Do not drive until your health care provider approves. Ask your health care provider when you may return to work. Ask your health care provider when you may resume sexual activity. General instructions Do not drive or use heavy machinery while taking prescription pain medicine. Do not use any products that contain nicotine or tobacco, such as cigarettes, e- cigarettes, and chewing tobacco. If you need help quitting, ask your health care provider. Take 2 3 deep breaths every few hours during the day, while you recover. This helps expand your lungs and prevent complications like pneumonia after surgery. If you were given a device called an incentive spirometer, use it several times a day to practice deep breathing. Support your chest with a pillow or your arms when you take deep breaths or cough. Wear compression stockings as told by your health care provider. These stockings help to prevent blood clots and reduce swelling in your legs. Weigh yourself every day. This helps identify if your body is holding (retaining) fluid that may make your heart and lungs work harder. Keep all follow-up visits as told by your health care provider. This is important. Contact a health care provider if: You have more redness, swelling, or pain around any incision. You have more fluid or blood coming from any incision. Any incision feels warm to the touch. You have pus or a bad smell coming from any incision. You have a fever. You have swelling in your ankles or legs. You have pain in your legs. You gain 2 lb (0.9 kg) or more a day. You are nauseous or you vomit. You have diarrhea. Get help right away if: You have chest pain that spreads to your jaw or arms. You are short of breath. You have a fast or irregular heartbeat. You notice a clicking in your breastbone (sternum) when you move. You have any symptoms of a stroke. BE FAST is an easy way to remember the main warning signs of astroke: ? B - Balance. Signs are dizziness, sudden trouble walking, or loss of balance. ? E - Eyes. Signs are trouble seeing or a sudden change in vision. ? F - Face. Signs are sudden weakness or numbness of the face, or the face or eyelid drooping on one side. ? A - Arms. Signs are weakness or numbness in an arm. This happens suddenly and usually on one side of the body. ? S - Speech. Signs are sudden trouble speaking, slurred speech, or trouble understanding what peoplesay. ? T - Time. Time to call emergency services. Write down what time symptoms started. You have other signs of a stroke, such as: ? A sudden, severe headache with no known cause. ? Nausea or vomiting. ? Seizure. These symptoms may represent a serious problem that is an emergency. Do not wait to see if the symptoms will go away. Get medical help right away. Call your local emergency services (911 in the [place] Do not drive yourself to the hospital. Summary After the procedure, it is common to have pain or discomfort in the incision areas. Do not take baths, swim, or use a hot tub until your health care provider approves. Gradually increase your activities. You may need physical therapy or cardiac rehabilitation to helpstrengthen your muscles and build your endurance. Weigh yourself every day. This helps identify if your body is holding (retaining) fluid that may make your heart and lungs work harder. This information is not intended to replace advice given to you by your health care provider. Make sure you discuss any questions you have with your health care provider. Document Released: 12/31/2005 Document Revised: 02/20/2019 Document Reviewed: 02/20/2019 Elsevier Patient Education 2020 [employer] Additional Information VACCINATE! IT SAVES LIVES! Members of the community who have not yet received the COVID-19 vaccine and would like to receive it can visit one of [facility] vaccine clinics. There are many vaccine clinic locations within the [facility]. For locations and available times, please visit [email or web address] It is important to note that some COVID mobile vaccine clinics are held outdoors and may be canceled in rainy or stormy conditions. To learn more about pediatric vaccinations (ages 5-11), we invite you to visit the [facility] webpage. [email or web address] learn more about the COVID-19 vaccine, we invite you to visit the [facility] website for a list of frequently asked questions. [email or web address] [facility] Patient Portal Access Instructions: Stay connected with your healthcare team and access your personal medical information anytime with the [facility] Patient Portal.If you would like a full copy of your medical records, please contact the [facility] Medical Records Department, Tuesday through Tuesday between 8a.m. and 4:30p.m. Please follow the directions below to access the portal: 1.Access the email account you provided upon registration to the [facility].2.Look for an invitation email from [facility].3.Open the email and access the invitation link: Accept Invitation to [facility]4.Fill in the required carr to create your account. Sign into [email or web address] with your username and password that you created in the above steps to stay up to date. You can then view a summary of results, a summary of your visits, and the ability to download your summaries to your computer or send the information securely to a physician. Remember that your healthcare information is confidential, so carefully consider who you will allow to register on the [facility] Patient Portal for access to your information. You can also access the [facility] Patient Portal on the Rev. Simply click on Health Records under [place] and then click on the [employer] logo. HOW TO SAFELY DISPOSE OF PRESCRIPTION MEDICATIONS Please use one of the following methods to safely dispose of your unused medications. 1.Use a drug disposal kit: the drug disposal pouch allows you to safely discard your old and unuseddrugs. Ask your nurse to give you one when you are discharged.2.Visit a local take-back location: Many local pharmacies and police departments have programs that collect old and unwanted prescriptiondrugs. Call your local pharmacy or go to http://bit.Bypass Mobile/5R1Vo8d to find one close to you.3.Make use of household items: Use cat litter or old coffee grounds to dispose medications if other options arenot available. Mix your drugs with these household products, seal them in an airtight container andthrow it into the garbage. Call [facility]: [phone] to be sure your drugs can be disposed of in this way. Some medicines may require a different approach.4.Never flush your medications down the toilet. IF YOU HAVE BEEN PRESCRIBED AN OPIOID FOR PAIN If you have been prescribed an opioid (such as hydrocodone, oxycodone or morphine), it is critical to understand the possible side effects and risks of opioid pain medications. Even when taken as directed, opioids can have several side effects including: Tolerance, meaning you might need to take more of a medication for the same pain relief. Nausea, vomiting and/or constipation. Sleepiness, dizziness, dry mouth, confusion, depression or itching. Physical dependence, meaning you have withdrawal symptoms when a medication is stopped, can develop within a few days. KNOW YOUR RESPONSIBILITIES It is important to know exactly how much and how often to take the opioid pain medications you are prescribed. Never take opioids in higher amounts or more often than prescribed. Do not combine opioids with alcohol or other drugs that cause drowsiness, such as benzodiazepines, also known as benzos, including diazepam and alprazolam, muscle relaxants or sleep aids. Never sell or share prescription opioids. This is illegal. Store opioids in a secure place and out of reach of others (including children, family, friends and visitors). The last page of this document has been signed and retained as a CHART COPY. Signatures Patient Education Materials Heart-Healthy Eating Plan, Ntal-gm-Ujha Form - Daily Weight Record Coronary Artery Bypass Grafting, Care After Medication Leaflets My discharge plan and instructions have been reviewed and explained to me and IMARCO A DIANE understand my current condition and have read and understand these discharge instructions. I have received a written copy of the plan/instructions. If I have questions, I am aware that I should contact my d octor. Patient/Engineering Faculty Member Signature: Date/Time: Relationship to Patient: Witness Name/Signature: Date/Time: [id number] Discharge summary Date of Service 05/02/22 Discharge Diagnosis 1. NSTEMI (non-ST elevated myocardial infarction)/CAD EF 40-45% S/P CABG x3 04/26/2022 (I21.4 - ICD-10-CM) Ordered: oxyCODONE 5 mg oral tablet ( IMMEDIATE release ); Dose : 5 mg = 1 tab(s), Oral, q6hr, PRN Pain, scale 7-10, X 7 day(s), # 28 tab(s), 0 Refill(s), 05/09/22 12:12:00 EST, Pharmacy: [id number], NSTEMI (non-ST elevated myocardial infarction)/CAD EF 40-45% S/P CABG x3 04/26/2022 Acute... Plavix currently on hold secondary to warfarin therapy for atrial fibrillation 2. Atrial fibrillation (I48.91 - ICD-10-CM) On warfarin alternating doses of 2.5 and 5 mg starting with 2.5 mg 05/02/2022 3. Aortic valve stenosis mild-mod (I35.0 - ICD-10-CM) 4. Acute blood loss anemia (D62 - ICD-10-CM) 5. Ischemic cardiomyopathy (I25.5 - ICD-10-CM) 6. Hyperlipidemia (E78.5 - ICD-10-CM) 7. Hypertension (I10 - ICD-10-CM) 8. Diabetes HgbA1C 6.7 (E11.9 - ICD-10-CM) 9. Tobacco use (Z72.0 - ICD-10-CM) Non-ST elevation (NSTEMI) myocardial infarction (I21.4 - ICD-10-CM) Cardiomyopathy, unspecified (I42.9 - ICD-10-CM) Unspecified diastolic (congestive) heart failure (I50.30 - ICD-10-CM) Acute posthemorrhagic anemia (D62 - ICD-10-CM) Hyperlipidemia, unspecified (E78.5 - ICD-10-CM) Type 2 diabetes mellitus without complications (E11.9 - ICD-10-CM) Ischemic cardiomyopathy (I25.5 - ICD-10-CM) Nonrheumatic aortic (valve) stenosis (I35.0 - ICD-10-CM) Atherosclerotic heart disease of [place] coronary artery without angina pectoris (I25.10 - ICD-10-CM) Hypertensive heart disease with heart failure (I11.0 - ICD-10-CM) Unspecified atrial fibrillation (I48.91 - ICD-10-CM) Acute pain (R52 - ICD-10-CM) Ordered: oxyCODONE 5 mg oral tablet ( IMMEDIATE release ); Dose : 5 mg= 1 tab(s), Oral, q6hr, PRN Pain, scale 7-10, X 7 day(s), # 28 tab(s), 0 Refill(s), 05/09/22 12:12:00 EST, Pharmacy: [id number], NSTEMI (non-ST elevated myocardial infarction)/CAD EF 40-45% S/P CABG x3 04/26/2022 Acute... New onset type 2 diabetes mellitus (E11.9 - ICD-10-CM) Additional Orders: Ordered: Coumadin,Start: 05/02/22 16:00:00 EST, Dose = 2.5 mg, = 1 tab(s), Oral, Every other day, 05/02/22 16:00:00 EST Other status: Crossmatch,04/25/22 15:17:00 EDT, URGENT (collect within 2 hrs), Blood, Once, Preferred Lab: [facility], Stop date 04/25/22 15:17:00 EDT(Complete) Ordered: Discharge,05/02/22 12:16:00 EST, Discharged to: Home Ordered: Discharge Activity,Lifting Restricted less than 10 pounds Driving Restricted May Shower, No driving for 6 weeks at least, 05/02/22 12:16:00 EST Ordered: Discharge Diet,Diet Restrictions: Cardiac diet Low cholesterol, Calories Permitted: 1800kcal, 05/02/22 12:16:00 EST Ordered: Discharge Outpatient Labwork,Pro time INR on 05/03/2022 and as needed, Warfarin therapy, Results Notify to: DYAN BECERRIL, Patient developed atrial fibrillation postoperatively. GoalINR is 2.0-2.5, 05/02/22 12:16:00 EST Ordered: Discharge Wound Care,Wash chest incision and leg incision daily with soap and water, 05/02/22 12:16:00 EST Ordered: Discontinue Order,05/02/22 12:19:00 EST, Once, tlc, 05/02/22 12:19:00 EST Ordered: Lipitor 40 mg oral tablet,Dose : 40 mg = 1 tab(s), Oral, qDay, # 30 tab(s), 3 Refill(s), Pharmacy: [facility], 170.2, cm, 04/20/22 18:20:00 EDT, Height Ordered: Mucinex 600 mg oral tablet, extended release,Dose : 600 mg = 1 tab(s), Oral, BID, 0 Refill(s) Ordered: acetaminophen,Dose : 650 mg =, Oral, q4h, PRN Pain, scale 1-3, 0 Refill(s) Ordered: amiodarone 200 mg oral tablet,Dose : 400 mg = 2 tab(s), Oral, BID, Take 400 mg (2 tablets)2 times a day through 05/09/2022 then starting 05/10/2022 take 200 mg (1 tablet) once a day x28 days, # 58 tab(s), 0 Refill(s), Pharmacy: [facility], 170.2, cm, 04/20/22 18:2... Ordered: metoprolol tartrate 25 mg oral tablet,Dose : 25 mg = 1 tab(s), Oral, BID, # 60 tab(s), 3 Refill(s), Pharmacy: [facility], 170.2, cm, 04/20/22 18:20:00 EDT, Height Ordered: polyethylene glycol 3350,Oral, qDay, PRN Constipation, 0 Refill(s) Modified: warfarin,Start: 05/03/22 16:00:00 EST, Dose = 5 mg, = 1 tab(s), Oral, Every other day, 0,05/03/22 16:00:00 EST Ordered: warfarin 2.5 mg oral tablet,Dose : 2.5 mg = 1 tab(s), Oral, Every other day, starting 05/02/22, # 30 tab(s), 2 Refill(s), Pharmacy: [facility], 170.2, cm, 04/20/22 18:20:00 EDT, Height Ordered: warfarin 5 mg oral tablet,Dose : 5 mg = 1 tab(s), Oral, Every other day, Starting 05/03/22,# 15 tab(s), 2 Refill(s), Pharmacy: [facility], 170.2, cm, 04/20/22 18:20:00 EDT, Height End of Orders Hospital Course This is a 72-year-old female with a history of mild aortic stenosis, diabetes, hypertension, hyperlipidemia and tobacco abuse. She presented with progressive left axillary pain with radiation to her scapula with activity. Abnormal stress test. Troponin level elevated. Echocardiogram showed an EF of40 to 45% with diastolic dysfunction, mild to moderate AAS with a mean systolic gradient of 9 mmHg and an aortic valve area of 1.2 cm and mild MR. She was transferred to [facility] for further management. Troponin level peaked at 188.3. Heart catheterization showed an EF of 35 to 40%, left main disease 70%, LAD stenosis 99% and RCA stenosis 95%. Surgery completed on 04/26/2022 coronary artery bypass graft x3 with TYLER to the LAD and saphenous vein graft to obtuse marginal branch of the circumflex and distal RCA per Dr. Leone. She tolerated the procedure well was transferred to [facility] SICU in stable condition. She required insulin for diabetic management. On nitroglycerin for blood pressure control. POD #1 remains intubated. Suctioning large amounts of thick sputum per ET tube. Remains on nitroglycerin. Lopressor 5 mg IV x1 given. Plan metoprolol tartrate and Imdur. Consult [facility] inpatient endocrinology for diabetic management. Extubated. Transferred to stepdown. POD #2 harsh cough. Mucinex added. Pacing wire discontinued, chest tubes discontinued. POD #3 developed small burst of atrial fibrillation. Amiodarone protocol initiated. Room air SaO2 86%. On nasal cannula 2 L. POD #4 systolic blood pressure less than 100. We will discontinue Imdur and resume metoprolol once systolic blood pressure greater than 100. Continues to have intermittent short bursts of atrial fibrillation and frequent PACs. Add Coumadin x6 weeks with goal INR 2-2.5. PCP to manage. Will need to use outpatient lab for first week since staying with granddaughter in [place]. Wean O2. Chest x-ray shows improvement of right pneumothorax. POD #5 INR 1.1. Continue with 5 mg Coumadin. Chest x-ray shows only minimal right apical pneumothorax. On room air with SaO2 92%. POD #6 warfarin 2.5 mg today, alternate with 5 mg every other day. Discussed with Dr. Leone. Patient seen with Dr. Argueta. Patient ready for discharge today . Goal INR 2.0-2.5 Intake and Output (Last 24 hours) Intake Oral Intake 480.00 Output Urine Voided 300.00 Stool Count 1.00 Total Summary Total Intake 480.00 Total Output 300.00 Fluid Balance 180.00 Allergies No Known Medication Allergies Consults Consult to [facility] - Ordered -- 04/27/22 7:24:00 EDT, Db management, ABY REYNOSO MD. Consult to Cardiac Rehabilitation - Ordered -- 04/27/22 13:16:00 EDT, CABG Consult to Diabetes Education - Ordered -- 04/27/22 11:09:00 EDT, Complications Teaching, Once, once extubated Consult to Physician - Ordered -- 04/21/22 15:31:00 EDT, ESPERANZA LEONE MD, Routine, Other, multivessel CAD Consult to Tobacco Cessation Program (Smoking Cessation Program Consult) - Ordered -- 04/20/22 19:23:00 EDT, Patient Request, 1/2 PPD smoker, motivation to quit. Objective Vitals and Measurements T: 36.9 C (Oral) TMIN: 36.3 C (Oral) TMAX: 36.9 C (Oral) HR: 72(Monitored) RR: 17 BP: 131/50 SpO2: 93% Weight Current Weight Dosing Weight: 78.2 kg (04/27/22) Current Weight: 80.2 kg (05/01/22) Dosing Weight: 77.4 kg (04/20/22) Current Weight: 80.3 kg (04/30/22) Physical Exam Neuro alert oriented x3, appropriate Lungs clear bilaterally dreamer SaO2 92 to 95% Heart S1 and S2 sinus rhythm in the 70s to 80s Abdomen soft nontender bowel sounds present, positive bowel movement Urine output 900 cc in the past 24 hours Extremities are perfused pedal pulses +1/3, 1+ edema bilateral lower legs Skin midsternal chest incision open to air well approximated no drainage, left leg incision well approximated no drainage [1] Code Status Code Status - Ordered -- 04/27/22 5:34:00 EDT, Full Code, Constant Order Admission Date 04/20/22 Discharge Date 05/02/22 Medications New Prescription [id number] Milligram by mouth every 4 hours as needed Pain, scale 1-3. amiodarone (amiodarone 200 mg oral tablet)2 tab(s) by mouth two (2) times a day. Take 400 mg (2 tablets) 2 times a day through 05/09/2022 then starting 05/10/2022 take 200 mg (1 tablet) once a day x28 days. Refills: 0. atorvastatin (Lipitor 40 mg oral tablet)1 tab(s) by mouth once a day. Refills: 3. guaiFENesin (Mucinex 600 mg oral tablet, extended release)1 tab(s) by mouth two (2) times a day. metoprolol (metoprolol tartrate 25 mg oral tablet)1 tab(s) by mouth two (2) times a day. Refills: 3. oxyCODONE (oxyCODONE 5 mg oral tablet ( IMMEDIATE release ))1 tab(s) by mouth every 6 hours as needed Pain, scale 7-10 for 7 Days. Refills: 0. polyethylene glycol 3350by mouth once a day as needed Constipation. warfarin (warfarin 2.5 mg oral tablet)1 tab(s) by mouth every other day. starting 05/02/22. Refills:2. warfarin (warfarin 5 mg oral tablet)1 tab(s) by mouth every other day. Starting 05/03/22. Refills: 2. Unchanged aspirin (aspirin 81 mg oral delayed release tablet)1 tab(s) by mouth every day. cholecalciferol (cholecalciferol 1250 mcg (50,000 intl units) oral capsule)1 cap by mouth every Tuesday. ibuprofen (Advil 200 mg oral tablet)1 tab(s) by mouth every 6 hours as needed as needed for pain. metFORMIN (metFORMIN 500 mg oral tablet (IR))2 tab(s) by mouth two (2) times a day for 90 Days. Refills: 3. Discontinued cyclobenzaprine (cyclobenzaprine 10 mg oral tablet)1 tab(s) by mouth three (3) times a day as needed as needed for spasm. Refills: 0. diclofenac topical (diclofenac 1% topical gel)4 gram(s) Topical four (4) times a day as needed as needed for pain. May substitue with cream, lotion, or any other topical as approved by insurance.. Refills: 3. nitroGLYcerin (nitroglycerin 0.4 mg sublingual tablet)1 tab(s) under the tongue every 5 minutes as needed for chest pain. Refills: 0. simvastatin (simvastatin 40 mg oral tablet)1 tab(s) by mouth daily at bedtime. New dose, pt will finish the Rx she has at home by taking 2 per day before filling this Rx.. Refills: 3. Follow Up Follow Up with KERON KRAMER MD When 06/04/2022 11:15 AM EST Where: [address] [facility] [place] [address]- Follow Up with DYAN BECERRIL When 05/17/2022 01:00 PM EST Where: [address] [place] [address]- [phone] Follow Up with ROSAS ODONNELL When 05/11/2022 09:00 AM EST Where: [address] [facility] [address] [facility] [place] [address]- Follow Up with Post home RN DC follow up visit scheduled for two visits # 1 scheduled for 05/03 between 8a-12p visit # 2 scheduled for 05/07 between 8a-12p When Follow Up with [facility] When Why: [facility] will be providing your RN services at home. They should be contacting you soon. Ifyou do not hear from them in the next 2 days, please give them a call at: [phone]. Where: Follow Up with [facility] follow up When Why: Debbi Valenzuela or covering Nurse [facility] will call you and/or your family after your release from the hospital. Office Hours: Tuesday thru Tuesday 730am - 4pm Email: [email or web address] Where: Follow Up with Cardiac Rehab When Why: The Cardiac rehab department will call you in 4-5 weeks to schedule you for Phase 2. If you have any questions please call us at [phone]. Thank you Follow Up Appointments No qualifying data available. Follow Up Labs/Studies Discharge Labs Discharge Outpatient Labwork - Ordered -- Pro time INR on 05/03/2022 and as needed, Warfarin therapy, Results Notify to: DYAN BECERRIL, Patient developed atrial fibrillation postoperatively. Goal INR is 2.0-2.5, 05/02/22 12:16:00 EST Discharge Studies No Follow-up Studies Discharge Diet Discharge Diet - Ordered -- Diet Restrictions: Cardiac diet Low cholesterol, Calories Permitted: 1800 kcal, 05/02/22 12:16:00 EST Discharge Activity Discharge Activity - Ordered -- Lifting Restricted less than 10 pounds Driving Restricted May Shower, No driving for 6 weeksat least, 05/02/22 12:16:00 EST Discharge wound care wash chest incision and leg incision daily with Hibiclens wash Incentive spirometer Acapella 10 breaths every hour while awake Condition on Discharge Stable Readmission Risk/Palliative Score No qualifying data available. Discharge Disposition Home with granddaughter in [place] [1] Progress Note; DELMA CARRILLO 05/02/2022 10:05 EST Digitally Signed by DELMA CARRILLO on 05/02/2022 04:32 PM [id number] Note Date of Service 05/02/22 Chief Complaint POD #6 This is a 72-year-old female with a history of mild aortic stenosis, diabetes, hypertension, hyperlipidemia and tobacco abuse. She presented with progressive left axillary pain with radiation to her scapula with activity. Abnormal stress test. Troponin level elevated. Echocardiogram showed an EF of40 to 45% with diastolic dysfunction, mild to moderate AAS with a mean systolic gradient of 9 mmHg and an aortic valve area of 1.2 cm and mild MR. She was [facility] to [facility] for [facility] management. Troponin level peaked at 188.3. Heart catheterization showed an EF of 35 to 40%, left main disease 70%, LAD stenosis 99% and RCA stenosis 95%. Surgery completed on 04/26/2022 coronary artery bypass graft x3 with TYLER to the LAD and saphenous vein graft to obtuse marginal branch of the circumflex and distal RCA per Dr. Leone. She tolerated the procedure well was transferred to [facility] SICU in stable condition. She required insulin for diabetic management. On nitroglycerin for blood pressure control. POD #1 remains intubated. Suctioning large amounts of thick sputum per ET tube. Remains on nitroglycerin. Lopressor 5 mg IV x1 given. Plan metoprolol tartrate and Imdur. Consult [facility] inpatient endocrinology for diabetic management. Extubated. Transferred to stepdown. POD #2 harsh cough. Mucinex added. Pacing wire discontinued, chest tubes discontinued. POD #3 developed small burst of atrial fibrillation. Amiodarone protocol initiated. Room air SaO2 86%. On nasal cannula 2 L. POD #4 systolic blood pressure less than 100. We will discontinue Imdur and resume metoprolol once systolic blood pressure greater than 100. Continues to have intermittent short bursts of atrial fibrillation and frequent PACs. Add Coumadin x6 weeks with goal INR 2-2.5. PCP to manage. Will need to use outpatient lab for first week since staying with granddaughter in [place]. Wean O2. Chest x-ray shows improvement of right pneumothorax. POD #5 INR 1.1. Continue with 5 mg Coumadin. Chest x-ray shows onlyminimal right apical pneumothorax. On room air with SaO2 92%. POD #6 warfarin 2.5 mg today, alternate with 5 mg every other day. Discussed with Dr. Leone. Patient seen with Dr. Argueta. Patient ready for discharge today Subjective Up in chair, talking on phone, no new complaints Objective Vitals and Measurements T: 36.9 C (Oral) TMIN: 36.3 C (Oral) TMAX: 36.9 C (Oral) HR: 76 RR: 18 BP: 126/71 SpO2: 95% Intake and Output 7AM Yesterday to 7AM Today Intake and Output (Last 24 hours) Intake Oral Intake 480.00 Supplement Intake 90.00 Output Urine Voided 300.00 Stool Count 1.00 Total Summary Total Intake 570.00 Total Output 300.00 Fluid Balance 270.00 Physical Exam Neuro alert oriented x3, appropriate Lungs clear bilaterally dreamer SaO2 92 to 95% Heart S1 and S2 sinus rhythm in the 70s to 80s Abdomen soft nontender bowel sounds present, positive bowel movement Urine output 900 cc in the past 24 hours Extremities are perfused pedal pulses +1/3, 1+ edema bilateral lower legs Skin midsternal chest incision open to air well approximated no drainage, left leg incision well approximated no drainage Weight Current Weight Dosing Weight: 78.2 kg (04/27/22) Current Weight: 80.2 kg (05/01/22) Dosing Weight: 77.4 kg (04/20/22) Current Weight: 80.3 kg (04/30/22) Medications Medications (35) Active Scheduled: (15) amiodarone 200 mg tablet 400 mg 2 tab(s), Oral, BIDM amiodarone 200 mg tablet 200 mg 1 tab(s), Oral, qDayM aspirin 81 mg EC 81 mg 1 tab(s), Oral, qDayM atorvastatin 40 mg tablet 40 mg 1 tab(s), Oral, qDay docusate calcium 240 mg Capsule 240 mg 1 cap(s), Oral, BID guaifenesin 600 mg ER 600 mg 1 tab(s), Oral, BID insulin lispro 100 units/mL Soln (3 mL) Give 0-10 units/dose, Subcutaneous, achs ipratropium 0.02% (0.5mg/2.5mL) UD 0.5 mg 2.5 mL, Inhalation, QIDRT metformin 500 mg ER tablet 1,000 mg 2 tab(s), Oral, BID metoprolol tartrate 25 mg tablet 25 mg 1 tab(s), Oral, BIDM multivitamin (Chromagen Forte) with iron Vitamin B Complex with C, Folic Acid and Iron tablet 1 tab(s), Oral, qDay No metformin for 48 hrs post contrast 1 EA, Miscellaneous, Unscheduled pantoprazole 40 mg EC tablet 40 mg 1 tab(s), Oral, qDayAC warfarin 2.5 mg tablet 2.5 mg 1 tab(s), Oral, Every other day warfarin 5 mg tablet 5 mg 1 tab(s), Oral, Every other day Continuous: (4) amiodarone 450 mg [0.5 mg/min] + sodium chloride QUE 250 mL 250 mL, Intravenous, 16.67 mL/hr insulin regular 100 unit(s) + NS Premix Diluent 100 mL 100 mL, Intravenous nitroglycerin 50 mg [5 mcg/min] + sodium chloride QUE 250 mL 250 mL, Intravenous, 1.5 mL/hr NS (0.9% nacl) 1,000 mL 1,000 mL, Intravenous, 20 mL/hr PRN: (16) acetaminophen 325 mg Tablet 650 mg 2 tab(s), Oral, q4h Al hydrox/Mg hydrox/simethicone 200-200-20 mg/5 mL Susp UD 30 mL, Oral, q2h bisacodyl 10 mg Suppository 10 mg 1 supp, Rectal, qDay bismuth subsalicylate 262 mg/15 mL 240 mL 30 mL, Oral, AsDirected dextrose 50% Solution Disp syringe 50 mL 25 g 50 mL, IV Push, AsDirected dextrose 50% Solution Disp syringe 50 mL 12.5 g 25 mL, IV Push, AsDirected glucagon recombinant 1 mg 1 mg 1 mL, Intramuscular, AsDirected magnesium hydroxide 8% Suspension 30 mL UD 30 mL, Oral, qDay melatonin 3 mg tablet 3 mg 1 tab(s), Oral, qHS ondansetron 2 mg/ 1 mL 2 mL INJ 4 mg 2 mL, IV Push, q4h oxycodone 5 mg tablet (immediate release) 5 mg 1 tab(s), Oral, q4h oxycodone 5 mg tablet (immediate release) 10 mg 2 tab(s), Oral, q4h phenol topical 1.4% Spr 1 spray(s), Topical, q1h polyethylene glycol 3350 - UD packet 17 gram(s) 15 mL, Oral, qDay potassium chloride (PMX) 20 mEq 50 mL, IV Piggyback, AsDirected potassium chloride (PMX) 15 mEq 50 mL, IV Piggyback, AsDirected Lab Results 05/02 06:00 Protime: 22.3 H PT International Ratio: 1.8 05/01 05:08 Protime: 13.0 PT International Ratio: 1.1 Glucose Level: 119 H Sodium Level: 142 Potassium Level: 3.9 BUN: 8.0 Creatinine Lvl (s): 0.53 EKG EKG - Completed -- 04/29/22 2:03:00 EDT Assessment/Plan 1. NSTEMI (non-ST elevated myocardial infarction)/CAD EF 40-45% S/P CABG x3 04/26/2022 Sinus rhythm in the 70s to 80s, on aspirin, metoprolol, atorvastatin On Coumadin secondary to atrial fibrillation, no Plavix for now 2. Atrial fibrillation Sinus rhythm, occasional PACs today, on metoprolol tartrate Coumadin 2.5 mg today alternating with 5 mg tomorrow x6 weeks Goal INR 2.0-2.5, PCP to manage 3. Aortic valve stenosis mild-mod 4. Acute blood loss anemia 5. Ischemic cardiomyopathy 6. Hyperlipidemia 7. Hypertension Blood pressure low of 94/56 to a high of 126/71 on the Toprol tartrate 8. Diabetes HgbA1C 6.7 Glucose 129 145, endocrinology following 9. Tobacco use Smoking cessation counseling, Orders: warfarin, Start: 05/02/22 16:00:00 EST, Dose = 2.5 mg, = 1 tab(s), Oral, Every other day, 05/02/22 16:00:00 EST warfarin, Start: 05/03/22 16:00:00 EST, Dose = 5 mg, = 1 tab(s), Oral, Every other day, 05/03/22 16:00:00 EST Plan: Dr. Leone called into check on patient, patient discussed with him Warfarin 2.5 mg today, alternate with 5 mg starting tomorrow, on warfarin x6 weeks with goal INR 2.0-2.5 Patient also seen and discussed with Dr. Argueta, patient ready for discharge today Next pro time INR is tomorrow Digitally Signed by DELMA CARRILLO on 05/02/2022 11:50 AM [id number] Note Date of Service 05/01/2022 POD#5 Chief Complaint This is a 72-year-old female with a history of mild aortic stenosis, diabetes, hypertension, hyperlipidemia and tobacco abuse. She presented with progressive left axillary pain with radiation to her scapula with activity. Abnormal stress test. Troponin level elevated. Echocardiogram showed an EF of40 to 45% with diastolic dysfunction, mild to moderate AAS with a mean systolic gradient of 9 mmHg and an aortic valve area of 1.2 cm and mild MR. [facility] was [facility]. Troponin level peaked at 188.3. Heart catheterization showed an EF of 35 to 40%, left main disease 70%, LAD stenosis 99% and RCA stenosis 95%. Surgery completed on 04/26/2022 coronary artery bypass graft x3 with TYLER to the LAD and saphenous vein graft to obtuse marginal branch of the circumflex and distal RCA per Dr. Leone. [facility] tolerated the procedure well [facility] She required insulin for diabetic management. On nitroglycerin for blood pressure control. POD #1 remains intubated. Suctioning large amounts of thick sputum per ET tube. Remainson nitroglycerin. Lopressor 5 mg IV x1 given. Plan metoprolol tartrate and Imdur. Consult [facility] inpatient endocrinology for diabetic management. Extubated. Transferred to stepdown. POD #2 harsh cough. Mucinex added. Pacing wire discontinued, chest tubes discontinued. POD #3 developed small burst of atrial fibrillation. Amiodarone protocol initiated. Room air SaO2 86%. On nasal cannula 2 L. POD #4 systolic blood pressure less than 100. We will discontinue Imdur and resume metoprolol once systolic blood pressure greater than 100. Continues to have intermittent short bursts of atrial fibrillation and frequent PACs. Add Coumadin x6 weeks with goal INR 2-2.5. PCP to manage. Will need to use out patient lab for first week since staying with granddaughter in [place]. Wean O2. Chest x-ray shows improvement of right pneumothorax. POD #5 INR 1.1. Continue with 5 mg Coumadin. Chest x-ray shows only minimal right apical pneumothorax. On room air with SaO2 92%. Subjective No complaints Objective Vitals and Measurements T: 36.6 C (Oral) TMIN: 36.5 C (Oral) TMAX: 37.0 C (Oral) HR: 83(Apical) RR: 14 BP: 121/53 SpO2: 92%WT: 80.2 kg Intake and Output 7AM Yesterday to 7AM Today Intake and Output (Last 24 hours) Intake Oral Intake 1442.00 Supplement Intake 90.00 Output Urine Voided 500.00 Stool Count 1.00 Urine Count 3.00 Emesis Count 0.00 Total Summary Total Intake 1532.00 Total Output 500.00 Fluid Balance 1032.00 Physical Exam Neurological: Alert and orient x3, appropriate Lungs: Clear, room air SaO2 92% Heart: Slightly irregular S1-S2, NSR with occasional PACs Abdomen: Soft, positive bowel sounds, positive BM 04/30/2022 Incisions: Midsternal left leg without drainage Extremities: Well-perfused, trace edema Continue Central Line: For IV access Disposition: Home with granddaughter for 1 week, lives in [place], will need to have blood drawn forINR by lab, once in own home C will draw, PCP to manage Coumadin Weight Current Weight Dosing Weight: 78.2 kg (04/27/22) Current Weight: 80.2 kg (05/01/22) Dosing Weight: 77.4 kg (04/20/22) Current Weight: 80.3 kg (04/30/22) Medications Medications (36) Active Scheduled: (16) amiodarone 200 mg tablet 400 mg 2 tab(s), Oral, BIDM amiodarone 200 mg tablet 200 mg 1 tab(s), Oral, qDayM aspirin 81 mg EC 81 mg 1 tab(s), Oral, qDayM atorvastatin 40 mg tablet 40 mg 1 tab(s), Oral, qDay docusate calcium 240 mg Capsule 240 mg 1 cap(s), Oral, BID enoxaparin 40 mg/ 0.4mL syringe 40 mg 0.4 mL, Subcutaneous, qDay guaifenesin 600 mg ER 600 mg 1 tab(s), Oral, BID insulin lispro 100 units/mL Soln (3 mL) Give 0-10 units/dose, Subcutaneous, achs ipratropium 0.02% (0.5mg/2.5mL) UD 0.5 mg 2.5 mL, Inhalation, QIDRT metformin 500 mg ER tablet 1,000 mg 2 tab(s), Oral, BID metoprolol tartrate 25 mg tablet 25 mg 1 tab(s), Oral, BIDM multivitamin (Chromagen Forte) with iron Vitamin B Complex with C, Folic Acid and Iron tablet 1 tab(s), Oral, qDay mupirocin 2% Ointment 22 Gram(s) tube 1 margo, Nostril, each, q12h No metformin for 48 hrs post contrast 1 EA, Miscellaneous, Unscheduled pantoprazole 40 mg EC tablet 40 mg 1 tab(s), Oral, qDayAC warfarin 5 mg tablet 5 mg 1 tab(s), Oral, qDay Continuous: (4) amiodarone 450 mg [0.5 mg/min] + sodium chloride QUE 250 mL 250 mL, Intravenous, 16.67 mL/hr insulin regular 100 unit(s) + NS Premix Diluent 100 mL 100 mL, Intravenous nitroglycerin 50 mg [5 mcg/min] + sodium chloride QUE 250 mL 250 mL, Intravenous, 1.5 mL/hr NS (0.9% nacl) 1,000 mL 1,000 mL, Intravenous, 20 mL/hr PRN: (16) acetaminophen 325 mg Tablet 650 mg 2 tab(s), Oral, q4h Al hydrox/Mg hydrox/simethicone 200-200-20 mg/5 mL Susp UD 30 mL, Oral, q2h bisacodyl 10 mg Suppository 10 mg 1 supp, Rectal, qDay bismuth subsalicylate 262 mg/15 mL 240 mL 30 mL, Oral, AsDirected dextrose 50% Solution Disp syringe 50 mL 25 g 50 mL, IV Push, AsDirected dextrose 50% Solution Disp syringe 50 mL 12.5 g 25 mL, IV Push, AsDirected glucagon recombinant 1 mg 1 mg 1 mL, Intramuscular, AsDirected magnesium hydroxide 8% Suspension 30 mL UD 30 mL, Oral, qDay melatonin 3 mg tablet 3 mg 1 tab(s), Oral, qHS ondansetron 2 mg/ 1 mL 2 mL INJ 4 mg 2 mL, IV Push, q4h oxycodone 5 mg tablet (immediate release) 5 mg 1 tab(s), Oral, q4h oxycodone 5 mg tablet (immediate release) 10 mg 2 tab(s), Oral, q4h phenol topical 1.4% Spr 1 spray(s), Topical, q1h polyethylene glycol 3350 - UD packet 17 gram(s) 15 mL, Oral, qDay potassium chloride (PMX) 20 mEq 50 mL, IV Piggyback, AsDirected potassium chloride (PMX) 15 mEq 50 mL, IV Piggyback, AsDirected Lab Results 05/01 05:08 Protime: 13.0 PT International Ratio: 1.1 Glucose Level: 119 H Sodium Level: 142 Potassium Level: 3.9 BUN: 8.0 Creatinine Lvl (s): 0.53 04/30 08:05 Protime: 12.7 PT International Ratio: 1.1 04/30 03:39 WBC: 8.6 Hgb: 9.1 L Hct: 26.1 L Platelet: 157 Neutrophil %: 58.1 Glucose Level: 129 H Sodium Level: 142 Potassium Level: 4.1 BUN: 9.0 Creatinine Lvl (s): 0.53 Imaging Results and Diagnostics (05/01/2022 07:03 EDT XR Chest 2 Views) [id number] ORIGINAL EXAMINATION: TWO XRAY VIEWS OF THE CHEST 05/01/2022 7:03 am COMPARISON: April 30, 2022 HISTORY: ORDERING SYSTEM PROVIDED HISTORY: Reason for Exam: ptx FINDINGS: CVC terminates at the SVC. The heart is normal in size and there is no vascular congestion present. Small bilateral pleural effusions are present with adjacent regions of atelectasis, perhaps slightly improved since the previous exam. There is a tiny remaining right apical pneumothorax present, decreased in size since the previous study. No other interval change seen. IMPRESSION: 1. Tiny right apical pneumothorax, decreased in size since prior study. 2. Small bilateral pleural effusions with adjacent atelectasis, slightly improved. [1] Assessment/Plan 1. NSTEMI (non-ST elevated myocardial infarction)/CAD EF 40-45% S/P CABG x3 04/26/2022 ASA, metoprolol, atorvastatin, no Plavix while on Coumadin, Plavix can be added as an outpatient once Coumadin therapy completed at the discretion of cardiology 2. Atrial fibrillation NSR with occasional PACs, metoprolol, Coumadin x6 weeks with goal INR 2-2.5 with PCP to manage 3. Aortic valve stenosis mild-mod 4. Acute blood loss anemia Stable 5. Ischemic cardiomyopathy Postop ABBY showed EF 55% 6. Hyperlipidemia Atorvastatin 7. Hypertension Blood pressure 94/53-120/49, metoprolol 8. Diabetes HgbA1C 6.7 Glucose 113-162, [facility] inpatient endocrinology following 9. Tobacco use Smoking cessation counseling Discussed with Dr. Argueta, Coumadin 5 mg a day, probable discharge in a.m. [1] XR Chest 2 Views; ELIZABETH ZAVALA MD 05/01/2022 07:03 EDT Digitally Signed by FRED ZEPEDA APRN-FRUIT RECEIVER on 05/01/2022 09:41 AM [id number] Note ORIGINAL EXAMINATION: TWO XRAY VIEWS OF THE CHEST 05/01/2022 7:03 am COMPARISON: April 30, 2022 HISTORY: ORDERING SYSTEM PROVIDED HISTORY: Reason for Exam: ptx FINDINGS: CVC terminates at the SVC. The heart is normal in size and there is no vascular congestion present. Small bilateral pleural effusions are present with adjacent regions of atelectasis, perhaps slightly improved since the previous exam. There is a tiny remaining right apical pneumothorax present, decreased in size since the previous study. No other interval change seen. IMPRESSION: 1. Tiny right apical pneumothorax, decreased in size since prior study. 2. Small bilateral pleural effusions with adjacent atelectasis, slightly improved. Interpreted by: Elizabeth Zavala MD Preliminary Report By: Elizabeth Zavala MD Electronically signed By Elizabeth Zavala MD Dictated Date: 05/01/2022 8:01:13 AM Prelim Date: 05/01/2022 8:01:55 AM Sign Date: 05/01/2022 8:01:55 AM Ordering Provider: FRED ZEPEDA [id number] Note ORIGINAL EXAMINATION: TWO XRAY VIEWS OF THE CHEST 05/01/2022 7:03 am COMPARISON: April 30, 2022 HISTORY: ORDERING SYSTEM PROVIDED HISTORY: Reason for Exam: ptx FINDINGS: CVC terminates at the SVC. The heart is normal in size and there is no vascular congestion present. Small bilateral pleural effusions are present with adjacent regions of atelectasis, perhaps slightly improved since the previous exam. There is a tiny remaining right apical pneumothorax present, decreased in size since the previous study. No other interval change seen. IMPRESSION: 1. Tiny right apical pneumothorax, decreased in size since prior study. 2. Small bilateral pleural effusions with adjacent atelectasis, slightly improved. Interpreted by: Elizabeth Zavala MD Preliminary Report By: Elizabeth Zavala MD Electronically signed By Elizabeth Zavala MD Dictated Date: 05/01/2022 8:01:13 AM Prelim Date: 05/01/2022 8:01:55 AM Sign Date: 05/01/2022 8:01:55 AM Ordering Provider: FRED [facility]EPEDA[id number] Note Date of Service 04/30/2022 POD #4 Chief Complaint This is a 72-year-old female with a history of mild aortic stenosis, diabetes, hypertension, hyperlipidemia and tobacco abuse. She presented with progressive left axillary pain with radiation to her scapula with activity. Abnormal stress test. Troponin level elevated. Echocardiogram showed an EF of40 to 45% with diastolic dysfunction, mild to moderate AAS with a mean systolic gradient of 9 mmHg and an aortic valve area of 1.2 cm and mild MR. She was transferred to [facility] for [facility] management. Troponin level peaked at 188.3. Heart catheterization showed an EF of 35 to 40%, left main disease 70%, LAD stenosis 99% and RCA stenosis 95%. Surgery completed on 04/26/2022 coronary artery bypass graft x3 with TYLER to the LAD and saphenous vein graft to obtuse marginal branch of the circumflex and distal RCA per Dr. Leone. She tolerated the procedure well was transferred to SICU in stable condition. She required insulin for diabetic management. On nitroglycerin for blood pressure control. POD #1 remains intubated. Suctioning large amounts of thick sputum per ET tube. Remains on nitroglycerin. Lopressor 5 mg IV x1 given. Plan metoprolol tartrate and Imdur. Consult [facility] inpatient endocrinology for diabetic management. Extubated. Transferred to stepdown. POD #2 harsh cough. Mucinex added. Pacing wire discontinued, chest tubes discontinued. POD #3 developed small burst of atrial fibrillation. Amiodarone protocol initiated. Room air SaO2 86%. On nasal cannula 2 L. POD #4 systolic blood pressure less than 100. We will discontinue Imdur and resume metoprolol once systolic blood pressure greater than 100. Continues to have intermittent short bursts of atrial fibrillation and frequent PACs. Add Coumadin x6 weeks with goal INR 2-2.5. PCP to manage. Wean O2. Chest x-rayshows improvement of right pneumothorax. Subjective No complaints Objective Vitals and Measurements T: 36.5 C (Oral) TMIN: 36.5 C (Oral) TMAX: 37 C (Oral) HR: 74(Apical) RR: 16 BP: 93/69 SpO2: 95% WT: 80.3 kg Intake and Output 7AM Yesterday to 7AM Today Intake and Output (Last 24 hours) Intake Oral Intake 680.00 Administration Information 150.00 Supplement Intake 90.00 Output Urine Voided 1000.00 Stool Count 1.00 Emesis Count 0.00 Total Summary Total Intake 920.00 Total Output 1000.00 Fluid Balance -80.00 Physical Exam Neurological: Alert and orient x3, appropriate Lungs: Clear, mildly diminished in the bases, nasal cannula 1 L with SaO2 96% Heart: Irregular S1-S2, NSR with occasional to frequent PACs with small bursts of atrial fibrillation rate 70s Abdomen: Soft, positive bowel sounds, positive BM Extremities: Well-perfused, mild edema left greater than right Incisions: Midsternal and left leg without drainage Continue Central Line: Poor IV access Disposition: Granddaughter and home health care Weight Current Weight Dosing Weight: 78.2 kg (04/27/22) Current Weight: 80.3 kg (04/30/22) Dosing Weight: 77.4 kg (04/20/22) Current Weight: 80 kg (04/29/22) Medications Medications (36) Active Scheduled: (16) amiodarone 200 mg tablet 400 mg 2 tab(s), Oral, BIDM amiodarone 200 mg tablet 200 mg 1 tab(s), Oral, qDayM aspirin 81 mg EC 81 mg 1 tab(s), Oral, qDayM atorvastatin 40 mg tablet 40 mg 1 tab(s), Oral, qDay docusate calcium 240 mg Capsule 240 mg 1 cap(s), Oral, BID enoxaparin 40 mg/ 0.4mL syringe 40 mg 0.4 mL, Subcutaneous, qDay guaifenesin 600 mg ER 600 mg 1 tab(s), Oral, BID insulin lispro 100 units/mL Soln (3 mL) Give 0-10 units/dose, Subcutaneous, achs ipratropium 0.02% (0.5mg/2.5mL) UD 0.5 mg 2.5 mL, Inhalation, QIDRT metformin 500 mg ER tablet 1,000 mg 2 tab(s), Oral, BID metoprolol tartrate 25 mg tablet 25 mg 1 tab(s), Oral, BIDM multivitamin (Chromagen Forte) with iron Vitamin B Complex with C, Folic Acid and Iron tablet 1 tab(s), Oral, qDay mupirocin 2% Ointment 22 Gram(s) tube 1 margo, Nostril, each, q12h No metformin for 48 hrs post contrast 1 EA, Miscellaneous, Unscheduled pantoprazole 40 mg EC tablet 40 mg 1 tab(s), Oral, qDayAC warfarin 5 mg tablet 5 mg 1 tab(s), Oral, qDay Continuous: (4) amiodarone 450 mg [0.5 mg/min] + sodium chloride QUE 250 mL 250 mL, Intravenous, 16.67 mL/hr insulin regular 100 unit(s) + NS Premix Diluent 100 mL 100 mL, Intravenous nitroglycerin 50 mg [5 mcg/min] + sodium chloride QUE 250 mL 250 mL, Intravenous, 1.5 mL/hr NS (0.9% nacl) 1,000 mL 1,000 mL, Intravenous, 20 mL/hr PRN: (16) acetaminophen 325 mg Tablet 650 mg 2 tab(s), Oral, q4h Al hydrox/Mg hydrox/simethicone 200-200-20 mg/5 mL Susp UD 30 mL, Oral, q2h bisacodyl 10 mg Suppository 10 mg 1 supp, Rectal, qDay bismuth subsalicylate 262 mg/15 mL 240 mL 30 mL, Oral, AsDirected dextrose 50% Solution Disp syringe 50 mL 25 g 50 mL, IV Push, AsDirected dextrose 50% Solution Disp syringe 50 mL 12.5 g 25 mL, IV Push, AsDirected glucagon recombinant 1 mg 1 mg 1 mL, Intramuscular, AsDirected magnesium hydroxide 8% Suspension 30 mL UD 30 mL, Oral, qDay melatonin 3 mg tablet 3 mg 1 tab(s), Oral, qHS ondansetron 2 mg/ 1 mL 2 mL INJ 4 mg 2 mL, IV Push, q4h oxycodone 5 mg tablet (immediate release) 5 mg 1 tab(s), Oral, q4h oxycodone 5 mg tablet (immediate release) 10 mg 2 tab(s), Oral, q4h phenol topical 1.4% Spr 1 spray(s), Topical, q1h polyethylene glycol 3350 - UD packet 17 gram(s) 15 mL, Oral, qDay potassium chloride (PMX) 20 mEq 50 mL, IV Piggyback, AsDirected potassium chloride (PMX) 15 mEq 50 mL, IV Piggyback, AsDirected Lab Results 04/30 08:05 Protime: 12.7 PT International Ratio: 1.1 04/30 03:39 WBC: 8.6 Hgb: 9.1 L Hct: 26.1 L Platelet: 157 Neutrophil %: 58.1 Glucose Level: 129 H Sodium Level: 142 Potassium Level: 4.1 BUN: 9.0 Creatinine Lvl (s): 0.53 04/29 04:53 WBC: 8.9 Hgb: 9.0 L Hct: 25.9 L Platelet: 122 L Neutrophil %: 71.4 Glucose Level: 126 H Sodium Level: 137 Potassium Level: 4.1 BUN: 11.0 Creatinine Lvl (s): 0.46 L 04/29 02:06 Potassium Level: 4.4 Imaging Results and Diagnostics XR Chest 2 Views Result Date: April 30, 2022 Verified By: HYACINTH TRIANA MD CLINICAL STATEMENT: IMPRESSION: Improved small right apical pneumothorax. Improved aeration right lung base. Stable small left pleural effusion with adjacent atelectasis/consolidation. I have personally reviewed the images of this examination and agree with theresident's findings and interpretation. Assessment/Plan 1. NSTEMI (non-ST elevated myocardial infarction)/CAD EF 40-45% S/P CABG x3 04/26/2022 ASA, metoprolol, atorvastatin, no Plavix while on Coumadin, Plavix can be added as an outpatient once Coumadin therapy completed 2. Atrial fibrillation Intermittent bursts of atrial fibrillation, frequent PACs. Metoprolol, Coumadin x6 weeks with goal INR 2-2.5 with PCP to manage 3. Aortic valve stenosis mild-mod Intra-Op ABBY showed mild aortic stenosis 4. Acute blood loss anemia Stable, H&H 9.1 and 26.1 5. Ischemic cardiomyopathy Postop ABBY showed an EF of 55% 6. Hyperlipidemia Atorvastatin 7. Hypertension Blood pressure 93/69-126/40, will hold Imdur, continue metoprolol as long as systolic blood pressure greater than 100 8. Diabetes HgbA1C 6.7 Glucose 126 139, [facility] following 9. Tobacco use Smoking cessation counseling Discussed and seen with Dr. Leone, add Coumadin, continue with aggressive pulmonary toilet Digitally Signed by FRED ZEPEDA on 04/30/2022 11:22 AM [id number] Nurse Progress note I have reviewed and agree with the acute care certified nursing assistant assessment. Digitally Signed by WILDER Valenzuela [facility] on 04/30/2022 10:27 AM [id number] Endocrinology Progress note Date of Service 04/30/22 Chief Complaint Dm2 Subjective Chart reviewed. Overnight events and plan of care d/w patient. Patient denies new complaints. Appetite is good. Still eating at least 50% or more of her meals. Reports plan is for discharge tomorrow Objective Vitals and Measurements T: 36.9 C (Oral) TMIN: 36.7 C (Oral) TMAX: 37 C (Oral) HR: 87(Apical) RR: 16 BP: 96/43 SpO2: 89% WT: 80.3 kg Intake and Output 7AM Yesterday to 7AM Today Intake and Output (Last 24 hours) Intake Oral Intake 680.00 Administration Information 150.00 Supplement Intake 90.00 Output Urine Voided 1000.00 Stool Count 1.00 Emesis Count 0.00 Total Summary Total Intake 920.00 Total Output 1000.00 Fluid Balance -80.00 Physical Exam Alert, lying in bed, no acute distress Respirations even and unlabored A. fib on telemetry. Answers questions appropriately. Mood and affect normal. Weight Current Weight Dosing Weight: 78.2 kg (04/27/22) Current Weight: 80.3 kg (04/30/22) Dosing Weight: 77.4 kg (04/20/22) Current Weight: 80 kg (04/29/22) Medications Medications (39) Active Scheduled: (17) amiodarone 200 mg tablet 400 mg 2 tab(s), Oral, BIDM amiodarone 200 mg tablet 200 mg 1 tab(s), Oral, qDayM aspirin 81 mg EC 81 mg 1 tab(s), Oral, qDayM atorvastatin 40 mg tablet 40 mg 1 tab(s), Oral, qDay docusate calcium 240 mg Capsule 240 mg 1 cap(s), Oral, BID enoxaparin 40 mg/ 0.4mL syringe 40 mg 0.4 mL, Subcutaneous, qDay guaifenesin 600 mg ER 600 mg 1 tab(s), Oral, BID insulin lispro 100 units/mL Soln (3 mL) Give 0-10 units/dose, Subcutaneous, achs ipratropium 0.02% (0.5mg/2.5mL) UD 0.5 mg 2.5 mL, Inhalation, QIDRT isosorbide mononitrate 30 mg ER tablet 30 mg 1 tab(s), Oral, qDayAC metformin 500 mg ER tablet 1,000 mg 2 tab(s), Oral, BID metoprolol tartrate 25 mg tablet 25 mg 1 tab(s), Oral, BIDM multivitamin (Chromagen Forte) with iron Vitamin B Complex with C, Folic Acid and Iron tablet 1 tab(s), Oral, qDay mupirocin 2% Ointment 22 Gram(s) tube 1 margo, Nostril, each, q12h No metformin for 48 hrs post contrast 1 EA, Miscellaneous, Unscheduled pantoprazole 40 mg EC tablet 40 mg 1 tab(s), Oral, qDayAC warfarin 5 mg tablet 5 mg 1 tab(s), Oral, qDay Continuous: (4) amiodarone 450 mg [0.5 mg/min] + sodium chloride QUE 250 mL 250 mL, Intravenous, 16.67 mL/hr insulin regular 100 unit(s) + NS Premix Diluent 100 mL 100 mL, Intravenous nitroglycerin 50 mg [5 mcg/min] + sodium chloride QUE 250 mL 250 mL, Intravenous, 1.5 mL/hr NS (0.9% nacl) 1,000 mL 1,000 mL, Intravenous, 20 mL/hr PRN: (18) acetaminophen 325 mg Tablet 650 mg 2 tab(s), Oral, q4h Al hydrox/Mg hydrox/simethicone 200-200-20 mg/5 mL Susp UD 30 mL, Oral, q2h bisacodyl 10 mg Suppository 10 mg 1 supp, Rectal, qDay bismuth subsalicylate 262 mg/15 mL 240 mL 30 mL, Oral, AsDirected dextrose 50% Solution Disp syringe 50 mL 25 g 50 mL, IV Push, AsDirected dextrose 50% Solution Disp syringe 50 mL 12.5 g 25 mL, IV Push, AsDirected glucagon recombinant 1 mg 1 mg 1 mL, Intramuscular, AsDirected magnesium hydroxide 8% Suspension 30 mL UD 30 mL, Oral, qDay melatonin 3 mg tablet 3 mg 1 tab(s), Oral, qHS morphine 2 mg/mL 1 mL syringe 2 mg 1 mL, IV Push, q3h morphine 2 mg/mL 1 mL syringe 5 mg 2.5 mL, IV Push, q3h ondansetron 2 mg/ 1 mL 2 mL INJ 4 mg 2 mL, IV Push, q4h oxycodone 5 mg tablet (immediate release) 5 mg 1 tab(s), Oral, q4h oxycodone 5 mg tablet (immediate release) 10 mg 2 tab(s), Oral, q4h phenol topical 1.4% Spr 1 spray(s), Topical, q1h polyethylene glycol 3350 - UD packet 17 gram(s) 15 mL, Oral, qDay potassium chloride (PMX) 20 mEq 50 mL, IV Piggyback, AsDirected potassium chloride (PMX) 15 mEq 50 mL, IV Piggyback, AsDirected Lab Results 04/30 08:05 Protime: 12.7 PT International Ratio: 1.1 04/30 03:39 WBC: 8.6 Hgb: 9.1 L Hct: 26.1 L Platelet: 157 Neutrophil %: 58.1 Glucose Level: 129 H Sodium Level: 142 Potassium Level: 4.1 BUN: 9.0 Creatinine Lvl (s): 0.53 04/29 04:53 WBC: 8.9 Hgb: 9.0 L Hct: 25.9 L Platelet: 122 L Neutrophil %: 71.4 Glucose Level: 126 H Sodium Level: 137 Potassium Level: 4.1 BUN: 11.0 Creatinine Lvl (s): 0.46 L 04/29 02:06 Potassium Level: 4.4 Group Detail Date Value w/Units Flags Normal Range Normal Reference Text Comment Ind Glucose Testing Blood Glucose, Capillary 04/30/2022 07:10:00 EDT 139 mg/dL HI 82-115 Glucose Testing Glucose Level 04/30/2022 03:39:00 EDT 129 mg/dL HI 82-115 Glucose Testing Blood Glucose, Capillary 04/29/2022 21:31:00 EDT 126 mg/dL HI 82-115 Glucose Testing Blood Glucose, Capillary 04/29/2022 16:20:00 EDT 132 mg/dL HI 82-115 Glucose Testing Blood Glucose, Capillary 04/29/2022 11:09:00 EDT 175 mg/dL HI 82-115 EKG Electrocardiogram - Completed -- 04/30/22 6:00:00 EDT, On the 4th post op day Assessment/Plan 1. NSTEMI (non-ST elevated myocardial infarction)/CAD EF 40-45% S/P CABG x3 04/26/2022 2. Atrial fibrillation 3. Aortic valve stenosis mild-mod 4. Acute blood loss anemia 5. Ischemic cardiomyopathy 6. Hyperlipidemia 7. Hypertension 8. Diabetes HgbA1C 6.7 9. Tobacco use This is a 72-year-old female with a history of mild aortic stenosis, diabetes, hypertension, hyperlipidemia and tobacco abuse. She presented with progressive left axillary pain with radiation to her scapula with activity. Abnormal stress test. Troponin level elevated. Echocardiogram showed an EF of40 to 45% with diastolic dysfunction, mild to moderate AAS with a mean systolic gradient of 9 mmHg and an aortic valve area of 1.2 cm and mild MR. [facility] was [facility]. Troponin level peaked at 188.3. Heart catheterization showed an EF of 35 to 40%, left main disease 70%, LAD stenosis 99% and RCA stenosis 95%. Surgery completed on 04/26/2022 coronary artery bypass graft x3 with TYLER to the LAD and saphenous vein graft to obtuse marginal branch of the circumflex and distal RCA per Dr. Leone. She tolerated the procedure well was transferred to CV SICU in stable condition. She required insulin for diabetic management. On nitroglycerin for blood pressure control. Endocrinology consulted for her diabetic management. Type II diabetic with A1c of 6.7%. Appears to be PCP manage. On home regimen of metformin 1 g twicedaily. A1c is at goal for her age. Will need further discussions on outpatient trends, diabetic complications and diet when clinical status is improved She does have documented history of hyperlipidemia, on simvastatin outpatient. Lipid panel here this admission shows total cholesterol 188 triglycerides 138, HDL 39 and LDL 121 which is above goal. Statin therapy to be reintroduced and optimized per the primary service when clinically appropriate. TSH within limits 1.017. Her BMI is 26. Overweight. Will need further discussion on lifestyle when her clinical status allows. ADA clear liquid diet in place for now but she will be transitioned to ADA per RN; order placed. Last 24 hours Orders adjusted to Humalog 0-10 sliding scale with meals and at bedtime in addition of home metformin at 1 g twice daily. Blood glucose trends reviewed with the same, stable. Fasting 139. Prandial trends are improving. Renal function reviewed, GFR is greater than 60 Plan will be to discharge back to home with metformin as was previously being done. Prescription sent for the same. Med rec updated for discharge. Will review in evening rounds w/ Dr. Reynoso We will sign off at this time. Time Spent Total time spent 25 minutes; greater than 50% spent in counseling and coordination of care. Digitally Signed by TALA TREVIÑO on 04/30/2022 01:03 PM [id number] Note ORIGINAL EXAMINATION: TWO XRAY VIEWS OF THE CHEST 04/30/2022 6:49 am COMPARISON: 04/29/2022, 04/28/2022 HISTORY: ORDERING SYSTEM PROVIDED HISTORY: Reason for Exam: abnormal breath sounds FINDINGS: Median sternotomy wires and clips noted. Left subclavian central venous catheter is noted with its tip at the distal SVC. Cardiomediastinal silhouette is stable. Small right apical pneumothorax with a maximum separation of 1.4 cm (previously 1.8 cm) between with visceral and parietal pleura. Improved aeration in the right lung base. Stable small left pleural effusion with adjacent atelectasis/consolidation. Persistent left infrahilar discoid atelectasis. IMPRESSION: Improved small right apical pneumothorax. Improved aeration right lung base. Stable small left pleural effusion with adjacent atelectasis/consolidation. I have personally reviewed the images of this examination and agree with the resident's findings and interpretation. Interpreted by: Hyacinth Triana MD Preliminary Report By: Wilfredo Beasley Electronically signed By Hyacinth Triana MD Dictated Date: 04/30/2022 7:27:52 AM Prelim Date: 04/30/2022 7:33:48 AM Sign Date: 04/30/2022 9:01:39 AM Ordering Provider: FRED ZEPEDA [id number] Note ORIGINAL EXAMINATION: TWO XRAY VIEWS OF THE CHEST 04/30/2022 6:49 am COMPARISON: 04/29/2022, 04/28/2022 HISTORY: ORDERING SYSTEM PROVIDED HISTORY: Reason for Exam: abnormal breath sounds FINDINGS: Median sternotomy wires and clips noted. Left subclavian central venous catheter is noted with its tip at the distal SVC. Cardiomediastinal silhouette is stable. Small right apical pneumothorax with a maximum separation of 1.4 cm (previously 1.8 cm) between with visceral and parietal pleura. Improved aeration in the right lung base. Stable small left pleural effusion with adjacent atelectasis/consolidation. Persistent left infrahilar discoid atelectasis. IMPRESSION: Improved small right apical pneumothorax. Improved aeration right lung base. Stable small left pleural effusion with adjacent atelectasis/consolidation. I have personally reviewed the images of this examination and agree with the resident's findings and interpretation. Interpreted by: Hyacinth Triana MD Preliminary Report By: Wilfredo Beasley Electronically signed By Hyacinth Triana MD Dictated Date: 04/30/2022 7:27:52 AM Prelim Date: 04/30/2022 7:33:48 AM Sign Date: 04/30/2022 9:01:39 AM Ordering Provider: [facility]11-03-2022 Note Date of Service 04/29/2022 Chief Complaint POD #3 This is a 72-year-old female with a history of mild aortic stenosis, diabetes, hypertension, hyperlipidemia and tobacco abuse. She presented with progressive left axillary pain with radiation to her scapula with activity. Abnormal stress test. Troponin level elevated. Echocardiogram showed an EF of40 to 45% with diastolic dysfunction, mild to moderate AAS with a mean systolic gradient of 9 mmHg and an aortic valve area of 1.2 cm and mild MR. She was transferred to [facility] for further management. Troponin level peaked at 188.3. Heart catheterization showed an EF of 35 to 40%, left main disease 70%, LAD stenosis 99% and RCA stenosis 95%. Surgery completed on 04/26/2022 coronary artery bypass graft x3 with TYLER to the LAD and saphenous vein graft to obtuse marginal branch of the circumflex and distal RCA per Dr. Leone. She tolerated the procedure well was transferred to SICU in stable condition. She required insulin for diabetic management. On nitroglycerin for blood pressure control. POD #1 remains intubated. Suctioning large amounts of thick sputum per ET tube. Remains on nitroglycerin. Lopressor 5 mg IV x1 given. Plan metoprolol tartrate and Imdur once extubated. Consult [facility] inpatient endocrinology for diabetic management. [1] POD #2: Doing well, harsh moist cough, Mucinex added. Will DC chest tubes after discontinuing pacing wires. Continue with ambulation and monitoring heart rhythm. [1] 20 IV Lasix x1. POD #3: Patient developing small burst of atrial fibrillation and frequent PACs. Will start on amiodarone protocol. Chest x-ray from this morning showing a small right apical pneumothorax and improvement of right pleural effusion. Noted to be 86% on room air this morning. Currently 93% on 2 L. Continue to encourage aggressive pulmonary toileting andambulation. Subjective Patient resting comfortably in bed. Denies any pain or shortness of breath at this time. Objective Vitals and Measurements T: 36.7 C (Oral) TMIN: 36.5 C (Oral) TMAX: 36.8 C (Oral) HR: 79(Monitored) RR: 16 BP: 101/52 SpO2:93% WT: 80.0 kg Intake and Output 7AM Yesterday to 7AM Today Intake and Output (Last 24 hours) Intake Oral Intake 240.00 Output Urine Voided 800.00 Stool Count 0.00 Emesis Count 0.00 Total Summary Total Intake 240.00 Total Output 800.00 Fluid Balance -560.00 Physical Exam Constitutional: Alert, oriented, appropriate HEENT: Normocephalic, atraumatic Lungs:Unlabored respirations, lung sounds diminished in bases bilaterally, SPO2 93% on 2 L nasal cannula (86% on room air) Heart: Atrial fibrillation/normal sinus rhythm with frequent PACs, S1-S2, no murmur or rub, heart rate ranging 79-1 20 Abdomen: Soft, nontender, bowel sounds present, positive flatus, positive bowel movement 04/28/2022 Extremities: Well perfused, pedal pulses +1 bilaterally, left lower leg cool to touch, +1 bilaterallower leg edema Integumentary: Midline sternal incision open air, edges well approximated, no drainage; left lower leg surgical incisions open air, edges well approximated, no drainage Suprapubic access: Left subclavian triple-lumen Disposition: Home with stepgrand daughter and 2 courtesy RN visits. Weight Current Weight Dosing Weight: 78.2 kg (04/27/22) Current Weight: 80 kg (04/29/22) Dosing Weight: 77.4 kg (04/20/22) Medications Medications (40) Active Scheduled: (17) amiodarone 200 mg tablet 400 mg 2 tab(s), Oral, BIDM amiodarone 200 mg tablet 200 mg 1 tab(s), Oral, qDayM aspirin 81 mg EC 81 mg 1 tab(s), Oral, qDayM atorvastatin 40 mg tablet 40 mg 1 tab(s), Oral, qDay docusate calcium 240 mg Capsule 240 mg 1 cap(s), Oral, BID enoxaparin 40 mg/ 0.4mL syringe 40 mg 0.4 mL, Subcutaneous, qDay guaifenesin 600 mg ER 600 mg 1 tab(s), Oral, BID insulin lispro 100 units/mL Soln (3 mL) Give 0-10 units/dose, Subcutaneous, achs ipratropium 0.02% (0.5mg/2.5mL) UD 0.5 mg 2.5 mL, Inhalation, QIDRT isosorbide mononitrate 30 mg ER tablet 30 mg 1 tab(s), Oral, qDayAC metformin 500 mg ER tablet 1,000 mg 2 tab(s), Oral, BID metoprolol tartrate 25 mg tablet 25 mg 1 tab(s), Oral, BIDM Misc communication order 1 EA, Miscellaneous, Daily multivitamin (Chromagen Forte) with iron Vitamin B Complex with C, Folic Acid and Iron tablet 1 tab(s), Oral, qDay mupirocin 2% Ointment 22 Gram(s) tube 1 margo, Nostril, each, q12h No metformin for 48 hrs post contrast 1 EA, Miscellaneous, Unscheduled pantoprazole 40 mg EC tablet 40 mg 1 tab(s), Oral, qDayAC Continuous: (5) amiodarone 450 mg [0.5 mg/min] + sodium chloride QUE 250 mL 250 mL, Intravenous, 16.67 mL/hr amiodarone 450 mg [1 mg/min] + sodium chloride QUE 250 mL 250 mL, Intravenous, 33.33 mL/hr insulin regular 100 unit(s) + NS Premix Diluent 100 mL 100 mL, Intravenous nitroglycerin 50 mg [5 mcg/min] + sodium chloride QUE 250 mL 250 mL, Intravenous, 1.5 mL/hr NS (0.9% nacl) 1,000 mL 1,000 mL, Intravenous, 20 mL/hr PRN: (18) acetaminophen 325 mg Tablet 650 mg 2 tab(s), Oral, q4h Al hydrox/Mg hydrox/simethicone 200-200-20 mg/5 mL Susp UD 30 mL, Oral, q2h bisacodyl 10 mg Suppository 10 mg 1 supp, Rectal, qDay bismuth subsalicylate 262 mg/15 mL 240 mL 30 mL, Oral, AsDirected dextrose 50% Solution Disp syringe 50 mL 25 g 50 mL, IV Push, AsDirected dextrose 50% Solution Disp syringe 50 mL 12.5 g 25 mL, IV Push, AsDirected glucagon recombinant 1 mg 1 mg 1 mL, Intramuscular, AsDirected magnesium hydroxide 8% Suspension 30 mL UD 30 mL, Oral, qDay melatonin 3 mg tablet 3 mg 1 tab(s), Oral, qHS morphine 2 mg/mL 1 mL syringe 2 mg 1 mL, IV Push, q3h morphine 2 mg/mL 1 mL syringe 5 mg 2.5 mL, IV Push, q3h ondansetron 2 mg/ 1 mL 2 mL INJ 4 mg 2 mL, IV Push, q4h oxycodone 5 mg tablet (immediate release) 5 mg 1 tab(s), Oral, q4h oxycodone 5 mg tablet (immediate release) 10 mg 2 tab(s), Oral, q4h phenol topical 1.4% Spr 1 spray(s), Topical, q1h polyethylene glycol 3350 - UD packet 17 gram(s) 15 mL, Oral, qDay potassium chloride (PMX) 20 mEq 50 mL, IV Piggyback, AsDirected potassium chloride (PMX) 15 mEq 50 mL, IV Piggyback, AsDirected Lab Results 04/29 04:53 WBC: 8.9 Hgb: 9.0 L Hct: 25.9 L Platelet: 122 L Neutrophil %: 71.4 Glucose Level: 126 H Sodium Level: 137 Potassium Level: 4.1 BUN: 11.0 Creatinine Lvl (s): 0.46 L 04/29 02:06 Potassium Level: 4.4 04/28 16:26 Potassium Level: 4.3 04/28 04:35 WBC: 10.1 Hgb: 9.9 L Hct: 28.6 L Platelet: 134 L Neutrophil %: 74.2 Glucose Level: 167 H Sodium Level: 137 Potassium Level: 4.6 BUN: 9.0 Creatinine Lvl (s): 0.49 L Imaging Results and Diagnostics XR Chest 2 Views Result Date: April 29, 2022 Verified By: HYACINTH TRIANA MD CLINICAL STATEMENT: IMPRESSION: Small right apical pneumothorax. Mildly improved small right pleural effusion with adjacent atelectasis/consolidation. Small left pleural effusion with adjacent atelectasis/consolidation is unchanged. Preliminary Report was Dictated by a Resident EKG Electrocardiogram (EKG) - Ordered -- 04/29/22 2:03:00 EDT Electrocardiogram - InProcess -- 04/30/22 6:00:00 EDT, On the 4th post op day Assessment/Plan 1. NSTEMI (non-ST elevated myocardial infarction)/CAD EF 40-45% S/P CABG x3 04/26/2022 Plavix at discharge. Currently in atrial fibrillation/normal sinus rhythm with frequent PACs. Heartrate ranging 79-120. Blood pressures ranging 101/52-132/85. On aspirin, metoprolol, atorvastatin. 2. Atrial fibrillation Patient developing small burst of atrial fibrillation and having frequent PACs. We will start on amiodarone protocol. Continue on metoprolol 3. Aortic valve stenosis mild-mod ABBY in OR revealing mild aortic stenosis. 4. Acute blood loss anemia H&H 9 and 25.9. No signs of active bleeding 5. Ischemic cardiomyopathy Postop EF per ABBY 55%. Fluid balance over last 24 hours -518 cc. 6. Hyperlipidemia On atorvastatin 7. Hypertension Pressures ranging 101/52-132/85. On metoprolol and Imdur. 8. Diabetes HgbA1C 6.7 Followed by [facility] endocrinology. Glucoses ranging 1 26-1 75. On Humalog sliding scale insulin, metformin 9. Tobacco use Counseled on smoking cessation. Plan: Start amiodarone protocol (150 mg amiodarone bolus) Continue to encourage aggressive pulmonary toileting and ambulation Wean oxygen to maintain SPO2 92% or higher Fourth day studies in a.m. Patient seen and discussed with Dr. Leone. This note was generated using a voice recognition system. As a result, errors are possible and common, including incorrect words, spellings, grammar, gender, phrases, and punctuation that may be out of context or that were missed in checking this note before saving. Reasonable effort is made to correct such errors, but with demands of normal work flow, many are missed. [1] Progress Note; NEGRA CALLOWAY MAINTENANCE DATA ANALYST-CASHIER COURTESY BOOTH 04/28/2022 10:35 EDT Digitally Signed by PAULINO MARIEE on 04/29/2022 11:41 AM [id number] Endocrinology Progress note Date of Service 04/29/22 Chief Complaint DM2 Subjective Chart reviewed. Overnight events and plan of care d/w patient. Patient denies new complaints. She is feeling much better today as her pain is better controlled. Ate about 50% of her breakfast tray. States she needs refill on metformin upon discharge home, prescription to be sent to the same. Statesshe is hopeful for discharge tomorrow Objective Vitals and Measurements T: 36.8 C (Oral) TMIN: 36.5 C (Oral) TMAX: 36.8 C (Oral) HR: 79(Monitored) RR: 16 BP: 101/52 SpO2: 93% WT: 80.0 kg Intake and Output 7AM Yesterday to 7AM Today Intake and Output (Last 24 hours) Intake Oral Intake 240.00 Output Urine Voided 800.00 Stool Count 0.00 Emesis Count 0.00 Total Summary Total Intake 240.00 Total Output 800.00 Fluid Balance -560.00 Physical Exam Alert, lying in bed, no acute distress Respirations even and unlabored Answers questions appropriately. Mood and affect normal. Weight Current Weight Dosing Weight: 78.2 kg (04/27/22) Current Weight: 80 kg (04/29/22) Dosing Weight: 77.4 kg (04/20/22) Medications Medications (40) Active Scheduled: (17) amiodarone 200 mg tablet 400 mg 2 tab(s), Oral, BIDM amiodarone 200 mg tablet 200 mg 1 tab(s), Oral, qDayM aspirin 81 mg EC 81 mg 1 tab(s), Oral, qDayM atorvastatin 40 mg tablet 40 mg 1 tab(s), Oral, qDay docusate calcium 240 mg Capsule 240 mg 1 cap(s), Oral, BID enoxaparin 40 mg/ 0.4mL syringe 40 mg 0.4 mL, Subcutaneous, qDay guaifenesin 600 mg ER 600 mg 1 tab(s), Oral, BID insulin lispro 100 units/mL Soln (3 mL) Give 0-10 units/dose, Subcutaneous, achs ipratropium 0.02% (0.5mg/2.5mL) UD 0.5 mg 2.5 mL, Inhalation, QIDRT isosorbide mononitrate 30 mg ER tablet 30 mg 1 tab(s), Oral, qDayAC metformin 500 mg ER tablet 1,000 mg 2 tab(s), Oral, BID metoprolol tartrate 25 mg tablet 25 mg 1 tab(s), Oral, BIDM Misc communication order 1 EA, Miscellaneous, Daily multivitamin (Chromagen Forte) with iron Vitamin B Complex with C, Folic Acid and Iron tablet 1 tab(s), Oral, qDay mupirocin 2% Ointment 22 Gram(s) tube 1 margo, Nostril, each, q12h No metformin for 48 hrs post contrast 1 EA, Miscellaneous, Unscheduled pantoprazole 40 mg EC tablet 40 mg 1 tab(s), Oral, qDayAC Continuous: (5) amiodarone 450 mg [0.5 mg/min] + sodium chloride QUE 250 mL 250 mL, Intravenous, 16.67 mL/hr amiodarone 450 mg [1 mg/min] + sodium chloride QUE 250 mL 250 mL, Intravenous, 33.33 mL/hr insulin regular 100 unit(s) + NS Premix Diluent 100 mL 100 mL, Intravenous nitroglycerin 50 mg [5 mcg/min] + sodium chloride QUE 250 mL 250 mL, Intravenous, 1.5 mL/hr NS (0.9% nacl) 1,000 mL 1,000 mL, Intravenous, 20 mL/hr PRN: (18) acetaminophen 325 mg Tablet 650 mg 2 tab(s), Oral, q4h Al hydrox/Mg hydrox/simethicone 200-200-20 mg/5 mL Susp UD 30 mL, Oral, q2h bisacodyl 10 mg Suppository 10 mg 1 supp, Rectal, qDay bismuth subsalicylate 262 mg/15 mL 240 mL 30 mL, Oral, AsDirected dextrose 50% Solution Disp syringe 50 mL 25 g 50 mL, IV Push, AsDirected dextrose 50% Solution Disp syringe 50 mL 12.5 g 25 mL, IV Push, AsDirected glucagon recombinant 1 mg 1 mg 1 mL, Intramuscular, AsDirected magnesium hydroxide 8% Suspension 30 mL UD 30 mL, Oral, qDay melatonin 3 mg tablet 3 mg 1 tab(s), Oral, qHS morphine 2 mg/mL 1 mL syringe 2 mg 1 mL, IV Push, q3h morphine 2 mg/mL 1 mL syringe 5 mg 2.5 mL, IV Push, q3h ondansetron 2 mg/ 1 mL 2 mL INJ 4 mg 2 mL, IV Push, q4h oxycodone 5 mg tablet (immediate release) 5 mg 1 tab(s), Oral, q4h oxycodone 5 mg tablet (immediate release) 10 mg 2 tab(s), Oral, q4h phenol topical 1.4% Spr 1 spray(s), Topical, q1h polyethylene glycol 3350 - UD packet 17 gram(s) 15 mL, Oral, qDay potassium chloride (PMX) 20 mEq 50 mL, IV Piggyback, AsDirected potassium chloride (PMX) 15 mEq 50 mL, IV Piggyback, AsDirected Lab Results 04/29 04:53 WBC: 8.9 Hgb: 9.0 L Hct: 25.9 L Platelet: 122 L Neutrophil %: 71.4 Glucose Level: 126 H Sodium Level: 137 Potassium Level: 4.1 BUN: 11.0 Creatinine Lvl (s): 0.46 L 04/29 02:06 Potassium Level: 4.4 04/28 16:26 Potassium Level: 4.3 04/28 04:35 WBC: 10.1 Hgb: 9.9 L Hct: 28.6 L Platelet: 134 L Neutrophil %: 74.2 Glucose Level: 167 H Sodium Level: 137 Potassium Level: 4.6 BUN: 9.0 Creatinine Lvl (s): 0.49 L Group Detail Date Value w/Units Flags Normal Range Normal Reference Text Comment Ind Glucose Testing Blood Glucose, Capillary 04/29/2022 11:09:00 EDT 175 mg/dL HI 82-115 Glucose Testing Blood Glucose, Capillary 04/29/2022 07:22:00 EDT 134 mg/dL HI 82-115 Glucose Testing Glucose Level 04/29/2022 04:53:00 EDT 126 mg/dL HI 82-115 Glucose Testing Blood Glucose, Capillary 04/28/2022 21:03:00 EDT 169 mg/dL HI 82-115 Y Glucose Testing Blood Glucose, Capillary 04/28/2022 16:15:00 EDT 137 mg/dL HI 82-115 EKG Electrocardiogram (EKG) - Ordered -- 04/29/22 2:03:00 EDT Electrocardiogram - InProcess -- 04/30/22 6:00:00 EDT, On the 4th post op day Assessment/Plan 1. NSTEMI (non-ST elevated myocardial infarction)/CAD EF 40-45% S/P CABG x3 04/26/2022 2. Atrial fibrillation 3. Aortic valve stenosis mild-mod 4. Acute blood loss anemia 5. Ischemic cardiomyopathy 6. Hyperlipidemia 7. Hypertension 8. Diabetes HgbA1C 6.7 9. Tobacco use This is a 72-year-old female with a history of mild aortic stenosis, diabetes, hypertension, hyperlipidemia and tobacco abuse. She presented with progressive left axillary pain with radiation to her scapula with activity. Abnormal stress test. Troponin level elevated. Echocardiogram showed an EF of40 to 45% with diastolic dysfunction, mild to moderate AAS with a mean systolic gradient of 9 mmHg and an aortic valve area of 1.2 cm and mild MR. She was transferred to [facility] for [facility] management. Troponin level peaked at 188.3. Heart catheterization showed an EF of 35 to 40%, left main disease 70%, LAD stenosis 99% and RCA stenosis 95%. Surgery completed on 04/26/2022 coronary artery bypass graft x3 with TYLER to the LAD and saphenous vein graft to obtuse marginal branch of the circumflex and distal RCA per Dr. Leone. She tolerated the procedure well was transferred to [facility] SICU in stable condition. She required insulin for diabetic management. On nitroglycerin for blood pressure control. Endocrinology consulted for her diabetic management. Type II diabetic with A1c of 6.7%. Appears to be PCP manage. On home regimen of metformin 1 g twicedaily. A1c is at goal for her age. Will need further discussions on outpatient trends, diabetic complications and diet when clinical status is improved She does have documented history of hyperlipidemia, on simvastatin outpatient. Lipid panel here this admission shows total cholesterol 188 triglycerides 138, HDL 39 and LDL 121 which is above goal. Statin therapy to be reintroduced and optimized per the primary service when clinically appropriate. TSH within limits 1.017. Her BMI is 26. Overweight. Will need further discussion on lifestyle when her clinical status allows. ADA clear liquid diet in place for now but she will be transitioned to ADA per RN; order placed. Last 24 hours Orders adjusted to Humalog 0-10 sliding scale with meals and at bedtime in addition of home metformin at 1 g twice daily. Blood glucose trends reviewed with the same, stable. Fasting 134. 175 before lunch. Trends are slightly above goal. Renal function reviewed, GFR is greater than 60 Discussed with the patient trends are still above goal. We will give her another day and follow trends and dissipation of stress response. If her trends remain elevated she will require an additional agent for glucose control. She verbalizes understanding of the same. Will send prescription for metformin at discharge. Will review in evening rounds w/ Dr. Reynoso Will continue to follow while inpatient. Time Spent Total time spent 25 minutes; greater than 50% spent in counseling and coordination of care. Digitally Signed by TALA TREVIÑO on 04/29/2022 01:04 PM [id number] Note ORIGINAL EXAMINATION: TWO XRAY VIEWS OF THE CHEST 04/29/2022 5:39 am COMPARISON: 04/28/2022 HISTORY: ORDERING SYSTEM PROVIDED HISTORY: CABG Reason for Exam: PLEURAL EFFUSION FINDINGS: Median sternotomy wires and clips noted. And left subclavian central venous catheter is seen with its tip at the distal SVC. Cardiomediastinal silhouette is stable. There is right apical pneumothorax with a maximum separation of 1.8 cm between visceral and parietal pleura. Small right pleural effusion with adjacent atelectasis/consolidation has mildly improved. Small left pleural effusion with adjacent atelectasis/consolidation. Left infrahilar discoid atelectasis. No acute osseous or soft tissue findings. IMPRESSION: Small right apical pneumothorax. Mildly improved small right pleural effusion with adjacent atelectasis/consolidation. Small left pleural effusion with adjacent atelectasis/consolidation is unchanged. Preliminary Report was Dictated by a Resident Interpreted by: Hyacinth Triana MD Preliminary Report By: Wilfredo Beasley Electronically signed By Hyacinth Triana MD Dictated Date: 04/29/2022 6:51:30 AM Prelim Date: 04/29/2022 6:59:11 AM Sign Date: 04/29/2022 7:24:49 AM Ordering Provider: NEGRA CALLOWAY [id number] Note ORIGINAL EXAMINATION: TWO XRAY VIEWS OF THE CHEST 04/29/2022 5:39 am COMPARISON: 04/28/2022 HISTORY: ORDERING SYSTEM PROVIDED HISTORY: CABG Reason for Exam: PLEURAL EFFUSION FINDINGS: Median sternotomy wires and clips noted. And left subclavian central venous catheter is seen with its tip at the distal SVC. Cardiomediastinal silhouette is stable. There is right apical pneumothorax with a maximum separation of 1.8 cm between visceral and parietal pleura. Small right pleural effusion with adjacent atelectasis/consolidation has mildly improved. Small left pleural effusion with adjacent atelectasis/consolidation. Left infrahilar discoid atelectasis. No acute osseous or soft tissue findings. IMPRESSION: Small right apical pneumothorax. Mildly improved small right pleural effusion with adjacent atelectasis/consolidation. Small left pleural effusion with adjacent atelectasis/consolidation is unchanged. Preliminary Report was Dictated by a Resident Interpreted by: Hyacinth Triana MD Preliminary Report By: Wilfredo Beasley Electronically signed By Hyacinth Triana MD Dictated Date: 04/29/2022 6:51:30 AM Prelim Date: 04/29/2022 6:59:11 AM Sign Date: 04/29/2022 7:24:49 AM Ordering Provider: [facility]11-02-2022 Note Date of Service 04/28/2022 Chief Complaint This is a 72-year-old female with a history of mild aortic stenosis, diabetes, hypertension, hyperlipidemia and tobacco abuse. She presented with progressive left axillary pain with radiation to her scapula with activity. Abnormal stress test. Troponin level elevated. Echocardiogram showed an EF of40 to 45% with diastolic dysfunction, mild to moderate AAS with a mean systolic gradient of 9 mmHg and an aortic valve area of 1.2 cm and mild MR. She was transferred to [facility] for further management. Troponin level peaked at 188.3. Heart catheterization showed an EF of 35 to 40%, left main disease 70%, LAD stenosis 99% and RCA stenosis 95%. Surgery completed on 04/26/2022 coronary artery bypass graft x3 with TYLER to the LAD and saphenous vein graft to obtuse marginal branch of the circumflex and distal RCA per Dr. Leone. She tolerated the procedure well was transferred to CV SICU in stable condition. She required insulin for diabetic management. On nitroglycerin for blood pressure control. POD #1 remains intubated. Suctioning large amounts of thick sputum per ET tube. Remains on nitroglycerin. Lopressor 5 mg IV x1 given. Plan metoprolol tartrate and Imdur once extubated. Consult [facility] inpatient endocrinology for diabetic management. [1] POD #2: Doing well, harsh moist cough, Mucinex added. Will DC chest tubes after discontinuing pacing wires. Continue with ambulation and monitoring heart rhythm. Subjective Patient lying in bed, no complaints Objective Vitals and Measurements T: 36.7 C (Oral) TMIN: 36.7 C (Oral) TMAX: 37 C (Oral) HR: 93(Monitored) RR: 16 BP: 103/57 BP: 136/48(Line) SpO2: 92% Intake and Output 7AM Yesterday to 7AM Today Intake and Output (Last 24 hours) Intake Oral Intake 830.00 Output Chest Tube Output: 190.00 Urine Voided 500.00 Urinary Catheter Output: 325.00 Stool Count 1.00 Emesis Count 0.00 Total Summary Total Intake 830.00 Total Output 1015.00 Fluid Balance -185.00 Physical Exam Neuro: Alert and oriented x3 Lungs: Clear but diminished bilaterally, harsh moist cough Midsternal incision without drainage Ventricular pacing wires pulled at 10:30 AM without difficulty Heart: Regular S1-S2, sinus rhythm, positive rub Abdomen: Obese, positive bowel sounds, small BM Extremities: No edema, well perfused Weight Dosing Weight: 78.2 kg (04/27/22) Dosing Weight: 77.4 kg (04/20/22) Medications Medications (36) Active Scheduled: (14) aspirin 81 mg EC 81 mg 1 tab(s), Oral, qDayM atorvastatin 40 mg tablet 40 mg 1 tab(s), Oral, qDay docusate calcium 240 mg Capsule 240 mg 1 cap(s), Oral, BID enoxaparin 40 mg/ 0.4mL syringe 40 mg 0.4 mL, Subcutaneous, qDay furosemide 20 mg/2 mL vial 20 mg 2 mL, IV Push, Once guaifenesin 600 mg ER 600 mg 1 tab(s), Oral, BID insulin lispro 100 units/mL Soln (3 mL) Give 0-10 units/dose, Subcutaneous, achs2 ipratropium 0.02% (0.5mg/2.5mL) UD 0.5 mg 2.5 mL, Inhalation, QIDRT isosorbide mononitrate 30 mg ER tablet 30 mg 1 tab(s), Oral, qDayAC metoprolol tartrate 25 mg tablet 25 mg 1 tab(s), Oral, BIDM multivitamin (Chromagen Forte) with iron Vitamin B Complex with C, Folic Acid and Iron tablet 1 tab(s), Oral, qDay mupirocin 2% Ointment 22 Gram(s) tube 1 margo, Nostril, each, q12h No metformin for 48 hrs post contrast 1 EA, Miscellaneous, Unscheduled pantoprazole 40 mg EC tablet 40 mg 1 tab(s), Oral, qDayAC Continuous: (3) insulin regular 100 unit(s) + NS Premix Diluent 100 mL 100 mL, Intravenous nitroglycerin 50 mg [5 mcg/min] + sodium chloride QUE 250 mL 250 mL, Intravenous, 1.5 mL/hr NS (0.9% nacl) 1,000 mL 1,000 mL, Intravenous, 20 mL/hr PRN: (19) acetaminophen 325 mg Tablet 650 mg 2 tab(s), Oral, q4h Al hydrox/Mg hydrox/simethicone 200-200-20 mg/5 mL Susp UD 30 mL, Oral, q2h bisacodyl 10 mg Suppository 10 mg 1 supp, Rectal, qDay bismuth subsalicylate 262 mg/15 mL 240 mL 30 mL, Oral, AsDirected dextrose 50% Solution Disp syringe 50 mL 25 g 50 mL, IV Push, AsDirected dextrose 50% Solution Disp syringe 50 mL 12.5 g 25 mL, IV Push, AsDirected glucagon recombinant 1 mg 1 mg 1 mL, Intramuscular, AsDirected insulin regular human recombinant 100 units/mL (3 mL) Soln 10 unit(s) 0.1 mL, IV Push, q1h magnesium hydroxide 8% Suspension 30 mL UD 30 mL, Oral, qDay melatonin 3 mg tablet 3 mg 1 tab(s), Oral, qHS morphine 2 mg/mL 1 mL syringe 2 mg 1 mL, IV Push, q3h morphine 2 mg/mL 1 mL syringe 5 mg 2.5 mL, IV Push, q3h ondansetron 2 mg/ 1 mL 2 mL INJ 4 mg 2 mL, IV Push, q4h oxycodone 5 mg tablet (immediate release) 5 mg 1 tab(s), Oral, q4h oxycodone 5 mg tablet (immediate release) 10 mg 2 tab(s), Oral, q4h phenol topical 1.4% Spr 1 spray(s), Topical, q1h polyethylene glycol 3350 - UD packet 17 gram(s) 15 mL, Oral, qDay potassium chloride (PMX) 20 mEq 50 mL, IV Piggyback, AsDirected potassium chloride (PMX) 15 mEq 50 mL, IV Piggyback, AsDirected Lab Results 04/28 04:35 WBC: 10.1 Hgb: 9.9 L Hct: 28.6 L Platelet: 134 L Neutrophil %: 74.2 Glucose Level: 167 H Sodium Level: 137 Potassium Level: 4.6 BUN: 9.0 Creatinine Lvl (s): 0.49 L 04/27 17:40 Potassium Level: 3.8 04/27 10:19 Potassium Level: 4.2 04/27 03:34 WBC: 7.6 Hgb: 9.6 L Hct: 27.9 L Platelet: 124 L Neutrophil %: 86.1 H Glucose Level: 123 H Sodium Level: 140 Potassium Level: 4.0 BUN: 10.0 Creatinine Lvl (s): 0.49 L 04/27 02:36 Potassium Level: 4.1 Imaging Results and Diagnostics (04/28/2022 06:15 EDT XR Chest 1 View) HISTORY: ORDERING SYSTEM PROVIDED HISTORY: Reason for Exam: pleural effusion FINDINGS: Support devices: A left subclavian central venous catheter overlies the mid superior vena cava. Interval removal of an endotracheal tube, enteric tube, right IJ Dunnigan-Ventura catheter and mediastinal drains. Cardiomediastinal: The heart is stable in size and configuration. Status post median sternotomy and CABG. Lungs: Persistent dense opacification of the right lung base. Interval increased small left-sided pleural effusion and left lower lobe atelectasis. Left infrahilar discoid atelectasis. No overt susana pulmonary edema. Pneumothorax: None. Osseous: No acute osseous pathology. IMPRESSION: Persistent dense opacification of the right lung base with interval increased small left-sided pleural effusion and atelectasis. [2] EKG Electrocardiogram - Ordered -- 04/30/22 6:00:00 EDT, On the 4th post op day Assessment/Plan 1. NSTEMI (non-ST elevated myocardial infarction)/CAD EF 40-45% S/P CABG x3 04/26/2022 Sinus rhythm, on aspirin, metoprolol, atorvastatin 2. Aortic valve stenosis mild-mod 3. Acute blood loss anemia Hematocrit 28.6%, no active bleeding 4. Ischemic cardiomyopathy Postop EF per ABBY Intra-Op 55% 5. Hyperlipidemia On atorvastatin 6. Hypertension Systolic BP 100 103, on metoprolol 7. Diabetes HgbA1C 6.7 8. Tobacco use Smoking cessation counseling, Mucinex ordered for harsh moist cough Orders: Complete Blood Count Complete Metabolic Panel XR Chest 2 Views (PA & Lateral) Plan: DC ventricular pacing wire Add Mucinex for moist cough DC chest tubes Ambulate Pulmonary toileting Patient seen with Labs and chest x-ray in a.m. [1] Progress Note; FRED ZEPEDA APRN-FRUIT RECEIVER 04/27/2022 08:35 EDT [2] XR Chest 1 View; ALVAREZ CARSON MD 04/28/2022 06:15 EDT Digitally Signed by NEGRA CALLOWAY APRN-CASHIER COURTESY BOOTH on 04/28/2022 10:43 AM [id number] Note ORIGINAL EXAMINATION: ONE XRAY VIEW OF THE CHEST TECHNIQUE: AP upright COMPARISON: Chest 04/27/2022 HISTORY: ORDERING SYSTEM PROVIDED HISTORY: Reason for Exam: pleural effusion FINDINGS: Support devices: A left subclavian central venous catheter overlies the mid superior vena cava. Interval removal of an endotracheal tube, enteric tube, right IJ Dunnigan-Ventura catheter and mediastinal drains. Cardiomediastinal: The heart is stable in size and configuration. Status post median sternotomy and CABG. Lungs: Persistent dense opacification of the right lung base. Interval increased small left-sided pleural effusion and left lower lobe atelectasis. Left infrahilar discoid atelectasis. No overt susana pulmonary edema. Pneumothorax: None. Osseous: No acute osseous pathology. IMPRESSION: Persistent dense opacification of the right lung base with interval increased small left-sided pleural effusion and atelectasis. Interpreted by: Alvarez Carson MD Preliminary Report By: Alvarez Carson MD Electronically signed By Alvarez Carson MD Dictated Date: 04/28/2022 9:23:30 AM Prelim Date: 04/28/2022 9:25:46 AM Sign Date: 04/28/2022 9:25:46 AM Ordering Provider: FRED ZEPEDA [id number] Endocrinology Progress note Date of Service 04/28/22 Chief Complaint DM2 Subjective Chart reviewed. Overnight events and plan of care d/w patient as well as bedside RN. Patient is experiencing some right-sided pain. Due for pain medication per RN, received the same at time of exam. She confirms she was taking metformin 1 g twice daily at home consistently. Checking her blood sugars 3 times a day. States she felt unwell and did not want to provide further history at this time. Sánchez follow-up for further discussions with her tomorrow. Still on clear liquid diet but had a bowel movement yesterday so she will progress to ADA diet this afternoon per RN Objective Vitals and Measurements T: 36.7 C (Oral) TMIN: 36.7 C (Oral) TMAX: 37 C (Oral) HR: 88(Monitored) RR: 16 BP: 103/57 BP: 136/48(Line) SpO2: 92% Intake and Output 7AM Yesterday to 7AM Today Intake and Output (Last 24 hours) Intake Oral Intake 830.00 Output Chest Tube Output: 190.00 Urine Voided 500.00 Urinary Catheter Output: 325.00 Stool Count 1.00 Emesis Count 0.00 Total Summary Total Intake 830.00 Total Output 1015.00 Fluid Balance -185.00 Physical Exam Alert, lying in bed, uncomfortable but in no acute distress Respirations even and unlabored, on O2 via nasal cannula Answers questions appropriately. Mood and affect normal. Weight Dosing Weight: 78.2 kg (04/27/22) Dosing Weight: 77.4 kg (04/20/22) Medications Medications (36) Active Scheduled: (14) aspirin 81 mg EC 81 mg 1 tab(s), Oral, qDayM atorvastatin 40 mg tablet 40 mg 1 tab(s), Oral, qDay docusate calcium 240 mg Capsule 240 mg 1 cap(s), Oral, BID enoxaparin 40 mg/ 0.4mL syringe 40 mg 0.4 mL, Subcutaneous, qDay furosemide 20 mg/2 mL vial 20 mg 2 mL, IV Push, Once guaifenesin 600 mg ER 600 mg 1 tab(s), Oral, BID insulin lispro 100 units/mL Soln (3 mL) Give 0-10 units/dose, Subcutaneous, achs2 ipratropium 0.02% (0.5mg/2.5mL) UD 0.5 mg 2.5 mL, Inhalation, QIDRT isosorbide mononitrate 30 mg ER tablet 30 mg 1 tab(s), Oral, qDayAC metoprolol tartrate 25 mg tablet 25 mg 1 tab(s), Oral, BIDM multivitamin (Chromagen Forte) with iron Vitamin B Complex with C, Folic Acid and Iron tablet 1 tab(s), Oral, qDay mupirocin 2% Ointment 22 Gram(s) tube 1 margo, Nostril, each, q12h No metformin for 48 hrs post contrast 1 EA, Miscellaneous, Unscheduled pantoprazole 40 mg EC tablet 40 mg 1 tab(s), Oral, qDayAC Continuous: (3) insulin regular 100 unit(s) + NS Premix Diluent 100 mL 100 mL, Intravenous nitroglycerin 50 mg [5 mcg/min] + sodium chloride QUE 250 mL 250 mL, Intravenous, 1.5 mL/hr NS (0.9% nacl) 1,000 mL 1,000 mL, Intravenous, 20 mL/hr PRN: (19) acetaminophen 325 mg Tablet 650 mg 2 tab(s), Oral, q4h Al hydrox/Mg hydrox/simethicone 200-200-20 mg/5 mL Susp UD 30 mL, Oral, q2h bisacodyl 10 mg Suppository 10 mg 1 supp, Rectal, qDay bismuth subsalicylate 262 mg/15 mL 240 mL 30 mL, Oral, AsDirected dextrose 50% Solution Disp syringe 50 mL 25 g 50 mL, IV Push, AsDirected dextrose 50% Solution Disp syringe 50 mL 12.5 g 25 mL, IV Push, AsDirected glucagon recombinant 1 mg 1 mg 1 mL, Intramuscular, AsDirected insulin regular human recombinant 100 units/mL (3 mL) Soln 10 unit(s) 0.1 mL, IV Push, q1h magnesium hydroxide 8% Suspension 30 mL UD 30 mL, Oral, qDay melatonin 3 mg tablet 3 mg 1 tab(s), Oral, qHS morphine 2 mg/mL 1 mL syringe 2 mg 1 mL, IV Push, q3h morphine 2 mg/mL 1 mL syringe 5 mg 2.5 mL, IV Push, q3h ondansetron 2 mg/ 1 mL 2 mL INJ 4 mg 2 mL, IV Push, q4h oxycodone 5 mg tablet (immediate release) 5 mg 1 tab(s), Oral, q4h oxycodone 5 mg tablet (immediate release) 10 mg 2 tab(s), Oral, q4h phenol topical 1.4% Spr 1 spray(s), Topical, q1h polyethylene glycol 3350 - UD packet 17 gram(s) 15 mL, Oral, qDay potassium chloride (PMX) 20 mEq 50 mL, IV Piggyback, AsDirected potassium chloride (PMX) 15 mEq 50 mL, IV Piggyback, AsDirected Lab Results 04/28 04:35 WBC: 10.1 Hgb: 9.9 L Hct: 28.6 L Platelet: 134 L Neutrophil %: 74.2 Glucose Level: 167 H Sodium Level: 137 Potassium Level: 4.6 BUN: 9.0 Creatinine Lvl (s): 0.49 L 04/27 17:40 Potassium Level: 3.8 04/27 10:19 Potassium Level: 4.2 04/27 03:34 WBC: 7.6 Hgb: 9.6 L Hct: 27.9 L Platelet: 124 L Neutrophil %: 86.1 H Glucose Level: 123 H Sodium Level: 140 Potassium Level: 4.0 BUN: 10.0 Creatinine Lvl (s): 0.49 L 04/27 02:36 Potassium Level: 4.1 04/26 22:22 Potassium Level: 4.1 Group Detail Date Value w/Units Flags Normal Range Normal Reference Text Comment Ind Glucose Testing Glucose Level 04/28/2022 04:35:00 EDT 167 mg/dL HI 82-115 Glucose Testing Blood Glucose, Capillary 04/28/2022 01:21:00 EDT 145 mg/dL HI 82-115 Glucose Testing Blood Glucose, Capillary 04/27/2022 21:06:00 EDT 187 mg/dL HI 82-115 Y Glucose Testing Blood Glucose, Capillary 04/27/2022 16:02:00 EDT 157 mg/dL HI 82-115 Y Glucose Testing Blood Glucose, Capillary 04/27/2022 14:00:00 EDT 98 mg/dL 82-115 Glucose Testing Blood Glucose, Capillary 04/27/2022 12:04:00 EDT 94 mg/dL 82-115 Glucose Testing Blood Glucose, Capillary 04/27/2022 10:22:00 EDT 105 mg/dL 82-115 EKG Electrocardiogram - Ordered -- 04/30/22 6:00:00 EDT, On the 4th post op day Assessment/Plan 1. NSTEMI (non-ST elevated myocardial infarction)/CAD EF 40-45% S/P CABG x3 04/26/2022 2. Aortic valve stenosis mild-mod 3. Acute blood loss anemia 4. Ischemic cardiomyopathy 5. Hyperlipidemia 6. Hypertension 7. Diabetes HgbA1C 6.7 8. Tobacco use Orders: glucagon, Start: 04/27/22 14:26:00 EDT, Dose = 1 mg, = 1 mL, Intramuscular, AsDirected, PRN, Hypoglycemia, 04/27/22 14:26:00 EDT glucose, Start: 04/27/22 14:26:00 EDT, Dose = 12.5 g, = 25 mL, IV Push, AsDirected, PRN, Low blood sugar, 04/27/22 14:26:00 EDT insulin lispro (HumaLOG), Start: 04/27/22 17:00:00 EDT, Give 0-10 units/dose, Subcutaneous, achs2, 04/27/22 14:26:00 EDT Blood Glucose Monitoring POC Communication Order (scheduled) Consult to Diabetes Education This is a 72-year-old female with a history of mild aortic stenosis, diabetes, hypertension, hyperlipidemia and tobacco abuse. She presented with progressive left axillary pain with radiation to her scapula with activity. Abnormal stress test. Troponin level elevated. Echocardiogram showed an EF of40 to 45% with diastolic dysfunction, mild to moderate AAS with a mean systolic gradient of 9 mmHg and an aortic valve area of 1.2 cm and mild MR. She was transferred to [facility] for further management. Troponin level peaked at 188.3. Heart catheterization showed an EF of 35 to 40%, left main disease 70%, LAD stenosis 99% and RCA stenosis 95%. Surgery completed on 04/26/2022 coronary artery bypass graft x3 with TYLER to the LAD and saphenous vein graft to obtuse marginal branch of the circumflex and distal RCA per Dr. Leone. She tolerated the procedure well was transferred to [facility] SICU in stable condition. She required insulin for diabetic management. On nitroglycerin for blood pressure control. Endocrinology consulted for her diabetic management. Type II diabetic with A1c of 6.7%. Appears to be PCP manage. On home regimen of metformin 1 g twicedaily. A1c is at goal for her age. Will need further discussions on outpatient trends, diabetic complications and diet when clinical status is improved She does have documented history of hyperlipidemia, on simvastatin outpatient. Lipid panel here this admission shows total cholesterol 188 triglycerides 138, HDL 39 and LDL 121 which is above goal. Statin therapy to be reintroduced and optimized per the primary service when clinically appropriate. TSH within limits 1.017. Her BMI is 26. Overweight. Will need further discussion on lifestyle when her clinical status allows. ADA clear liquid diet in place for now but she will be transitioned to ADA per RN; order placed. Last 24 hours Transition off insulin drip with one-time dose of Lantus 25 units. 0-[address] withmeals, bedtime and at 2 AM. Glucose per BMP this morning is 167. GFR greater than 60. Discussed with the patient we will plan for reintroduction of her home metformin this evening. We will adjust sliding scale to achs administration. Discussed plan of care with Dr. Reynoso and she is agreeable. Will continue to follow while inpatient. Time Spent Total time spent 25 minutes; greater than 50% spent in counseling and coordination of care. Digitally Signed by TALA TREVIÑO on 04/28/2022 02:46 PM [id number] Note ORIGINAL EXAMINATION: ONE XRAY VIEW OF THE CHEST TECHNIQUE: AP upright COMPARISON: Chest 04/27/2022 HISTORY: ORDERING SYSTEM PROVIDED HISTORY: Reason for Exam: pleural effusion FINDINGS: Support devices: A left subclavian central venous catheter overlies the mid superior vena cava. Interval removal of an endotracheal tube, enteric tube, right IJ Dunnigan-Ventura catheter and mediastinal drains. Cardiomediastinal: The heart is stable in size and configuration. Status post median sternotomy and CABG. Lungs: Persistent dense opacification of the right lung base. Interval increased small left-sided pleural effusion and left lower lobe atelectasis. Left infrahilar discoid atelectasis. No overt susana pulmonary edema. Pneumothorax: None. Osseous: No acute osseous pathology. IMPRESSION: Persistent dense opacification of the right lung base with interval increased small left-sided pleural effusion and atelectasis. Interpreted by: Alvarez Carson MD Preliminary Report By: Alvarez Carson MD Electronically signed By Alvarez Carson MD Dictated Date: 04/28/2022 9:23:30 AM Prelim Date: 04/28/2022 9:25:46 AM Sign Date: 04/28/2022 9:25:46 AM Ordering Provider: [facility]IDAThe [id number] Endocrinology Consult note Date of Service 04/27/22 Reason for Consultation DM2 Referring Physician Tiffany Zepeda APRN History of Present Illness This is a 72-year-old female with a history of mild aortic stenosis, diabetes, hypertension, hyperlipidemia and tobacco abuse. She presented with progressive left axillary pain with radiation to her scapula with activity. Abnormal stress test. Troponin level elevated. Echocardiogram showed an EF of40 to 45% with diastolic dysfunction, mild to moderate AAS with a mean systolic gradient of 9 mmHg and an aortic valve area of 1.2 cm and mild MR. She was transferred to [facility] for further management. Troponin level peaked at 188.3. Heart catheterization showed an EF of 35 to 40%, left main disease 70%, LAD stenosis 99% and RCA stenosis 95%. Surgery completed on 04/26/2022 coronary artery bypass graft x3 with TYLER to the LAD and saphenous vein graft to obtuse marginal branch of the circumflex and distal RCA per Dr. Leone. She tolerated the procedure well was transferred to [facility] SICU in stable condition. She required insulin for diabetic management. On nitroglycerin for blood pressure control. Endocrinology consulted for her diabetic management. Blood sugar trends, labs, chart reviewed. Patient is off sedation but remains intubated at this time. History collection is limited due to the same. She is able to nod to questions asked. Confirms home use of metformin 1 g twice daily at home. Was taking this inconsistently. A1c was reviewed with her, 6.7%. Per records diabetic for at least a few years as she has had quite a few A1c's drawn which actually have been higher in the past. She does confirm that her mom was diagnosed with diabetes as well. There is no personal or family history of thyroid dysfunction. I cannot differentiate how often she was testing her sugars or obviouslyif her trends still low will need follow-up for further discussion on the same when she is extubated. Her TSH preop was within normal limits at 1.017. A1c of 6.7% is at goal for her age. Reviewed plan of care of metformin reintroduction when her clinical status allows. Review of Systems Unable to obtain Physical Exam Vitals and Measurements T: 36.9 C (Intravascular) TMIN: 33.06 C TMAX: 38.69 C HR: 95(Monitored) RR: 23(Total) BP: 128/57 BP: 169/69(Line) SpO2: 99% WT: 78.2 kg Weight Dosing Weight: 78.2 kg (04/27/22) Dosing Weight: 77.4 kg (04/20/22) Constitutional: Alert and appropriate. Remains intubated. No acute distress. HEENT: Normocephalic. Atraumatic. Endo: No goiter. Lungs: ET->vent. Respirations are unlabored. Cardio: Sinus 90s. Abdomen: Soft, non-distended. Chest tube noted. Carrillo noted. OG in place Neurological: Follows commands. No gross motor deficits. Nods appropriately to questions asked. Skin: Warm and dry. No diaphoresis, cyanosis or rashes. Psychiatric: Mood and affect are appropriate. Alert & oriented x3. Lab Results 04/27 03:34 WBC: 7.6 Hgb: 9.6 L Hct: 27.9 L Platelet: 124 L Neutrophil %: 86.1 H Glucose Level: 123 H Sodium Level: 140 Potassium Level: 4.0 BUN: 10.0 Creatinine Lvl (s): 0.49 L 04/27 02:36 Potassium Level: 4.1 04/26 22:22 Potassium Level: 4.1 04/26 20:31 Potassium Level: 3.7 04/26 18:41 WBC: 8.2 Hgb: 9.8 L Hct: 28.2 L Platelet: 114 L Neutrophil %: 79.0 H Protime: 13.8 PT International Ratio: 1.2 Glucose Level: 159 H Sodium Level: 141 Potassium Level: 4.1 BUN: 7.0 L Creatinine Lvl (s): 0.55 04/26 04:11 Glucose Level: 149 H Sodium Level: 142 Potassium Level: 4.2 BUN: 8.0 Creatinine Lvl (s): 0.61 Group Detail Date Value w/Units Flags Normal Range Normal Reference Text Comment Ind Glucose Testing Blood Glucose, Capillary 04/27/2022 08:53:00 EDT 112 mg/dL 82-115 Glucose Testing Blood Glucose, Capillary 04/27/2022 06:31:00 EDT 140 mg/dL HI 82-115 Glucose Testing Glucose Level 04/27/2022 03:34:00 EDT 123 mg/dL HI 82-115 Glucose Testing Blood Glucose, Capillary 04/27/2022 02:49:00 EDT 129 mg/dL HI 82-115 Glucose Testing Blood Glucose, Capillary 04/27/2022 01:33:00 EDT 144 mg/dL HI 82-115 Glucose Testing Blood Glucose, Capillary 04/26/2022 23:30:00 EDT 138 mg/dL HI 82-115 Glucose Testing Blood Glucose, Capillary 04/26/2022 22:23:00 EDT 135 mg/dL HI 82-115 Glucose Testing Blood Glucose, Capillary 04/26/2022 21:29:00 EDT 146 mg/dL HI 82-115 Glucose Testing Blood Glucose, Capillary 04/26/2022 20:22:00 EDT 167 mg/dL HI 82-115 Glucose Testing Blood Glucose, Capillary 04/26/2022 19:10:00 EDT 159 mg/dL HI 82-115 Glucose Testing Glucose Level 04/26/2022 18:41:00 EDT 159 mg/dL HI 82-115 Glucose Testing Blood Glucose, Capillary 04/26/2022 11:43:00 EDT 124 mg/dL HI 82-115 Assessment/Plan 1. NSTEMI (non-ST elevated myocardial infarction)/CAD EF 40-45% S/P CABG x3 04/26/2022 2. Aortic valve stenosis mild-mod 3. Acute blood loss anemia 4. Ischemic cardiomyopathy 5. Hyperlipidemia 6. Hypertension 7. Diabetes HgbA1C 6.7 8. Tobacco use Orders: ADA Clear Liquid Diet This is a 72-year-old female with a history of mild aortic stenosis, diabetes, hypertension, hyperlipidemia and tobacco abuse. She presented with progressive left axillary pain with radiation to her scapula with activity. Abnormal stress test. Troponin level elevated. Echocardiogram showed an EF of40 to 45% with diastolic dysfunction, mild to moderate AAS with a mean systolic gradient of 9 mmHg and an aortic valve area of 1.2 cm and mild MR. She was transferred to [facility] for further management. Troponin level peaked at 188.3. Heart catheterization showed an EF of 35 to 40%, left main disease 70%, LAD stenosis 99% and RCA stenosis 95%. Surgery completed on 04/26/2022 coronary artery bypass graft x3 with TYLER to the LAD and saphenous vein graft to obtuse marginal branch of the circumflex and distal RCA per Dr. Leone. She tolerated the procedure well was transferred to [facility] S[facility] in stable condition. She required insulin for diabetic management. On nitroglycerin for blood pressure control. Endocrinology consulted for her diabetic management. Type II diabetic with A1c of 6.7%. Appears to be PCP manage. On home regimen of metformin 1 g twicedaily. A1c is at goal for her age. Will need further discussions on outpatient trends, diabetic complications and diet when she is extubated. She does have documented history of hyperlipidemia, on simvastatin outpatient. Lipid panel here this admission shows total cholesterol 188 triglycerides 138, HDL 39 and LDL 121 which is above goal. Statin therapy to be reintroduced and optimized per the primary service when clinically appropriate. TSH within limits 1.017. Her BMI is 26. Overweight. Will need further discussion on lifestyle when her clinical status allows. She did have a clear liquid diet in place which is changed to ADA clear for when she is extubatedand passes her swallow eval. Remains n.p.o. obviously for now Glucose trends reviewed, fairly stable at 3 units/h overnight. Discussed with bedside RN, will planto transition off insulin drip. Would benefit from air traffic control specialist center and critical care educator evaluation. Appreciate their input. --> Discussed with bedside RN this afternoon, extubated and doing well. They are planning to initiate clear liquid diet. After careful consideration of clinical status, oral intake, w/ thorough MAR review for vasopressor and steroid use as well as current insulin gtt patterns/needs calculations indicate need to transition off insulin drip with SSI alone. Orders for Humalog 0-10 achs2 added. Follow trends w/ the same. Will review in evening rounds w/ Dr. Reynoso Thank you for this consult, we will continue to follow while inpatient. Problem List/Past Medical History Ongoing Abnormal chest CT Aortic stenosis Axillary lump Axillary pain BMI 27.0-27.9,adult BMI 28.0-28.9,adult Chest pain Exercise counseling Follow-up exam, 3-6 months since previous exam Healthcare maintenance Hyperlipidemia Lymphadenopathy Muscle pain Needs smoking cessation education New onset type 2 diabetes mellitus Pain in axilla Preop testing Preoperative clearance Pulmonary nodule Shoulder pain Tracheal nodule Vitamin D deficiency Historical No qualifying data Procedure/Surgical History CABG x 3 - Coronary artery bypass grafts x 3: 04/26/22 LASIK Hysterectomy Medications Inpatient albumin human 5% intravenous solution, 12.5 gram(s)= 250 mL, IV Piggyback (MED), AsDirected, PRN aspirin 81 mg oral delayed release tablet, 81 mg= 1 tab(s), Oral, qDayM ceFAZolin, 2 gram(s)= 20 mL, IV Push (INT), q8hr Dexmedetomidine for IV 400 mcg [0.2 mcg/kg/hr] + sodium chloride 0.9% IV solution (T) 96 mL Dextrose 5% with 0.45% NaCl intravenous solution 1,000 mL, 1000 mL, Intravenous epinephrine for IV 4 mg [2 mcg/min] + sodium chloride 0.9% IV solution (T) 250 mL fentaNYL, 25 mcg= 0.5 mL, IV Push, q15min, PRN glucose, 25 gram(s)= 50 mL, IV Push, AsDirected, PRN Insulin Regular for IV 100 unit(s) + NS Premix Diluent 100 mL insulin regular human recombinant 100 units/mL injectable solution, 10 unit(s)= 0.1 mL, IV Push, q1h, PRN magnesium sulfate, 4 gram(s)= 50 mL, IV Piggyback, AsDirected, PRN mupirocin 2% topical ointment, 1 margo, Nostril, each, q12h Nitroglycerin 100 mcg/mL injection, 100 mcg= 1 mL, IV Push, AsDirected, PRN nitroGLYcerin for IV 50 mg [5 mcg/min] + Dextrose Premix titrate 250 mL nitroGLYcerin for IV 50 mg [5 mcg/min] + sodium chloride 0.9% IV solution (T) 250 mL nitroprusside for IV 50 mg [0.2 mcg/kg/min] + NS PMX titrate 100 mL nitroprusside for IV 50 mg [0.2 mcg/kg/min] + sodium chloride 0.9% IV solution (T) 100 mL NO METFORMIN (Glucophage) X 48hrs-patient has received contrast, 1 EA, Miscellaneous, Unscheduled Norepinephrine for IV 8 mg [2 mcg/min] + NS PMX titrate 250 mL ocular lubricant ophthalmic oint, 1 margo, Eyes, both, q8h ocular lubricant ophthalmic oint, 1 margo, Eyes, both, AsDirected, PRN ocular lubricant ophthalmic soln, 1 drop(s), Eyes, both, q8h ocular lubricant ophthalmic soln, 1 drop(s), Eyes, both, AsDirected, PRN ondansetron, 4 mg= 2 mL, IV Push, q4h, PRN pantoprazole IV Push, 40 mg, IV Push, qDayAC Peridex 0.12% oral rinse liquid, 15 mL, Swish & Spit, QID Plavix, 75 mg= 1 tab(s), Oral, qDay potassium chloride bolus, 20 mEq= 50 mL, IV Piggyback, AsDirected, PRN potassium chloride bolus, 15 mEq= 50 mL, IV Piggyback, AsDirected, PRN potassium chloride bolus, 10 mEq= 50 mL, IV Piggyback, AsDirected, PRN Propofol for IV 1,000 mg [40 mcg/kg/min] + IV Premix Diluent titrate 100 mL protamine, 50 mg= 5 mL, IV Push, Once, PRN Sodium Chloride 0.9% intravenous solution 1,000 mL, 1000 mL, Intravenous Sodium Chloride 0.9% intravenous solution 500 mL, 500 mL, Intravenous Sodium Phosphate for IVPB Bolus Home Advil 200 mg oral tablet, 200 mg= 1 tab(s), Oral, q6hr, PRN aspirin 81 mg oral delayed release tablet, 81 mg= 1 tab(s), Oral, Daily cholecalciferol 1250 mcg (50,000 intl units) oral capsule, 1250 mcg= 1 cap(s), Oral, Tuesday cyclobenzaprine 10 mg oral tablet, 10 mg= 1 tab(s), Oral, TID, PRN diclofenac 1% topical gel, 4 gram(s), Topical, QID, PRN, 3 refills metFORMIN 500 mg oral tablet (IR), 1000 mg= 2 tab(s), Oral, BID, 3 refills nitroglycerin 0.4 mg sublingual tablet, 0.4 mg= 1 tab(s), Sublingual, q5min, PRN simvastatin 40 mg oral tablet, 40 mg= 1 tab(s), Oral, qHS, 3 refills Allergies No Known Medication Allergies Social History Alcohol Use: Never., 04/20/2022 Use: OCCASIONAL., 02/26/2022 Employment/School Status: Retired., 04/18/2020 Home/Environment Living situation: Home/Independent. Lives In: Single level home. Current Home Treatments Blood Glucose monitoring., 04/19/2022 Marital Status: Unmarried., 12/31/2019 Nutrition/Health Caffeine intake amount: 5 SERVINGS OF COFFEE DAILY., 12/31/2019 Substance Abuse Use: Never., 12/31/2019 Tobacco Nicotine Use: Smoker, current status unknown, 1/2 pack every 2 days. Type: Cigarettes. Number of years: 40. Started at age: 24 Years. Ready to change: Yes., 02/26/2022 Immunizations SARS-CoV-2 mRNA (tozinameran) vaccine: 0.5 unknown unit (11/20/20) SARS-CoV-2 mRNA (tozinameran) vaccine: 0.5 unknown unit (10/31/20) Digitally Signed by TALA TREVIÑO on 04/27/2022 02:28 PM [id number] Endocrinology Consult note Date of Service 04/27/22 Reason for Consultation DM2 Referring Physician Tiffany Zepeda APRN History of Present Illness This is a 72-year-old female with a history of mild aortic stenosis, diabetes, hypertension, hyperlipidemia and tobacco abuse. She presented with progressive left axillary pain with radiation to her scapula with activity. Abnormal stress test. Troponin level elevated. Echocardiogram showed an EF of40 to 45% with diastolic dysfunction, mild to moderate AAS with a mean systolic gradient of 9 mmHg and an aortic valve area of 1.2 cm and mild MR. She was transferred to [facility] for further management. Troponin level peaked at 188.3. Heart catheterization showed an EF of 35 to 40%, left main disease 70%, LAD stenosis 99% and RCA stenosis 95%. Surgery completed on 04/26/2022 coronary artery bypass graft x3 with TYLER to the LAD and saphenous vein graft to obtuse marginal branch of the circumflex and distal RCA per Dr. Leone. She tolerated the procedure well was transferred to [facility] SICU in stable condition. She required insulin for diabetic management. On nitroglycerin for blood pressure control. Endocrinology consulted for her diabetic management. Blood sugar trends, labs, chart reviewed. Patient is off sedation but remains intubated at this time. History collection is limited due to the same. She is able to nod to questions asked. Confirms home use of metformin 1 g twice daily at home. Was taking this inconsistently. A1c was reviewed with her, 6.7%. Per records diabetic for at least a few years as she has had quite a few A1c's drawn which actually have been higher in the past. She does confirm that her mom was diagnosed with diabetes as well. There is no personal or family history of thyroid dysfunction. I cannot differentiate how often she was testing her sugars or obviouslyif her trends still low will need follow-up for further discussion on the same when she is extubated. Her TSH preop was within normal limits at 1.017. A1c of 6.7% is at goal for her age. Reviewed plan of care of metformin reintroduction when her clinical status allows. Review of Systems Unable to obtain Physical Exam Vitals and Measurements T: 36.9 C (Intravascular) TMIN: 33.06 C TMAX: 38.69 C HR: 95(Monitored) RR: 23(Total) BP: 128/57 BP: 169/69(Line) SpO2: 99% WT: 78.2 kg Weight Dosing Weight: 78.2 kg (04/27/22) Dosing Weight: 77.4 kg (04/20/22) Constitutional: Alert and appropriate. Remains intubated. No acute distress. HEENT: Normocephalic. Atraumatic. Endo: No goiter. Lungs: ET->vent. Respirations are unlabored. Cardio: Sinus 90s. Abdomen: Soft, non-distended. Chest tube noted. Carrillo noted. OG in place Neurological: Follows commands. No gross motor deficits. Nods appropriately to questions asked. Skin: Warm and dry. No diaphoresis, cyanosis or rashes. Psychiatric: Mood and affect are appropriate. Alert & oriented x3. Lab Results 04/27 03:34 WBC: 7.6 Hgb: 9.6 L Hct: 27.9 L Platelet: 124 L Neutrophil %: 86.1 H Glucose Level: 123 H Sodium Level: 140 Potassium Level: 4.0 BUN: 10.0 Creatinine Lvl (s): 0.49 L 04/27 02:36 Potassium Level: 4.1 04/26 22:22 Potassium Level: 4.1 04/26 20:31 Potassium Level: 3.7 04/26 18:41 WBC: 8.2 Hgb: 9.8 L Hct: 28.2 L Platelet: 114 L Neutrophil %: 79.0 H Protime: 13.8 PT International Ratio: 1.2 Glucose Level: 159 H Sodium Level: 141 Potassium Level: 4.1 BUN: 7.0 L Creatinine Lvl (s): 0.55 04/26 04:11 Glucose Level: 149 H Sodium Level: 142 Potassium Level: 4.2 BUN: 8.0 Creatinine Lvl (s): 0.61 Group Detail Date Value w/Units Flags Normal Range Normal Reference Text Comment Ind Glucose Testing Blood Glucose, Capillary 04/27/2022 08:53:00 EDT 112 mg/dL 82-115 Glucose Testing Blood Glucose, Capillary 04/27/2022 06:31:00 EDT 140 mg/dL HI 82-115 Glucose Testing Glucose Level 04/27/2022 03:34:00 EDT 123 mg/dL HI 82-115 Glucose Testing Blood Glucose, Capillary 04/27/2022 02:49:00 EDT 129 mg/dL HI 82-115 Glucose Testing Blood Glucose, Capillary 04/27/2022 01:33:00 EDT 144 mg/dL HI 82-115 Glucose Testing Blood Glucose, Capillary 04/26/2022 23:30:00 EDT 138 mg/dL HI 82-115 Glucose Testing Blood Glucose, Capillary 04/26/2022 22:23:00 EDT 135 mg/dL HI 82-115 Glucose Testing Blood Glucose, Capillary 04/26/2022 21:29:00 EDT 146 mg/dL HI 82-115 Glucose Testing Blood Glucose, Capillary 04/26/2022 20:22:00 EDT 167 mg/dL HI 82-115 Glucose Testing Blood Glucose, Capillary 04/26/2022 19:10:00 EDT 159 mg/dL HI 82-115 Glucose Testing Glucose Level 04/26/2022 18:41:00 EDT 159 mg/dL HI 82-115 Glucose Testing Blood Glucose, Capillary 04/26/2022 11:43:00 EDT 124 mg/dL HI 82-115 Assessment/Plan 1. NSTEMI (non-ST elevated myocardial infarction)/CAD EF 40-45% S/P CABG x3 04/26/2022 2. Aortic valve stenosis mild-mod 3. Acute blood loss anemia 4. Ischemic cardiomyopathy 5. Hyperlipidemia 6. Hypertension 7. Diabetes HgbA1C 6.7 8. Tobacco use Orders: ADA Clear Liquid Diet This is a 72-year-old female with a history of mild aortic stenosis, diabetes, hypertension, hyperlipidemia and tobacco abuse. She presented with progressive left axillary pain with radiation to her scapula with activity. Abnormal stress test. Troponin level elevated. Echocardiogram showed an EF of40 to 45% with diastolic dysfunction, mild to moderate AAS with a mean systolic gradient of 9 mmHg and an aortic valve area of 1.2 cm and mild MR. She was transferred to [facility] for further management. Troponin level peaked at 188.3. Heart catheterization showed an EF of 35 to 40%, left main disease 70%, LAD stenosis 99% and RCA stenosis 95%. Surgery completed on 04/26/2022 coronary artery bypass graft x3 with TYLER to the LAD and saphenous vein graft to obtuse marginal branch of the circumflex and distal RCA per Dr. Leone. She tolerated the procedure well was transferred to [facility] SICU in stable condition. She required insulin for diabetic management. On nitroglycerin for blood pressure control. Endocrinology consulted for her diabetic management. Type II diabetic with A1c of 6.7%. Appears to be PCP manage. On home regimen of metformin 1 g twicedaily. A1c is at goal for her age. Will need further discussions on outpatient trends, diabetic complications and diet when she is extubated. She does have documented history of hyperlipidemia, on simvastatin outpatient. Lipid panel here this admission shows total cholesterol 188 triglycerides 138, HDL 39 and LDL 121 which is above goal. Statin therapy to be reintroduced and optimized per the primary service when clinically appropriate. TSH within limits 1.017. Her BMI is 26. Overweight. Will need further discussion on lifestyle when her clinical status allows. She did have a clear liquid diet in place which is changed to ADA clear for when she is extubatedand passes her swallow eval. Remains n.p.o. obviously for now Glucose trends reviewed, fairly stable at 3 units/h overnight. Discussed with bedside RN, will planto transition off insulin drip. Would benefit from air traffic control specialist center and critical care educator evaluation. Appreciate their input. --> Discussed with bedside RN this afternoon, extubated and doing well. They are planning to initiate clear liquid diet. After careful consideration of clinical status, oral intake, w/ thorough MAR review for vasopressor and steroid use as well as current insulin gtt patterns/needs calculations indicate need to transition off insulin drip with SSI alone. Orders for Humalog 0-10 achs2 added. Follow trends w/ the same. Will review in evening rounds w/ Dr. Reynoso Thank you for this consult, we will continue to follow while inpatient. Problem List/Past Medical History Ongoing Abnormal chest CT Aortic stenosis Axillary lump Axillary pain BMI 27.0-27.9,adult BMI 28.0-28.9,adult Chest pain Exercise counseling Follow-up exam, 3-6 months since previous exam Healthcare maintenance Hyperlipidemia Lymphadenopathy Muscle pain Needs smoking cessation education New onset type 2 diabetes mellitus Pain in axilla Preop testing Preoperative clearance Pulmonary nodule Shoulder pain Tracheal nodule Vitamin D deficiency Historical No qualifying data Procedure/Surgical History CABG x 3 - Coronary artery bypass grafts x 3: 04/26/22 LASIK Hysterectomy Medications Inpatient albumin human 5% intravenous solution, 12.5 gram(s)= 250 mL, IV Piggyback (MED), AsDirected, PRN aspirin 81 mg oral delayed release tablet, 81 mg= 1 tab(s), Oral, qDayM ceFAZolin, 2 gram(s)= 20 mL, IV Push (INT), q8hr Dexmedetomidine for IV 400 mcg [0.2 mcg/kg/hr] + sodium chloride 0.9% IV solution (T) 96 mL Dextrose 5% with 0.45% NaCl intravenous solution 1,000 mL, 1000 mL, Intravenous epinephrine for IV 4 mg [2 mcg/min] + sodium chloride 0.9% IV solution (T) 250 mL fentaNYL, 25 mcg= 0.5 mL, IV Push, q15min, PRN glucose, 25 gram(s)= 50 mL, IV Push, AsDirected, PRN Insulin Regular for IV 100 unit(s) + NS Premix Diluent 100 mL insulin regular human recombinant 100 units/mL injectable solution, 10 unit(s)= 0.1 mL, IV Push, q1h, PRN magnesium sulfate, 4 gram(s)= 50 mL, IV Piggyback, AsDirected, PRN mupirocin 2% topical ointment, 1 margo, Nostril, each, q12h Nitroglycerin 100 mcg/mL injection, 100 mcg= 1 mL, IV Push, AsDirected, PRN nitroGLYcerin for IV 50 mg [5 mcg/min] + Dextrose Premix titrate 250 mL nitroGLYcerin for IV 50 mg [5 mcg/min] + sodium chloride 0.9% IV solution (T) 250 mL nitroprusside for IV 50 mg [0.2 mcg/kg/min] + NS PMX titrate 100 mL nitroprusside for IV 50 mg [0.2 mcg/kg/min] + sodium chloride 0.9% IV solution (T) 100 mL NO METFORMIN (Glucophage) X 48hrs-patient has received contrast, 1 EA, Miscellaneous, Unscheduled Norepinephrine for IV 8 mg [2 mcg/min] + NS PMX titrate 250 mL ocular lubricant ophthalmic oint, 1 margo, Eyes, both, q8h ocular lubricant ophthalmic oint, 1 margo, Eyes, both, AsDirected, PRN ocular lubricant ophthalmic soln, 1 drop(s), Eyes, both, q8h ocular lubricant ophthalmic soln, 1 drop(s), Eyes, both, AsDirected, PRN ondansetron, 4 mg= 2 mL, IV Push, q4h, PRN pantoprazole IV Push, 40 mg, IV Push, qDayAC Peridex 0.12% oral rinse liquid, 15 mL, Swish & Spit, QID Plavix, 75 mg= 1 tab(s), Oral, qDay potassium chloride bolus, 20 mEq= 50 mL, IV Piggyback, AsDirected, PRN potassium chloride bolus, 15 mEq= 50 mL, IV Piggyback, AsDirected, PRN potassium chloride bolus, 10 mEq= 50 mL, IV Piggyback, AsDirected, PRN Propofol for IV 1,000 mg [40 mcg/kg/min] + IV Premix Diluent titrate 100 mL protamine, 50 mg= 5 mL, IV Push, Once, PRN Sodium Chloride 0.9% intravenous solution 1,000 mL, 1000 mL, Intravenous Sodium Chloride 0.9% intravenous solution 500 mL, 500 mL, Intravenous Sodium Phosphate for IVPB Bolus Home Advil 200 mg oral tablet, 200 mg= 1 tab(s), Oral, q6hr, PRN aspirin 81 mg oral delayed release tablet, 81 mg= 1 tab(s), Oral, Daily cholecalciferol 1250 mcg (50,000 intl units) oral capsule, 1250 mcg= 1 cap(s), Oral, Tuesday cyclobenzaprine 10 mg oral tablet, 10 mg= 1 tab(s), Oral, TID, PRN diclofenac 1% topical gel, 4 gram(s), Topical, QID, PRN, 3 refills metFORMIN 500 mg oral tablet (IR), 1000 mg= 2 tab(s), Oral, BID, 3 refills nitroglycerin 0.4 mg sublingual tablet, 0.4 mg= 1 tab(s), Sublingual, q5min, PRN simvastatin 40 mg oral tablet, 40 mg= 1 tab(s), Oral, qHS, 3 refills Allergies No Known Medication Allergies Social History Alcohol Use: Never., 04/20/2022 Use: OCCASIONAL., 02/26/2022 Employment/School Status: Retired., 04/18/2020 Home/Environment Living situation: Home/Independent. Lives In: Single level home. Current Home Treatments Blood Glucose monitoring., 04/19/2022 Marital Status: Unmarried., 12/31/2019 Nutrition/Health Caffeine intake amount: 5 SERVINGS OF COFFEE DAILY., 12/31/2019 Substance Abuse Use: Never., 12/31/2019 Tobacco Nicotine Use: Smoker, current status unknown, 1/2 pack every 2 days. Type: Cigarettes. Number of years: 40. Started at age: 24 Years. Ready to change: Yes., 02/26/2022 Immunizations SARS-CoV-2 mRNA (tozinameran) vaccine: 0.5 unknown unit (11/20/20) SARS-CoV-2 mRNA (tozinameran) vaccine: 0.5 unknown unit (10/31/20) Digitally Signed by TALA TREVIÑO on 04/27/2022 02:28 PM [id number] Note Date of Service 04/27/2022 POD #1 Chief Complaint This is a 72-year-old female with a history of mild aortic stenosis, diabetes, hypertension, hyperlipidemia and tobacco abuse. She presented with progressive left axillary pain with radiation to her scapula with activity. Abnormal stress test. Troponin level elevated. Echocardiogram showed an EF of40 to 45% with diastolic dysfunction, mild to moderate AAS with a mean systolic gradient of 9 mmHg and an aortic valve area of 1.2 cm and mild MR. She was transferred to [facility]. Troponin level peaked at 188.3. Heart catheterization showed an EF of 35 to 40%, left main disease 70%, LAD stenosis 99% and RCA stenosis 95%. Surgery completed on 04/26/2022 coronary artery bypass graft x3 with TYLER to the LAD and saphenous vein graft to obtuse marginal branch of the circumflex and distal RCA per Dr. Leone. She tolerated the procedure well was transferred to SICU in stable condition. She required insulin for diabetic management. On nitroglycerin for blood pressure control. POD #1 remains intubated. Suctioning large amounts of thick sputum per ET tube. Remains on nitroglycerin. Lopressor 5 mg IV x1 given. Plan metoprolol tartrate and Imdur once extubated. Consult [facility] inpatient end[facility] for diabetic management. Subjective Denies pain Objective Vitals and Measurements T: 36.9 C (Intravascular) TMIN: 33.06 C TMAX: 38.69 C HR: 88(Monitored) RR: 23(Total) BP: 128/57 BP: 133/53(Line) SpO2: 95% WT: 78.2 kg Intake and Output 7AM Yesterday to 7AM Today Intake and Output (Last 24 hours) Intake Autotransfusion Amt 450.00 CPB (Anes) 1250.00 Administration Information 8.83 Output Chest Tube Output: 224.00 Urine Voided 110.00 Urinary Catheter Output: 780.00 Intra-Op Urine Catheter 450.00 Intra-Op EBL 400.00 Total Summary Total Intake 3768.83 Total Output 1964.00 Fluid Balance 1804.83 Physical Exam Neurological: Alert, appropriate, follows simple commands Lungs: Clear, oral endotube to mechanical ventilator on CPAP with FiO2 40%, SaO2 93%, chest tube drain 20 cc last 8 hours and 184 cc since OR, suctioned large amounts thick sputum per ET tube. Heart: Regular S1-S2, sinus tachycardia rate 110, temporary V wires intact, PA catheter RIJ, CI 3.3, SVO2 71% Incisions: Midsternal and left leg without drainage Abdomen: Soft, hypoactive bowel sounds Extremities: Well-perfused, no edema Continue Central Line: Poor IV access Carrillo cath: Discontinue once extubated Disposition: OT/PT evaluation Weight Dosing Weight: 78.2 kg (04/27/22) Dosing Weight: 77.4 kg (04/20/22) Medications Medications (36) Active Scheduled: (10) aspirin 81 mg EC 81 mg 1 tab(s), Oral, qDayM ceFAZolin syringe 2 gram(s) 20 mL, IV Push (INT), q8hr chlorhexidine topical 0.12% Liquid (60 mL) 15 mL, Swish & Spit, QID clopidogrel 75 mg Tablet 75 mg 1 tab(s), Oral, qDay Misc communication order 1 EA, Miscellaneous, Daily mupirocin 2% Ointment 22 Gram(s) tube 1 margo, Nostril, each, q12h No metformin for 48 hrs post contrast 1 EA, Miscellaneous, Unscheduled ocular lubricant - Ointment 3.5 gram(s) 1 margo, Eyes, both, q8h ocular lubricant preserved Soln 15 mL 1 drop(s), Eyes, both, q8h pantoprazole 40 mg VIAL 40 mg, IV Push, qDayAC Continuous: (12) dexmedetomidine 400 mcg [0.2 mcg/kg/hr] + Sodium Chloride 0.9% 96 mL 96 mL, Intravenous, 3.87 mL/hr Dextrose 5% with 0.45% NACL 1,000 mL 1,000 mL, Intravenous, 20 mL/hr epinephrine 4 mg [2 mcg/min] + Sodium Chloride 0.9% 250 mL 250 mL, Intravenous, 7.5 mL/hr insulin regular 100 unit(s) + NS Premix Diluent 100 mL 100 mL, Intravenous nitroglycerin 50 mg [5 mcg/min] + sodium chloride QUE 250 mL 250 mL, Intravenous, 1.5 mL/hr nitroglycerin 50 mg/250 mL D5W 50 mg [5 mcg/min] + Dextrose 5% Premix Diluent 250 mL 250 mL, Intravenous, 1.5 mL/hr nitroprusside 50 mg [0.2 mcg/kg/min] + NS Premix Diluent 100 mL 100 mL, Intravenous, 1.86 mL/hr nitroprusside 50 mg [0.2 mcg/kg/min] + Sodium Chloride 0.9% 100 mL 100 mL, Intravenous, 1.86 mL/hr norepinephrine 8 mg [2 mcg/min] + NS Premix Diluent 250 mL 250 mL, Intravenous, 3.75 mL/hr NS (0.9% nacl) 1,000 mL 1,000 mL, Intravenous, 20 mL/hr NS (0.9% nacl) 500 mL 500 mL, Intravenous, 20 mL/hr propofol 1,000 mg [40 mcg/kg/min] + IV Premix Diluent 100 mL 100 mL, Intravenous, 18.58 mL/hr PRN: (14) albumin human 5% 12.5 gram(s) 250 mL, IV Piggyback (MED), AsDirected dextrose 50% Solution Disp syringe 50 mL 25 g 50 mL, IV Push, AsDirected fentaNYL 50 mcg/mL (2mL) ampule 25 mcg 0.5 mL, IV Push, q15min insulin regular human recombinant 100 units/mL (3 mL) Soln 10 unit(s) 0.1 mL, IV Push, q1h magnesium sulfate 4g/50mL PMX 4 g 50 mL, IV Piggyback, AsDirected nitroglycerin 100 mcg/1 mL 10 mL VIAL 100 mcg 1 mL, IV Push, AsDirected ocular lubricant - Ointment 3.5 gram(s) 1 margo, Eyes, both, AsDirected ocular lubricant preserved Soln 15 mL 1 drop(s), Eyes, both, AsDirected ondansetron 2 mg/ 1 mL 2 mL INJ 4 mg 2 mL, IV Push, q4h potassium chloride (PMX) 20 mEq 50 mL, IV Piggyback, AsDirected potassium chloride (PMX) 15 mEq 50 mL, IV Piggyback, AsDirected potassium chloride (PMX) 10 mEq 50 mL, IV Piggyback, AsDirected protamine 10 mg/mL (50 mg/5 mL) vial 50 mg 5 mL, IV Push, Once sodium phosphate 30 mmol 10 mL, IV Piggyback, AsDirected Lab Results 04/27 03:34 WBC: 7.6 Hgb: 9.6 L Hct: 27.9 L Platelet: 124 L Neutrophil %: 86.1 H Glucose Level: 123 H Sodium Level: 140 Potassium Level: 4.0 BUN: 10.0 Creatinine Lvl (s): 0.49 L 04/27 02:36 Potassium Level: 4.1 04/26 22:22 Potassium Level: 4.1 04/26 20:31 Potassium Level: 3.7 04/26 18:41 WBC: 8.2 Hgb: 9.8 L Hct: 28.2 L Platelet: 114 L Neutrophil %: 79.0 H Protime: 13.8 PT International Ratio: 1.2 Glucose Level: 159 H Sodium Level: 141 Potassium Level: 4.1 BUN: 7.0 L Creatinine Lvl (s): 0.55 04/26 04:11 Glucose Level: 149 H Sodium Level: 142 Potassium Level: 4.2 BUN: 8.0 Creatinine Lvl (s): 0.61 Imaging Results and Diagnostics XR Chest 1 View Result Date: April 27, 2022 Verified By: HYACINTH TRIANA MD CLINICAL STATEMENT: IMPRESSION: ET tube tip terminates 2.2 cm above the chito. Retraction by 2 cm isrecommended. Smallright pleural effusion not significantly changed from prior study. Improved aeration of lungs. Stable left basilar opacities. I have personally reviewed the images of this examination and agree with theresident's findings and interpretation. XR Chest 1 View Result Date: April 26, 2022 Verified By: RAJ DE MD CLINICAL STATEMENT: IMPRESSION: Endotracheal tube terminating approximately 4.6 cm above the chito.Additional lines and tubes as above. Redemonstration of mildly enlarged cardiomediastinal contour withpneumomediastinum, felt to be postoperative and not significantly changedfrom previous exam given increased rotation on this exam. On the current exam opacity in right lower lung looks to represent rightlower lobe atelectasis. Lucency of the right upper lung may be rotational but some degree ofpneumothorax is not excluded. Recommend repeat radiograph for furtherevaluation. REPORT CORRECTION I have personally reviewed the images of this examination and edited thepreliminary report. EKG EKG - Discontinued -- 04/20/22 18:51:00 EDT Assessment/Plan 1. NSTEMI (non-ST elevated myocardial infarction)/CAD EF 40-45% S/P CABG x3 04/26/2022 Plavix at discharge, ASA, add metoprolol and atorvastatin 2. Aortic valve stenosis mild-mod 3. Acute blood loss anemia Stable, H&H 9.6 and 27.9 4. Ischemic cardiomyopathy EF 40 to 45% 5. Hyperlipidemia Atorvastatin 6. Hypertension Blood pressure 127/56-163/71, Lopressor IV 5 mg x 1, wean nitroglycerin drip, add metoprolol tartrate 25 mg twice daily and Imdur 30 mg daily once extubated 7. Diabetes HgbA1C 6.7 Glucose 124-167, consult [facility] 8. Tobacco use Smoking cessation counseling once extubated Orders: clopidogrel, Start: 04/27/22 9:00:00 EDT, Dose = 75 mg, = 1 tab(s), Oral, qDay, 04/27/22 8:22:00 EDT Consult to [facility] Discontinue Order Telemetry Monitoring - Continue Discussed with Dr. Leone, IV Lopressor x1, add Imdur once extubated Digitally Signed by FRED ZEPEDA on 04/27/2022 08:36 AM [id number] Note ORIGINAL EXAMINATION: ONE XRAY VIEW OF THE CHEST 04/27/2022 7:01 am COMPARISON: 04/26/2022. HISTORY: ORDERING SYSTEM PROVIDED HISTORY: Reason for Exam: abnormal breath sounds FINDINGS: Endotracheal tube tip terminates 2.2 cm above the chito. Right internal jugular swans Ventura catheter is seen with its tip projecting at the level of pulmonary outflow tract. Left subclavian central venous catheter is seen with its tip projecting at the distal superior vena cava. There are median sternotomy wires and clips. Previously seen pneumomediastinum has almost resolved. No pneumothorax. Cardiomediastinal silhouette is normal. Small right pleural effusion is not significantly changed from prior study. Aeration of lungs has improved from prior study. Stable left basilar opacities. No acute osseous or soft tissue findings. IMPRESSION: ET tube tip terminates 2.2 cm above the chito. Retraction by 2 cm is recommended. Small right pleural effusion not significantly changed from prior study. Improved aeration of lungs. Stable left basilar opacities. I have personally reviewed the images of this examination and agree with the resident's findings and interpretation. Interpreted by: Hyacinth Triana MD Preliminary Report By: Wilfredo Beasley Electronically signed By Hyacinth Triana MD Dictated Date: 04/27/2022 7:39:42 AM Prelim Date: 04/27/2022 7:48:50 AM Sign Date: 04/27/2022 8:14:53 AM Ordering Provider: [facility]11-01-2022 Note ORIGINAL EXAMINATION: ONE XRAY VIEW OF THE CHEST 04/27/2022 7:01 am COMPARISON: 04/26/2022. HISTORY: ORDERING SYSTEM PROVIDED HISTORY: Reason for Exam: abnormal breath sounds FINDINGS: Endotracheal tube tip terminates 2.2 cm above the chito. Right internal jugular swans Ventura catheter is seen with its tip projecting at the level of pulmonary outflow tract. Left subclavian central venous catheter is seen with its tip projecting at the distal superior vena cava. There are median sternotomy wires and clips. Previously seen pneumomediastinum has almost resolved. No pneumothorax. Cardiomediastinal silhouette is normal. Small right pleural effusion is not significantly changed from prior study. Aeration of lungs has improved from prior study. Stable left basilar opacities. No acute osseous or soft tissue findings. IMPRESSION: ET tube tip terminates 2.2 cm above the chito. Retraction by 2 cm is recommended. Small right pleural effusion not significantly changed from prior study. Improved aeration of lungs. Stable left basilar opacities. I have personally reviewed the images of this examination and agree with the resident's findings and interpretation. Interpreted by: Hyacinth Triana MD Preliminary Report By: Wilfredo Beasley Electronically signed By Hyacinth Triana MD Dictated Date: 04/27/2022 7:39:42 AM Prelim Date: 04/27/2022 7:48:50 AM Sign Date: 04/27/2022 8:14:53 AM Ordering Provider: [facility]10-31-2022 Note ORIGINAL EXAMINATION: ONE SUPINE XRAY VIEW(S) OF THE [id number]/26/2022 7:04 pm COMPARISON: Chest x-ray same day HISTORY: ORDERING SYSTEM PROVIDED HISTORY: Reason for Exam: OG tube placement FINDINGS: Enteric tube side port seen projecting over the suspected GE junction/proximal stomach. The distal tip seen within the proximal stomach. Nonobstructive bowel gas pattern. Chest x-ray dictated separately, see chest x-ray reports from same day. No acute osseous abnormality. IMPRESSION: Enteric tube side port projecting over the suspected GE junction/proximal stomach with the distal tip seen within the proximal stomach. Consider advancing approximately 4-5 cm. I have personally reviewed the images of this examination and agree with the resident's findings and interpretation. Interpreted by: Raj De Preliminary Report By: Yina Altamirano Electronically signed By Raj De Dictated Date: 04/26/2022 8:36:34 PM Prelim Date: 04/26/2022 8:39:21 PM Sign Date: 04/26/2022 8:53:53 PM Ordering Provider: [facility]10-31-2022 Note ORIGINAL EXAMINATION: ONE XRAY VIEW OF THE CHEST04/26/2022 7:11 pm COMPARISON: Chest x-ray same day at 7:06 p.m. HISTORY: ORDERING SYSTEM PROVIDED HISTORY: Reason for Exam: ET placement FINDINGS: Endotracheal tube terminating approximately 4.6 cm above the chito, previously approximately 5.8 cm above the chito. Enteric tube seen coursing towards the stomach with the distal tip not included in the field of view. Left subclavian central venous catheter and swans Ventura catheter tip in similar position. Mediastinal drain again seen. Patient is status post median sternotomy and appears more rotated on this exam. Enlarged cardiomediastinal contours with pneumomediastinum is again seen, likely secondary to median sternotomy postoperative changes. Volume loss bilaterally with bibasilar atelectasis. The right lung is difficult to evaluate given patient rotation. Small right pleural effusion again suspected. No pneumothorax. No acute osseous abnormality. IMPRESSION: Endotracheal tube terminating approximately 4.6 cm above the chito. Additional lines and tubes as above. Redemonstration of mildly enlarged cardiomediastinal contour with pneumomediastinum, felt to be postoperative and not significantly changed from previous exam given increased rotation on this exam. On the current exam opacity in right lower lung looks to represent right lower lobe atelectasis. Lucency of the right upper lung may be rotational but some degree of pneumothorax is not excluded. Recommend repeat radiograph for further evaluation. REPORT CORRECTION I have personally reviewed the images of this examination and edited the preliminary report. Interpreted by: Raj De Preliminary Report By: Yina Altamirano Electronically signed By Raj De Dictated Date: 04/26/2022 8:26:06 PM Prelim Date: 04/26/2022 8:33:35 PM Sign Date: 04/26/2022 8:52:50 PM Ordering Provider: ESPERANZA LEONE [id number] Note ADDENDUM ADDENDUM: The impression regionally stated suspect small left pleural effusion. Rather suspect small RIGHT pleural effusion. Interpreted by: Raj De Preliminary Report By: Raj De Electronically signed By Raj De Dictated Date: 04/26/2022 8:39:40 PM Prelim Date: 04/26/2022 8:25:55 PM Sign Date: 04/26/2022 8:40:23 PM Ordering Provider: ESPERANZA LEONE ORIGINAL EXAMINATION: ONE XRAY VIEW OF THE CHEST04/26/2022 7:03 pm COMPARISON: Chest x-ray 04/19/2022 HISTORY: ORDERING SYSTEM PROVIDED HISTORY: Reason for Exam: Endotracheal tube placement FINDINGS: Patient is status post median sternotomy with sternotomy wires and mediastinal drain noted. The cardiomediastinal contour appears enlarged with a small amount of pneumomediastinum, felt to represent postoperative changes. Endotracheal tube terminating approximately 5.8 cm above the chito. Enteric tube seen coursing towards the stomach with the distal tip not included in the field of view. Left subclavian central venous catheter tip terminating in the suspected mid SVC. Swans Ventura catheter distal tip projecting over the pulmonary trunk/proximal right pulmonary artery. Suspect small right pleural effusion. Bibasilar airspace disease felt to represent atelectasis. No visualized pneumothorax. No acute osseous abnormality. IMPRESSION: Mild interval enlargement of the cardiomediastinal contour with pneumomediastinum likely secondary to recent surgery and AP technique Endotracheal tube terminating approximately 5.8 cm above the chito. Additional lines and tubes as above. Suspect small left pleural effusion with bibasilar airspace disease thought to be secondary to atelectasis. Findings discussed with Keo Bowens RN at 8:18 p.m. I have personally reviewed the images of this examination and agree with the resident's findings and interpretation. Interpreted by: Raj De Preliminary Report By: Yina Altamirano Electronically signed By Raj De Dictated Date: 04/26/2022 8:12:22 PM Prelim Date: 04/26/2022 8:25:55 PM Sign Date: 04/26/2022 8:32:29 PM Ordering Provider: [facility]10-31-2022 Note ORIGINAL EXAMINATION: ONE XRAY VIEW OF THE CHEST04/26/2022 7:11 pm COMPARISON: Chest x-ray same day at 7:06 p.m. HISTORY: ORDERING SYSTEM PROVIDED HISTORY: Reason for Exam: ET placement FINDINGS: Endotracheal tube terminating approximately 4.6 cm above the chito, previously approximately 5.8 cm above the chito. Enteric tube seen coursing towards the stomach with the distal tip not included in the field of view. Left subclavian central venous catheter and swans Ventura catheter tip in similar position. Mediastinal drain again seen. Patient is status post median sternotomy and appears more rotated on this exam. Enlarged cardiomediastinal contours with pneumomediastinum is again seen, likely secondary to median sternotomy postoperative changes. Volume loss bilaterally with bibasilar atelectasis. The right lung is difficult to evaluate given patient rotation. Small right pleural effusion again suspected. No pneumothorax. No acute osseous abnormality. IMPRESSION: Endotracheal tube terminating approximately 4.6 cm above the chito. Additional lines and tubes as above. Redemonstration of mildly enlarged cardiomediastinal contour with pneumomediastinum, felt to be postoperative and not significantly changed from previous exam given increased rotation on this exam. On the current exam opacity in right lower lung looks to represent right lower lobe atelectasis. Lucency of the right upper lung may be rotational but some degree of pneumothorax is not excluded. Recommend repeat radiograph for further evaluation. REPORT CORRECTION I have personally reviewed the images of this examination and edited the preliminary report. Interpreted by: Raj De Preliminary Report By: Yina Altamirano Electronically signed By Raj De Dictated Date: 04/26/2022 8:26:06 PM Prelim Date: 04/26/2022 8:33:35 PM Sign Date: 04/26/2022 8:52:50 PM Ordering Provider: [facility]10-31-2022 Note ORIGINAL EXAMINATION: ONE SUPINE XRAY VIEW(S) OF THE [id number]/26/2022 7:04 pm COMPARISON: Chest x-ray same day HISTORY: ORDERING SYSTEM PROVIDED HISTORY: Reason for Exam: OG tube placement FINDINGS: Enteric tube side port seen projecting over the suspected GE junction/proximal stomach. The distal tip seen within the proximal stomach. Nonobstructive bowel gas pattern. Chest x-ray dictated separately, see chest x-ray reports from same day. No acute osseous abnormality. IMPRESSION: Enteric tube side port projecting over the suspected GE junction/proximal stomach with the distal tip seen within the proximal stomach. Consider advancing approximately 4-5 cm. I have personally reviewed the images of this examination and agree with the resident's findings and interpretation. Interpreted by: Raj De Preliminary Report By: Yina Altamirano Electronically signed By Raj De Dictated Date: 04/26/2022 8:36:34 PM Prelim Date: 04/26/2022 8:39:21 PM Sign Date: 04/26/2022 8:53:53 PM Ordering Provider: [facility]10-31-2022 Note ADDENDUM ADDENDUM: The impression regionally stated suspect small left pleural effusion. Rather suspect small RIGHT pleural effusion. Interpreted by: Raj De Preliminary Report By: Raj De Electronically signed By Raj De Dictated Date: 04/26/2022 8:39:40 PM Prelim Date: 04/26/2022 8:25:55 PM Sign Date: 04/26/2022 8:40:23 PM Ordering Provider: ESPERANZA LEONE ORIGINAL EXAMINATION: ONE XRAY VIEW OF THE CHEST04/26/2022 7:03 pm COMPARISON: Chest x-ray 04/19/2022 HISTORY: ORDERING SYSTEM PROVIDED HISTORY: Reason for Exam: Endotracheal tube placement FINDINGS: Patient is status post median sternotomy with sternotomy wires and mediastinal drain noted. The cardiomediastinal contour appears enlarged with a small amount of pneumomediastinum, felt to represent postoperative changes. Endotracheal tube terminating approximately 5.8 cm above the chito. Enteric tube seen coursing towards the stomach with the distal tip not included in the field of view. Left subclavian central venous catheter tip terminating in the suspected mid SVC. Swans [place] catheter distal tip projecting over the pulmonary trunk/proximal right pulmonary artery. Suspect small right pleural effusion. Bibasilar airspace disease felt to represent atelectasis. No visualized pneumothorax. No acute osseous abnormality. IMPRESSION: Mild interval enlargement of the cardiomediastinal contour with pneumomediastinum likely secondary to recent surgery and AP technique Endotracheal tube terminating approximately 5.8 cm above the chito. Additional lines and tubes as above. Suspect small left pleural effusion with bibasilar airspace disease thought to be secondary to atelectasis. Findings discussed with Keo Bowens RN at 8:18 p.m. I have personally reviewed the images of this examination and agree with the resident's findings and interpretation. Interpreted by: Raj De Preliminary Report By: Yina Altamirano Electronically signed By Raj De Dictated Date: 04/26/2022 8:12:22 PM Prelim Date: 04/26/2022 8:25:55 PM Sign Date: 04/26/2022 8:32:29 PM Ordering Provider: [facility]10-31-2022 Anesthesiology Consult note Patient: CAITY STRICKLAND Age: 72 years Sex: Female : 1950 Associated Diagnoses: None Author: JUANIS TELLEZ DO Preoperative Information Greater than 6 hours Anesthesia history Patient's history: negative. Family's history: negative. Review of Systems Ear/Nose/Mouth/Throat: Negative except as documented in history of present illness. Respiratory: Negative except as documented in history of present illness, Smoker. Cardiovascular: Negative except as documented in history of present illness, New severe CAD for CABG. Gastrointestinal: Negative except as documented in history of present illness. Genitourinary: Negative except as documented in history of present illness. Endocrine: Negative except as documented in history of present illness. Musculoskeletal: Negative except as documented in history of present illness. Integumentary: Negative except as documented in history of present illness. Neurologic: Negative except as documented in history of present illness. Health Status Allergies: Allergic Reactions (Selected) No Known Medication Allergies Histories Social History Social & Psychosocial Habits Alcohol 02/26/2022 Use: OCCASIONAL Comment: Special Events Only - 02/26/2022 09:44 - Valentine Lopez CMA 04/20/2022 Use: Never Employment/School 04/18/2020 Status: Retired Substance Abuse 12/31/2019 Use: Never Tobacco 02/26/2022 Tobacco Use: 1/2 pack every 2 days, Smoker, current status un Type: Cigarettes Number of years: 40 Started at age: 24 Years Ready to change: Yes Home/Environment 12/31/2019 Marital Status of Patient if Patient Independent Adult: Unmarried Comment: - 12/31/2019 18:40 - Jacklyn Henderson MA 04/19/2022 Living situation: Home/Independent Lives In Single level home Current Home Treatments Blood Glucose monitoring Nutrition/Health 12/31/2019 Caffeine intake amount: 5 SERVINGS OF COFFEE DAILY . Physical Examination General: Alert and oriented. Airway: Normal temporomandibular joint mobility, Normal mouth, Normal throat, Normal neck range of motion, Trachea midline. Mallampati classification: II (soft palate, fauces, uvula visible). Head: Normocephalic. Dentition Evaluation: Dentures, lower, Dentures, upper. Neck: Supple. Respiratory: Lungs are clear to auscultation. Cardiovascular: Normal rate. Heart Sounds: Normal. Gastrointestinal: Soft. Musculoskeletal Normal range of motion. Integumentary: Intact, Warm, Dry, Secretary. Neurologic: Alert, Oriented. Assessment and Plan [place] [employer]esthesi[employer] (ASA) physical status classification: Class IV. Anesthetic Preoperative Plan Premedication: None. Anesthetic technique: General. Induction: intravenously. Maintenance airway: Oral endotracheal tube. Special techniques: Warming device, Extracorporeal. Special Monitoring: Arterial line, Central venous catheter, Pulmonary artery catheter, Continuous transesophageal echocardiogram. Postoperative pain management: Per surgeon. Risks discussed: nausea, vomiting, headache, sore throat, dental injury, hypotension, allergic reaction, serious complications. Informed consent: signed by patient. Beta Darrin: Beta Darrin Taken Within 24 Hrs: Yes. Digitally Signed by JUANIS TELLEZ DO on 04/26/2022 01:04 PM [id number] Cardiology Progress note Date of Service 04/25/2022 Chief Complaint Chest pain Subjective No significant overnight events. Patient denies any chest pain this morning. Objective Vitals and Measurements T: 36.6 C (Oral) TMIN: 36.4 C (Oral) TMAX: 36.6 C (Oral) HR: 76(Monitored) RR: 18 BP: 139/74 SpO2: 96% Intake and Output 7AM Yesterday to 7AM Today Intake and Output (Last 24 hours) Intake Oral Intake 1554.00 Administration Information 222.96 Output Urine Voided 2050.00 Stool Count 1.00 Total Summary Total Intake 1776.96 Total Output 2049. Fluid Balance -273.04 Physical Exam General Appearance: in no acute distress. Alert. EENT: No thyroid disease. ocular movements intact Cardiac: RRR. S1 and S2. Systolic murmur noted Lungs: Clear breath sounds. No wheeze or crackles noted. Abdomen: soft. non tender. bowel sounds audible Musculoskeletal: strength and sensation intact Neurological: alert and oriented. Skin: warm. dry 12 point ROS reviewed and negative unless stated above. Weight Dosing Weight: 77.4 kg (04/20/22) Medications Medications (15) Active Scheduled: (9) aspirin 81 mg Chewable 81 mg 1 tab(s), Oral, qDayM atorvastatin 40 mg tablet 40 mg 1 tab(s), Oral, qDay insulin lispro 100 units/mL Soln (3 mL) Give 0-5 units/dose, Subcutaneous, TIDAC metoprolol succinate 25 mg ER tablet 12.5 mg 0.5 tab(s), Oral, qDay miconazole topical 2% Powder 1 margo, Topical, BID mupirocin 2% Ointment 22 Gram(s) tube 1 margo, Nostril, each, BID No metformin for 48 hrs post contrast 1 EA, Miscellaneous, Unscheduled No prasugrel (Effient) 7 days before surgery 1 EA, Miscellaneous, Daily NO vitamin E, clopidogrel (Plavix) 5 days before surgery 1 EA, Miscellaneous, Daily Continuous: (1) heparin 25,000 unit(s) [12 unit(s)/kg/hr] + Dextrose 5% Premix Diluent 250 mL 250 mL, Intravenous, 9.29 mL/hr PRN: (5) acetaminophen 325 mg Tablet 650 mg 2 tab(s), Oral, q4h albuterol - ipratropium 2.5 mg-0.5 mg/3 mL Inhal Sujatha UD 3 mL, Inhalation, q4hRT heparin 5,000 units/mL (1 mL) vial 4,000 unit(s) 0.8 mL, IV Push, q6h melatonin 3 mg tablet 3 mg 1 tab(s), Oral, qHS nitroglycerin 0.4 mg Tablet (25/btl) 0.4 mg 1 tab(s), Sublingual, q5min Lab Results 04/25 06:11 WBC: 5.3 Hgb: 12.7 Hct: 37.3 Platelet: 154 Neutrophil %: 55.6 Glucose Level: 130 H Sodium Level: 140 Potassium Level: 4.2 BUN: 9.0 Creatinine Lvl (s): 0.55 04/24 04:24 WBC: 5.8 Hgb: 13.0 Hct: 38.5 Platelet: 166 Neutrophil %: 54.2 EKG No qualifying data available. Assessment/Plan Non-ST elevation VT, multivessel CAD Moderate aortic stenosis Tobacco use Hypertension Hyperlipidemia Type 2 diabetes Diastolic heart failure this 72-year-old female was admitted to the hospital due to chest pain. Left heart catheterization shows multivessel CAD involving left main LAD and RCA. CT surgery is following and patient is scheduled for CABG reportedly on Tuesday. In the meantime continue aspirin statin and IV heparin. Echocardiogram shows EF 40 to 45%. Patient has previously been unable to tolerate beta-blockers due to bradycardia. Continue home medications for chronic medical issues Digitally Signed by LOU KUMAR MD on 04/25/2022 10:21 AM [id number] Cardiology Progress note Date of Service 04/25/2022 Chief Complaint Chest pain Subjective No significant overnight events. Patient denies any chest pain this morning. Objective Vitals and Measurements T: 36.6 C (Oral) TMIN: 36.4 C (Oral) TMAX: 36.6 C (Oral) HR: 76(Monitored) RR: 18 BP: 139/74 SpO2: 96% Intake and Output 7AM Yesterday to 7AM Today Intake and Output (Last 24 hours) Intake Oral Intake 1554.00 Administration Information 222.96 Output Urine Voided 0.00 Stool Count 1.00 Total Summary Total Intake 1776.96 Total Output 2049.00 Fluid Balance -273.04 Physical Exam General Appearance: in no acute distress. Alert. EENT: No thyroid disease. ocular movements intact Cardiac: RRR. S1 and S2. Systolic murmur noted Lungs: Clear breath sounds. No wheeze or crackles noted. Abdomen: soft. non tender. bowel sounds audible Musculoskeletal: strength and sensation intact Neurological: alert and oriented. Skin: warm. dry 12 point ROS reviewed and negative unless stated above. Weight Dosing Weight: 77.4 kg (04/20/22) Medications Medications (15) Active Scheduled: (9) aspirin 81 mg Chewable 81 mg 1 tab(s), Oral, qDayM atorvastatin 40 mg tablet 40 mg 1 tab(s), Oral, qDay insulin lispro 100 units/mL Soln (3 mL) Give 0-5 units/dose, Subcutaneous, TIDAC metoprolol succinate 25 mg ER tablet 12.5 mg 0.5 tab(s), Oral, qDay miconazole topical 2% Powder 1 margo, Topical, BID mupirocin 2% Ointment 22 Gram(s) tube 1 margo, Nostril, each, BID No metformin for 48 hrs post contrast 1 EA, Miscellaneous, Unscheduled No prasugrel (Effient) 7 days before surgery 1 EA, Miscellaneous, Daily NO vitamin E, clopidogrel (Plavix) 5 days before surgery 1 EA, Miscellaneous, Daily Continuous: (1) heparin 25,000 unit(s) [12 unit(s)/kg/hr] + Dextrose 5% Premix Diluent 250 mL 250 mL, Intravenous, 9.29 mL/hr PRN: (5) acetaminophen 325 mg Tablet 650 mg 2 tab(s), Oral, q4h albuterol - ipratropium 2.5 mg-0.5 mg/3 mL Inhal Sujatha UD 3 mL, Inhalation, q4hRT heparin 5,000 units/mL (1 mL) vial 4,000 unit(s) 0.8 mL, IV Push, q6h melatonin 3 mg tablet 3 mg 1 tab(s), Oral, qHS nitroglycerin 0.4 mg Tablet (25/btl) 0.4 mg 1 tab(s), Sublingual, q5min Lab Results 04/25 06:11 WBC: 5.3 Hgb: 12.7 Hct: 37.3 Platelet: 154 Neutrophil %: 55.6 Glucose Level: 130 H Sodium Level: 140 Potassium Level: 4.2 BUN: 9.0 Creatinine Lvl (s): 0.55 04/24 04:24 WBC: 5.8 Hgb: 13.0 Hct: 38.5 Platelet: 166 Neutrophil %: 54.2 EKG No qualifying data available. Assessment/Plan Non-ST elevation VT, multivessel CAD Moderate aortic stenosis Tobacco use Hypertension Hyperlipidemia Type 2 diabetes Diastolic heart failure this 72-year-old female was admitted to the hospital due to chest pain. Left heart catheterization shows multivessel CAD involving left main LAD and RCA. CT surgery is following and patient is scheduled for CABG reportedly on Tuesday. In the meantime continue aspirin statin and IV heparin. Echocardiogram shows EF 40 to 45%. Patient has previously been unable to tolerate beta-blockers due to bradycardia. Continue home medications for chronic medical issues Digitally Signed by LOU KUMAR MD on 04/25/2022 10:21 AM [id number] Cardiology Progress note Date of Service 04/24/2022 Chief Complaint Chest pain Subjective No overnight events. Patient currently denies any chest pain palpitations or shortness of breath. In sinus rhythm on monitor. Objective Vitals and Measurements T: 36.5 C (Oral) TMIN: 36.3 C (Oral) TMAX: 36.6 C (Oral) HR: 71(Monitored) RR: 16 BP: 120/60 SpO2: 95% Intake and Output 7AM Yesterday to 7AM Today Intake and Output (Last 24 hours) Intake Oral Intake 690.00 Output Urine Voided 1000.00 Total Summary Total Intake 690.00 Total Output 1000.00 Fluid Balance -310.00 Physical Exam General Appearance: in no acute distress. Alert. EENT: No thyroid disease. ocular movements intact Cardiac: RRR. S1 and S2. Systolic murmur noted Lungs: Clear breath sounds. No wheeze or crackles noted. Abdomen: soft. non tender. bowel sounds audible Musculoskeletal: [strength and sensation intact Neurological: alert and oriented. Skin: warm. dry 12 point ROS reviewed and negative unless stated above. Weight Dosing Weight: 77.4 kg (04/20/22) Medications Medications (14) Active Scheduled: (8) aspirin 81 mg Chewable 81 mg 1 tab(s), Oral, qDayM atorvastatin 40 mg tablet 40 mg 1 tab(s), Oral, qDay insulin lispro 100 units/mL Soln (3 mL) Give 0-5 units/dose, Subcutaneous, TIDAC miconazole topical 2% Powder 1 margo, Topical, BID mupirocin 2% Ointment 22 Gram(s) tube 1 margo, Nostril, each, BID No metformin for 48 hrs post contrast 1 EA, Miscellaneous, Unscheduled No prasugrel (Effient) 7 days before surgery 1 EA, Miscellaneous, Daily NO vitamin E, clopidogrel (Plavix) 5 days before surgery 1 EA, Miscellaneous, Daily Continuous: (1) heparin 25,000 unit(s) [12 unit(s)/kg/hr] + Dextrose 5% Premix Diluent 250 mL 250 mL, Intravenous, 9.29 mL/hr PRN: (5) acetaminophen 325 mg Tablet 650 mg 2 tab(s), Oral, q4h albuterol - ipratropium 2.5 mg-0.5 mg/3 mL Inhal Sujatha UD 3 mL, Inhalation, q4hRT heparin 5,000 units/mL (1 mL) vial 4,000 unit(s) 0.8 mL, IV Push, q6h melatonin 3 mg tablet 3 mg 1 tab(s), Oral, qHS nitroglycerin 0.4 mg Tablet (25/btl) 0.4 mg 1 tab(s), Sublingual, q5min Lab Results 04/24 04:24 WBC: 5.8 Hgb: 13.0 Hct: 38.5 Platelet: 166 Neutrophil %: 54.2 04/23 04:55 WBC: 5.9 Hgb: 13.2 Hct: 38.3 Platelet: 168 Neutrophil %: 49.6 L EKG No qualifying data available. Assessment/Plan Non-ST elevation VT, multivessel CAD Moderate aortic stenosis Tobacco use Hypertension Hyperlipidemia Type 2 diabetes Diastolic heart failure this 72-year-old female was admitted to the hospital due to chest pain. Left heart catheterization shows multivessel CAD involving left main LAD and RCA. CT surgery is following and patient is scheduled for CABG reportedly on Tuesday. In the meantime continue aspirin statin and IV heparin. Echocardiogram shows EF 40 to 45%. Patient has previously been unable to tolerate beta-blockers due to bradycardia. Continue home medications for chronic medical issues Digitally Signed by LOU KUMAR MD on 04/24/2022 12:25 PM [id number] Cardiology Progress note Date of Service 04/24/2022 Chief Complaint Chest pain Subjective No overnight events. Patient currently denies any chest pain palpitations or shortness of breath. In sinus rhythm on monitor. Objective Vitals and Measurements T: 36.5 C (Oral) TMIN: 36.3 C (Oral) TMAX: 36.6 C (Oral) HR: 71(Monitored) RR: 16 BP: 120/60 SpO2: 95% Intake and Output 7AM Yesterday to 7AM Today Intake and Output (Last 24 hours) Intake Oral Intake 690.00 Output Urine Voided 1000.00 Total Summary Total Intake 690.00 Total Output 1000.00 Fluid Balance -310.00 Physical Exam General Appearance: in no acute distress. Alert. EENT: No thyroid disease. ocular movements intact Cardiac: RRR. S1 and S2. Systolic murmur noted Lungs: Clear breath sounds. No wheeze or crackles noted. Abdomen: soft. non tender. bowel sounds audible Musculoskeletal: [strength and sensation intact Neurological: alert and oriented. Skin: warm. dry 12 point ROS reviewed and negative unless stated above. Weight Dosing Weight: 77.4 kg (04/20/22) Medications Medications (14) Active Scheduled: (8) aspirin 81 mg Chewable 81 mg 1 tab(s), Oral, qDayM atorvastatin 40 mg tablet 40 mg 1 tab(s), Oral, qDay insulin lispro 100 units/mL Soln (3 mL) Give 0-5 units/dose, Subcutaneous, TIDAC miconazole topical 2% Powder 1 margo, Topical, BID mupirocin 2% Ointment 22 Gram(s) tube 1 margo, Nostril, each, BID No metformin for 48 hrs post contrast 1 EA, Miscellaneous, Unscheduled No prasugrel (Effient) 7 days before surgery 1 EA, Miscellaneous, Daily NO vitamin E, clopidogrel (Plavix) 5 days before surgery 1 EA, Miscellaneous, Daily Continuous: (1) heparin 25,000 unit(s) [12 unit(s)/kg/hr] + Dextrose 5% Premix Diluent 250 mL 250 mL, Intravenous, 9.29 mL/hr PRN: (5) acetaminophen 325 mg Tablet 650 mg 2 tab(s), Oral, q4h albuterol - ipratropium 2.5 mg-0.5 mg/3 mL Inhal Sujatha UD 3 mL, Inhalation, q4hRT heparin 5,000 units/mL (1 mL) vial 4,000 unit(s) 0.8 mL, IV Push, q6h melatonin 3 mg tablet 3 mg 1 tab(s), Oral, qHS nitroglycerin 0.4 mg Tablet (25/btl) 0.4 mg 1 tab(s), Sublingual, q5min Lab Results 04/24 04:24 WBC: 5.8 Hgb: 13.0 Hct: 38.5 Platelet: 166 Neutrophil %: 54.2 04/23 04:55 WBC: 5.9 Hgb: 13.2 Hct: 38.3 Platelet: 168 Neutrophil %: 49.6 L EKG No qualifying data available. Assessment/Plan Non-ST elevation VT, multivessel CAD Moderate aortic stenosis Tobacco use Hypertension Hyperlipidemia Type 2 diabetes Diastolic heart failure this 72-year-old female was admitted to the hospital due to chest pain. Left heart catheterization shows multivessel CAD involving left main LAD and RCA. CT surgery is following and patient is scheduled for CABG reportedly on Tuesday. In the meantime continue aspirin statin and IV heparin. Echocardiogram shows EF 40 to 45%. Patient has previously been unable to tolerate beta-blockers due to bradycardia. Continue home medications for chronic medical issues Digitally Signed by LOU KUMAR MD on 04/24/2022 12:25 PM [id number] Note ORIGINAL EXAMINATION: CTA OF THE NECK 04/23/2022 5:30 pm TECHNIQUE: CTA of the neck was performed with the administration of intravenous contrast. Multiplanar reformatted images are provided for review. MIP images are provided for review. Stenosis of the internal carotid arteries measured using NASCET criteria. Automated exposure control, iterative reconstruction, and/or weight based adjustment of the mA/kV was utilized to reduce the radiation dose to as low as reasonably achievable. COMPARISON: CTA chest 10/08/2021. No prior ultrasound imaging is available. HISTORY: ORDERING SYSTEM PROVIDED HISTORY: Reason for Exam: addressing subclavian stenosis Patient with Left Subclavian stenosis on ultrasound/please address FINDINGS: AORTIC ARCH/ARCH VESSELS: No dissection or arterial injury. No significant stenosis of the brachiocephalic or right subclavian artery. There is mixed calcific and noncalcific atherosclerotic disease at the takeoff of the left subclavian artery which causes at least 50% stenosis. The dense calcification limits accurate assessment of lumen diameter at its origin. The remaining visualized left subclavian artery is widely patent. No evidence of thrombus. CAROTID ARTERIES: No dissection, arterial injury, or hemodynamically significant stenosis by NASCET criteria. VERTEBRAL ARTERIES: No dissection or arterial injury. No significant stenosis in the right vertebral artery. There is prominent calcific atherosclerotic disease at the takeoff of the left vertebral artery from the subclavian which causes significant stenosis and resultant diminutive left vertebral artery. SOFT TISSUES: Scattered pleural and parenchymal scarring noted. The lung apices are clear. Right paratracheal lymph node is borderline at 10 mm, likely reactive. The larynx and pharynx are unremarkable. The patient is edentulous. No acute abnormality of the salivary and thyroid glands. BONES: Degenerative changes of visualized spine. No acute osseous abnormality. IMPRESSION: Mixed calcific and noncalcific atherosclerotic disease at the takeoff of the left subclavian arteries causing at least 50% stenosis. The left subclavian artery remains patent without evidence of thrombus. Significant stenosis of the left vertebral artery at the takeoff. Resultant diminutive left vertebral artery. I have personally reviewed the images of this examination, and agree with the resident's findings and interpretation. Interpreted by: Wilfredo Machado MD Preliminary Report By: Moiz Valenzuela Electronically signed By Wilfredo Machado MD Dictated Date: 04/24/2022 12:11:40 AM Prelim Date: 04/24/2022 12:34:22 AM Sign Date: 04/24/2022 12:55:17 AM Ordering Provider: [facility]10-28-2022 Cardiology Progress note Date of Service 04/23/22 Chief Complaint Chest pain Subjective Patient seen and examined this AM. Patient denies any acute chest pain overnight. Patient states her surgery is tentatively planned for 04/26. Patient denies any other active issues or complaints. Objective Vitals and Measurements T: 36.8 C (Oral) TMIN: 36.6 C (Oral) TMAX: 36.9 C (Oral) HR: 71(Monitored) RR: 18 BP: 143/55 SpO2: 93% Intake and Output 7AM Yesterday to 7AM Today Intake and Output (Last 24 hours) Intake Oral Intake 480.00 Output Urine Voided 200.00 Urine Count 1.00 Total Summary Total Intake 480.00 Total Output 200.00 Physical Exam General Appearance: Elderly female, pleasant, no acute distress Head: NCAT Cardiac: RRR. No M/G/R Lungs: CTAB Abdomen: NT, ND. BS + Extremities: DP intact. No LE edema Skin: No rashes or lesions Psychiatric: A&O X3. Answers questions appropriately Weight Dosing Weight: 77.4 kg (10/25/22) Medications Medications (14) Active Scheduled: (8) aspirin 81 mg Chewable 81 mg 1 tab(s), Oral, qDayM atorvastatin 40 mg tablet 40 mg 1 tab(s), Oral, qDay insulin lispro 100 units/mL Soln (3 mL) Give 0-5 units/dose, Subcutaneous, TIDAC miconazole topical 2% Powder 1 margo, Topical, BID mupirocin 2% Ointment 22 Gram(s) tube 1 margo, Nostril, each, BID No metformin for 48 hrs post contrast 1 EA, Miscellaneous, Unscheduled No prasugrel (Effient) 7 days before surgery 1 EA, Miscellaneous, Daily NO vitamin E, clopidogrel (Plavix) 5 days before surgery 1 EA, Miscellaneous, Daily Continuous: (1) heparin 25,000 unit(s) [12 unit(s)/kg/hr] + Dextrose 5% Premix Diluent 250 mL 250 mL, Intravenous, 9.29 mL/hr PRN: (5) acetaminophen 325 mg Tablet 650 mg 2 tab(s), Oral, q4h albuterol - ipratropium 2.5 mg-0.5 mg/3 mL Inhal Sujatha UD 3 mL, Inhalation, q4hRT heparin 5,000 units/mL (1 mL) vial 4,000 unit(s) 0.8 mL, IV Push, q6h melatonin 3 mg tablet 3 mg 1 tab(s), Oral, qHS nitroglycerin 0.4 mg Tablet (25/btl) 0.4 mg 1 tab(s), Sublingual, q5min Lab Results 04/23 04:55 WBC: 5.9 Hgb: 13.2 Hct: 38.3 Platelet: 168 Neutrophil %: 49.6 L 04/22 05:21 WBC: 5.7 Hgb: 13.3 Hct: 39.2 Platelet: 176 Neutrophil %: 52.9 Imaging Results and Diagnostics No new results or diagnostics EKG No qualifying data available. Assessment/Plan #Type I NSTEMI #Multivessel CAD #Moderate aortic stenosis #HFpEF #Tobacco abuse disorder #Hypertension #Hyperlipidemia #Type 2 diabetes Patient is 72-year-old female with a past medical history of HFpEF, hypertension, hyperlipidemia, tobacco abuse disorder, type 2 diabetes presenting to the hospital for chest pain. Patient with left heart catheterization that was concerning for multivessel CAD involving left main, LAD, RCA. CT surgery was consulted for CABG evaluation. Patient is currently undergoing a CABG evaluation. Patient has moderate aortic stenosis seen on echocardiogram. We will continue aspirin 81 mg daily, atorvastatin 40 mg daily, heparin drip. Patient unable to tolerate beta-darrin due to bradycardia. We will defer to CT surgery regarding remainder of work-up. Surgery is tentatively planned for 04/26. For remainder of chronic medical conditions, continue patient's home medications. Case discussed with attending. See attending addendum for additional details. Digitally Signed by LASHONDA AGUILERA DO on 04/23/2022 12:21 PM [id number] Note ORIGINAL EXAMINATION: CTA OF THE NECK 04/23/2022 5:30 pm TECHNIQUE: CTA of the neck was performed with the administration of intravenous contrast. Multiplanar reformatted images are provided for review. MIP images are provided for review. Stenosis of the internal carotid arteries measured using NASCET criteria. Automated exposure control, iterative reconstruction, and/or weight based adjustment of the mA/kV was utilized to reduce the radiation dose to as low as reasonably achievable. COMPARISON: CTA chest 10/08/2021. No prior ultrasound imaging is available. HISTORY: ORDERING SYSTEM PROVIDED HISTORY: Reason for Exam: addressing subclavian stenosis Patient with Left Subclavian stenosis on ultrasound/please address FINDINGS: AORTIC ARCH/ARCH VESSELS: No dissection or arterial injury. No significant stenosis of the brachiocephalic or right subclavian artery. There is mixed calcific and noncalcific atherosclerotic disease at the takeoff of the left subclavian artery which causes at least 50% stenosis. The dense calcification limits accurate assessment of lumen diameter at its origin. The remaining visualized left subclavian artery is widely patent. No evidence of thrombus. CAROTID ARTERIES: No dissection, arterial injury, or hemodynamically significant stenosis by NASCET criteria. VERTEBRAL ARTERIES: No dissection or arterial injury. No significant stenosis in the right vertebral artery. There is prominent calcific atherosclerotic disease at the takeoff of the left vertebral artery from the subclavian which causes significant stenosis and resultant diminutive left vertebral artery. SOFT TISSUES: Scattered pleural and parenchymal scarring noted. The lung apices are clear. Right paratracheal lymph node is borderline at 10 mm, likely reactive. The larynx and pharynx are unremarkable. The patient is edentulous. No acute abnormality of the salivary and thyroid glands. BONES: Degenerative changes of visualized spine. No acute osseous abnormality. IMPRESSION: Mixed calcific and noncalcific atherosclerotic disease at the takeoff of the left subclavian arteries causing at least 50% stenosis. The left subclavian artery remains patent without evidence of thrombus. Significant stenosis of the left vertebral artery at the takeoff. Resultant diminutive left vertebral artery. I have personally reviewed the images of this examination, and agree with the resident's findings and interpretation. Interpreted by: Wilfredo Machado MD Preliminary Report By: Moiz Valenzuela Electronically signed By Wilfredo Machado MD Dictated Date: 04/24/2022 12:11:40 AM Prelim Date: 04/24/2022 12:34:22 AM Sign Date: 04/24/2022 12:55:17 AM Ordering Provider: [facility]10-28-2022 Cardiothoracic surgery Consult note Date of Service 04/21/2022 Reason for Consultation CAD Referring Physician Dr. Decker History of Present Illness This is a 72-year-old female with a history of mild aortic stenosis, diabetes, hypertension, hyperlipidemia and tobacco use. She presented with progressive left axillary pain with radiation to her scapula with activity. She endorses 6 similar pains with less intensity. She denies chest pain, shortness of breath, syncope, PND orthopnea. Pain relieves with rest. Stress test at [facility] abnormal. Troponin level elevated. Echocardiogram completed showing an EF of 40-45% with diastolic dysfunction, mild to moderate with a mean systolic gradient of 9 mmHg and an aortic valve area 1.2 cmand mild MR. [facility]red to [facility] for [facility] management. Troponin level peaked at 188.3. Heart catheterization completed showing EF 35 to 40%, left main disease 70%, LAD stenosis 99% and RCA stenosis 95%. We are being asked to evaluate her for surgical myocardial revascularization. No herbal medications STS risk assessment:Risk of Mortality: 1.632%, Renal Failure: 0.745%, Permanent Stroke: 1.733%, Prolonged Ventilation: 7.477%, DSW Infection: 0.129%, Reoperation: 1.892%, Morbidity or Mortality: 10.343%, Short Length of Stay: 42.127%, Long Length of Stay: 3.765% Review of Systems Constitutional: Denies fatigue, fever, chills, weight loss or weight gain HEENT: Upper and lower dentures, denies headache or blurred vision Respiratory: Denies shortness of breath, cough or wheeze CV: See HPI Vascular: Denies claudication or DVT GI: Denies nausea, vomiting, constipation or diarrhea : Denies dysuria, hematuria or incontinence Neuro: Denies weakness, seizures, numbness or tingling Endo: Denies cold or heat intolerance Heme/oncology: Denies bleeding or anemia Muscle/skeletal: Denies arthralgia or myalgia Psych: Denies anxiety, depression or suicidal ideation Physical Exam Vitals and Measurements T: 36.7 C (Oral) HR: 63 HR: 63(Apical) HR: 63(Monitored) RR: 18 BP: 159/62 SpO2: 95% HT: 170.2 cm WT: 77.4 kg BMI: 26.72 Weight Dosing Weight: 77.4 kg (04/20/22) Mentation: Alert and orient x3, appropriate HEENT: Atraumatic, normocephalic, PE RRL A, no carotid bruits, hearing intact Heart: Regular S1-S2, positive systolic murmur Lungs: Clear Abdomen: Soft, positive bowel sounds, nontender Extremities: DP, PT and femoral pulses palp bilaterally, no edema Neuro: Cranial nerves II through XII intact, equal strength bilaterally Skin: Mild excoriation underneath bilateral breasts Lab Results 04/21 05:22 WBC: 6.1 Hgb: 13.4 Hct: 39.4 Platelet: 188 Neutrophil %: 50.1 Glucose Level: 108 Sodium Level: 142 Potassium Level: 4.1 BUN: 7.0 L Creatinine Lvl (s): 0.53 04/20 20:35 Protime: 11.5 PT International Ratio: 1.0 Glucose Level: 221 H Sodium Level: 137 Potassium Level: 3.6 BUN: 7.0 L Creatinine Lvl (s): 0.53 Imaging Results and Diagnostics Patient: CAITY STRICKLAND Study date: 04/21/2022 Height: 170.2 cm (67 in) (MRN) date: 1950 Weight: 77.4 kg Age: 72 year(s) (170.6 lb) Patient location: [place] [address] gender: Female BSA: 1.93 m Study status: BMI: 26.7 kg/m Facility: [facility] Patient Inpatient status: Responsible physician: ARMANDO PARK MD Fellow 1: OLIVIA DECKER MD Procedures performed: Left coronary angiography. Right coronary angiography. Left ventriculography. Left heart catheterization. SUMMARY: 1. Left ventricle: Systolic function is moderately reduced. The estimated ejection fraction is 35-40%. Hypokinesis of the anterolateral and apical septal myocardium. 2. Left main: Ostial lesion: There is a 70% stenosis. 3. LAD: Ostial lesion: There is a 99% stenosis. 4. Right coronary: Proximal vessel lesion: There is a 95% stenosis. IMPRESSIONS: 1. The study demonstrates severe coronary artery disease. 2. patient with severe multivessel disease to include ostial left main and moderately impaired leftventricular function feel cabg best exterminator termite option discussed with dr moura from labor mediator will get ct surgery consult and await their opinion. no complications. [1] History: Mitral regurgitation. Billing diagnosis codes: CHEST PAIN. Summary: 1. Left ventricle: The cavity size is normal. Wall thickness is mildly increased. Systolic functionis mildly to moderately reduced. The estimated ejection fraction is 40-45%. Hypokinesis of the apical anteroseptal, anterior, and anterolateral myocardium. Grade I diastolic dysfunction. 2. Ventricular septum: Thickness is mildly increased. 3. Aortic valve: There is mild to moderate stenosis. The peak systolic velocity is 2 m/sec. The mean systolic gradient is 9 mm Hg. The valve area by VTI is 1.2 cm . 4. Mitral valve: There is mild regurgitation. 5. Right atrium: The estimated right atrial pressure is 3 mm Hg. Study data: Patient unit: NADEEN. Patient room number: 0232. Transthoracic echocardiography. M-mode, complete 2D, complete spectral Doppler, and color Doppler. Study status: Routine. Patient status: Inpatient. Objective: Chest pain. Location: Bedside. Procedure room # 232. Procedure: Transthoracic echocardiography was performed. Image quality was fair. Intravenous contrast (Definity) was administered to opacify the LV. Left ventricle: The cavity size is normal. Wall thickness is mildly increased. Systolic function ismildly to moderately reduced. The estimated ejection fraction is 40-45%. The wall mass is 188 g. The wall mass index is 98 g/m . Regional wall motion: Hypokinesis of the apical anteroseptal, anterior, and anterolateral myocardium. Grade I diastolic dysfunction. Ventricular septum: Thickness is mildly increased. Left atrium: The atrium is normal in size. The volume index by biplane method is 22 ml/m . Right ventricle: The cavity size is normal. Systolic function is normal. Right atrium: The atrium is normal in size. Mitral valve: The pressure half-time is 106 ms. The peak E/A ratio is 0.83. The valve area (LVOT continuity) is 1.7 cm . Doppler: There is no evidence for stenosis. There is mild regurgitation. The mean diastolic gradient is 2 mm Hg. The valve area by pressure half-time is 2.1 cm . Aortic valve: The valve is probably trileaflet. The leaflets are moderately thickened and mildly calcified. The peak systolic velocity is 2 m/sec. The systolic velocity-time integral is 47.3 cm. The mean systolic gradient is 9 mm Hg. The LVOT to aortic valve VTI ratio is 0.38. The valve area by VTI is 1.2 cm . The valve area by peak velocity is 1.2 cm . Doppler: There is mild to moderate stenosis. There is no significant regurgitation. Tricuspid valve: Doppler: There is no evidence for stenosis. There is no significant regurgitation [2] (04/19/2022 12:38 EDT XR Chest 2 Views) ORIGINAL EXAMINATION: TWO XRAY VIEWS OF THE CHEST 04/19/2022 12:39 pm COMPARISON: Prior CTA of the chest dated 10/08/2021. HISTORY: ORDERING SYSTEM PROVIDED HISTORY: Reason for Exam: Chest Pain FINDINGS: The cardiomediastinal silhouette demonstrates a normal appearance. No consolidative opacity is identified. There is no pleural effusion or pneumothorax. No free air seen beneath the level of the diaphragm. The bony thorax appears acutely intact. IMPRESSION: No evidence of an acute process. [3] (04/20/2022 09:00 EDT NM Myocardial Single Spect) ORIGINAL NM MYOCARDIAL SINGLE SPECT CLINICAL STATEMENT: cp TECHNIQUE: Radiopharmaceutical: Tc-99m Sestamibi IV Dose: 10.8 mCi Symptomatic at time of injection: No Gated SPECT tomographic acquisition Images reconstructed and reoriented into short axis, vertical and horizontal long axis planes. COMPARISON:None REPORT:Rest only SPECT perfusion images demonstrate defect in the mid to distal anterior, distal anteroseptal, apical segments. Gated SPECT images demonstrate reduced wall thickening and hypokinesis in the corresponding segments. End- diastolic volume is 137 mL. Ejection fraction is 39%. IMPRESSION: 1. Abnormal rest only myocardial perfusion study. 2. Perfusion defect in the mid to distal anterior, distal anteroseptal and apical segments likely represents prior infarct. 3. Moderate systolic dysfunction with ejection fraction of 39%. [4] EKG Sinus rhythm...normal P axis, V-rate 50- 99 Probable left atrial enlargement...P >50mS, <-0.10mV V1 Anterior infarct, old...Q >40mS, abnormal ST-T, V2-V5 Nonspecific T wave abnormalities. Assessment/Plan 1. NSTEMI (non-ST elevated myocardial infarction)/CAD EF 40-45% Diagnostic work-up in progress, Dr. Leone's evaluation pending 2. Aortic valve stenosis mild-mod 3. Ischemic cardiomyopathy EF 40-45% by echo 4. Hyperlipidemia Lipitor 5. Hypertension 6. Diabetes HgbA1C 6.7 7. Tobacco use Smoking cessation counseling Problem List/Past Medical History Ongoing Abnormal chest CT Aortic stenosis Axillary lump Axillary pain BMI 27.0-27.9,adult BMI 28.0-28.9,adult Chest pain Exercise counseling Follow-up exam, 3-6 months since previous exam Healthcare maintenance Hyperlipidemia Lymphadenopathy Muscle pain Needs smoking cessation education New onset type 2 diabetes mellitus Pain in axilla Preop testing Preoperative clearance Pulmonary nodule Shoulder pain Tracheal nodule Vitamin D deficiency Historical No qualifying data Procedure/Surgical History LASIK Hysterectomy Left shoulder Medications Inpatient Danni Aspirin, 81 mg= 1 tab(s), Oral, qDayM DuoNeb, 3 mL, Inhalation, q4hRT, PRN Heparin for IV 25,000 unit(s) [12 unit(s)/kg/hr] + Dextrose 5% Premix Diluent 250 mL Heparin HBW CARDIAC Bolus 5000 units/mL, 4000 unit(s)= 0.8 mL, 60 unit(s)/kg, IV Push, q6h, PRN HumaLOG 100 units/mL subcutaneous solution, Give 0-5 units/dose, Subcutaneous, TIDAC Lipitor, 40 mg= 1 tab(s), Oral, qDay melatonin, 3 mg= 1 tab(s), Oral, qHS, PRN miconazole 2% topical powder, 1 margo, Topical, BID Nitrostat, 0.4 mg= 1 tab(s), Sublingual, q5min, PRN NO METFORMIN (Glucophage) X 48hrs-patient has received contrast, 1 EA, Miscellaneous, Unscheduled Tylenol, 650 mg= 2 tab(s), Oral, q4h, PRN Home Advil 200 mg oral tablet, 200 mg= 1 tab(s), Oral, q6hr, PRN Alcohol Swabs, See Instructions aspirin 81 mg oral delayed release tablet, 81 mg= 1 tab(s), Oral, Daily Blood Glucose Test Machine, See Instructions Blood Glucose Test Strips, See Instructions, 11 refills cholecalciferol 1250 mcg (50,000 intl units) oral capsule, 1250 mcg= 1 cap(s), Oral, Tuesday cyclobenzaprine 10 mg oral tablet, 10 mg= 1 tab(s), Oral, TID, PRN diclofenac 1% topical gel, 4 gram(s), Topical, QID, PRN, 3 refills Lancets, See Instructions metFORMIN 500 mg oral tablet (IR), 1000 mg= 2 tab(s), Oral, BID, 3 refills nitroglycerin 0.4 mg sublingual tablet, 0.4 mg= 1 tab(s), Sublingual, q5min, PRN simvastatin 40 mg oral tablet, 40 mg= 1 tab(s), Oral, qHS, 3 refills Allergies No Known Medication Allergies Social History Employment/School Status: Retired., 04/18/2020 Home/Environment Living situation: Home/Independent. Lives In: Single level home. Current Home Treatments Blood Glucose monitoring., 04/19/2022 Marital Status: Unmarried., 12/31/2019 Nutrition/Health Caffeine intake amount: 5 SERVINGS OF COFFEE DAILY., 12/31/2019 Substance Abuse Use: Never., 12/31/2019 EtOH: Denies Tobacco: 1/2 pack/day x 20 years Lives alone Ambulatory devices Family History Mother age 86 cancer Father age 72 cancer 5 sisters living without CAD Immunizations SARS-CoV-2 mRNA (tozinameran) vaccine: 0.5 unknown unit (11/20/20) SARS-CoV-2 mRNA (tozinameran) vaccine: 0.5 unknown unit (10/31/20) Flu vaccine 04/21/2022 [1] Cardiac Catheterization -CV; [facility] [employer] Lázaro A 04/21/2022 14:58 EDT [2] Echocardiogram, Adult (AOH); Lorna Kahn [employer] 04/20/2022 09:07 EDT [3] XR Chest 2 Views; AMRIT GRANT MD 04/19/2022 12:38 EDT [4] NM Myocardial Single Spect; KRYSTINA PETERSON MD 04/20/2022 09:00 EDT Digitally Signed by FRED ZEPEDA on 04/21/2022 04:51 PM [id number] Cardiology Progress note Date of Service 04/23/22 Chief Complaint Chest pain Subjective Patient seen and examined this AM. Patient denies any acute chest pain overnight. Patient states her surgery is tentatively planned for 04/26. Patient denies any other active issues or complaints. Objective Vitals and Measurements T: 36.8 C (Oral) TMIN: 36.6 C (Oral) TMAX: 36.9 C (Oral) HR: 71(Monitored) RR: 18 BP: 143/55 SpO2:93% Intake and Output 7AM Yesterday to 7AM Today Intake and Output (Last 24 hours) Intake Oral Intake 480.00 Output Urine Voided 200.00 Urine Count 1.00 Total Summary Total Intake 480.00 Total Output 200.00 Physical Exam General Appearance: Elderly female, pleasant, no acute distress Head: NCAT Cardiac: RRR. No M/G/R Lungs: CTAB Abdomen: NT, ND. BS + Extremities: DP intact. No LE edema Skin: No rashes or lesions Psychiatric: A&O X3. Answers questions appropriately Weight Dosing Weight: 77.4 kg (04/20/22) Medications Medications (14) Active Scheduled: (8) aspirin 81 mg Chewable 81 mg 1 tab(s), Oral, qDayM atorvastatin 40 mg tablet 40 mg 1 tab(s), Oral, qDay insulin lispro 100 units/mL Soln (3 mL) Give 0-5 units/dose, Subcutaneous, TIDAC miconazole topical 2% Powder 1 margo, Topical, BID mupirocin 2% Ointment 22 Gram(s) tube 1 margo, Nostril, each, BID No metformin for 48 hrs post contrast 1 EA, Miscellaneous, Unscheduled No prasugrel (Effient) 7 days before surgery 1 EA, Miscellaneous, Daily NO vitamin E, clopidogrel (Plavix) 5 days before surgery 1 EA, Miscellaneous, Daily Continuous: (1) heparin 25,000 unit(s) [12 unit(s)/kg/hr] + Dextrose 5% Premix Diluent 250 mL 250 mL, Intravenous, 9.29 mL/hr PRN: (5) acetaminophen 325 mg Tablet 650 mg 2 tab(s), Oral, q4h albuterol - ipratropium 2.5 mg-0.5 mg/3 mL Inhal Sujatha UD 3 mL, Inhalation, q4hRT heparin 5,000 units/mL (1 mL) vial 4,000 unit(s) 0.8 mL, IV Push, q6h melatonin 3 mg tablet 3 mg 1 tab(s), Oral, qHS nitroglycerin 0.4 mg Tablet (25/btl) 0.4 mg 1 tab(s), Sublingual, q5min Lab Results 04/23 04:55 WBC: 5.9 Hgb: 13.2 Hct: 38.3 Platelet: 168 Neutrophil %: 49.6 L 04/22 05:21 WBC: 5.7 Hgb: 13.3 Hct: 39.2 Platelet: 176 Neutrophil %: 52.9 Imaging Results and Diagnostics No new results or diagnostics EKG No qualifying data available. Assessment/Plan #Type I NSTEMI #Multivessel CAD #Moderate aortic stenosis #HFpEF #Tobacco abuse disorder #Hypertension #Hyperlipidemia #Type 2 diabetes Patient is 72-year-old female with a past medical history of HFpEF, hypertension, hyperlipidemia, tobacco abuse disorder, type 2 diabetes presenting to the hospital for chest pain. Patient with left heart catheterization that was concerning for multivessel CAD involving left main, LAD, RCA. CT surgery was consulted for CABG evaluation. Patient is currently undergoing a CABG evaluation. Patient has moderate aortic stenosis seen on echocardiogram. We will continue aspirin 81 mg daily, atorvastatin 40 mg daily, heparin drip. Patient unable to tolerate beta-darrin due to bradycardia. We will defer to CT surgery regarding remainder of work-up. Surgery is tentatively planned for 04/26. For remainder of chronic medical conditions, continue patient's home medications. Case discussed with attending. See attending addendum for additional details. Digitally Signed by LASHONDA AGUILERA DO on 04/23/2022 12:21 PM [id number] Cardiology Progress note Date of Service 04/22/2022 Chief Complaint Chest pain Subjective Patient seen examined this AM. Patient denies any further chest pain overnight. Patient denies any shortness of breath, lightheaded/dizziness or anginal complaints. Patient states that surgery is scheduled for tomorrow per her knowledge. Objective Vitals and Measurements T: 36.6 C (Oral) TMIN: 36.6 C (Oral) TMAX: 36.9 C (Oral) HR: 60(Monitored) RR: 18 BP: 120/72 SpO2: 94% Intake and Output 7AM Yesterday to 7AM Today Intake and Output (Last 24 hours) Intake Output Total Summary Total Intake 0.00 Total Output 0.00 Fluid Balance 0.00 Physical Exam General Appearance: Elderly female, pleasant, no acute distress Head: NCAT Cardiac: RRR. No M/G/R Lungs: CTAB Abdomen: NT, ND. BS + Extremities: DP intact. No LE edema Skin: No rashes or lesions Psychiatric: A&O X3. Answers questions appropriately Weight Dosing Weight: 77.4 kg (04/20/22) Medications Medications (14) Active Scheduled: (8) aspirin 81 mg Chewable 81 mg 1 tab(s), Oral, qDayM atorvastatin 40 mg tablet 40 mg 1 tab(s), Oral, qDay insulin lispro 100 units/mL Soln (3 mL) Give 0-5 units/dose, Subcutaneous, TIDAC miconazole topical 2% Powder 1 margo, Topical, BID mupirocin 2% Ointment 22 Gram(s) tube 1 margo, Nostril, each, BID No metformin for 48 hrs post contrast 1 EA, Miscellaneous, Unscheduled No prasugrel (Effient) 7 days before surgery 1 EA, Miscellaneous, Daily NO vitamin E, clopidogrel (Plavix) 5 days before surgery 1 EA, Miscellaneous, Daily Continuous: (1) heparin 25,000 unit(s) [12 unit(s)/kg/hr] + Dextrose 5% Premix Diluent 250 mL 250 mL, Intravenous, 9.29 mL/hr PRN: (5) acetaminophen 325 mg Tablet 650 mg 2 tab(s), Oral, q4h albuterol - ipratropium 2.5 mg-0.5 mg/3 mL Inhal Sujatha UD 3 mL, Inhalation, q4hRT heparin 5,000 units/mL (1 mL) vial 4,000 unit(s) 0.8 mL, IV Push, q6h melatonin 3 mg tablet 3 mg 1 tab(s), Oral, qHS nitroglycerin 0.4 mg Tablet (25/btl) 0.4 mg 1 tab(s), Sublingual, q5min Lab Results 04/22 05:21 WBC: 5.7 Hgb: 13.3 Hct: 39.2 Platelet: 176 Neutrophil %: 52.9 04/21 05:22 WBC: 6.1 Hgb: 13.4 Hct: 39.4 Platelet: 188 Neutrophil %: 50.1 Glucose Level: 108 Sodium Level: 142 Potassium Level: 4.1 BUN: 7.0 L Creatinine Lvl (s): 0.53 Imaging Results and Diagnostics No new results or diagnostics EKG EKG - Completed -- 04/20/22 18:34:00 EDT Assessment/Plan #Type I NSTEMI #Multivessel CAD #Moderate aortic stenosis #HFpEF #Tobacco abuse disorder #Hypertension #Hyperlipidemia #Type 2 diabetes Patient is 72-year-old female with a past medical history of HFpEF, hypertension, hyperlipidemia, tobacco abuse disorder, type 2 diabetes presenting to the hospital for chest pain. Patient with left heart catheterization that was concerning for multivessel CAD involving left main, LAD, RCA. CT surgery was consulted for CABG evaluation. Patient is currently undergoing a CABG evaluation and patientthinks surgery is planned for 04/23 tentatively. Patient has moderate aortic stenosis seen on echocardiogram. We will continue aspirin 81 mg daily, atorvastatin 40 mg daily, heparin drip. Patient unable to tolerate beta-darrin due to bradycardia. We will defer to CT surgery regarding remainder of work-up. For remainder of chronic medical conditions, continue patient's home medications. Case discussed with attending. See attending addendum for additional details. Digitally Signed by LASHONDA AGUILERA DO on 04/22/2022 11:10 AM [id number] Cardiology Progress note Date of Service 04/22/2022 Chief Complaint Chest pain Subjective Patient seen examined this AM. Patient denies any further chest pain overnight. Patient denies any shortness of breath, lightheaded/dizziness or anginal complaints. Patient states that surgery is scheduled for tomorrow per her knowledge. Objective Vitals and Measurements T: 36.6 C (Oral) TMIN: 36.6 C (Oral) TMAX: 36.9 C (Oral) HR: 60(Monitored) RR: 18 BP: 120/72 SpO2: 94% Intake and Output 7AM Yesterday to 7AM Today Intake and Output (Last 24 hours) Intake Output Total Summary Total Intake 0.00 Total Output 0.00 Fluid Balance 0.00 Physical Exam General Appearance: Elderly female, pleasant, no acute distress Head: NCAT Cardiac: RRR. No M/G/R Lungs: CTAB Abdomen: NT, ND. BS + Extremities: DP intact. No LE edema Skin: No rashes or lesions Psychiatric: A&O X3. Answers questions appropriately Weight Dosing Weight: 77.4 kg (04/20/22) Medications Medications (14) Active Scheduled: (8) aspirin 81 mg Chewable 81 mg 1 tab(s), Oral, qDayM atorvastatin 40 mg tablet 40 mg 1 tab(s), Oral, qDay insulin lispro 100 units/mL Soln (3 mL) Give 0-5 units/dose, Subcutaneous, TIDAC miconazole topical 2% Powder 1 margo, Topical, BID mupirocin 2% Ointment 22 Gram(s) tube 1 margo, Nostril, each, BID No metformin for 48 hrs post contrast 1 EA, Miscellaneous, Unscheduled No prasugrel (Effient) 7 days before surgery 1 EA, Miscellaneous, Daily NO vitamin E, clopidogrel (Plavix) 5 days before surgery 1 EA, Miscellaneous, Daily Continuous: (1) heparin 25,000 unit(s) [12 unit(s)/kg/hr] + Dextrose 5% Premix Diluent 250 mL 250 mL, Intravenous, 9.29 mL/hr PRN: (5) acetaminophen 325 mg Tablet 650 mg 2 tab(s), Oral, q4h albuterol - ipratropium 2.5 mg-0.5 mg/3 mL Inhal Sujatha UD 3 mL, Inhalation, q4hRT heparin 5,000 units/mL (1 mL) vial 4,000 unit(s) 0.8 mL, IV Push, q6h melatonin 3 mg tablet 3 mg 1 tab(s), Oral, qHS nitroglycerin 0.4 mg Tablet (25/btl) 0.4 mg 1 tab(s), Sublingual, q5min Lab Results 04/22 05:21 WBC: 5.7 Hgb: 13.3 Hct: 39.2 Platelet: 176 Neutrophil %: 52.9 04/21 05:22 WBC: 6.1 Hgb: 13.4 Hct: 39.4 Platelet: 188 Neutrophil %: 50.1 Glucose Level: 108 Sodium Level: 142 Potassium Level: 4.1 BUN: 7.0 L Creatinine Lvl (s): 0.53 Imaging Results and Diagnostics No new results or diagnostics EKG EKG - Completed -- 04/20/22 18:34:00 EDT Assessment/Plan #Type I NSTEMI #Multivessel CAD #Moderate aortic stenosis #HFpEF #Tobacco abuse disorder #Hypertension #Hyperlipidemia #Type 2 diabetes Patient is 72-year-old female with a past medical history of HFpEF, hypertension, hyperlipidemia, tobacco abuse disorder, type 2 diabetes presenting to the hospital for chest pain. Patient with left heart catheterization that was concerning for multivessel CAD involving left main, LAD, RCA. CT surgery was consulted for CABG evaluation. Patient is currently undergoing a CABG evaluation and patientthinks surgery is planned for 04/23 tentatively. Patient has moderate aortic stenosis seen on echocardiogram. We will continue aspirin 81 mg daily, atorvastatin 40 mg daily, heparin drip. Patient unable to tolerate beta-darrin due to bradycardia. We will defer to CT surgery regarding remainder of work-up. For remainder of chronic medical conditions, continue patient's home medications. Case discussed with attending. See attending addendum for additional details. Digitally Signed by LASHONDA AGUILERA DO on 04/22/2022 11:10 AM [id number] Cardiothoracic surgery Consult note Date of Service 04/21/2022 Reason for Consultation CAD Referring Physician Dr. Decker History of Present Illness This is a 72-year-old female with a history of mild aortic stenosis, diabetes, hypertension, hyperlipidemia and tobacco use. She presented with progressive left axillary pain with radiation to her scapula with activity. She endorses 6 similar pains with less intensity. She denies chest pain, shortness of breath, syncope, PND orthopnea. Pain relieves with rest. Stress test at [facility] abnormal. Troponin level elevated. Echocardiogram completed showing an EF of 40- 45% with diastolic dysfunction, mild to moderate with a mean systolic gradient of 9 mmHg and an aortic valve area 1.2 cm and mild MR. Transferred to [facility] for further management. Troponin level peaked at 188.3.Heart catheterization completed showing EF 35 to 40%, left main disease 70%, LAD stenosis 99% and RCA stenosis 95%. We are being asked to evaluate her for surgical myocardial revascularization. No herbal medications STS risk assessment:Risk of Mortality: 1.632%, Renal Failure: 0.745%, Permanent Stroke: 1.733%, Prolonged Ventilation: 7.477%, DSW Infection: 0.129%, Reoperation: 1.892%, Morbidity or Mortality: 10.343%, Short Length of Stay: 42.127%, Long Length of Stay: 3.765% Review of Systems Constitutional: Denies fatigue, fever, chills, weight loss or weight gain HEENT: Upper and lower dentures, denies headache or blurred vision Respiratory: Denies shortness of breath, cough or wheeze CV: See HPI Vascular: Denies claudication or DVT GI: Denies nausea, vomiting, constipation or diarrhea : Denies dysuria, hematuria or incontinence Neuro: Denies weakness, seizures, numbness or tingling Endo: Denies cold or heat intolerance Heme/oncology: Denies bleeding or anemia Muscle/skeletal: Denies arthralgia or myalgia Psych: Denies anxiety, depression or suicidal ideation Physical Exam Vitals and Measurements T: 36.7 C (Oral) HR: 63 HR: 63(Apical) HR: 63(Monitored) RR: 18 BP: 159/62 SpO2: 95% HT: 170.2 cm WT: 77.4 kg BMI: 26.72 Weight Dosing Weight: 77.4 kg (04/20/22) Mentation: Alert and orient x3, appropriate HEENT: Atraumatic, normocephalic, PE RRL A, no carotid bruits, hearing intact Heart: Regular S1-S2, positive systolic murmur Lungs: Clear Abdomen: Soft, positive bowel sounds, nontender Extremities: DP, PT and femoral pulses palp bilaterally, no edema Neuro: Cranial nerves II through XII intact, equal strength bilaterally Skin: Mild excoriation underneath bilateral breasts Lab Results 04/21 05:22 WBC: 6.1 Hgb: 13.4 Hct: 39.4 Platelet: 188 Neutrophil %: 50.1 Glucose Level: 108 Sodium Level: 142 Potassium Level: 4.1 BUN: 7.0 L Creatinine Lvl (s): 0.53 04/20 20:35 Protime: 11.5 PT International Ratio: 1.0 Glucose Level: 221 H Sodium Level: 137 Potassium Level: 3.6 BUN: 7.0 L Creatinine Lvl (s): 0.53 Imaging Results and Diagnostics Patient: CAITY STRICKLAND Study date: 04/21/2022 Height: 170.2 cm (67 in) (MRN) date: 1950 Weight: 77.4 kg Age: 72 year(s) (170.6 lb) Patient location: [place] [address] gender: Female BSA: 1.93 m Study status: BMI: 26.7 kg/m Facility: [facility] Patient Inpatient status: Responsible physician: ARMANDO PARK MD Fellow 1: OLIVIA DECKER MD Procedures performed: Left coronary angiography. Right coronary angiography. Left ventriculography. Left heart catheterization. SUMMARY: 1. Left ventricle: Systolic function is moderately reduced. The estimated ejection fraction is 35-40%. Hypokinesis of the anterolateral and apical septal myocardium. 2. Left main: Ostial lesion: There is a 70% stenosis. 3. LAD: Ostial lesion: There is a 99% stenosis. 4. Right coronary: Proximal vessel lesion: There is a 95% stenosis. IMPRESSIONS: 1. The study demonstrates severe coronary artery disease. 2. patient with severe multivessel disease to include ostial left main and moderately impaired leftventricular function feel cabg best exterminator termite option discussed with dr moura from labor mediator will get ct surgery consult and await their opinion. no complications. [1] History: Mitral regurgitation. Billing diagnosis codes: CHEST PAIN. Summary: 1. Left ventricle: The cavity size is normal. Wall thickness is mildly increased. Systolic functionis mildly to moderately reduced. The estimated ejection fraction is 40-45%. Hypokinesis of the apical anteroseptal, anterior, and anterolateral myocardium. Grade I diastolic dysfunction. 2. Ventricular septum: Thickness is mildly increased. 3. Aortic valve: There is mild to moderate stenosis. The peak systolic velocity is 2 m/sec. The mean systolic gradient is 9 mm Hg. The valve area by VTI is 1.2 cm . 4. Mitral valve: There is mild regurgitation. 5. Right atrium: The estimated right atrial pressure is 3 mm Hg. Study data: Patient unit: NADEEN. Patient room number: 0232. Transthoracic echocardiography. M-mode, complete 2D, complete spectral Doppler, and color Doppler. Study status: Routine. Patient status: Inpatient. Objective: Chest pain. Location: Bedside. Procedure room # 232. Procedure: Transthoracic echocardiography was performed. Image quality was fair. Intravenous contrast (Definity) was administered to opacify the LV. Left ventricle: The cavity size is normal. Wall thickness is mildly increased. Systolic function ismildly to moderately reduced. The estimated ejection fraction is 40-45%. The wall mass is 188 g. The wall mass index is 98 g/m . Regional wall motion: Hypokinesis of the apical anteroseptal, anterior, and anterolateral myocardium. Grade I diastolic dysfunction. Ventricular septum: Thickness is mildly increased. Left atrium: The atrium is normal in size. The volume index by biplane method is 22 ml/m . Right ventricle: The cavity size is normal. Systolic function is normal. Right atrium: The atrium is normal in size. Mitral valve: The pressure half-time is 106 ms. The peak E/A ratio is 0.83. The valve area (LVOT continuity) is 1.7 cm . Doppler: There is no evidence for stenosis. There is mild regurgitation. The mean diastolic gradient is 2 mm Hg. The valve area by pressure half-time is 2.1 cm . Aortic valve: The valve is probably trileaflet. The leaflets are moderately thickened and mildly calcified. The peak systolic velocity is 2 m/sec. The systolic velocity-time integral is 47.3 cm. The mean systolic gradient is 9 mm Hg. The LVOT to aortic valve VTI ratio is 0.38. The valve area by VTI is 1.2 cm . The valve area by peak velocity is 1.2 cm . Doppler: There is mild to moderate stenosis. There is no significant regurgitation. Tricuspid valve: Doppler: There is no evidence for stenosis. There is no significant regurgitation [2] (04/19/2022 12:38 EDT XR Chest 2 Views) ORIGINAL EXAMINATION: TWO XRAY VIEWS OF THE CHEST 04/19/2022 12:39 pm COMPARISON: Prior CTA of the chest dated 10/08/2021. HISTORY: ORDERING SYSTEM PROVIDED HISTORY: Reason for Exam: Chest Pain FINDINGS: The cardiomediastinal silhouette demonstrates a normal appearance. No consolidative opacity is identified. There is no pleural effusion or pneumothorax. No free air seen beneath the level of the diaphragm. The bony thorax appears acutely intact. IMPRESSION: No evidence of an acute process. [3] (04/20/2022 09:00 EDT NM Myocardial Single Spect) ORIGINAL NM MYOCARDIAL SINGLE SPECT CLINICAL STATEMENT: cp TECHNIQUE: Radiopharmaceutical: Tc-99m Sestamibi IV Dose: 10.8 mCi Symptomatic at time of injection: No Gated SPECT tomographic acquisition Images reconstructed and reoriented into short axis, vertical and horizontal long axis planes. COMPARISON:None REPORT:Rest only SPECT perfusion images demonstrate defect in the mid to distal anterior, distal anteroseptal, apical segments. Gated SPECT images demonstrate reduced wall thickening and hypokinesis in the corresponding segments. End- diastolic volume is 137 mL. Ejection fraction is 39%. IMPRESSION: 1. Abnormal rest only myocardial perfusion study. 2. Perfusion defect in the mid to distal anterior, distal anteroseptal and apical segments likely represents prior infarct. 3. Moderate systolic dysfunction with ejection fraction of 39%. [4] EKG Sinus rhythm...normal P axis, V-rate 50- 99 Probable left atrial enlargement...P >50mS, <-0.10mV V1 Anterior infarct, old...Q >40mS, abnormal ST-T, V2-V5 Nonspecific T wave abnormalities. Assessment/Plan 1. NSTEMI (non-ST elevated myocardial infarction)/CAD EF 40-45% Diagnostic work-up in progress, Dr. Leone's evaluation pending 2. Aortic valve stenosis mild-mod 3. Ischemic cardiomyopathy EF 40-45% by echo 4. Hyperlipidemia Lipitor 5. Hypertension 6. Diabetes HgbA1C 6.7 7. Tobacco use Smoking cessation counseling Problem List/Past Medical History Ongoing Abnormal chest CT Aortic stenosis Axillary lump Axillary pain BMI 27.0-27.9,adult BMI 28.0-28.9,adult Chest pain Exercise counseling Follow-up exam, 3-6 months since previous exam Healthcare maintenance Hyperlipidemia Lymphadenopathy Muscle pain Needs smoking cessation education New onset type 2 diabetes mellitus Pain in axilla Preop testing Preoperative clearance Pulmonary nodule Shoulder pain Tracheal nodule Vitamin D deficiency Historical No qualifying data Procedure/Surgical History LASIK Hysterectomy Left shoulder Medications Inpatient Danni Aspirin, 81 mg= 1 tab(s), Oral, qDayM DuoNeb, 3 mL, Inhalation, q4hRT, PRN Heparin for IV 25,000 unit(s) [12 unit(s)/kg/hr] + Dextrose 5% Premix Diluent 250 mL Heparin HBW CARDIAC Bolus 5000 units/mL, 4000 unit(s)= 0.8 mL, 60 unit(s)/kg, IV Push, q6h, PRN HumaLOG 100 units/mL subcutaneous solution, Give 0-5 units/dose, Subcutaneous, TIDAC Lipitor, 40 mg= 1 tab(s), Oral, qDay melatonin, 3 mg= 1 tab(s), Oral, qHS, PRN miconazole 2% topical powder, 1 margo, Topical, BID Nitrostat, 0.4 mg= 1 tab(s), Sublingual, q5min, PRN NO METFORMIN (Glucophage) X 48hrs-patient has received contrast, 1 EA, Miscellaneous, Unscheduled Tylenol, 650 mg= 2 tab(s), Oral, q4h, PRN Home Advil 200 mg oral tablet, 200 mg= 1 tab(s), Oral, q6hr, PRN Alcohol Swabs, See Instructions aspirin 81 mg oral delayed release tablet, 81 mg= 1 tab(s), Oral, Daily Blood Glucose Test Machine, See Instructions Blood Glucose Test Strips, See Instructions, 11 refills cholecalciferol 1250 mcg (50,000 intl units) oral capsule, 1250 mcg= 1 cap(s), Oral, Tuesday cyclobenzaprine 10 mg oral tablet, 10 mg= 1 tab(s), Oral, TID, PRN diclofenac 1% topical gel, 4 gram(s), Topical, QID, PRN, 3 refills Lancets, See Instructions metFORMIN 500 mg oral tablet (IR), 1000 mg= 2 tab(s), Oral, BID, 3 refills nitroglycerin 0.4 mg sublingual tablet, 0.4 mg= 1 tab(s), Sublingual, q5min, PRN simvastatin 40 mg oral tablet, 40 mg= 1 tab(s), Oral, qHS, 3 refills Allergies No Known Medication Allergies Social History Employment/School Status: Retired., 04/18/2020 Home/Environment Living situation: Home/Independent. Lives In: Single level home. Current Home Treatments Blood Glucose monitoring., 04/19/2022 Marital Status: Unmarried., 12/31/2019 Nutrition/Health Caffeine intake amount: 5 SERVINGS OF COFFEE DAILY., 12/31/2019 Substance Abuse Use: Never., 12/31/2019 EtOH: Denies Tobacco: 1/2 pack/day x 20 years Lives alone Ambulatory devices Family History Mother age 86 cancer Father age 72 cancer 5 sisters living without CAD Immunizations SARS-CoV-2 mRNA (tozinameran) vaccine: 0.5 unknown unit (11/20/20) SARS-CoV-2 mRNA (tozinameran) vaccine: 0.5 unknown unit (10/31/20) Flu vaccine 04/21/2022 [1] Cardiac Catheterization -CV; Chitra [employer] Lázaro Sullivan 04/21/2022 14:58 EDT [2] Echocardiogram, Adult (AOH); Lorna Kahn [employer] 04/20/2022 09:07 EDT [3] XR Chest 2 Views; AMRIT GRANT MD 04/19/2022 12:38 EDT [4] NM Myocardial Single Spect; KRYSTINA PETERSON MD 04/20/2022 09:00 EDT Digitally Signed by FRED ZEPEDA on 04/21/2022 04:51 PM [id number] History and physical note Date of Service 04/20/2022 Chief Complaint NSTEMI History of Present Illness Ms Streeter is a 72-year-old woman with DM, hypertension, dyslipidemia, smoking, who presented [facility] with left axillary pain, had abnormal resting nuclear scan,Abnormal echo EF 40-25%, withhypokinesis LAD territory, mild troponin elevation to 190, she is transferred to [facility] for heparin drip and left heart cath. Patient endorses her pain is now resolved and she feels well. She denies history of heart failure symptoms, or stress-induced chest pain, however she had similar but less intense episodes of axillarypain years ago. No breast symptoms, no family history of breast cancer or CAD. No previous history of stroke, vascular disease, or heart attacks. Review of Systems Apart from mentioned in HPI, pertinent review of systems is otherwise negative. Physical Exam Vitals and Measurements T: 36.7 C (Oral) HR: 76(Monitored) RR: 18 BP: 142/70 SpO2: 96% HT: 170.2 cm WT: 77.4 kg BMI: 26.72 Weight Dosing Weight: 77.4 kg (04/20/22) General Appearance: Comfortable, not in acute distress Cardiac: S1, S2, no murmurs, regular rhythm, normal rate, no lower extremity edema, no crackles, noJVP distention, warm extremities. Lungs: No wheezes, normal chest expansion. Abdomen: No tenderness, no distention, normal bowel sounds. Musculoskeletal: No signs of acute synovitis. Neurological: Alert and oriented x3, no focal neurological deficits grossly. Psychiatric: Appropriate, normal mood. Lab Results 04/20 20:35 Protime: 11.5 PT International Ratio: 1.0 Assessment/Plan NSTEMI Cardiomyopathy EF 45% 03/2022 Smoking Hypertension Dyslipidemia DM Ms. Rivers is a 72-year-old woman with DM hypertension and dyslipidemia, admitted for NSTEMI and new cardiomyopathy. Initially presented to [facility] ER, at the abnormal resting nuclear scan and echo, with troponin elevation up to 200. Plan: Heparin drip and LHC in the morning Continue aspirin, statin Patient is not in clinical heart failure, will await on left heart cath results before initiating GDMT Kary Sarah MD [facility] [employer] or Pager [phone] Problem List/Past Medical History Ongoing Abnormal chest CT Aortic stenosis Axillary lump Axillary pain BMI 27.0-27.9,adult BMI 28.0-28.9,adult Chest pain Exercise counseling Follow-up exam, 3-6 months since previous exam Healthcare maintenance Hyperlipidemia Lymphadenopathy Muscle pain Needs smoking cessation education New onset type 2 diabetes mellitus Pain in axilla Preop testing Preoperative clearance Pulmonary nodule Shoulder pain Tracheal nodule Vitamin D deficiency Historical No qualifying data Procedure/Surgical History LASIK Hysterectomy Medications Home Medications (12) Active Advil 200 mg oral tablet 200 mg = 1 tab(s), PRN, Oral, q6hr Alcohol Swabs See Instructions aspirin 81 mg oral delayed release tablet 81 mg = 1 tab(s), Oral, Daily Blood Glucose Test Machine See Instructions Blood Glucose Test Strips See Instructions cholecalciferol 1250 mcg (50,000 intl units) oral capsule 1,250 mcg = 1 cap(s), Oral, Tuesday cyclobenzaprine 10 mg oral tablet 10 mg = 1 tab(s), PRN, Oral, TID diclofenac 1% topical gel 4 gram(s), PRN, Topical, QID Lancets See Instructions metFORMIN 500 mg oral tablet (IR) 1,000 mg = 2 tab(s), Oral, BID nitroglycerin 0.4 mg sublingual tablet 0.4 mg = 1 tab(s), PRN, Sublingual, q5min simvastatin 40 mg oral tablet 40 mg = 1 tab(s), Oral, qHS Allergies No Known Medication Allergies Social History Alcohol Use: Never., 04/20/2022 Use: OCCASIONAL., 02/26/2022 Employment/School Status: Retired., 04/18/2020 Home/Environment Living situation: Home/Independent. Lives In: Single level home. Current Home Treatments Blood Glucose monitoring., 04/19/2022 Marital Status: Unmarried., 12/31/2019 Nutrition/Health Caffeine intake amount: 5 SERVINGS OF COFFEE DAILY., 12/31/2019 Substance Abuse Use: Never., 12/31/2019 Tobacco Nicotine Use: Smoker, current status unknown, 1/2 pack every 2 days. Type: Cigarettes. Number of years: 40. Started at age: 24 Years. Ready to change: Yes., 02/26/2022 Immunizations SARS-CoV-2 mRNA (tozinameran) vaccine: 0.5 unknown unit (11/20/20) SARS-CoV-2 mRNA (tozinameran) vaccine: 0.5 unknown unit (10/31/20) Code Status Code Status - Ordered -- 04/20/22 18:51:00 EDT, Full Code, Constant Order Digitally Signed by KARY SARAH MD on 04/20/2022 09:49 PM Digitally Signed by KARY SARAH MD on 04/20/2022 09:49 PM Digitally Signed by KARY SARAH MD on 04/21/2022 01:48 AM [id number] Nurse Discharge summary Discharged to [facility] via ambulance service [facility] [place], [place]. Left at 1725. [facility]10-25-2022 Note ORIGINAL NM MYOCARDIAL SINGLE SPECT CLINICAL STATEMENT: cp TECHNIQUE: Radiopharmaceutical: Tc-99m Sestamibi IV Dose: 10.8 mCi Symptomatic at time of injection: No Gated SPECT tomographic acquisition Images reconstructed and reoriented into short axis, vertical and horizontal long axis planes. COMPARISON:None REPORT:Rest only SPECT perfusion images demonstrate defect in the mid to distal anterior, distal anteroseptal, apical segments. Gated SPECT images demonstrate reduced wall thickening and hypokinesis in the corresponding segments. End- diastolic volume is 137 mL. Ejection fraction is 39%. IMPRESSION: 1. Abnormal rest only myocardial perfusion study. 2. Perfusion defect in the mid to distal anterior, distal anteroseptal and apical segments likely represents prior infarct. 3. Moderate systolic dysfunction with ejection fraction of 39%. Interpreted By: Cecilio Peterson MD Preliminary Report By: Cecilio Peterson MD Electronically Signed By: Cecilio Peterson MD Dictated Date: 04/20/2022 4:06:48 PM Prelim Date: 04/20/2022 4:06:48 PM Sign Date: 04/20/2022 4:11:41 PM Ordering Provider:Adela Kevin [facility]10-25-2022 Evaluation + Plan noteExtracted from: Title:History and Physical Author:TYRA SARAH MD Date:04/20/22 NSTEMI Cardiomyopathy EF 45% 03/2022 Smoking Hypertension Dyslipidemia DM Ms. Rivers is a 72-year-old woman with DM hypertension and dyslipidemia, admitted for NSTEMI and new cardiomyopathy. Initially presented to [facility] ER, at the abnormal resting nuclear scan and echo, with troponin elevation up to 200. Plan: Heparin drip and LHC in the morning Continue aspirin, statin Patient is not in clinical heart failure, will await on left heart cath results before initiating GDMT Kary Sarah MD [facility] [employer] or Pager [phone] Future Appointments Appointment Date:05/11/2022 09:00:00 AM Scheduled Provider:ROSAS ODONNELL Location:[facility] Appointment Type:[facility] OV Post Op Appointment Date:05/17/2022 01:00:00 PM Scheduled Provider:DYAN BECERRIL Location:[facility] Appointment Type:PC OV Lab Check Appointment Date:06/04/2022 11:15:00 AM Scheduled Provider: Location:[facility] Appointment Type:CV OV Hospital Follow Up Future Scheduled Tests Laboratory* A1C Hemoglobin 05/25/22 * Complete Blood Count 05/25/22 * Lipid Profile 05/25/22 * Hepatitis C Antibody IgG 09/15/21 * Complete Metabolic Panel 05/25/22 Radiology* MA Mammo Diagnostic Left w/ Panda 10/01/21 [facility] 10-25-2022 Note ORIGINAL NM MYOCARDIAL SINGLE SPECT CLINICAL STATEMENT: cp TECHNIQUE: Radiopharmaceutical: Tc-99m Sestamibi IV Dose: 10.8 mCi Symptomatic at time of injection: No Gated SPECT tomographic acquisition Images reconstructed and reoriented into short axis, vertical and horizontal long axis planes. COMPARISON:None REPORT:Rest only SPECT perfusion images demonstrate defect in the mid to distal anterior, distal anteroseptal, apical segments. Gated SPECT images demonstrate reduced wall thickening and hypokinesis in the corresponding segments. End- diastolic volume is 137 mL. Ejection fraction is 39%. IMPRESSION: 1. Abnormal rest only myocardial perfusion study. 2. Perfusion defect in the mid to distal anterior, distal anteroseptal and apical segments likely represents prior infarct. 3. Moderate systolic dysfunction with ejection fraction of 39%. Interpreted By: Cecilio Peterson MD Preliminary Report By: Cecilio Peterson MD Electronically Signed By: Cecilio Peterson MD Dictated Date: 04/20/2022 4:06:48 PM Prelim Date: 04/20/2022 4:06:48 PM Sign Date: 04/20/2022 4:11:41 PM Ordering Provider:[facility]10-24-2022 Note Date of Service 04/19/2022 Chief Complaint feeling malaised for a couple days History of Present Illness Patient is a 72-year-old female, who follows with Dyan Becerril with a past medical history significant for type 2 diabetes, hyperlipidemia, and tobacco abuse, presents to [facility] emergency department with the chief complaint of left axillary/back pain. Patient states she developedintermittent left axillary pain with radiation into her left scapula and posterior thoracic area about 3 days ago. It has been relatively constant but seemed worse today. She states if she raises herarm straight up towards the ceiling it worsens. She denies any recent injury to the area. She denies any cough, shortness of breath, fever, chills, abdominal pain, nausea, or diaphoresis. In the emergency department, chest x-ray revealed no acute process. EKG revealed sinus rhythm, anterior infarct, old. CBC was unremarkable. BMP significant for glucose 116. Troponin was 123.2 and then 147.7. The ED physician did speak to [facility]ology [facility] and they felt patient was stable to remain at [facility] for stress test and echocardiogram. Patient administered no medications in the ED. She will be transferred to telemetry for observation. We will trend serial troponin at 2000 and in the am. Send patient for echocardiogram and lexiscan stress test in the am. Check lipid profile and HgbA1c in am. Repeat CBC and BMP in the am. Review of Systems Review of Systems: Reviewed in detail, including general health, HEENT, cardiovascular, respiratory, gastrointestinal, genitourinary, endocrine, musculoskeletal, neurologic, vascular, skin, and psychiatric. All are negative except for those listed in the History of Present Illness. Physical Exam Vitals and Measurements T: 36.6 C (Oral) HR: 83 RR: 18 BP: 157/77 SpO2: 98% No qualifying data available. General: No acute distress. Patient is alert and appropriate. Skin: No rash. Skin is warm, dry and intact. HEENT: Head is normocephalic, atraumatic. Pupils are equal, round and reactive. Neck: Supple. No lymphadenopathy, thyromegaly. Lungs: Bilaterally clear but diminished without crepitation or wheeze. Unlabored. Heart: Heart is regular rhythm, S1, S2. Murmurs noted; no gallops or rubs. Abdomen: Abdomen is soft, nontender. Bowels sounds present in all quadrants. Extremities: No clubbing, cyanosis, or edema. Peripheral pulses palpable. No calf tenderness. Neurological: Patient is awake and alert to person, place and time. Following simple commands, moving all extremities. Lab Results 04/19 13:38 WBC: 5.9 Hgb: 13.6 Hct: 39.3 Platelet: 194 Neutrophil %: 56.1 Glucose Level: 116 H Sodium Level: 140 Potassium Level: 4.4 BUN: 13 Creatinine Lvl (s): 0.71 Imaging Results and Diagnostics XR Chest 2 Views Result Date: April 19, 2022 Verified By: AMRIT GRANT MD CLINICAL STATEMENT: IMPRESSION: No evidence of an acute process. EKG EC04/19/22: Sinus rhythm...normal P axis, V-rate 50- 99 Probable left atrial enlargement...P >50mS, <-0.10mV V1 Anterior infarct, old...Q >40mS, abnormal ST-T, V2-V5 Nonspecific T wave abnormalities. Electronic Signature: MONICA CARRASCO MD 04/19/2022 12:07:55 Assessment/Plan 1. Chest pain Acute, new onset 3 days ago of left axillary pain radiating into left scapula and left posterior thoracic region *Troponin elevated 123.2 and 147.7. *Per cardiology at [facility], patient can stay at [facility]. *Check troponin at 2000 and in am. *Send patient for echocardiogram and lexiscan stress test in am. *Start nitroglycerin s/l as needed for recurrent chest pain. *Repeat EKG in am. *Check lipid profile and HgbA1c in am. *Repeat CBC and BMP in the am. 2. New onset type 2 diabetes mellitus Chronic, controlled *Blood sugar checks before meals and at bedtime. *Cover with sliding scale insulin. *Start diabetic diet. *Continue current home medication. *Check HgbA1c in am. 3. Hyperlipidemia Chronic *Continue current home medication. *Check lipid profile in am. 4. Tobacco use Chronic *Start nicotine patch PRN for nicotine craving. DVT prophylaxis with SCDs, ambulation. Code status: DNRCCA - do not intubate. Labs, diagnostic test and progress notes reviewed as noted in HPI. Plan of care discussed with patient. All questions answered. Patient verbalizes understanding and is agreeable with plan of care. This case was discussed with collaborating physician, Dr. Ney Cha. Problem List/Past Medical History Ongoing Abnormal chest CT Aortic stenosis Axillary lump Axillary pain BMI 27.0-27.9,adult BMI 28.0-28.9,adult Chest pain Exercise counseling Follow-up exam, 3-6 months since previous exam Healthcare maintenance Hyperlipidemia Lymphadenopathy Muscle pain Needs smoking cessation education New onset type 2 diabetes mellitus Pain in axilla Preop testing Preoperative clearance Pulmonary nodule Shoulder pain Tracheal nodule Vitamin D deficiency Historical No qualifying data Procedure/Surgical History LASIK Hysterectomy Medications Home Medications (11) Active Alcohol Swabs See Instructions aspirin 81 mg oral delayed release tablet 81 mg = 1 tab(s), Oral, Daily Blood Glucose Test Machine See Instructions Blood Glucose Test Strips See Instructions cyclobenzaprine 10 mg oral tablet 10 mg = 1 tab(s), PRN, Oral, TID diclofenac 1% topical gel 4 gram(s), PRN, Topical, QID Lancets See Instructions metFORMIN 500 mg oral tablet (IR) 1,000 mg = 2 tab(s), Oral, BID nitroglycerin 0.4 mg sublingual tablet 0.4 mg = 1 tab(s), PRN, Sublingual, q5min simvastatin 40 mg oral tablet 40 mg = 1 tab(s), Oral, qHS Vitamin D3 1250 mcg (50,000 intl units) oral capsule 1,250 mcg = 1 cap(s), Oral, qWeek Allergies No Known Medication Allergies Social History Alcohol Use: OCCASIONAL., 02/26/2022 Employment/School Status: Retired., 04/18/2020 Home/Environment Marital Status: Unmarried., 12/31/2019 Nutrition/Health Caffeine intake amount: 5 SERVINGS OF COFFEE DAILY., 12/31/2019 Substance Abuse Use: Never., 12/31/2019 Tobacco Nicotine Use: Smoker, current status unknown, 1/2 pack every 2 days. Type: Cigarettes. Number of years: 40. Started at age: 24 Years. Ready to change: Yes., 02/26/2022 Immunizations SARS-CoV-2 mRNA (tozinameran) vaccine: 0.5 unknown unit (11/20/20) SARS-CoV-2 mRNA (tozinameran) vaccine: 0.5 unknown unit (10/31/20) Code Status Code Status - Ordered -- 04/19/22 15:31:00 EDT, Full Code, Constant Order Digitally Signed by ADELA KEVIN on 04/19/2022 04:37 PM [facility]10-24-2022 Evaluation + Plan noteExtracted from: Title:History and Physical Author:ADELA KEVIN APRN-RAMON Date:04/19/22 1. Chest pain Acute, new onset 3 days ago of left axillary pain radiating into left scapula and left posterior thoracic region *Troponin elevated 123.2 and 147.7. *Per cardiology at [facility], patient can stay at [facility]. *Check troponin at 2000 and in am. *Send patient for echocardiogram and lexiscan stress test in am. *Start nitroglycerin s/l as needed for recurrent chest pain. *Repeat EKG in am. *Check lipid profile and HgbA1c in am. *Repeat CBC and BMP in the am. 2. New onset type 2 diabetes mellitus Chronic, controlled *Blood sugar checks before meals and at bedtime. *Cover with sliding scale insulin. *Start diabetic diet. *Continue current home medication. *Check HgbA1c in am. 3. Hyperlipidemia Chronic *Continue current home medication. *Check lipid profile in am. 4. Tobacco use Chronic *Start nicotine patch PRN for nicotine craving. DVT prophylaxis with SCDs, ambulation. Code status: DNRCCA - do not intubate. Labs, diagnostic test and progress notes reviewed as noted in HPI. Plan of care discussed with patient. All questions answered. Patient verbalizes understanding and is agreeable with plan of care. This case was discussed with collaborating physician, Dr. Ney Cha. Future Appointments Appointment Date:04/26/2022 01:30:00 PM Scheduled Provider:DYAN BECERRIL Location:[facility] Appointment Type: OV TCM 30 Appointment Date:05/17/2022 01:00:00 PM Scheduled Provider:YDAN BECERRIL Location:[facility] Appointment Type:PC OV Lab Check Future Scheduled Tests Laboratory* A1C Hemoglobin 05/25/22 * Complete Blood Count 05/25/22 * Lipid Profile 05/25/22 * Hepatitis C Antibody IgG 09/15/21 * Complete Metabolic Panel 05/25/22 Radiology* MA Mammo Diagnostic Left w/ Panda 10/01/21 [facility] 10-24-2022 Hospital Discharge instructions Follow Up Care 04/19/2022 11:06:27 With:DYAN BECERRIL Address: [address] [place] [address]- [phone] When:04/26/2022 13:30:00 Comments:Follow-up as scheduled [facility] 10-24-2022 Note ORIGINAL EXAMINATION: TWO XRAY VIEWS OF THE CHEST 04/19/2022 12:39 pm COMPARISON: Prior CTA of the chest dated 10/08/2021. HISTORY: ORDERING SYSTEM PROVIDED HISTORY: Reason for Exam: Chest Pain FINDINGS: The cardiomediastinal silhouette demonstrates a normal appearance. No consolidative opacity is identified. There is no pleural effusion or pneumothorax. No free air seen beneath the level of the diaphragm. The bony thorax appears acutely intact. IMPRESSION: No evidence of an acute process. Interpreted by: Amrit Grant MD Preliminary Report By: Amrit Grant MD Electronically signed By Amrit Grant MD Dictated Date: 04/19/2022 12:52:44 PM Prelim Date: 04/19/2022 12:54:17 PM Sign Date: 04/19/2022 12:54:17 PM Ordering Provider: [facility]10-24-2022 Note ORIGINAL EXAMINATION: TWO XRAY VIEWS OF THE CHEST 04/19/2022 12:39 pm COMPARISON: Prior CTA of the chest dated 10/08/2021. HISTORY: ORDERING SYSTEM PROVIDED HISTORY: Reason for Exam: Chest Pain FINDINGS: The cardiomediastinal silhouette demonstrates a normal appearance. No consolidative opacity is identified. There is no pleural effusion or pneumothorax. No free air seen beneath the level of the diaphragm. The bony thorax appears acutely intact. IMPRESSION: No evidence of an acute process. Interpreted by: Amrit Grant MD Preliminary Report By: Amrit Grant MD Electronically signed By Amrit Grant MD Dictated Date: 04/19/2022 12:52:44 PM Prelim Date: 04/19/2022 12:54:17 PM Sign Date: 04/19/2022 12:54:17 PM [facility] Appointment Date:09/15/2021 03:00:00 PM Scheduled Provider:DYAN BECERRIL Location:[facility] Appointment Type:PC OV [facility] Evaluation + Plan note Future Appointments Appointment Date:12/11/2021 11:00:00 AM Scheduled Provider:DYAN BECERRIL Location:[facility] Appointment Type:PC OV Lab Check Future Scheduled Tests Laboratory* A1C Hemoglobin 12/16/21 * Complete Blood Count 12/16/21 * Lipid Profile 12/16/21 * Hepatitis C Antibody IgG 09/15/21 * Microalbumin Level Urine 12/16/21 * Complete Metabolic Panel 12/16/21 Radiology* MA Mammo Diagnostic Left w/ Panda 10/01/21 * US Axilla Left 10/01/21 [facility] Evaluation + Plan note Future Appointments Appointment Date:12/07/2021 10:30:00 AM Scheduled Provider:DYAN BECERRIL Location:[facility] Appointment Type:PC OV Lab Check Future Scheduled Tests Laboratory* A1C Hemoglobin 12/16/21 * Complete Blood Count 12/16/21 * Lipid Profile 12/16/21 * Hepatitis C Antibody IgG 09/15/21 * Microalbumin Level Urine 12/16/21 * Complete Metabolic Panel 12/16/21 Radiology* MA Mammo Diagnostic Left w/ Panda 10/01/21 [facility] Evaluation + Plan note Future Appointments Appointment Date:05/11/2022 09:00:00 AM Scheduled Provider:ROSAS ODONNELL Location:[facility] Appointment Type:CTS OV Post Op Appointment Date:05/17/2022 01:00:00 PM Scheduled Provider:DYAN BECERRIL Location:[facility] Appointment Type:PC OV Lab Check Appointment Date:06/04/2022 11:15:00 AM Scheduled Provider: Location:[facility] Appointment Type:CV OV Hospital Follow Up Future Scheduled Tests Laboratory* A1C Hemoglobin 05/25/22 * Complete Blood Count 05/25/22 * Lipid Profile 05/25/22 * Hepatitis C Antibody IgG 09/15/21 * Complete Metabolic Panel 05/25/22 Radiology* MA Mammo Diagnostic Left w/ Panda 10/01/21 [facility] Evaluation + Plan note Future Appointments Appointment Date:05/17/2022 01:00:00 PM Scheduled Provider:DYAN BECERRIL Location:[facility] Appointment Type:PC OV Lab Check Appointment Date:05/18/2022 01:45:00 PM Scheduled Provider: Location:[facility] Appointment Type:PC Nurse Appointment Date:05/26/2022 01:30:00 PM Scheduled Provider:ROSAS ODONNELL Location:[facility] Appointment Type:CTS OV Post Op Follow Up Appointment Date:06/04/2022 11:15:00 AM Scheduled Provider: Location:[facility] Appointment Type:CV OV Hospital Follow Up Future Scheduled Tests Laboratory* A1C Hemoglobin 05/25/22 * Complete Blood Count 05/25/22 * Lipid Profile 05/25/22 * Hepatitis C Antibody IgG 09/15/21 * Complete Metabolic Panel 05/25/22 Radiology* MA Mammo Diagnostic Left w/ Panda 10/01/21 * XR Chest 2 Views (PA & Lateral) 05/25/22 [facility] Evaluation + Plan note Future Appointments Appointment Date:07/13/2022 01:00:00 PM Scheduled Provider:DYAN BECERRIL Location:[facility] Appointment Type:PC OV Appointment Date:09/10/2022 01:00:00 PM Scheduled Provider: Location:[facility] Appointment Type:CV OV Future Scheduled Tests Laboratory* Hepatitis C Antibody IgG 09/15/21 Radiology* MA Mammo Diagnostic Left w/ Panda 10/01/21 [facility] Evaluation + Plan note Future Appointments Appointment Date:10/07/2022 01:00:00 PM Scheduled Provider:DYAN BECERRIL Location:[facility] Appointment Type:PC OV Appointment Date:10/11/2022 10:45:00 AM Scheduled Provider: Location:[facility] Appointment Type:PC Nurse Protime Appointment Date:10/15/2022 02:00:00 PM Scheduled Provider: Location:[facility] Appointment Type:CV OV [facility] Evaluation + Plan note Future Appointments Appointment Date:01/03/2023 01:00:00 PM Scheduled Provider:DYAN BECERRIL Location:[facility] Appointment Type:PC OV Lab Check Future Scheduled Tests Laboratory* A1C Hemoglobin 01/06/23 * Complete Blood Count 01/06/23 * Lipid Profile 01/06/23 * Complete Metabolic Panel 01/06/23 [facility] Evaluation + Plan note Future Appointments Appointment Date:01/06/2023 02:00:00 PM Scheduled Provider:DYAN BECERRIL Location:[facility] Appointment Type:PC OV Lab Check [facility] Evaluation + Plan note Future Appointments Appointment Date:12/22/2023 01:00:00 PM Scheduled Provider:DYAN BECERRIL Location:[facility] Appointment Type:PC Wellness Medicare with Labs Future Scheduled Tests Laboratory* Thyroid Stimulating Hormone 12/21/23 * A1C Hemoglobin 12/21/23 * Complete Blood Count 12/21/23 * Lipid Profile 12/21/23 * Albumin/Creatinine Ratio, Random Urine 12/21/23 * Vitamin D Level 12/21/23 * Complete Metabolic Panel 12/21/23 Radiology* CT Thorax w/o Contrast 06/21/23 [facility] Evaluation + Plan note Future Appointments Appointment Date:12/22/2023 01:00:00 PM Scheduled Provider:DYAN BECERRIL Location:[facility] Appointment Type:PC Wellness Medicare with Labs Appointment Date:01/06/2024 01:45:00 PM Scheduled Provider: Location:[facility] Appointment Type:CV OV [facility] Evaluation + Plan note Future Appointments Appointment Date:06/11/2024 01:00:00 PM Scheduled Provider:DYAN BECERRIL Location:[facility] Appointment Type:PC OV Lab Check [facility] Evaluation + Plan note Future Appointments Appointment Date:12/10/2024 01:00:00 PM Scheduled Provider:DYAN BECERRIL Location:[facility] Appointment Type:PC Wellness Medicare with Labs [facility] Evaluation + Plan note Future Appointments Appointment Date:01/21/2025 01:00:00 PM Scheduled Provider: Location:[facility] Appointment Type:Echo - Echocardiogram Adult Appointment Date:01/25/2025 01:40:00 PM Scheduled Provider: Location:[facility] Appointment Type:MA Mammogram Screening Bilateral w/ Panda Appointment Date:01/25/2025 02:00:00 PM Scheduled Provider: Location:[facility] Appointment Type:BD Bone Density DEXA Axial Skeleton Appointment Date:02/15/2025 10:15:00 AM Scheduled Provider:FREDERIC KRAMER Location:[facility] Appointment Type:CV OV Appointment Date:03/05/2025 01:00:00 PM Scheduled Provider: Location:[facility] Appointment Type:CT Chest w/o Contrast Appointment Date:06/13/2025 01:00:00 PM Scheduled Provider:DYAN BECERRIL Location:[facility] Appointment Type:PC OV Lab Check Future Scheduled Tests Laboratory* A1C Hemoglobin 06/11/25 * Complete Blood Count 06/11/25 * Lipid Profile 06/11/25 * Complete Metabolic Panel 06/11/25 Radiology* MA Mammo Screening Bilateral w/ Panda 01/25/25 * BD Bone Density DEXA Axial Skeleton Adult (21 yrs or older) 01/25/25 * CT Thorax w/o Contrast 03/05/25 [facility] Evaluation + Plan note Future Appointments Appointment Date:01/25/2025 01:40:00 PM Scheduled Provider: Location:[facility] Appointment Type:MA Mammogram Screening Bilateral w/ Panda Appointment Date:01/25/2025 02:00:00 PM Scheduled Provider: Location:[facility] Appointment Type:BD Bone Density DEXA Axial Skeleton Appointment Date:02/15/2025 10:15:00 AM Scheduled Provider:FREDERIC KRAMER Location:[facility] Appointment Type:CV OV Appointment Date:03/05/2025 01:00:00 PM Scheduled Provider: Location:[facility] Appointment Type:CT Chest w/o Contrast Appointment Date:06/13/2025 01:00:00 PM Scheduled Provider:DYAN BECERRIL Location:[facility] Appointment Type:PC OV Lab Check Future Scheduled Tests Laboratory* A1C Hemoglobin 06/11/25 * Complete Blood Count 06/11/25 * Lipid Profile 06/11/25 * Complete Metabolic Panel 06/11/25 Radiology* MA Mammo Screening Bilateral w/ Panda 01/25/25 * BD Bone Density DEXA Axial Skeleton Adult (21 yrs or older) 01/25/25 * CT Thorax w/o Contrast 03/05/25 [facility] Evaluation noteNo assessment information available [facility] Work Phone: Hospital course Narrative No data available for this section [facility] Hospital Discharge instructions No data available for this section [facility] Progress note No data available for this section [facility] Reason for referral (narrative)No reason for referral information available[facility] Work Phone: Summary Purpose Family History No Family History Records Found Relationship Condition Age at Onset Recorded Date/T nabil mother Diabetes mellitus Unknown Advance Directives No Advanced Directives Records FoundNo Advanced Directives Records FoundNo Advanced Directives Records FoundNo Advanced Directives Records FoundNo Advanced Directives Records Found Hospital Course Note HNO ID: [id number] Author: Bhavesh Hercules) Thuestaconsuelo Service: Hospital Medicine Author Type: Physician Type: Discharge Summary Filed: 11/12/2018 11:47 AM Note Text: DISCHARGE SUMMARY PATIENT NAME: Caity Strickland Code Status: Not on file Highest Readmission Risk Score: 6 The 30 day readmissions risk score is derived from an internally validated risk model which evaluates patient level characteristics, utilization history, medication orders and lab results up until the day of discharge. Patients with a score of 40 or above are considered highest risk for readmission. Specific patient level drivers will be listed at the bottom of the summary. Admission Information Admission Information ADMIT DATE: 11/11/2018 DISCHARGE DATE: 11/12/2018 MY DOCTORS AND MEDICAL TEAM: My Main Hospital Doctor: Shelia Crowder) Huber Primary Care Provider: No primary care provider on file. My Medical Team Members: Treatment Team: Attending Provider: Shelia Ngo MY CONDITION AT DISCHARGE: Stable REASON I W (more content not included)... Chief Complaint and Reason for Visit Chief Complaint Admit Date Carotid stenosis January 30, 2025 1:1 4pm Chief Complaint Admit Date Carotid stenosis January 30, 2025 1:1 4pm Stricture of artery *see order for instr uctions* February 19, 2025 2:16pm Reason for Visit Admit Date Left carotid stenosis January 30, 2025 1 :14pm S/P CABG x 3 January 30, 2025 1:1 4pm Stenosis of left subclavian artery Augus t 2024 1:14pm Chief Complaint Admit Date Carotid stenosis January 30, 2025 1:1 4pm Stricture of artery *see order for instr uctions* February 19, 2025 2:16pm Discuss Results April 15, 2025 2 :33pm Reason for Visit Admit Date Left carotid stenosis January 30, 2025 1 :14pm S/P CABG x 3 January 30, 2025 1:1 4pm Stenosis of left subclavian artery Augus t 2024 1:14pm Stenosis of left subclavian artery Octob er 2024 2:33pm Additional Source Comments INFORMATION SOURCE (unrecogn ized section and content) DATE CREATED AUTHOR 11/23/2018 [facility] DATE CREATED AUTHOR AUTHOR'S ORGANIZ ATION 01/18/2024 [facility] DATE CREATED AUTHOR AUTHOR'S ORGANIZ ATION 02/02/2025 [facility] DATE CREATED AUTHOR AUTHOR'S ORGANIZ ATION 03/07/2025 [facility] DATE CREATED AUTHOR AUTHOR'S ORGANIZ ATION 05/03/2025 [facility] Care Team (unrecognized sect ion and content) Team Status: Inactive Member Role/Relationship Status Dates JANAY Oneill Attending Provider Active Star t: January 30, 2025 End: January 30, 2025 Team Status: Active Member Role/Relationship Status Dates DYAN BECERRIL Primary Care Provider Active Team Status: Inactive Member Role/Relationship Status Dates JANAY Oneill Attending Provider Active Star t: January 30, 2025 End: January 30, 2025 Team Status: Inactive Member Role/Relationship Status Dates JANAY Oneill Attending Provider Active Star t: February 19, 2025 End: February 19, 2025 JANAY Oneill Referring Provider Active Star t: February 19, 2025 End: February 19, 2025 BARBER ABAD Primary Care Provider Active Sta rt: February 19, 2025 End: February 19, 2025 Team Status: Inactive Member Role/Relationship Status Dates JANAY Oneill Attending physician Active Sta rt: January 30, 2025 End: January 30, 2025 Team Status: Inactive Member Role/Relationship Status Dates JANAY Oneill Attending physician Active Sta rt: February 19, 2025 End: February 19, 2025 JANAY Oneill Referring Provider Active Star t: February 19, 2025 End: February 19, 2025 BARBER ABAD Primary care physician Active St art: February 19, 2025 End: February 19, 2025 Team Status: Inactive Member Role/Relationship Status Dates Dr. Adin Burgos MD Attending physician Active Start: April 15, 2025 End: April 15, 2025 Care Team (unrecognized sect ion and content) Care Team Personnel Name: DYAN BECERRIL APRN-FRUIT RECEIVER Position: P4 Advanced Practice Nurse Member Role: Primary Care Physician Address: Address: [address] [place] [id number]- [place] Name: NATE LOUISE MD Position: P3 Physician - Orthopedics Member Role: Orthopaedist Address: Address: [address] [facility] [address]- [place] Name: Katlin Mcintosh Coder Position: HIM: Coders Member Role: HIM: Coders Name: MONICA CARRASCO MD Position: ED Physician Member Role: ED Physician Address: Address: [facility] [address] [place] [address]- [place] Name: Elizabeth Carlson RN Position: AO RN Member Role: RN Care Team Related Persons Name: SHAWNA STRICKLAND Care Team Personnel Name: DYAN BECERRIL APRN-RAMON Position: P4 Advanced Practice Nurse Member Role: Primary Care Physician Address: Address: [address] [place] [address]- Name: NATE LOUISE MD Position: P3 Physician - Orthopedics Member Role: Orthopaedist Address: Address: [address] [place] [address] [place] [id number] Care Team Related Persons Name: SHAWNA STRICKLAND Care Team Personnel Name: DYAN BECERRIL APRN-RAMON Position: P4 Advanced Practice Nurse Member Role: Primary Care Physician Address: Address: [address] [place] [address]- Name: NATE LOUISE MD Position: P3 Physician - Orthopedics Member Role: Orthopaedist Address: Address: [address] [place] [address] Care Team Related Persons Name: SHAWNA STRICKLAND Care Team Personnel Name: DYAN BECERRIL APRN-FRUIT RECEIVER Position: P4 Advanced Practice Nurse Member Role: Primary Care Physician Address: Address: [address] [place] [address]- Name: NATE LOUISE MD Position: P3 Physician - Orthopedics Member Role: Orthopaedist Address: Address: [address] [place] [address] Orth[address] Care Team Related Persons Name: MARCO A SHAWNA Care Team Personnel Name: DYAN BECERRIL APRN-FRUIT RECEIVER Position: P4 Advanced Practice Nurse Member Role: Primary Care Physician Address: Address: [facility] [place] [id number]- Name: NATE LOUISE MD Position: P3 Physician - Orthopedics Member Role: Orthopaedist Address: Address: [address] [place] [address] Orthopaedics/[place] [address]- [place] Care Team Related Persons Name: SHAWNA STRICKLAND Goals (unrecognized section and content) Goals may be documented in a n alternate section FOR RECORDS PERTAINING TO PATIENTS WHO ARE OR HAVE BEEN ENROLLED IN A CHEMICAL DEPENDENCY/SUBSTANCEABUSE PROGRAM, SOME INFORMATION MAY BE OMITTED. This clinical summary was aggregated from multiple sources. Caution should be exercised in using it in the provision of clinical care. This summary normalizes information from multiple sources, and as a consequence, information in this document may materially change the coding, format and clinical context of patient data. In addition, data may be omitted in some cases. CLINICAL DECISIONS SHOULD BE BASED ON THE PRIMARY CLINICAL RECORDS. [facility] [employer] [facility]. provides no warranty or guarantee of the accuracy or completeness of information in this document.
[2025-06-05 07:20] LABS: Hematocrit 42.2 % (37-47); Hemoglobin 13.9 g/dL (12.0-15.0); Mean Corp Hgb Conc 32.9 g/dL (32-36); Mean Corpuscular Volume 96.1 fL (81-99); Mean Platelet Vol. 10.4 fl (6.2-12.0); Platelet Count 211 K/mm3 (150-450); RBC Distribution Width CV 13.2 % (11.6-14.6); RBC Distribution Width SD 47.0 fl (35.1-43.9); Red Blood Count 4.39 M/mm3 (4.2-5.4); White Blood Count 6.2 K/mm3 (4.4-11.0)
[2025-06-05 07:40] LABS: Anion Gap 11 (5-15); BUN 7 mg/dL (4-19); BUN/Creat Ratio 11.7 RATIO (10-20); Calcium,Total 9.5 mg/dL (7.6-11.0); Carbon Dioxide 28.5 mmol/L (21.0-32.0); Chloride 102 mmol/L (98-108); Estimated Creatinine Clearance 65.14 ml/min (50-250); Glucose 135 mg/dL (70-99); Potassium 3.8 mmol/L (3.3-5.1)
--- NOTE | 2025-06-05 07:43 | PCM.HP.STD ---
HPI - General HPI Narrative KATI STRICKLAND, is a 75 F who presents with left subclavian stenosis initially identified on carotid duplex at outside facility. She has history of prior CABG with [facility] about 2 years ago after acute IA. At time of IA she had no chest pain or shortness of breath, just felt unwell; has history of DM. She denies arm claudication, dizziness or CP with repetitive arm activity. [facility] Medical History Myocardial infarction (~03/2023) Home Medications ?Medication ?Instructions ?Recorded ?Last Taken ?Type aspirin 81 mg tablet 81 mg PO QDAY 01/28/25 Unknown History atorvastatin 40 mg tablet (Lipitor) 40 mg PO QHS 01/30/25 Unknown History metformin 500 mg tablet 500 mg PO BID 01/30/25 06/04/25 History metoprolol succinate 25 mg 25 mg PO BID 01/30/25 Unknown History tablet,extended release 24 hr Allergy/AdvReac Type Severity Reaction Status Date / Time No Known Allergies Allergy Verified 04/15/25 15:48 Family History Mother Diabetes Surgical History History of open heart surgery (~04/26/23) Social History Smoking Status: Current every day smoker tobacco type: cigarettes additional social history: ASA everyday ROS Constitutional Constitutional: Denies chills, fever(s), frequent falls, lethargy or weakness Eyes Eyes: Denies blind spots, change in vision or loss of vision ENT HEENT: Denies bleeding gums, hoarseness or sore throat Cardiovascular Cardiovascular: Denies abdominal pain, bluish discoloration of hand/feet, chest pain with activity, claudication, cold extremities, cyanosis, dyspnea on exertion, erythema on extremities, irregular heart rhythm, leg edema, leg ulcers, numbness in extremities or weakness in extremities Respiratory/Chest Respiratory/Chest: Denies cough, excessive phlegm production, shortness of breath at rest, shortness of breath with exertion or wheezing Gastrointestinal Gastrointestinal: Denies anorexia, change in stool character, constipation, diarrhea, melena or rectal bleeding Genitourinary Genitourinary: Denies dysuria or hematuria Musculoskeletal Musculoskeletal: Denies abnormal gait Integumentary Integumentary: Reports other Details: ; Denies erythema, non-healing lesions or wounds Neurologic Neurologic: Denies abnormal speech, focal weakness, headache(s), loss of vision, numbness, paresthesias or sensory deficit Hematologic/Lymphatic Hematologic/Lymphatic: Denies easy bleeding, easy bruising or lymphadenopathy Vital Signs Vital Signs Vital Signs: Weight Weight: 167 lb Body Mass Index (BMI) 26.9 Physical Exam Const alert, oriented x3, no apparent distress and healthy appearing General Appearance: cooperative; Negative for combative or lethargic Orientation / Consciousness: awake Exam Limitations: no limitations HEENT Head and Scalp: normocephalic and atraumatic Eyes EOMs intact bilaterally General Eye: normal appearance of both eyes Neck full ROM and no lymphadenopathy General: trachea midline Resp normal respiratory effort and no use of accessory muscles Effort and Inspection: Negative for labored, stridor or audible wheezes Cardio regular rate and regular rhythm Peripheral Pulses: brachial pulses present and radial pulses present Back/Spine Cervical Spine: cervical ROM normal Extremity full ROM, normal capillary refill and no clubbing, cyanosis or edema Skin no rashes or lesions noted and no wounds Neuro oriented x3, CN's II-XII intact bilaterally, no focal motor deficits and no sensory deficits noted Psych thought process normal, cooperative, affect normal, speech normal and activity/motor behavior normal Results Lab / Micro Data 06/05/25 07:05 06/05/25 07:05 Labs: Laboratory Results - last 24 hr 06/05/25 07:05: WBC 6.2, RBC 4.39, Hgb 13.9, Hct 42.2, MCV 96.1, MCH 31.7, MCHC 32.9, RDW Std Deviation 47.0 H, RDW Coeff of Naomy 13.2, Plt Count 211, MPV 10.4, Sodium 141, Potassium 3.8, Chloride 102, Carbon Dioxide 28.5, Anion Gap 11, BUN 7, Creatinine 0.61 L, Estim Creat Clear Calc 65.14, Est GFR (MDRD) Non-Af 94, BUN/Creatinine Ratio 11.7, Glucose 135 H, Calcium 9.5 Assessment & Plan Assessment/Plan (1) Stenosis of left subclavian artery: PLAN: -angio, possible intervention
--- NOTE | 2025-06-05 12:31 | OP.PCM_ITS ---
Operative Report (Standard) Operative Information Date of Procedure: 06/05/25 Pre-Operative Diagnosis: Left subclavian stenosis with prior left internal mammary graft for coronary revascularization Post-Operative Diagnosis: Same Surgery/Procedure Performed: Angiogram left upper extremity Intravascular ultrasound of left subclavian, axillary, radial artery Angioplasty and stent left subclavian artery stenosis sugar laboratory assistant: No Type of Anesthesia: Local and Sedation,Conscious Procedure Start Time: 08:10 Procedure Stop Time: 09:10 Select all DRAINS/GRAFTS/IMPLANTS that apply: Implanted device Implanted device details: [place] VBX 5 x 29 Estimated Blood Loss: 7 Specimen collected: No Description of surgery: HPI: Patient is a 75-year-old female with prior coronary artery bypass grafting utilizing internal mammary artery on the left. At outside facility she had a carotid duplex which also evaluated the subclavian which revealed significant elevated velocity approximately consistent with greater than 70% stenosis. She had a CT angiography that confirmed severity of stenosis greater than 70% and a patent coronary artery bypass graft distal to this. 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 She presents now for angiogram with possible intervention versus bypass planning. Description of procedure: Upon obtaining informed consent and verification correct patient procedure site patient was taken to the [facility] [employer] [facility] where she was positioned prepped and draped in usual sterile fashion. Timeouts performed conscious sedation administered Versed and fentanyl. The left radial artery was accessed with a micropuncture needle wire and exchanged for the radial artery slender sheath advanced without difficulty. Through the sheath verapamil, nit ro, heparin was infused. Next a Bentson wire and a KMP catheter were advanced under fluoroscopic guidance navigating ultimately into the distal subclavian artery. From this position subtraction angiography was performed which confirmed the severity and location of the stenosis with regards to the pertinent branches particularly the vertebral and the SYLVIA. Is felt that the lesion warranted treatment and that the SYLVIA was confirmed to be very diminutive and in fact did not have any direct perfusion to the intracranial circulation so was unlikely to be negatively affected by stenting near his origin. Through the KMP catheter and an 014 wire was advanced traversing the lesion and advanced into the ascending aorta. The catheter was then withdrawn and intravascular ultrasound probe advanced with recorded pullback performed of the origin of the vessel from the aorta to the radial artery. This confirmed severity of stenosis approximately 70% and confirmed that we were within the true lumen while crossing the lesion. The extent of the lesion was then marked on the screen and a [place] VBX 5 x 29 was then brought in field prep per powerhouse oiler's instructions. The intravascular ultrasound probe was then withdrawn and the stent advanced into position centered on the lesion. Balloon was inflated to nominal for 30 seconds then deflated withdrawn. Given the size of the reference vessels post dilation with a 6 x 2 mm Radha angioplasty balloon was then performed inflating to nominal then deflated and withdrawn. Completion angiography confirmed satisfactory stent positioning with no residual stenosis and no extravasation or dissection. There was no disruption of the flow through the internal mammary artery and there was no significant change in the antegrade flow through the diseased vertebral artery. The intravascular ultrasound probe was then readvanced to assess the postintervention stent which revealed satisfactory position with no residual stenosis proximally I was satisfactory stent wall apposition and no residual stenosis. The wire and catheter were then withdrawn and a TR band placed followed by sheath removal. Patient was then taken to recovery with plan discharge to home after TR band protocol. Surgical Findings: 70% stenosis of the left subclavian artery Highly diseased left vertebral artery with origin adjacent to the end of the plaque but with distal occlusion and no direct vascularization of the the intra cranial system Atypical anatomy with high bifurcation into the radial and ulnar artery in the axilla Complications Complications: No
== END 2025-06-05 11:30 | disposition home or self-care (01) ==
PROVIDERS: Visit Provider Surgery Trauma Surgery
DX: I77.1 Stricture of artery (principal); Z95.1 Presence of aortocoronary bypass graft; Z79.85 Long-term (current) use of injectable non-insulin antidiabetic drugs; F17.210 Nicotine dependence, cigarettes, uncomplicated
CPT/HCPCS: 36415; 37236; 37252; 37253; 75710; 80048; 85027; 99152; 99153; C1725; C1753; C1769; Q9967; C1894

== ENCOUNTER 2025-06-11 14:18 | Emergency (ER) | payer MEDICARE, OTHER, SELFPAY ==
[2025-06-11 14:19] VITALS: BP 143/72; PULSE 88; RESP 16; TEMP 36.6; O2SAT 99; BMI 26.6
--- NOTE | 2025-06-11 14:39 | EKG12_ITS ---
Test Reason : SYNCOPE Blood Pressure : */* mmHG Vent. Rate : 87 BPM Atrial Rate : 87 BPM P-R Int : 156 ms QRS Dur : 128 ms QT Int : 406 ms P-R-T Axes : -18 -15 -13 degrees QTcB Int : 488 ms Normal sinus rhythm Right bundle branch block T wave abnormality, consider inferior ischemia Abnormal ECG Confirmed by Alex Rangel ([id number]), editor index GINNA KAPADIA ([id number]) on 06/12/2025 10:24:08 AM Referred By: MARIO/BECK Confirmed By: Alex Rangel
--- NOTE | 2025-06-11 14:50 | CT_ITS ---
PROCEDURE: BRAIN/HEAD WITHOUT CONTRAST 06/11/2025 REASON FOR EXAM: UNRESPONISIVE EPISODE TECHNIQUE: Procedure Code: CTBR Modality: CT Procedure: BRAIN/HEAD WITHOUT CONTRAST Coronal and Sagittal reconstruction series were provided. One or more dose reduction techniques were used (e.g., Automated exposure control, adjustment of the mA and/or kV according to patient size, use of iterative reconstruction technique. RADIATION DOSE SUMMARY: CTDlvol: 44.99 mGy DLP: 762.36 mGycm COMPARISON: None FINDINGS: Brain: Within normal limits for age CSF Spaces: Mild generalized cerebral atrophy Sinuses/Mastoids: Clear at visualized levels Bones: Hyperostosis frontalis interna. CT/Brain/Head without Contrast IMPRESSION: Mild degree of cerebral atrophy in keeping with the patient's age. No acute abnormality is seen. Reading Location: [id number]
[2025-06-11 15:01] LABS: Hematocrit 41.0 % (37-47); Hemoglobin 13.5 g/dL (12.0-15.0); Immature Granulocytes Count 0.040 X10^3/uL (0.0-0.0); Mean Corp Hgb Conc 32.9 g/dL (32-36); Mean Corpuscular Volume 96.7 fL (81-99); Mean Platelet Vol. 10.9 fl (6.2-12.0); NRBC Flagged by Analyzer 0 % (0-5); Platelet Count 292 K/mm3 (150-450); RBC Distribution Width CV 13.2 % (11.6-14.6); RBC Distribution Width SD 47.0 fl (35.1-43.9); Red Blood Count 4.24 M/mm3 (4.2-5.4); White Blood Count 8.6 K/mm3 (4.4-11.0)
--- NOTE | 2025-06-11 15:02 | EX.ED.DYSGE1 ---
HPI <Dr. Raj Landeros DO - Last Filed: 06/11/25 16:05> History of Present Illness Chief Complaint: Syncope Informant: patient, family and EMS Narrative Narrative: 75-year-old female presented to the emergency room via EMS following a reported syncopal episode. Patient was pained for some items at a store when she acutely began to feel lightheaded. Family states that she looked very pale and then she began to twitch and then she passed out. States that she kept her eyes open. She eventually came around and there was some nurses there were nearby. Patient knew her name where she was at. She recently had a subclavian stent placed and is on Plavix. Family states that a nurse there said that she was having a stroke but she states that she feels pretty much back to baseline. Preceding the event she was not experiencing any pain but there was some report of nausea. She denies any palpitations chest pain shortness of breath. Patient has had a CABG [facility] <Dr. Raj Landeros DO - Last Filed: 06/11/25 16:05> [facility] Medical History Myocardial infarction (~03/2023) Home Medications ?Medication ?Instructions ?Recorded ?Last Taken ?Type aspirin 81 mg tablet 81 mg PO QDAY 01/28/25 06/11/25 History atorvastatin 40 mg tablet (Lipitor) 40 mg PO QHS 01/30/25 06/10/25 History metformin 500 mg tablet 500 mg PO BID 01/30/25 06/11/25 History clopidogrel 75 mg tablet (Plavix) 75 mg PO DAILY #90 tabs 06/05/25 06/11/25 Rx ibuprofen 200 mg tablet (Advil) 200 mg PO Q8H PRN pain 06/11/25 06/10/25 History metoprolol tartrate 25 mg tablet 25 mg PO BID 06/11/25 06/11/25 History Allergy/AdvReac Type Severity Reaction Status Date / Time No Known Allergies Allergy Verified 06/11/25 14:21 Family History Mother Diabetes Surgical History History of open heart surgery (~04/26/23) Social History Smoking Status: Current every day smoker tobacco type: cigarettes additional social history: ASA everyday ROS <Dr. Raj Landeros DO - Last Filed: 06/11/25 16:05> ROS ED Constitutional Constitutional ED: Denies chills, fever(s) or weight loss Eyes Eyes: Denies change in vision or diplopia ENT ENT ED: Denies ear pain, rhinorrhea or sore throat Cardiovascular Cardiovascular: Reports other Details: Syncope ; Denies chest pain, orthopnea, palpitations or racing heartbeat Respiratory/Chest Respiratory/Chest: Denies cough, dyspnea or orthopnea Gastrointestinal Gastrointestinal: Denies abdominal pain, diarrhea, nausea or vomiting Genitourinary Genitourinary ED: Denies dysuria, hematuria or urinary frequency Musculoskeletal Musculoskeletal: Denies arthralgias or myalgias Integumentary Denies abscess or rash Neurologic Neurologic: Denies headache(s) or weakness Psychiatric Psychiatric: Denies anxiety, depression, suicidal ideation or suicidal thoughts Endocrine Endocrinology: Denies polydipsia, polyphagia or polyuria Allergic/Immunologic Allergic/Immunologic ED: Denies mouth swelling, tongue swelling or urticaria EXAM <Dr. Raj Landeros DO - Last Filed: 06/11/25 16:05> Physical Exam Const Vital Signs: 06/11/25 14:19 06/11/25 14:24 06/11/25 16:28 Temperature 98 F Temperature Source Oral Pulse Rate 88 87 Respiratory Rate 16 12 Respiratory Effort Normal Respiratory Pattern Normal Blood Pressure 143/72 H 157/67 H Blood Pressure Mean 95 97 Pulse Ox 99 95 Oxygen Delivery Method Room Air Room Air Positive well nourished and well developed General Appearance ED: well developed and NAD HEENT Reports normocephalic, head/scalp atraumatic and moist mucous membranes Eyes PERRL and EOMs intact bilaterally Neck no lymphadenopathy, supple and no JVD Resp normal respiratory effort and clear to auscultation bilaterally Cardio regular rate, regular rhythm and no murmurs GI normal to inspection, nondistended, normoactive bowel sounds and non-tender Palpation: soft Back/Spine no CVA tenderness and normal ROM Extremity normal to inspection General Extremety ED: Negative for edema General Extremity: Negative for edema Neuro oriented x3, CN's II-XII intact bilaterally and no sensory deficits noted Sensorium / Orientation: alert Motor Exam: strength 5/5 throughout Psych mental status grossly normal Mood & Affect: Negative for depressed or tearful Skin no rashes or lesions noted and no wounds <Dr. Griselda Braden MD - Last Filed: 06/11/25 17:59> Physical Exam Const Vital Signs: 06/11/25 14:19 06/11/25 14:24 06/11/25 16:28 Temperature 98 F Temperature Source Oral Pulse Rate 88 87 Respiratory Rate 16 12 Respiratory Effort Normal Respiratory Pattern Normal Blood Pressure 143/72 H 157/67 H Blood Pressure Mean 95 97 Pulse Ox 99 95 Oxygen Delivery Method Room Air Room Air MDM <Dr. Raj Landeros DO - Last Filed: 06/11/25 16:05> MDM MDM Narrative Medical decision making narrative: Differential diagnosis includes but not limited to vasovagal syncope cardiac syncope anemia electrolyte abnormalities sepsis intracranial hemorrhage hematoma Hemoglobin 13.5 white count of 8.6 platelet 292. Normal electrolytes BUN of 9 creatinine 0.77 initial troponin is 10. Patient is in a normal sinus rhythm. I do not have old EKG to compare to. I have not seen any events on the monitor. My depend interpretation of chest x-ray is no acute process. Noncontrasted head CT shows no acute intracranial hemorrhage edema or acute process. Patient will be monitored the monitoring and evaluation advisor. Will obtain a second troponin to ambulate her. These are negative for the patient exam is doing well I think it is reasonable to be discharged home with PCP follow-up. Family has been updated. Disposition decision will be made after ambulation and second troponin History & Record Review Discussion w/independent historian: EMS personnel, Patient and Family Additional record(s) reviewed:: Prior outpatient record Lab Data Attestation: I reviewed the patient's lab results. Labs: Laboratory Results - last 24 hr 06/11/25 06/11/25 14:09 16:20 WBC 8.6 RBC 4.24 Hgb 13.5 Hct 41.0 MCV 96.7 MCH 31.8 MCHC 32.9 RDW Std Deviation 47.0 H RDW Coeff of Naomy 13.2 Plt Count 292 MPV 10.9 Immature Gran % (Auto) 0.500 Neut % (Auto) 62.4 Lymph % (Auto) 28.8 [place] % (Auto) 6.4 Eos % (Auto) 1.2 Baso % (Auto) 0.7 Absolute Neuts (auto) 5.4 Absolute Lymphs (auto) 2.47 Nucleated RBC % 0 Sodium 138 Potassium 3.8 Chloride 100 Carbon Dioxide 24.3 Anion Gap 13 BUN 9 Creatinine 0.77 Estim Creat Clear Calc 64.80 Est GFR (MDRD) Non-Af 81 BUN/Creatinine Ratio 11.6 Glucose 166 H Calcium 9.7 Troponin T High Sens 10 Troponin T Hi Sens 2 Hr 10 Radiography Diagnostic Testing: Clinical Impression(s) from Imaging Studies Brain CT 06/11/25 14:50 IMPRESSION: Mild degree of cerebral atrophy in keeping with the patient's age. No acute abnormality is seen. Reading Location: [id number] Chest X-Ray 06/11/25 15:05 IMPRESSION: No Acute Findings. Reading Location: [facility] EKG Initial EKG: Attestation: I personally reviewed and interpreted this EKG as follows: Comments: Normal sinus rhythm with ventricular rate of 87 bpm right bundle branch block noted. <Dr. Griselda Braden MD - Last Filed: 06/11/25 17:59> [facility] Narrative Medical decision making narrative: Differential diagnosis includes but not limited to vasovagal syncope cardiac syncope anemia electrolyte abnormalities sepsis intracranial hemorrhage hematoma Hemoglobin 13.5 white count of 8.6 platelet 292. Normal electrolytes BUN of 9 creatinine 0.77 initial troponin is 10. Patient is in a normal sinus rhythm. I do not have old EKG to compare to. I have not seen any events on the monitor. My depend interpretation of chest x-ray is no acute process. Noncontrasted head CT shows no acute intracranial hemorrhage edema or acute process. Patient will be monitored the monitoring and evaluation advisor. Will obtain a second troponin to ambulate her. These are negative for the patient exam is doing well I think it is reasonable to be discharged home with PCP follow-up. Family has been updated. Disposition decision will be made after ambulation and second troponin Patient signed out to me by Dr. Landeros pending second troponin level and ambulation test. Second troponin was stable and unchanged from initial. Patient ambulated without difficulty, no lightheadedness or dizziness. Patient and sons at bedside were updated on the negative second troponin. Patient discharged from the Emergency Department. I do not feel that the patient's evaluation reveals any acute reason for admission at this time. I instructed them to either follow-up with their primary care physician or promptly return to the Emergency Department for reevaluation should symptoms worsen or new symptoms develop. I explained what symptoms would indicate the need to return to the emergency department. Shared decision making was used. The patient voiced understanding of the treatment plan and is agreeable with it. Lab Data Labs: Laboratory Results - last 24 hr 06/11/25 06/11/25 14:09 16:20 WBC 8.6 RBC 4.24 Hgb 13.5 Hct 41.0 MCV 96.7 MCH 31.8 MCHC 32.9 RDW Std Deviation 47.0 H RDW Coeff of Naomy 13.2 Plt Count 292 MPV 10.9 Immature Gran % (Auto) 0.500 Neut % (Auto) 62.4 Lymph % (Auto) 28.8 [place] % (Auto) 6.4 Eos % (Auto) 1.2 Baso % (Auto) 0.7 Absolute Neuts (auto) 5.4 Absolute Lymphs (auto) 2.47 Nucleated RBC % 0 Sodium 138 Potassium 3.8 Chloride 100 Carbon Dioxide 24.3 Anion Gap 13 BUN 9 Creatinine 0.77 Estim Creat Clear Calc 64.80 Est GFR (MDRD) Non-Af 81 BUN/Creatinine Ratio 11.6 Glucose 166 H Calcium 9.7 Troponin T High Sens 10 Troponin T Hi Sens 2 Hr 10 Radiography Diagnostic Testing: Clinical Impression(s) from Imaging Studies Brain CT 06/11/25 14:50 IMPRESSION: Mild degree of cerebral atrophy in keeping with the patient's age. No acute abnormality is seen. Reading Location: [id number] Chest X-Ray 06/11/25 15:05 IMPRESSION: No Acute Findings. Reading Location: [id number] Discharge Plan Triage Chief Complaint: Syncope ED Provider: Raj Landeros Dx/Rx/DC Orders Clinical Impression: Syncope, S/P CABG x 3 Instructions: ED Fainting, Uncertain Cause Prescriptions: No Action aspirin 81 mg tablet 81 mg PO QDAY metformin 500 mg tablet 500 mg PO BID Rx Instructions: hold for 48 hours then resume normal dose atorvastatin [Lipitor] 40 mg tablet 40 mg PO QHS clopidogrel [Plavix] 75 mg tablet 75 mg PO DAILY Qty: 90 3RF metoprolol tartrate 25 mg tablet 25 mg PO BID ibuprofen [Advil] 200 mg tablet 200 mg PO Q8H PRN (Reason: pain) Primary Care Provider: REIC BLANDON Referrals: [facility] Doctor,Out of [Non-Staff, Medical] Activity Restrictions/Additional Instructions: Follow up with PCP in 1 week Print Language: Bulgarian NIHSS <Dr. Raj Landeros DO - Last Filed: 06/11/25 16:05> NIHSS 1a. Level of Consciousness: 0 - Alert; keenly responsive 1b. LOC Questions: 0 - Answers BOTH questions correctly 1c. LOC Commands: 0 - Performs BOTH tasks correctly 2. Best Gaze: 0 - Normal 3. Visual: 0 - No visual loss 4. Facial Palsy: 0 - Normal symmetrical movements 5a. Left Arm: 0 - No drift; arm holds 90 (or 45) degrees for full 10 seconds 5b. Right Arm: 0 - No drift; arm holds 90 (or 45) degrees for full 10 seconds 6a. Left Le - No drift; leg holds 30-degree position for full 5 seconds 6b. Right Le - No drift; leg holds 30-degree position for full 5 seconds 7. Limb Ataxia: 0 - Absent 8. Sensory: 0 - Normal; no sensory loss 9. Best Language: 0 - No aphasia; normal 10. Dysarthria: 0 - Normal 11. Extinction and Inattention: 0 - No abnormality Total: 0 <Dr. Griselda Braden MD - Last Filed: 06/11/25 17:59> NIHSS Total: 0
--- NOTE | 2025-06-11 15:05 | RAD_ITS ---
PROCEDURE: CHEST 1 VIEW (PORTABLE) 06/11/2025 REASON FOR EXAM: CHEST PAIN TECHNIQUE: Frontal view of the chest. COMPARISON: None FINDINGS: Hardware: EKG electrodes are seen Heart: Prior CABG. The heart is nonenlarged. Lungs: Hyperinflation. Bones: Degenerative changes are identified within the thoracic spine. RAD/Chest 1 View (Portable) IMPRESSION: No Acute Findings. Reading Location: [id number]
[2025-06-11 15:44] LABS: Anion Gap 13 (5-15); BUN 9 mg/dL (4-19); BUN/Creat Ratio 11.6 RATIO (10-20); Calcium,Total 9.7 mg/dL (7.6-11.0); Carbon Dioxide 24.3 mmol/L (21.0-32.0); Chloride 100 mmol/L (98-108); Estimated Creatinine Clearance 64.80 ml/min (50-250); Glucose 166 mg/dL (70-99); Potassium 3.8 mmol/L (3.3-5.1); Troponin T High Sensitivity 10 ng/L (<=14)
[2025-06-11 16:28] VITALS: BP 157/67; PULSE 87; RESP 12; O2SAT 95
[2025-06-11 17:31] LABS: Troponin T High Sens 2 HR 10 ng/L (<=14)
[2025-06-11 18:00] VITALS: BP 154/62; PULSE 86; RESP 14; O2SAT 95
[2025-06-11 18:01] VITALS: BP 141/84; PULSE 84; RESP 18; TEMP 36.6; O2SAT 94
== END 2025-06-11 18:29 | disposition home or self-care (01) ==
LOC: ED 15:45
PROVIDERS: Emergency Provider Emergency Medicine; Visit Provider Emergency Medicine
DX: R55 Syncope and collapse (principal); Z95.1 Presence of aortocoronary bypass graft; Z79.02 Long term (current) use of antithrombotics/antiplatelets; Z79.82 Long term (current) use of aspirin; Z79.84 Long term (current) use of oral hypoglycemic drugs; Z79.899 Other long term (current) drug therapy; F17.210 Nicotine dependence, cigarettes, uncomplicated; I45.10 Unspecified right bundle-branch block
CPT/HCPCS: 70450; 71045; 80048; 84484; 85025; 93005; 99285; A4216